=== PATIENT | female | born 1950 | race African-American/Black ===

== ENCOUNTER 2017-05-04 10:43 | Outpatient (CLI) | payer MEDICARE, MEDICAID ==
--- NOTE | 2017-05-04 11:22 | RAD ---
TWO VIEW CHEST: HISTORY: Cough. FINDINGS: Comparison is made to a portable film of 10/19/16. Lungs appear clear with no infiltrate identified. Heart and mediastinum unremarkable and stable. No evidence of vascular congestion or effusion. IMPRESSION: No acute process. POS: [facility]
== END 2017-05-04 10:44 | disposition home or self-care (01) ==
LOC: RAD-FRANK 10:43
PROVIDERS: ATTEND Nurse Practitioner Family
DX: J40 Bronchitis, not specified as acute or chronic (principal)
CPT/HCPCS: 71020

== ENCOUNTER 2017-10-11 12:30 | Inpatient (IN) | payer MEDICARE, MEDICAID ==
[2017-10-30] MEDS ORDERED: CEFAZOLIN 1 GM VIAL ONE (10:07)
[2017-10-30] MEDS ORDERED: CEFAZOLIN/Water 2 GM/20 ML SYRINGE ONE (10:08)
[2017-10-30] MEDS ORDERED: Fentanyl 100 MCG/2 ML VIAL ONE ×2 (11:05→12:22)
[2017-10-30] MEDS ORDERED: Bupivacaine 0.25% HCL 30 ML VIAL ONE (11:05)
[2017-10-30] MEDS ORDERED: Midazolam HCl 2 mg/2 ml Vial ONE ×2 (11:05→13:12)
[2017-10-30] MEDS ORDERED: Ropivacaine 0.5% HCl/PF (150 MG/30 ML VIAL) ONE (11:05)
[2017-10-30] MEDS ORDERED: Albuterol Sulfate 2.5 mg/3 ml Neb ONE (11:32)
[2017-10-30] MEDS ORDERED: traMADol HCl 50 MG TAB PO PRN ×2 (11:56→12:43)
[2017-10-30] MEDS ORDERED: Ondansetron HCl/PF 4 MG/2 ML Vial IVP PRN ×2 (11:56→14:23)
[2017-10-30] MEDS ORDERED: Promethazine HCl 25 MG/ML VIAL IM PRN (11:56)
[2017-10-30] MEDS ORDERED: Zolpidem Tartrate 5 MG TAB PO PRN (11:56)
[2017-10-30] MEDS ORDERED: Fentanyl 100 MCG/2 ML VIAL IV PRN (11:57)
[2017-10-30] MEDS ORDERED: Neomycin-Polymyxin 1 ML AMP ONE (12:23)
[2017-10-30] MEDS ORDERED: EPINEPHrine 1 MG/ML AMP ONE (12:36)
[2017-10-30] MEDS ORDERED: Bupivacaine 0.75% W/DEXTROSE 8.25% 2 ML AMP ONE (12:36)
[2017-10-30] MEDS ORDERED: Acetaminophen/Codeine 30-300mg Tablet PO PRN (12:43)
[2017-10-30] MEDS ORDERED: Fentanyl 100 MCG/2 ML VIAL SLOW IVP PRN (12:43)
[2017-10-30] MEDS ORDERED: Morphine Sulfate 2 MG/ML SYRINGE SLOW IVP PRN (14:23)
--- NOTE | 2017-10-30 15:25 | RAD ---
TWO VIEWS RIGHT KNEE: Comparison: None. History: Status post right knee replacement. FINDINGS: Two views of the right knee shows the patient to be status post right knee arthroplasty without perih ardware lucency or fracture. Air in the soft tissues and overlying skin dallas are from recent surge ry. IMPRESSION: Status post right knee arthroplasty without evidence of complication. POS: [facility]
[2017-10-30] MEDS ORDERED: Dextrose 5% in Water 1,000 ML IV PRN (16:07)
[2017-10-30] MEDS ORDERED: Dextrose 50% Abboject 50 ML SYRINGE SLOW IVP PRN (16:07)
[2017-10-30] MEDS ORDERED: HumaLOG 300 UNITS/3 ML VIAL SC PRN (16:07)
[2017-10-30] MEDS: Gabapentin 100 MG CAP PO SCH ×2 (16:19→21:03)
[2017-10-30] MEDS: Dextrose 5 % And 0.9 % NaCl 1,000 ML IV SCH ×2 (16:20→22:45)
[2017-10-30] MEDS: HYDROcodone/Acetaminophen 10/325 mg Tablet PO PRN ×2 (16:35→21:11)
[2017-10-30 16:50] VITALS: BMI 43.2
--- NOTE | 2017-10-30 17:30 | OP ---
DATE OF PROCEDURE: 10/30/2017 PREOPERATIVE DIAGNOSIS: Severe arthritis of right knee. POSTOPERATIVE DIAGNOSIS: Severe arthritis of right knee. PROCEDURE PERFORMED: Right total knee replacement. SURGEON: Kris Jasso M.D. ANESTHESIA: Spinal and IV sedation. TECHNIQUE: The patient had a spinal prior to surgery. She was given preoperative IV antibiotics, ta elaine to the operating room, placed in supine position. Satisfactory IV sedation was performed. The r ight lower extremity was sterilely prepped and draped in usual fashion. After exsanguination, the to urniquet was raised to 300 mmHg. Anterior incision was made over the knee and a medial parapatellar arthrotomy was performed. The patient was noted to have severe arthritis in all 3 compartments, but worse in the medial compartment where she was completely devoid of articular cartilage. It was bone on bone, but she also had significant arthritis in the patellofemoral joint and lateral compartment. The anterior cruciate ligament was excised. The medial and lateral menisci were excised using the [employer] instrumentation, intramedullary guide was used on the distal femur and a 9 mm were removed from the distal femur, 5 degree valgus angle. The proximal tibia was brought forward and using an e xtramedullary guide, 2 mm were removed from the most affected medial tibial plateau. The spurs were removed from around the tibia and tibia was measured as a size 3. The distal femur was also measured as a size 3 and the cutting jig was placed in the distal femur and the cuts were made on the anterio r, posterior, and chamfer cuts of the distal femur. The spurs were removed from around the distal fe mur as well. Trial was inserted and the 8 mm tibial trial allowed for full extension of the knee and had good stability in flexion and extension. The holes were drilled for the femoral pegs and the ho le was also drilled for the tibial stem. The undersurface of the patella was cut and then measured f or a 32 mm oval dome 3-peg patella. The 3 holes were made for the three pegs. The knee joint was th en copiously irrigated with antibiotic solution using high speed pressure tank operator while the antibiotic impre gnated methyl methacrylate was mixed. The proximal tibia was thoroughly dried and the size 3 fixed b earing tibial tray was cemented into place. The 8 mm tibial insert was locked into the tibial tray a nd the porous cruciate retaining size 3 femoral component was impacted over the distal femur. The kn ee was placed into full extension and the 32 mm 3 PEG oval dome patella was cemented into place. The knee joint again was copiously irrigated with antibiotic solution with the high-speed pressure tank operator. Th e cement was allowed to harden. The knee joint was then closed using #2 Vicryl for the retinacular t issue, 0 Vicryl for the fat and subcutaneous tissue, and the skin was closed with skin dallas. Ster ile dressing was applied. The tourniquet was then released. The patient was awakened, extubated, an d transferred to the recovery room in stable condition. ESTIMATED BLOOD LOSS: 50 mL COMPLICATIONS: None. TOURNIQUET TIME: 65 minutes.
[2017-10-30] MEDS: Insulin Regular 300 UNITS/3 ML VIAL SC SCH (17:43)
[2017-10-30] MEDS: Insulin NPH/Reg Insulin Hm 300 UNITS/3 ML VIAL SC SCH (17:44)
[2017-10-30] MEDS: CEFAZOLIN/Water 2 GM/20 ML SYRINGE SLOW IVP SCH (17:45)
[2017-10-30] MEDS ORDERED: Mometasone/Formoterol 120 PUFF INHALER INH PRN (18:30)
[2017-10-30] MEDS: Simvastatin 5 MG TAB PO SCH (21:03)
[2017-10-30] MEDS: hydrALAZINE 25 MG TAB PO SCH (21:04)
[2017-10-30] MEDS: Potassium Chloride 20 MEQ TAB PO SCH (21:04)
[2017-10-31] MEDS: CEFAZOLIN/Water 2 GM/20 ML SYRINGE SLOW IVP SCH (02:08)
[2017-10-31] MEDS: Bupivacaine 0.5% 50 ML in Sodium Chloride 0.9% 50 ML NERVE BLCK SCH ×2 (03:45→13:06)
[2017-10-31 04:49] LABS: Hemoglobin 9.3 g/dL (12.0-16.0); Mean Corpuscular HGB CONC 34.3 g/dL (32.0-36.0); Mean Corpuscular Hemoglobin 29.5 pg (27.0-31.0); Mean Corpuscular Volume 86.1 fl (81.0-99.0); Mean Platelet Volume 8.2 fL (7.4-10.4); Platelet Count 220 thou/uL (130-400); RBC Distribution Width 14.8 % (11.5-14.5); Red Blood Cell (RBC) Count 3.13 mill/uL (4.20-5.40); White Blood Cell (WBC) Count 12.6 thou/uL (4.8-10.8)
[2017-10-31] MEDS: HYDROcodone/Acetaminophen 10/325 mg Tablet PO PRN ×3 (05:51→19:36)
[2017-10-31] MEDS: HumaLOG 300 UNITS/3 ML VIAL SC PRN (05:58)
[2017-10-31 08:48] LABS: Anion Gap 15 mmol/L (10-20); BUN (Urea Nitrogen) 35 mg/dL (9.8-20.1); Calc. Creatinine Clearance 36 mL/min (70-130); Calcium 8.5 mg/dL (7.8-10.44); Carbon Dioxide 29 mmol/L (23-31); Chloride 98 mmol/L (98-107); Estimated GFR-MDRD 23; Glucose 180 mg/dL (80-115); Potassium 3.9 mmol/L (3.5-5.1); Sodium 138 mmol/L (136-145)
[2017-10-31] MEDS: Insulin NPH/Reg Insulin Hm 300 UNITS/3 ML VIAL SC SCH ×2 (08:53→17:41)
[2017-10-31] MEDS: Insulin Regular 300 UNITS/3 ML VIAL SC SCH ×3 (08:54→17:41)
[2017-10-31] MEDS: Dextrose 5 % And 0.9 % NaCl 1,000 ML IV SCH (08:55)
[2017-10-31] MEDS: Allopurinol 100 MG TAB PO SCH (08:55)
[2017-10-31] MEDS: Gabapentin 100 MG CAP PO SCH ×3 (08:56→22:21)
[2017-10-31] MEDS: Potassium Chloride 20 MEQ TAB PO SCH ×2 (08:56→22:22)
[2017-10-31] MEDS: Cyanocobalamin (Vitamin B-12) 1,000 MCG TAB PO SCH (08:56)
[2017-10-31] MEDS: Ferrous Sulfate 325 MG TAB PO SCH (08:56)
[2017-10-31] MEDS: Multivit, Therapeutic 1 TAB PO SCH (08:56)
[2017-10-31] MEDS: Aspirin 81 mg Enteric Coated Tablet PO SCH (08:56)
[2017-10-31] MEDS: hydrALAZINE 25 MG TAB PO SCH ×2 (08:57→22:20)
[2017-10-31] MEDS: Torsemide 100 MG TAB PO SCH (08:58)
[2017-10-31] MEDS ORDERED: Furosemide 40 MG TAB PO SCH (09:00)
--- NOTE | 2017-10-31 09:36 | CON ---
DATE OF CONSULTATION: 10/31/2017 REASON FOR CONSULTATION: Medical management. HISTORY OF PRESENT ILLNESS: Ms. Yulissa Vidal is a 67-year-old female with past medical history of chronic respiratory failure, diabetes mellitus, hypertension, COPD/asthma, gout and possible valvular heart disease who was admitted for a right knee replacement. She had a right total knee replacement on 10/30/2017 and is stapled. Her only complaint today is pain in her right knee. She otherwise feels well. She denies chest pain, palpitations, shortness of breath, wheezing, PND, orthopnea, or lower extremity edema. She says she has been doing well and has been compliant with her medications. PAST MEDICAL HISTORY: As stated in the HPI. PAST SURGICAL HISTORY: BTL, right knee replacement. ALLERGIES: No known drug allergies. FAMILY HISTORY: Significant for CAD and diabetes. SOCIAL HISTORY: She does not drink alcohol, smoke cigarettes or use illicit drugs. REVIEW OF SYSTEMS: All systems reviewed and negative except as stated in HPI. PHYSICAL EXAMINATION: VITAL SIGNS: Temperature 99.8 degree Fahrenheit, pulse rate 87, respiratory 18 , oxygen saturation 96% on 2 liters of nasal cannula, blood pressure 102/64. GENERAL: Not in acute distress, lying comfortably in bed. HEENT: Normocephalic, atraumatic. Not pale anicteric. Moist mucous membrane. NECK: Supple, full range of movement. No JVD. RESPIRATORY: Vesicular breath sounds bilaterally. No wheezes, rales or rhonchi. CARDIOVASCULAR: S1 and S2 only. Regular rate and rhythm. No murmurs, rubs or gallop. ABDOMEN: Soft, nondistended. Bowel sounds normoactive. MUSCULOSKELETAL: Right knee covered in brace. No erythema, warmth around it. SKIN: No rashes or lesions. PSYCHIATRIC: Normal mood and affect. NEUROLOGIC: Alert and well oriented to time, place and person. No focal deficits. LABORATORY DATA: CMP significant for BUN of 35 and creatinine of 2.51, glucose 180. CBC with hemoglobin of 9.3. WBC of 12.6 and platelet count of 220. IMAGING: Knee x-ray postop shows status post right knee arthroplasty without evidence of complication. ASSESSMENT AND PLAN: 1. Chronic respiratory failure. 2. Chronic obstructive pulmonary disease/hypertension. 3. Diabetes mellitus on insulin. 4. Gout. 5. Elevated creatinine, chronic kidney disease. PLAN: Blood pressures have been otherwise low, so we will hold on antihypertensives for now due to elevated creatinine. We will start her on some parenteral hydration and monitor her serum creatinine. For her diabetes she will be placed on sliding scale insulin, her home insulin 70/30 regimen, diabetic diet. Fingerstick glucose will be checked before meals and at bedtime. Hypoglycemia protocol also in place. For her chronic obstructive pulmonary disease, oxygen supplementation will be continued and she will be placed on scheduled and p.r.n. bronchodilator therapy. We will continue to follow with you. Please do not hesitate to call if you have any questions or concerns. PRASHANTH
[2017-10-31] MEDS: Sodium Chloride 0.9% 1,000 ML IV SCH ×3 (11:05→19:38)
--- NOTE | 2017-10-31 14:08 | PRG ---
DATE OF SERVICE: 10/31/2017 SUBJECTIVE: Ms. Vidal underwent right total knee replacement yesterday. She has been fairly stable. The patient required admission after a total knee replacement for mobilization to be instructed by physical and occupational therapy and also for pain control. PHYSICAL EXAMINATION: VITAL SIGNS: Patient's temperature maximum was 100. Other vital signs are normal. MUSCULOSKELETAL: Right lower extremity is neurovascularly intact. LABORATORY DATA: Today, her hemoglobin 9.3, hematocrit 27, creatinine is 2.51, and BUN 35. PLAN: The hospitalist is taking care of the patient's diabetes management and other medical concerns . We will recheck her hemoglobin and hematocrit tomorrow. We will have physical and occupational th maya worked with patient to help mobilize her and get her more independent with a walker.
[2017-10-31] MEDS: Albuterol Sulfate 2.5 mg/3 ml Neb NEB PRN (15:59)
[2017-10-31] MEDS: Verapamil 120 MG TAB PO SCH (22:22)
[2017-10-31] MEDS: Simvastatin 5 MG TAB PO SCH (22:22)
[2017-11-01] MEDS: HYDROcodone/Acetaminophen 10/325 mg Tablet PO PRN (01:07)
[2017-11-01] MEDS: Bupivacaine 0.5% 50 ML in Sodium Chloride 0.9% 50 ML NERVE BLCK SCH ×2 (01:55→15:07)
[2017-11-01 04:21] LABS: Mean Corpuscular HGB CONC 33.4 g/dL (32.0-36.0); Mean Corpuscular Hemoglobin 29.2 pg (27.0-31.0); Mean Corpuscular Volume 87.4 fl (81.0-99.0); Mean Platelet Volume 8.5 fL (7.4-10.4); Platelet Count 177 thou/uL (130-400); RBC Distribution Width 14.6 % (11.5-14.5); Red Blood Cell (RBC) Count 3.08 mill/uL (4.20-5.40); White Blood Cell (WBC) Count 16.4 thou/uL (4.8-10.8)
[2017-11-01] MEDS: HumaLOG 300 UNITS/3 ML VIAL SC PRN (06:43)
[2017-11-01] MEDS: Furosemide 40 MG TAB PO SCH (06:44)
[2017-11-01 07:34] LABS: Anion Gap 14 mmol/L (10-20); BUN (Urea Nitrogen) 39 mg/dL (9.8-20.1); Calc. Creatinine Clearance 36 mL/min (70-130); Calcium 8.7 mg/dL (7.8-10.44); Carbon Dioxide 27 mmol/L (23-31); Chloride 100 mmol/L (98-107); Estimated GFR-MDRD 23; Glucose 180 mg/dL (80-115); Potassium 4.4 mmol/L (3.5-5.1); Sodium 137 mmol/L (136-145)
[2017-11-01] MEDS: Allopurinol 100 MG TAB PO SCH (08:56)
[2017-11-01] MEDS: Cyanocobalamin (Vitamin B-12) 1,000 MCG TAB PO SCH (08:56)
[2017-11-01] MEDS: Ferrous Sulfate 325 MG TAB PO SCH (08:56)
[2017-11-01] MEDS: Gabapentin 100 MG CAP PO SCH ×3 (08:56→20:57)
[2017-11-01] MEDS: Potassium Chloride 20 MEQ TAB PO SCH ×2 (08:57→20:58)
[2017-11-01] MEDS: Insulin NPH/Reg Insulin Hm 300 UNITS/3 ML VIAL SC SCH ×2 (08:57→16:39)
[2017-11-01] MEDS: Insulin Regular 300 UNITS/3 ML VIAL SC SCH ×3 (08:58→16:39)
[2017-11-01] MEDS: Aspirin 81 mg Enteric Coated Tablet PO SCH (09:00)
[2017-11-01] MEDS: Torsemide 10 MG TAB PO SCH (09:04)
[2017-11-01] MEDS: Verapamil 120 MG TAB PO SCH ×2 (09:04→20:56)
[2017-11-01] MEDS: hydrALAZINE 25 MG TAB PO SCH ×2 (09:05→20:58)
[2017-11-01] MEDS: Multivit, Therapeutic 1 TAB PO SCH (10:10)
--- NOTE | 2017-11-01 10:10 | PDOC.PN ---
- Subjective Encounter Start Date: 11/01/17 Encounter Start Time: 10:14 Patient seen and examined. Admitted for R knee arthroplasty and on POD 2. Doing well. Consulted for medical management of her chronic illnesses. - Objective Vital Signs & Weight: Vital Signs (12 hours) Temp Pulse Pulse Resp BP BP BP 11/01/17 09:05 82 115/79 11/01/17 08:35 80 115/79 11/01/17 07:42 98.2 F 82 18 113/75 11/01/17 04:50 98.9 F 86 12 120/89 11/01/17 00:50 100.1 F H 94 17 142/76 H 10/31/17 22:20 90 132/81 Pulse Ox Pulse Ox 11/01/17 09:05 11/01/17 08:35 95 11/01/17 07:42 94 L 11/01/17 04:50 93 L 11/01/17 00:50 90 L 10/31/17 22:20 Weight Weight 234 lb 12.677 oz I&O: 10/31/17 11/01/17 11/02/17 06:59 06:59 06:59 Intake Total 2276 3250 Output Total 400 1500 Balance 1876 1750 Result Diagrams: 11/01/17 03:35 11/01/17 03:35 Additional Labs: Accuchecks 11/01/17 10/31/17 10/31/17 05:35 21:12 16:08 POC Glucose 212 H 140 H 110 10/31/17 11:29 POC Glucose 196 H Phys Exam - Physical Examination Constitutional: NAD HEENT: moist MMs, sclera anicteric, oral pharynx no lesions Neck: supple, full ROM Respiratory: no wheezing, no rales, no rhonchi, clear to auscultation bilateral Cardiovascular: RRR, no significant murmur, no rub Gastrointestinal: soft, non-tender, no distention, positive bowel sounds Musculoskeletal: no edema, pulses present Neurological: non-focal R knee brace in place. Psychiatric: normal affect, A&O x 3 Skin: no rash, normal turgor Dx/Plan (1) Diabetes mellitus type 2 in obese Code(s): E11.9 - TYPE 2 DIABETES MELLITUS WITHOUT COMPLICATIONS; E66.9 - OBESITY , UNSPECIFIED Status: Chronic Comment: Achieving better glycemic control. Hypoglycemia protocol in place. (2) CKD (chronic kidney disease) stage 3, GFR 30-59 ml/min Code(s): N18.3 - CHRONIC KIDNEY DISEASE, STAGE 3 (MODERATE) Status: Chronic Comment: Creatinine stable. Will monitor. (3) Chronic respiratory failure with hypoxia Code(s): J96.11 - CHRONIC RESPIRATORY FAILURE WITH HYPOXIA Status: Chronic (4) Diabetic peripheral neuropathy Code(s): E11.42 - TYPE 2 DIABETES MELLITUS WITH DIABETIC POLYNEUROPATHY Status : Chronic (5) Hypertension Code(s): I10 - ESSENTIAL (PRIMARY) HYPERTENSION Status: Chronic Qualifiers: Hypertension type: essential hypertension Qualified Code(s): I10 - Essential (primary) hypertension Comment: At goal. (6) Status post total right knee replacement Code(s): Z96.651 - PRESENCE OF RIGHT ARTIFICIAL KNEE JOINT Status: Acute - Plan cont current plan of care, PT/OT, respiratory therapy, DVT proph w/lovenox * . Review of Systems - Medications/Allergies Allergies/Adverse Reactions: Allergies Allergy/AdvReac Type Severity Reaction Status Date / Time ipratropium [From Atrovent] Allergy DIZZY, Verified 10/11/17 13:50 TROUBLE BREATHING Sulfa (Sulfonamide Allergy DYSPNEA Verified 10/11/17 13:50 Antibiotics) Medications: Current Medications Hydrocodone Bitart/Acetaminophen (Canjilon 10/325) 1 tab PO Q4H PRN PRN Reason: Pain (1-3) Last Admin: 10/30/17 16:35 Dose: 1 tab Hydrocodone Bitart/Acetaminophen (Canjilon 10/325) 2 tab PO Q4H PRN PRN Reason: PAIN (4-6) Last Admin: 11/01/17 01:07 Dose: 2 tab Albuterol Sulfate (Ventolin) 2.5 mg NEB Q4H PRN PRN Reason: Dyspnea/Wheezing/SOB Last Admin: 10/31/17 15:59 Dose: 2.5 mg Allopurinol (Zyloprim) 100 mg PO DAILY [facility] Last Admin: 11/01/17 08:56 Dose: 100 mg Aspirin (Ecotrin) 81 mg PO DAILY [facility] Last Admin: 10/31/17 08:56 Dose: 81 mg Cholecalciferol (Vitamin D3) 1,000 units PO DAILY [facility] Last Admin: 11/01/17 08:56 Dose: 1,000 units Cyanocobalamin (Vitamin B-12) 1,000 mcg PO DAILY [facility] Last Admin: 11/01/17 08:56 Dose: 1,000 mcg Dextrose/Water (Dextrose 50%) 25 gm SLOW IVP PRN PRN PRN Reason: Hypoglycemia Fentanyl (Sublimaze) 50 mcg IV Q1H PRN PRN Reason: .BREAKTHROUGH PAIN Fentanyl (Sublimaze) 50 mcg SLOW IVP Q30MIN PRN PRN Reason: Severe Pain (7-10) Ferrous Sulfate (Feosol) 325 mg PO DAILY [facility] Last Admin: 11/01/17 08:56 Dose: 325 mg Furosemide (Lasix) 40 mg PO DAILY-AC [facility] Last Admin: 11/01/17 06:44 Dose: 40 mg Gabapentin (Neurontin) 200 mg PO TID [facility] Last Admin: 11/01/17 08:56 Dose: 200 mg Glucagon (Glucagon) 1 mg IM PRN PRN PRN Reason: Hypoglycemia Hydralazine HCl (Apresoline) 50 mg PO BID [facility] Last Admin: 11/01/17 09:05 Dose: Not Given Bupivacaine HCl 50 ml/ Sodium (Chloride) 100 mls @ 8 mls/hr NERVE BLCK INF [facility] Last Admin: 11/01/17 01:55 Dose: 100 mls Dextrose/Water (D5w) 1,000 mls @ 0 mls/hr IV .Q0M PRN; As Directed PRN Reason: Hypoglycemia Sodium Chloride (Normal Saline 0.9%) 1,000 mls @ 100 mls/hr IV .Q10H [facility] Last Admin: 10/31/17 19:38 Dose: 1,000 mls Insulin Human Isoph/Insulin Regular (Humulin 70/30) 25 units SC BID-[facility] Last Admin: 11/01/17 08:57 Dose: 25 unit Insulin Human Lispro (Humalog) 0 units SC .MILD SLIDING SCALE PRN PRN Reason: Mild Correctional Scale Last Admin: 11/01/17 06:43 Dose: 3 unit Insulin Human Lispro (Humalog) 0 units SC .BEDTIME SLIDING SC PRN PRN Reason: Bedtime Correctional Scale Last Admin: 10/30/17 21:15 Dose: 2 unit Insulin Human Regular (Humulin R) 10 units SC TID-[facility] Last Admin: 11/01/17 08:58 Dose: 10 unit Mometasone Furoate/Formoterol Fumar (Dulera 200 Mcg/5 Mcg Inhaler) 2 puff INH BID-RT PRN PRN Reason: ASTHMA, COPD Multivitamins (Theragran) 1 tab PO DAILY [facility] Last Admin: 10/31/17 08:56 Dose: 1 tab Ondansetron HCl (Zofran) 4 mg IVP Q6H PRN PRN Reason: Nausea/Vomiting Potassium Chloride (K-Dur) 20 meq PO BID [facility] Last Admin: 11/01/17 08:57 Dose: 20 meq Promethazine HCl (Phenergan) 12.5 mg IM Q4H PRN PRN Reason: Nausea Simvastatin (Zocor) 10 mg PO HS [facility] Last Admin: 10/31/17 22:22 Dose: 10 mg Sodium Chloride (Flush - Normal Saline) 10 ml IVF PRN PRN PRN Reason: Saline Flush Torsemide (Demadex) 100 mg PO QAM [facility] Last Admin: 10/31/17 08:58 Dose: Not Given Torsemide (Demadex) 10 mg PO DAILY [facility] Last Admin: 11/01/17 09:04 Dose: Not Given Tramadol HCl (Ultram) 50 mg PO Q6H PRN PRN Reason: Mild Pain (1-3) Tramadol HCl (Ultram) 100 mg PO Q6H PRN PRN Reason: Moderate Pain 4-6 Verapamil HCl (Calan) 360 mg PO BID [facility] Last Admin: 11/01/17 09:04 Dose: Not Given Zolpidem Tartrate (Ambien) 5 mg PO HSPRN PRN PRN Reason: Insomnia
[2017-11-01] MEDS: Torsemide 100 MG TAB PO SCH (10:12)
[2017-11-01] MEDS: Albuterol Sulfate 2.5 mg/3 ml Neb NEB PRN (12:24)
[2017-11-01] MEDS: Sodium Chloride 0.9% 1,000 ML IV SCH (19:47)
[2017-11-01] MEDS: Simvastatin 5 MG TAB PO SCH (20:57)
[2017-11-02] MEDS: HYDROcodone/Acetaminophen 10/325 mg Tablet PO PRN ×2 (00:53→09:50)
--- NOTE | 2017-11-02 01:06 | PRG ---
DATE OF SERVICE: 11/01/2017 Ms. Vidal is 2 days status post right total knee replacement. Medically, she has been fairly stable. She has not made very much progress with physical or occupational therapy. She has done very littl e walking. She is sitting up on the side of the bed. The patient has been afebrile. Her vital sign s have been stable. LABORATORY DATA: Hemoglobin this morning was 9.0 and hematocrit 26.9. Chemistries show a creatinine of 2.5 and a BUN of 39. The right knee incision is healing well. The right lower extremity is neurovascularly intact. She h as usual amount of swelling and bruising. The patient is not progressing well. She was very deconditioned and did most of her transport in a w heelchair. She was minimally ambulatory prior to the surgery. So, she will require much more physic al and occupational therapy before she could safely go home. Case management is working on getting h [facility] into the [facility] that her [facility] already [facility] for continued therapy, so that she co brandon eventually safely go home.
[2017-11-02] MEDS: Sodium Chloride 0.9% 1,000 ML IV SCH ×3 (02:23→21:51)
[2017-11-02] MEDS: Bupivacaine 0.5% 50 ML in Sodium Chloride 0.9% 50 ML NERVE BLCK SCH (03:29)
[2017-11-02 04:17] LABS: Hemoglobin 8.1 g/dL (12.0-16.0); Mean Corpuscular Hemoglobin 29.3 pg (27.0-31.0); Mean Corpuscular Volume 86.3 fl (81.0-99.0); Mean Platelet Volume 8.6 fL (7.4-10.4); Platelet Count 161 thou/uL (130-400); RBC Distribution Width 14.5 % (11.5-14.5); Red Blood Cell (RBC) Count 2.77 mill/uL (4.20-5.40); White Blood Cell (WBC) Count 17.6 thou/uL (4.8-10.8)
[2017-11-02 04:24] LABS: Anion Gap 11 mmol/L (10-20); BUN (Urea Nitrogen) 43 mg/dL (9.8-20.1); Calc. Creatinine Clearance 37 mL/min (70-130); Calcium 8.9 mg/dL (7.8-10.44); Carbon Dioxide 29 mmol/L (23-31); Chloride 101 mmol/L (98-107); Estimated GFR-MDRD 24; Glucose 177 mg/dL (80-115); Potassium 4.7 mmol/L (3.5-5.1); Sodium 136 mmol/L (136-145)
[2017-11-02] MEDS: Furosemide 40 MG TAB PO SCH (07:56)
[2017-11-02] MEDS: Insulin NPH/Reg Insulin Hm 300 UNITS/3 ML VIAL SC SCH ×2 (08:52→17:41)
[2017-11-02] MEDS: Insulin Regular 300 UNITS/3 ML VIAL SC SCH ×3 (08:52→17:40)
[2017-11-02] MEDS: Multivit, Therapeutic 1 TAB PO SCH (08:54)
[2017-11-02] MEDS: hydrALAZINE 25 MG TAB PO SCH ×2 (08:54→21:58)
[2017-11-02] MEDS: Potassium Chloride 20 MEQ TAB PO SCH ×2 (08:54→21:58)
[2017-11-02] MEDS: Gabapentin 100 MG CAP PO SCH ×4 (08:54→22:03)
[2017-11-02] MEDS: Aspirin 81 mg Enteric Coated Tablet PO SCH (08:55)
[2017-11-02] MEDS: Ferrous Sulfate 325 MG TAB PO SCH (08:56)
[2017-11-02] MEDS: Torsemide 10 MG TAB PO SCH (08:56)
[2017-11-02] MEDS: Cyanocobalamin (Vitamin B-12) 1,000 MCG TAB PO SCH (08:56)
[2017-11-02] MEDS: Allopurinol 100 MG TAB PO SCH (08:56)
[2017-11-02] MEDS: Torsemide 100 MG TAB PO SCH (08:57)
[2017-11-02] MEDS: Verapamil 120 MG TAB PO SCH ×2 (09:04→21:56)
[2017-11-02 09:08] LABS: Iron 13 ug/dL (50-170); Iron Binding Capacity, Total 173 mcg/dL (265-497)
--- NOTE | 2017-11-02 09:35 | RAD ---
PORTABLE CHEST 1 VIEW: DATE: 11/02/17. TIME: 8:55 a.m. HISTORY: Wheezing and hypoxia. FINDINGS: Comparison is made with the exam of 05/04/17. The heart size is enlarged. No lobar consolidation, pneumothoraces, or pleural effusions are seen. There is no evidence of nafisa pulmonary edema. Right infrahilar prominence is again seen, likely vas cular. IMPRESSION: No acute process. POS: [facility]
[2017-11-02 09:42] LABS: Folate (Folic Acid) 8.6 ng/mL (7.0-31.4)
[2017-11-02] MEDS: Azithromycin 500 MG in Sodium Chloride 0.9% 250 ML 250 ML IVPB SCH (09:45)
[2017-11-02] MEDS: cefTRIAXone\\ROCEPHIN 1 GM in Sodium Chloride 0.9% 100 ML IVPB SCH (09:46)
[2017-11-02 09:52] LABS: #Eosinphils 0.9 thou/uL (0.0-0.7); #Lymphocytes 1.6 thou/uL (1.20-3.40); #Monocytes 1.6 thou/uL (0.11-0.59); #Neutrophils 13.5 thou/uL (1.40-6.50); %Basophils 0.2 % (0.0-1.0); %Monocytes 9.1 % (0.0-10.0); %Neutrophils 76.7 % (42.0-75.0); Hemoglobin 8.1 g/dL (12.0-16.0); Mean Corpuscular HGB CONC 33.5 g/dL (32.0-36.0); Mean Corpuscular Hemoglobin 29.3 pg (27.0-31.0); Mean Corpuscular Volume 87.4 fl (81.0-99.0); Mean Platelet Volume 8.7 fL (7.4-10.4); Platelet Count 169 thou/uL (130-400); RBC Distribution Width 14.7 % (11.5-14.5); Red Blood Cell (RBC) Count 2.76 mill/uL (4.20-5.40); White Blood Cell (WBC) Count 17.6 thou/uL (4.8-10.8)
[2017-11-02] MEDS: HumaLOG 300 UNITS/3 ML VIAL SC PRN (11:22)
[2017-11-02] MEDS: Albuterol Sulfate 2.5 mg/3 ml Neb NEB PRN ×2 (11:30→14:42)
--- NOTE | 2017-11-02 11:33 | PDOC.PN ---
- Subjective Encounter Start Date: 11/02/17 Encounter Start Time: 11:36 Patient admitted for Total Right Knee Arthroplasty. Has had fevers, leucocytosis and wheezing. This morning she complains of cough productive of yellowish green sputum. - Objective MAR Reviewed: Yes Vital Signs & Weight: Vital Signs (12 hours) Temp Pulse Resp BP BP Pulse Ox 11/02/17 11:30 95 11/02/17 11:00 98.3 F 87 16 108/65 94 L 11/02/17 08:54 91 104/69 11/02/17 08:00 99.1 F 91 20 104/69 95 11/02/17 03:52 99.6 F 91 20 123/78 90 L 11/02/17 00:00 100 F H 94 16 121/70 90 L Weight Weight 234 lb 12.677 oz I&O: 11/01/17 11/02/17 11/03/17 06:59 06:59 06:59 Intake Total 3250 200 480 Output Total 8873 162 6839 Balance 1750 -150 -720 Result Diagrams: 11/02/17 09:38 11/02/17 03:54 Additional Labs: Accuchecks 11/02/17 11/02/17 11/01/17 10:34 05:48 21:02 POC Glucose 232 H 157 H 100 11/01/17 11/01/17 15:59 12:03 POC Glucose 171 H 181 H Phys Exam - Physical Examination Constitutional: NAD HEENT: moist MMs, sclera anicteric, oral pharynx no lesions Neck: supple, full ROM Respiratory: wheezing present Cardiovascular: RRR, no significant murmur, no rub Gastrointestinal: soft, non-tender, no distention, positive bowel sounds Musculoskeletal: no edema, pulses present Neurological: non-focal Psychiatric: normal affect, A&O x 3 Skin: no rash, normal turgor Dx/Plan (1) COPD with exacerbation Code(s): J44.1 - CHRONIC OBSTRUCTIVE PULMONARY DISEASE W (ACUTE) EXACERBATION Status: Acute Comment: Likely w acute bronchitis vs PNA. Started on empiric antibiotics. Blood cultures and CXR ordered. (2) Diabetes mellitus type 2 in obese Code(s): E11.9 - TYPE 2 DIABETES MELLITUS WITHOUT COMPLICATIONS; E66.9 - OBESITY , UNSPECIFIED Status: Chronic Comment: Achieving better glycemic control. Hypoglycemia protocol in place. (3) CKD (chronic kidney disease) stage 3, GFR 30-59 ml/min Code(s): N18.3 - CHRONIC KIDNEY DISEASE, STAGE 3 (MODERATE) Status: Chronic Comment: Creatinine improving. Will monitor. (4) Chronic respiratory failure with hypoxia Code(s): J96.11 - CHRONIC RESPIRATORY FAILURE WITH HYPOXIA Status: Chronic (5) Diabetic peripheral neuropathy Code(s): E11.42 - TYPE 2 DIABETES MELLITUS WITH DIABETIC POLYNEUROPATHY Status : Chronic (6) Hypertension Code(s): I10 - ESSENTIAL (PRIMARY) HYPERTENSION Status: Chronic Qualifiers: Hypertension type: essential hypertension Qualified Code(s): I10 - Essential (primary) hypertension Comment: At goal. 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 Parenteral iron for iron deficiency. Monitor Hb. Hb was 12.2 earlier this month. Iron studies show a mixed picture. f/u stool occult blood. Review of Systems - Medications/Allergies Allergies/Adverse Reactions: Allergies Allergy/AdvReac Type Severity Reaction Status Date / Time ipratropium [From Atrovent] Allergy DIZZY, Verified 10/11/17 13:50 TROUBLE BREATHING Sulfa (Sulfonamide Allergy DYSPNEA Verified 10/11/17 13:50 Antibiotics) Medications: Current Medications Hydrocodone Bitart/Acetaminophen ([place] 10/325) 1 tab PO Q4H PRN PRN Reason: Pain (1-3) Last Admin: 10/30/17 16:35 Dose: 1 tab Hydrocodone Bitart/Acetaminophen ([place] 10/325) 2 tab PO Q4H PRN PRN Reason: PAIN (4-6) Last Admin: 11/02/17 09:50 Dose: 2 tab Albuterol Sulfate (Ventolin) 2.5 mg NEB Q4H PRN PRN Reason: Dyspnea/Wheezing/SOB Last Admin: 11/01/17 12:24 Dose: 2.5 mg Allopurinol (Zyloprim) 100 mg PO DAILY [facility] Last Admin: 11/02/17 08:56 Dose: 100 mg Aspirin (Ecotrin) 81 mg PO DAILY [facility] Last Admin: 11/02/17 08:55 Dose: 81 mg Cholecalciferol (Vitamin D3) 1,000 units PO DAILY [facility] Last Admin: 11/02/17 08:56 Dose: 1,000 units Cyanocobalamin (Vitamin B-12) 1,000 mcg PO DAILY [facility] Last Admin: 11/02/17 08:56 Dose: 1,000 mcg Dextrose/Water (Dextrose 50%) 25 gm SLOW IVP PRN PRN PRN Reason: Hypoglycemia Fentanyl (Sublimaze) 50 mcg IV Q1H PRN PRN Reason: .BREAKTHROUGH PAIN Fentanyl (Sublimaze) 50 mcg SLOW IVP Q30MIN PRN PRN Reason: Severe Pain (7-10) Ferrous Sulfate (Feosol) 325 mg PO DAILY [facility] Last Admin: 11/02/17 08:56 Dose: 325 mg Furosemide (Lasix) 40 mg PO DAILY-AC [facility] Last Admin: 11/02/17 07:56 Dose: 40 mg Gabapentin (Neurontin) 200 mg PO TID [facility] Last Admin: 11/02/17 08:54 Dose: 200 mg Glucagon (Glucagon) 1 mg IM PRN PRN PRN Reason: Hypoglycemia Hydralazine HCl (Apresoline) 50 mg PO BID [facility] Last Admin: 11/02/17 08:54 Dose: Not Given Bupivacaine HCl 50 ml/ Sodium (Chloride) 100 mls @ 8 mls/hr NERVE BLCK INF [facility] Last Admin: 11/02/17 03:29 Dose: 100 mls Dextrose/Water (D5w) 1,000 mls @ 0 mls/hr IV .Q0M PRN; As Directed PRN Reason: Hypoglycemia Sodium Chloride (Normal Saline 0.9%) 1,000 mls @ 100 mls/hr IV .Q10H [facility] Last Admin: 11/02/17 10:17 Dose: Not Given Azithromycin 500 mg/ Sodium (Chloride) 250 mls @ 250 mls/hr IVPB Q24HR [facility] Stop: 11/04/17 09:59 Last Admin: 11/02/17 09:45 Dose: 250 mls Ceftriaxone Sodium 1 gm/ (Sodium Chloride) 100 mls @ 200 mls/hr IVPB Q24HR [facility] Last Admin: 11/02/17 09:46 Dose: 100 mls Insulin Human Isoph/Insulin Regular (Humulin 70/30) 25 units SC BID-WM [facility] Last Admin: 11/02/17 08:52 Dose: 25 unit Insulin Human Lispro (Humalog) 0 units SC .MILD SLIDING SCALE PRN PRN Reason: Mild Correctional Scale Last Admin: 11/02/17 11:22 Dose: 3 unit Insulin Human Lispro (Humalog) 0 units SC .BEDTIME SLIDING SC PRN PRN Reason: Bedtime Correctional Scale Last Admin: 10/30/17 21:15 Dose: 2 unit Insulin Human Regular (Humulin R) 10 units SC TID-[facility] Last Admin: 11/02/17 08:52 Dose: 10 unit Mometasone Furoate/Formoterol Fumar (Dulera 200 Mcg/5 Mcg Inhaler) 2 puff INH BID-RT PRN PRN Reason: ASTHMA, COPD Multivitamins (Theragran) 1 tab PO DAILY [facility] Last Admin: 11/02/17 08:54 Dose: 1 tab Ondansetron HCl (Zofran) 4 mg IVP Q6H PRN PRN Reason: Nausea/Vomiting Last Admin: 11/01/17 10:11 Dose: 4 mg Potassium Chloride (K-Dur) 20 meq PO BID [facility] Last Admin: 11/02/17 08:54 Dose: 20 meq Promethazine HCl (Phenergan) 12.5 mg IM Q4H PRN PRN Reason: Nausea Simvastatin (Zocor) 10 mg PO HS [facility] Last Admin: 11/01/17 20:57 Dose: 10 mg Sodium Chloride (Flush - Normal Saline) 10 ml IVF PRN PRN PRN Reason: Saline Flush Last Admin: 11/02/17 09:46 Dose: 10 ml Torsemide (Demadex) 100 mg PO QAM [facility] Last Admin: 11/02/17 08:57 Dose: Not Given Torsemide (Demadex) 10 mg PO DAILY [facility] Last Admin: 11/02/17 08:56 Dose: Not Given Tramadol HCl (Ultram) 50 mg PO Q6H PRN PRN Reason: Mild Pain (1-3) Tramadol HCl (Ultram) 100 mg PO Q6H PRN PRN Reason: Moderate Pain 4-6 Verapamil HCl (Calan) 360 mg PO BID [facility] Last Admin: 11/02/17 09:04 Dose: Not Given Zolpidem Tartrate (Ambien) 5 mg PO HSPRN PRN PRN Reason: Insomnia
[2017-11-02] MEDS: Simvastatin 5 MG TAB PO SCH (21:57)
[2017-11-03] MEDS: HYDROcodone/Acetaminophen 10/325 mg Tablet PO PRN ×2 (02:23→13:01)
[2017-11-03 05:43] LABS: Anion Gap 15 mmol/L (10-20); BUN (Urea Nitrogen) 49 mg/dL (9.8-20.1); Calc. Creatinine Clearance 39 mL/min (70-130); Calcium 9.1 mg/dL (7.8-10.44); Carbon Dioxide 27 mmol/L (23-31); Chloride 103 mmol/L (98-107); Estimated GFR-MDRD 25; Glucose 139 mg/dL (80-115); Potassium 5.3 mmol/L (3.5-5.1); Sodium 140 mmol/L (136-145)
[2017-11-03] MEDS: Sodium Chloride 0.9% 1,000 ML IV SCH ×2 (06:34→17:47)
[2017-11-03] MEDS: Furosemide 40 MG TAB PO SCH (06:34)
[2017-11-03] MEDS: Azithromycin 500 MG in Sodium Chloride 0.9% 250 ML 250 ML IVPB SCH (08:52)
[2017-11-03] MEDS: Torsemide 10 MG TAB PO SCH (08:55)
[2017-11-03] MEDS: Torsemide 100 MG TAB PO SCH (08:59)
[2017-11-03] MEDS: Verapamil 120 MG TAB PO SCH ×2 (08:59→21:23)
[2017-11-03] MEDS: Cyanocobalamin (Vitamin B-12) 1,000 MCG TAB PO SCH (09:00)
[2017-11-03] MEDS: Aspirin 81 mg Enteric Coated Tablet PO SCH (09:00)
[2017-11-03] MEDS: traMADol HCl 50 MG TAB PO PRN ×2 (09:02→21:40)
[2017-11-03] MEDS: hydrALAZINE 25 MG TAB PO SCH ×2 (09:05→21:23)
[2017-11-03] MEDS: Allopurinol 100 MG TAB PO SCH (09:05)
[2017-11-03] MEDS: Potassium Chloride 20 MEQ TAB PO SCH ×2 (09:06→21:24)
[2017-11-03] MEDS: Gabapentin 100 MG CAP PO SCH ×3 (09:06→21:23)
[2017-11-03] MEDS: Multivit, Therapeutic 1 TAB PO SCH (09:07)
[2017-11-03] MEDS: Ferrous Sulfate 325 MG TAB PO SCH (09:07)
[2017-11-03] MEDS: Insulin Regular 300 UNITS/3 ML VIAL SC SCH ×3 (09:17→17:35)
[2017-11-03] MEDS: Insulin NPH/Reg Insulin Hm 300 UNITS/3 ML VIAL SC SCH ×2 (09:17→17:35)
--- NOTE | 2017-11-03 10:20 | PDOC.PN ---
- Subjective Encounter Start Date: 11/03/17 Encounter Start Time: 07:20 Pt seen for followup re: COPD exacerbation. Reports cough, clear sputum. No fevers or chills. - Objective MAR Reviewed: Yes Vital Signs & Weight: Vital Signs (12 hours) Temp Pulse Resp BP Pulse Ox 11/03/17 09:05 84 11/03/17 08:17 98.9 F 84 16 126/71 93 L 11/03/17 04:23 99.6 F 92 20 133/75 92 L 11/03/17 02:01 96 11/03/17 00:40 100 F H 95 20 101/64 97 Weight Weight 234 lb 12.677 oz I&O: 11/02/17 11/03/17 11/04/17 06:59 06:59 06:59 Intake Total 200 2860 Output Total 350 1200 Balance -150 1660 Result Diagrams: 11/04/17 04:30 11/04/17 04:30 Additional Labs: Accuchecks 11/02/17 11/02/17 11/02/17 20:55 15:32 10:34 POC Glucose 171 H 134 H 232 H Labs reviewed by me Phys Exam - Physical Examination Morbid obesity HEENT: moist MMs Neck: supple Respiratory: clear to auscultation bilateral Cardiovascular: RRR Gastrointestinal: soft, non-tender s/p R knee surgery Neurological: moves all 4 limbs Psychiatric: normal affect Dx/Plan (1) COPD with exacerbation Code(s): J44.1 - CHRONIC OBSTRUCTIVE PULMONARY DISEASE W (ACUTE) EXACERBATION Status: Acute Comment: Improving. Switch antibiotics to oral. Continue bronchodilators and PRN oxygen (2) Hyperkalemia Code(s): E87.5 - HYPERKALEMIA Status: Resolved Comment: resolved after kayexalate administration (3) Status post total right knee replacement Code(s): Z96.651 - PRESENCE OF RIGHT ARTIFICIAL KNEE JOINT Status: Acute (4) CKD (chronic kidney disease) stage 3, GFR 30-59 ml/min Code(s): N18.3 - CHRONIC KIDNEY DISEASE, STAGE 3 (MODERATE) Status: Chronic Comment: creatinine improved to 1.89 (5) Diabetes mellitus type 2 in obese Code(s): E11.9 - TYPE 2 DIABETES MELLITUS WITHOUT COMPLICATIONS; E66.9 - OBESITY , UNSPECIFIED Status: Chronic Comment: on accuchecks, insulin sliding scale (6) Hypertension Code(s): I10 - ESSENTIAL (PRIMARY) HYPERTENSION Status: Chronic Qualifiers: Hypertension type: essential hypertension Qualified Code(s): I10 - Essential (primary) hypertension Comment: At goal. - Plan * . Review of Systems - Review of Systems Respiratory: Cough, Sputum. negative: Dry, Shortness of Breath, Hemoptysis, SOB with Excertion, Pleuritic Pain, Wheezing Cardiovascular: negative: chest pain, palpitations, orthopnea, paroxysmal nocturnal dyspnea, edema, light headedness - Medications/Allergies Allergies/Adverse Reactions: Allergies Allergy/AdvReac Type Severity Reaction Status Date / Time ipratropium [From Atrovent] Allergy DIZZY, Verified 10/11/17 13:50 TROUBLE BREATHING Sulfa (Sulfonamide Allergy DYSPNEA Verified 10/11/17 13:50 Antibiotics) Medications: Current Medications Hydrocodone Bitart/Acetaminophen ([place] 10/325) 1 tab PO Q4H PRN PRN Reason: Pain (1-3) Last Admin: 11/03/17 02:23 Dose: 1 tab Hydrocodone Bitart/Acetaminophen ([place] 10/325) 2 tab PO Q4H PRN PRN Reason: PAIN (4-6) Last Admin: 11/02/17 09:50 Dose: 2 tab Albuterol Sulfate (Ventolin) 2.5 mg NEB Q4H PRN PRN Reason: Dyspnea/Wheezing/SOB Last Admin: 11/02/17 14:42 Dose: 2.5 mg Allopurinol (Zyloprim) 100 mg PO DAILY [facility] Last Admin: 11/03/17 09:05 Dose: 100 mg Aspirin (Ecotrin) 81 mg PO DAILY [facility] Last Admin: 11/03/17 09:00 Dose: 81 mg Cholecalciferol (Vitamin D3) 1,000 units PO DAILY [facility] Last Admin: 11/03/17 09:03 Dose: 1,000 units Cyanocobalamin (Vitamin B-12) 1,000 mcg PO DAILY [facility] Last Admin: 11/03/17 09:00 Dose: 1,000 mcg Dextrose/Water (Dextrose 50%) 25 gm SLOW IVP PRN PRN PRN Reason: Hypoglycemia Fentanyl (Sublimaze) 50 mcg IV Q1H PRN PRN Reason: .BREAKTHROUGH PAIN Fentanyl (Sublimaze) 50 mcg SLOW IVP Q30MIN PRN PRN Reason: Severe Pain (7-10) Ferrous Sulfate (Feosol) 325 mg PO DAILY [facility] Last Admin: 11/03/17 09:07 Dose: 325 mg Furosemide (Lasix) 40 mg PO DAILY[facility] Last Admin: 11/03/17 06:34 Dose: 40 mg Gabapentin (Neurontin) 200 mg PO TID [facility] Last Admin: 11/03/17 09:06 Dose: 200 mg Glucagon (Glucagon) 1 mg IM PRN PRN PRN Reason: Hypoglycemia Hydralazine HCl (Apresoline) 50 mg PO BID [facility] Last Admin: 11/03/17 09:05 Dose: 50 mg Bupivacaine HCl 50 ml/ Sodium (Chloride) 100 mls @ 8 mls/hr NERVE BLCK INF [facility] Last Admin: 11/02/17 03:29 Dose: 100 mls Dextrose/Water (D5w) 1,000 mls @ 0 mls/hr IV .Q0M PRN; As Directed PRN Reason: Hypoglycemia Sodium Chloride (Normal Saline 0.9%) 1,000 mls @ 100 mls/hr IV .Q10H [facility] Last Admin: 11/03/17 06:34 Dose: Not Given Azithromycin 500 mg/ Sodium (Chloride) 250 mls @ 250 mls/hr IVPB Q24HR [facility] Stop: 11/04/17 09:59 Last Admin: 11/03/17 08:52 Dose: 250 mls Ceftriaxone Sodium 1 gm/ (Sodium Chloride) 100 mls @ 200 mls/hr IVPB Q24HR [facility] Last Admin: 11/02/17 09:46 Dose: 100 mls Insulin Human Isoph/Insulin Regular (Humulin 70/30) 25 units SC BID-[facility] Last Admin: 11/03/17 09:17 Dose: 25 unit Insulin Human Lispro (Humalog) 0 units SC .MILD SLIDING SCALE PRN PRN Reason: Mild Correctional Scale Last Admin: 11/02/17 11:22 Dose: 3 unit Insulin Human Lispro (Humalog) 0 units SC .BEDTIME SLIDING SC PRN PRN Reason: Bedtime Correctional Scale Last Admin: 10/30/17 21:15 Dose: 2 unit Insulin Human Regular (Humulin R) 10 units SC TID-[facility] Last Admin: 11/03/17 09:17 Dose: 10 unit Mometasone Furoate/Formoterol Fumar (Dulera 200 Mcg/5 Mcg Inhaler) 2 puff INH BID-RT PRN PRN Reason: ASTHMA, COPD Multivitamins (Theragran) 1 tab PO DAILY [facility] Last Admin: 11/03/17 09:07 Dose: 1 tab Ondansetron HCl (Zofran) 4 mg IVP Q6H PRN PRN Reason: Nausea/Vomiting Last Admin: 11/01/17 10:11 Dose: 4 mg Potassium Chloride (K-Dur) 20 meq PO BID [facility] Last Admin: 11/03/17 09:06 Dose: 20 meq Promethazine HCl (Phenergan) 12.5 mg IM Q4H PRN PRN Reason: Nausea Simvastatin (Zocor) 10 mg PO HS [facility] Last Admin: 11/02/17 21:57 Dose: 10 mg Sodium Chloride (Flush - Normal Saline) 10 ml IVF PRN PRN PRN Reason: Saline Flush Last Admin: 11/02/17 09:46 Dose: 10 ml Torsemide (Demadex) 100 mg PO QAM [facility] Last Admin: 11/03/17 08:59 Dose: 100 mg Torsemide (Demadex) 10 mg PO DAILY [facility] Last Admin: 11/03/17 08:55 Dose: 10 mg Tramadol HCl (Ultram) 50 mg PO Q6H PRN PRN Reason: Mild Pain (1-3) Tramadol HCl (Ultram) 100 mg PO Q6H PRN PRN Reason: Moderate Pain 4-6 Last Admin: 11/03/17 09:02 Dose: 100 mg Verapamil HCl (Calan) 360 mg PO BID [facility] Last Admin: 11/03/17 08:59 Dose: 360 mg Zolpidem Tartrate (Ambien) 5 mg PO HSPRN PRN PRN Reason: Insomnia
[2017-11-03] MEDS: cefTRIAXone\\ROCEPHIN 1 GM in Sodium Chloride 0.9% 100 ML IVPB SCH (11:10)
[2017-11-03] MEDS: Albuterol Sulfate 2.5 mg/3 ml Neb NEB PRN ×2 (15:12→23:15)
[2017-11-03] MEDS: Simvastatin 5 MG TAB PO SCH (21:23)
[2017-11-03] MEDS: HumaLOG 300 UNITS/3 ML VIAL SC PRN (21:28)
[2017-11-04] MEDS: HYDROcodone/Acetaminophen 10/325 mg Tablet PO PRN ×2 (01:24→14:21)
[2017-11-04] MEDS: Sodium Chloride 0.9% 1,000 ML IV SCH ×3 (03:12→22:26)
[2017-11-04 05:47] LABS: Anion Gap 14 mmol/L (10-20); BUN (Urea Nitrogen) 48 mg/dL (9.8-20.1); Calc. Creatinine Clearance 48 mL/min (70-130); Calcium 9.1 mg/dL (7.8-10.44); Carbon Dioxide 30 mmol/L (23-31); Chloride 103 mmol/L (98-107); Estimated GFR-MDRD 32; Glucose 93 mg/dL (80-115); Potassium 3.9 mmol/L (3.5-5.1); Sodium 143 mmol/L (136-145)
[2017-11-04] MEDS: Furosemide 40 MG TAB PO SCH (06:42)
[2017-11-04 08:18] LABS: #Basophils 0.1 thou/uL (0.0-0.2); #Eosinphils 1.3 thou/uL (0.0-0.7); #Lymphocytes 1.9 thou/uL (1.20-3.40); #Monocytes 1.3 thou/uL (0.11-0.59); #Neutrophils 9.2 thou/uL (1.40-6.50); %Basophils 0.9 % (0.0-1.0); %Eosinophils 9.1 % (0.0-10.0); %Lymphocytes 13.5 % (21.0-51.0); %Monocytes 9.3 % (0.0-10.0); %Neutrophils 67.2 % (42.0-75.0); Hemoglobin 7.5 g/dL (12.0-16.0); Mean Corpuscular Hemoglobin 28.7 pg (27.0-31.0); Mean Platelet Volume 7.8 fL (7.4-10.4); Platelet Count 224 thou/uL (130-400); RBC Distribution Width 14.8 % (11.5-14.5); Red Blood Cell (RBC) Count 2.62 mill/uL (4.20-5.40); White Blood Cell (WBC) Count 13.7 thou/uL (4.8-10.8)
[2017-11-04] MEDS: Gabapentin 100 MG CAP PO SCH ×3 (09:14→20:24)
[2017-11-04] MEDS: Aspirin 81 mg Enteric Coated Tablet PO SCH (09:14)
[2017-11-04] MEDS: Ferrous Sulfate 325 MG TAB PO SCH (09:14)
[2017-11-04] MEDS: Allopurinol 100 MG TAB PO SCH (09:15)
[2017-11-04] MEDS: Torsemide 10 MG TAB PO SCH (09:15)
[2017-11-04] MEDS: Cyanocobalamin (Vitamin B-12) 1,000 MCG TAB PO SCH (09:15)
[2017-11-04] MEDS: hydrALAZINE 25 MG TAB PO SCH ×2 (09:15→20:24)
[2017-11-04] MEDS: Azithromycin 500 MG in Sodium Chloride 0.9% 250 ML 250 ML IVPB SCH ×2 (09:16→10:16)
[2017-11-04] MEDS: Potassium Chloride 20 MEQ TAB PO SCH ×2 (09:17→20:25)
[2017-11-04] MEDS: Multivit, Therapeutic 1 TAB PO SCH (09:17)
[2017-11-04] MEDS: Torsemide 100 MG TAB PO SCH (09:18)
[2017-11-04] MEDS: Verapamil 120 MG TAB PO SCH ×2 (09:19→20:25)
[2017-11-04] MEDS: cefTRIAXone\\ROCEPHIN 1 GM in Sodium Chloride 0.9% 100 ML IVPB SCH (09:19)
[2017-11-04] MEDS: Insulin Regular 300 UNITS/3 ML VIAL SC SCH ×3 (09:21→17:03)
[2017-11-04] MEDS: Insulin NPH/Reg Insulin Hm 300 UNITS/3 ML VIAL SC SCH ×2 (09:22→17:02)
[2017-11-04] MEDS ORDERED: Cefdinir 300 MG CAP PO SCH (10:00)
--- NOTE | 2017-11-04 10:00 | PDOC.PN ---
- Subjective Encounter Start Date: 11/04/17 Encounter Start Time: 08:00 Pt seen for followup re: COPD exacerbation. Says she feels better. Cough better. Less sputum. No fevers or chills. - Objective Vital Signs & Weight: Vital Signs (12 hours) Temp Pulse Resp BP BP Pulse Ox 11/04/17 09:15 85 141/84 H 11/04/17 07:22 99.1 F 85 16 141/84 H 93 L 11/04/17 04:00 99.3 F 88 18 133/75 90 L 11/04/17 01:40 96 11/03/17 23:59 99.1 F 92 18 118/73 96 11/03/17 23:15 95 Weight Weight 234 lb 12.677 oz I&O: 11/03/17 11/04/17 11/05/17 06:59 06:59 06:59 Intake Total 2860 2260 Output Total 1200 Balance 1660 2260 Result Diagrams: 11/04/17 04:30 11/04/17 04:30 Additional Labs: Accuchecks 11/04/17 11/03/17 11/03/17 05:47 19:42 16:40 POC Glucose 100 345 H 123 H 11/03/17 11/03/17 12:18 05:33 POC Glucose 156 H 141 H Labs reviewed by me Phys Exam - Physical Examination Constitutional: NAD HEENT: moist MMs Neck: supple Respiratory: clear to auscultation bilateral Cardiovascular: RRR Gastrointestinal: soft s/p R knee surgery Neurological: moves all 4 limbs Psychiatric: normal affect Dx/Plan (1) COPD with exacerbation Code(s): J44.1 - CHRONIC OBSTRUCTIVE PULMONARY DISEASE W (ACUTE) EXACERBATION Status: Acute Comment: Improving. Switch antibiotics to oral. Continue bronchodilators and PRN oxygen (2) Status post total right knee replacement Code(s): Z96.651 - PRESENCE OF RIGHT ARTIFICIAL KNEE JOINT Status: Acute (3) CKD (chronic kidney disease) stage 3, GFR 30-59 ml/min Code(s): N18.3 - CHRONIC KIDNEY DISEASE, STAGE 3 (MODERATE) Status: Chronic Comment: creatinine improved to 1.89 (4) Diabetes mellitus type 2 in obese Code(s): E11.9 - TYPE 2 DIABETES MELLITUS WITHOUT COMPLICATIONS; E66.9 - OBESITY , UNSPECIFIED Status: Chronic Comment: on accuchecks, insulin sliding scale (5) Hypertension Code(s): I10 - ESSENTIAL (PRIMARY) HYPERTENSION Status: Chronic Qualifiers: Hypertension type: essential hypertension Qualified Code(s): I10 - Essential (primary) hypertension Comment: At goal. (6) Hyperkalemia Code(s): E87.5 - HYPERKALEMIA Status: Resolved Comment: resolved after kayexalate administration - Plan * . Review of Systems - Review of Systems Respiratory: Cough, Sputum. negative: Dry, Shortness of Breath, Hemoptysis, SOB with Excertion, Pleuritic Pain, Wheezing Cardiovascular: negative: chest pain, palpitations, orthopnea, paroxysmal nocturnal dyspnea, edema, light headedness - Medications/Allergies Allergies/Adverse Reactions: Allergies Allergy/AdvReac Type Severity Reaction Status Date / Time ipratropium [From Atrovent] Allergy DIZZY, Verified 10/11/17 13:50 TROUBLE BREATHING Sulfa (Sulfonamide Allergy DYSPNEA Verified 10/11/17 13:50 Antibiotics) Medications: Current Medications Hydrocodone Bitart/Acetaminophen ([place] 10/325) 1 tab PO Q4H PRN PRN Reason: Pain (1-3) Last Admin: 11/04/17 01:24 Dose: 1 tab Hydrocodone Bitart/Acetaminophen ([place] 10/325) 2 tab PO Q4H PRN PRN Reason: PAIN (4-6) Last Admin: 11/02/17 09:50 Dose: 2 tab Albuterol Sulfate (Ventolin) 2.5 mg NEB Q4H PRN PRN Reason: Dyspnea/Wheezing/SOB Last Admin: 11/03/17 23:15 Dose: 2.5 mg Allopurinol (Zyloprim) 100 mg PO DAILY [facility] Last Admin: 11/04/17 09:15 Dose: 100 mg Aspirin (Ecotrin) 81 mg PO DAILY [facility] Last Admin: 11/04/17 09:14 Dose: 81 mg Cefdinir (Omnicef) 300 mg PO BID [facility] Cefdinir (Omnicef) 300 mg PO ONE [facility] Cholecalciferol (Vitamin D3) 1,000 units PO DAILY [facility] Last Admin: 11/04/17 09:14 Dose: 1,000 units Cyanocobalamin (Vitamin B-12) 1,000 mcg PO DAILY [facility] Last Admin: 06/17/18 09:15 Dose: 1,000 mcg Dextrose/Water (Dextrose 50%) 25 gm SLOW IVP PRN PRN PRN Reason: Hypoglycemia Fentanyl (Sublimaze) 50 mcg IV Q1H PRN PRN Reason: .BREAKTHROUGH PAIN Fentanyl (Sublimaze) 50 mcg SLOW IVP Q30MIN PRN PRN Reason: Severe Pain (7-10) Ferrous Sulfate (Feosol) 325 mg PO DAILY [facility] Last Admin: 11/04/17 09:14 Dose: 325 mg Furosemide (Lasix) 40 mg PO DAILY[facility] Last Admin: 11/04/17 06:42 Dose: 40 mg Gabapentin (Neurontin) 200 mg PO TID [facility] Last Admin: 11/04/17 09:14 Dose: 200 mg Glucagon (Glucagon) 1 mg IM PRN PRN PRN Reason: Hypoglycemia Hydralazine HCl (Apresoline) 50 mg PO BID [facility] Last Admin: 11/04/17 09:15 Dose: 50 mg Bupivacaine HCl 50 ml/ Sodium (Chloride) 100 mls @ 8 mls/hr NERVE BLCK INF [facility] Last Admin: 11/02/17 03:29 Dose: 100 mls Dextrose/Water (D5w) 1,000 mls @ 0 mls/hr IV .Q0M PRN; As Directed PRN Reason: Hypoglycemia Sodium Chloride (Normal Saline 0.9%) 1,000 mls @ 100 mls/hr IV .Q10H [facility] Last Admin: 11/04/17 03:12 Dose: Not Given Insulin Human Isoph/Insulin Regular (Humulin 70/30) 25 units SC BID-[facility] Last Admin: 11/04/17 09:22 Dose: 25 unit Insulin Human Lispro (Humalog) 0 units SC .MILD SLIDING SCALE PRN PRN Reason: Mild Correctional Scale Last Admin: 11/03/17 21:28 Dose: 5 unit Insulin Human Lispro (Humalog) 0 units SC .BEDTIME SLIDING SC PRN PRN Reason: Bedtime Correctional Scale Last Admin: 10/30/17 21:15 Dose: 2 unit Insulin Human Regular (Humulin R) 10 units SC TID-[facility] Last Admin: 11/04/17 09:21 Dose: 10 unit Mometasone Furoate/Formoterol Fumar (Dulera 200 Mcg/5 Mcg Inhaler) 2 puff INH BID-RT PRN PRN Reason: ASTHMA, COPD Multivitamins (Theragran) 1 tab PO DAILY [facility] Last Admin: 11/04/17 09:17 Dose: 1 tab Ondansetron HCl (Zofran) 4 mg IVP Q6H PRN PRN Reason: Nausea/Vomiting Last Admin: 11/01/17 10:11 Dose: 4 mg Potassium Chloride (K-Dur) 20 meq PO BID [facility] Last Admin: 11/04/17 09:17 Dose: 20 meq Promethazine HCl (Phenergan) 12.5 mg IM Q4H PRN PRN Reason: Nausea Simvastatin (Zocor) 10 mg PO HS [facility] Last Admin: 11/03/17 21:23 Dose: 10 mg Sodium Chloride (Flush - Normal Saline) 10 ml IVF PRN PRN PRN Reason: Saline Flush Last Admin: 11/02/17 09:46 Dose: 10 ml Torsemide (Demadex) 100 mg PO QAM [facility] Last Admin: 11/04/17 09:18 Dose: 100 mg Torsemide (Demadex) 10 mg PO DAILY [facility] Last Admin: 11/04/17 09:15 Dose: 10 mg Tramadol HCl (Ultram) 50 mg PO Q6H PRN PRN Reason: Mild Pain (1-3) Tramadol HCl (Ultram) 100 mg PO Q6H PRN PRN Reason: Moderate Pain 4-6 Last Admin: 11/03/17 21:40 Dose: 100 mg Verapamil HCl (Calan) 360 mg PO BID [facility] Last Admin: 11/04/17 09:19 Dose: 360 mg Zolpidem Tartrate (Ambien) 5 mg PO HSPRN PRN PRN Reason: Insomnia
[2017-11-04] MEDS ORDERED: SYMBICORT 160/4.5 INH SCH ×2 (15:00→18:30)
[2017-11-04] MEDS: Albuterol Sulfate 2.5 mg/3 ml Neb NEB PRN (15:11)
[2017-11-04] MEDS: Cefdinir 300 MG CAP PO SCH (20:24)
[2017-11-04] MEDS: Simvastatin 5 MG TAB PO SCH (20:25)
[2017-11-05] MEDS: HYDROcodone/Acetaminophen 10/325 mg Tablet PO PRN ×3 (01:28→11:35)
[2017-11-05 06:10] LABS: Anion Gap 16 mmol/L (10-20); BUN (Urea Nitrogen) 45 mg/dL (9.8-20.1); Calc. Creatinine Clearance 47 mL/min (70-130); Calcium 9.4 mg/dL (7.8-10.44); Carbon Dioxide 33 mmol/L (23-31); Chloride 97 mmol/L (98-107); Estimated GFR-MDRD 31; Glucose 130 mg/dL (80-115); Potassium 3.4 mmol/L (3.5-5.1); Sodium 143 mmol/L (136-145)
[2017-11-05] MEDS ORDERED: Mometasone/Formoterol 120 PUFF INHALER INH SCH (06:30)
[2017-11-05] MEDS: Furosemide 40 MG TAB PO SCH (06:34)
[2017-11-05 08:19] VITALS: BP 131/84; TEMP 98.7
[2017-11-05] MEDS: hydrALAZINE 25 MG TAB PO SCH (09:35)
[2017-11-05] MEDS: Ferrous Sulfate 325 MG TAB PO SCH (09:35)
[2017-11-05] MEDS: Gabapentin 100 MG CAP PO SCH (09:35)
[2017-11-05] MEDS: Verapamil 120 MG TAB PO SCH (09:35)
[2017-11-05] MEDS: Torsemide 10 MG TAB PO SCH (09:35)
[2017-11-05] MEDS: Aspirin 81 mg Enteric Coated Tablet PO SCH (09:35)
[2017-11-05] MEDS: Cyanocobalamin (Vitamin B-12) 1,000 MCG TAB PO SCH (09:36)
[2017-11-05] MEDS: Potassium Chloride 20 MEQ TAB PO SCH (09:36)
[2017-11-05] MEDS: Multivit, Therapeutic 1 TAB PO SCH (09:36)
[2017-11-05] MEDS: Insulin NPH/Reg Insulin Hm 300 UNITS/3 ML VIAL SC SCH (09:42)
[2017-11-05] MEDS: Cefdinir 300 MG CAP PO SCH (09:42)
[2017-11-05] MEDS: Allopurinol 100 MG TAB PO SCH (09:42)
[2017-11-05] MEDS: Insulin Regular 300 UNITS/3 ML VIAL SC SCH (09:48)
[2017-11-05] MEDS: Torsemide 100 MG TAB PO SCH (09:53)
--- NOTE | 2017-11-05 11:34 | PDOC.PN ---
- Subjective Encounter Start Date: 11/05/17 Encounter Start Time: 10:00 Pt seen for followup re: COPD exacerbation. feels better, c/o on and off pain R knee but otherwise feeling better. - Objective MAR Reviewed: Yes Vital Signs & Weight: Vital Signs (12 hours) Temp Pulse Resp BP Pulse Ox 11/05/17 08:18 98.7 F 103 H 15 131/84 91 L 11/05/17 08:00 98.7 F 103 H 15 91 L 11/05/17 07:56 98 11/05/17 06:47 85 16 98 11/05/17 04:48 96 11/05/17 04:21 98.6 F 80 16 125/68 96 11/04/17 23:50 99.3 F 85 20 127/73 93 L Weight Weight 234 lb 12.677 oz I&O: 11/04/17 11/05/17 11/06/17 06:59 06:59 06:59 Intake Total 2260 1220 Balance 2260 1220 Result Diagrams: 11/04/17 04:30 11/05/17 04:38 Additional Labs: Accuchecks 11/05/17 11/05/17 11/04/17 10:52 05:26 20:12 POC Glucose 228 H 153 H 187 H 11/04/17 11/04/17 17:38 11:06 POC Glucose 75 150 H Labs reviewed by me Phys Exam - Physical Examination Morbid obesity HEENT: moist MMs Neck: supple Respiratory: clear to auscultation bilateral Cardiovascular: RRR Gastrointestinal: soft Neurological: moves all 4 limbs Psychiatric: normal affect Dx/Plan (1) COPD with exacerbation Code(s): J44.1 - CHRONIC OBSTRUCTIVE PULMONARY DISEASE W (ACUTE) EXACERBATION Status: Acute Comment: Continue cefdinir for four more days (2) Status post total right knee replacement Code(s): Z96.651 - PRESENCE OF RIGHT ARTIFICIAL KNEE JOINT Status: Acute Comment: pauin management and DVT prophylaxis per orthopedic surgery (3) CKD (chronic kidney disease) stage 3, GFR 30-59 ml/min Code(s): N18.3 - CHRONIC KIDNEY DISEASE, STAGE 3 (MODERATE) Status: Chronic Comment: Stable (4) Diabetes mellitus type 2 in obese Code(s): E11.9 - TYPE 2 DIABETES MELLITUS WITHOUT COMPLICATIONS; E66.9 - OBESITY , UNSPECIFIED Status: Chronic Comment: continue accuchecks, insulin sliding scale (5) Hypertension Code(s): I10 - ESSENTIAL (PRIMARY) HYPERTENSION Status: Chronic Qualifiers: Hypertension type: essential hypertension Qualified Code(s): I10 - Essential (primary) hypertension Comment: At goal. (6) Hyperkalemia Code(s): E87.5 - HYPERKALEMIA Status: Resolved Comment: resolved after kayexalate administration - Plan * . Plan to discharge patient noted, will sign off Review of Systems - Review of Systems Constitutional: negative: fever, chills, sweats, weakness, malaise Respiratory: Cough, Sputum. negative: Dry, Shortness of Breath, Hemoptysis, SOB with Excertion, Pleuritic Pain, Wheezing Musculoskeletal: Other (R knee pain) - Medications/Allergies Allergies/Adverse Reactions: Allergies Allergy/AdvReac Type Severity Reaction Status Date / Time ipratropium [From Atrovent] Allergy DIZZY, Verified 10/11/17 13:50 TROUBLE BREATHING Sulfa (Sulfonamide Allergy DYSPNEA Verified 10/11/17 13:50 Antibiotics) Medications: Current Medications Hydrocodone Bitart/Acetaminophen ([place] 10/325) 1 tab PO Q4H PRN PRN Reason: Pain (1-3) Last Admin: 11/05/17 06:37 Dose: 1 tab Hydrocodone Bitart/Acetaminophen ([place]cent 10/325) 2 tab PO Q4H PRN PRN Reason: PAIN (4-6) Last Admin: 11/02/17 09:50 Dose: 2 tab Albuterol Sulfate (Ventolin) 2.5 mg NEB Q4H PRN PRN Reason: Dyspnea/Wheezing/SOB Last Admin: 11/04/17 15:11 Dose: 2.5 mg Allopurinol (Zyloprim) 100 mg PO DAILY [facility] [place] Last Admin: 11/05/17 09:42 Dose: 100 mg Aspirin (Ecotrin) 81 mg PO DAILY [facility] Last Admin: 11/05/17 09:35 Dose: 81 mg Cefdinir (Omnicef) 300 mg PO BID [facility] [place] Last Admin: 11/05/17 09:42 Dose: 300 mg Cholecalciferol (Vitamin D3) 1,000 units PO DAILY [facility] [place] Last Admin: 11/05/17 09:36 Dose: 1,000 units Cyanocobalamin (Vitamin B-12) 1,000 mcg PO DAILY [facility] [place] Last Admin: 11/05/17 09:36 Dose: 1,000 mcg Dextrose/Water (Dextrose 50%) 25 gm SLOW IVP PRN PRN PRN Reason: Hypoglycemia Fentanyl (Sublimaze) 50 mcg IV Q1H PRN PRN Reason: .BREAKTHROUGH PAIN Fentanyl (Sublimaze) 50 mcg SLOW IVP Q30MIN PRN PRN Reason: Severe Pain (7-10) Ferrous Sulfate (Feosol) 325 mg PO DAILY [facility] [place] Last Admin: 11/05/17 09:35 Dose: 325 mg Furosemide (Lasix) 40 mg PO DAILY[facility] Last Admin: 11/05/17 06:34 Dose: 40 mg Gabapentin (Neurontin) 200 mg PO TID [facility] [place] Last Admin: 11/05/17 09:35 Dose: 200 mg Glucagon (Glucagon) 1 mg IM PRN PRN PRN Reason: Hypoglycemia Hydralazine HCl (Apresoline) 50 mg PO BID [facility] [place] Last Admin: 11/05/17 09:35 Dose: 50 mg Bupivacaine HCl 50 ml/ Sodium (Chloride) 100 mls @ 8 mls/hr NERVE BLCK INF [facility] [place] Last Admin: 11/02/17 03:29 Dose: 100 mls Dextrose/Water (D5w) 1,000 mls @ 0 mls/hr IV .Q0M PRN; As Directed PRN Reason: Hypoglycemia Sodium Chloride (Normal Saline 0.9%) 1,000 mls @ 100 mls/hr IV .Q10H [facility] [place] Last Admin: 11/04/17 22:26 Dose: Not Given Insulin Human Isoph/Insulin Regular (Humulin 70/30) 25 units SC BID-[facility] Last Admin: 11/05/17 09:42 Dose: 25 unit Insulin Human Lispro (Humalog) 0 units SC .MILD SLIDING SCALE PRN PRN Reason: Mild Correctional Scale Last Admin: 11/03/17 21:28 Dose: 5 unit Insulin Human Lispro (Humalog) 0 units SC .BEDTIME SLIDING SC PRN PRN Reason: Bedtime Correctional Scale Last Admin: 10/30/17 21:15 Dose: 2 unit Insulin Human Regular (Humulin R) 10 units SC TID-[facility] Last Admin: 11/05/17 09:48 Dose: Not Given Mometasone Furoate/Formoterol Fumar (Dulera 200 Mcg/5 Mcg Inhaler) 2 puff INH BID-RT [facility] Last Admin: 11/05/17 06:47 Dose: 2 puff Multivitamins (Theragran) 1 tab PO DAILY [facility] Last Admin: 11/05/17 09:36 Dose: 1 tab Ondansetron HCl (Zofran) 4 mg IVP Q6H PRN PRN Reason: Nausea/Vomiting Last Admin: 11/01/17 10:11 Dose: 4 mg Potassium Chloride (K-Dur) 20 meq PO BID [facility] Last Admin: 11/05/17 09:36 Dose: 20 meq Promethazine HCl (Phenergan) 12.5 mg IM Q4H PRN PRN Reason: Nausea Simvastatin (Zocor) 10 mg PO HS [facility] Last Admin: 11/04/17 20:25 Dose: 10 mg Sodium Chloride (Flush - Normal Saline) 10 ml IVF PRN PRN PRN Reason: Saline Flush Last Admin: 11/02/17 09:46 Dose: 10 ml Torsemide (Demadex) 100 mg PO QAM [facility] [place] Last Admin: 11/05/17 09:53 Dose: 100 mg Torsemide (Demadex) 10 mg PO DAILY [facility] Last Admin: 11/05/17 09:35 Dose: 10 mg Tramadol HCl (Ultram) 50 mg PO Q6H PRN PRN Reason: Mild Pain (1-3) Tramadol HCl (Ultram) 100 mg PO Q6H PRN PRN Reason: Moderate Pain 4-6 Last Admin: 11/03/17 21:40 Dose: 100 mg Verapamil HCl (Calan) 360 mg PO BID [facility] [place] [place] Last Admin: 11/05/17 09:35 Dose: 360 mg Zolpidem Tartrate (Ambien) 5 mg PO HSPRN PRN PRN Reason: Insomnia
[2017-11-05] MEDS: HumaLOG 300 UNITS/3 ML VIAL SC PRN (11:36)
== END 2017-11-05 12:00 | DRG 470 ==
LOC: EDSTATUS 12:30 → SURG A 10-30 09:53 → SURG B 10-30 15:20
PROVIDERS: ADMIT Orthopaedic Surgery; ATTEND Orthopaedic Surgery
PROC: 0SRC0J9 Replacement of Right Knee Joint with Synthetic Substitute, Cemented, Open Approach (ICD-10-PCS; principal; 2017-10-30)
DX: M17.11 Unilateral primary osteoarthritis, right knee (principal); J96.11 Chronic respiratory failure with hypoxia; Z68.41 Body mass index [BMI] 40.0-44.9, adult; J44.1 Chronic obstructive pulmonary disease with (acute) exacerbation; I12.9 Hypertensive chronic kidney disease with stage 1 through stage 4 chronic kidney disease, or unspecified chronic kidney disease; E11.22 Type 2 diabetes mellitus with diabetic chronic kidney disease; E11.42 Type 2 diabetes mellitus with diabetic polyneuropathy; N18.3 Chronic kidney disease, stage 3 (moderate); M10.9 Gout, unspecified; E66.9 Obesity, unspecified; E87.5 Hyperkalemia; D50.9 Iron deficiency anemia, unspecified; Z88.2 Allergy status to sulfonamides; Z88.8 Allergy status to other drugs, medicaments and biological substances; Z79.82 Long term (current) use of aspirin; Z79.4 Long term (current) use of insulin; Z79.899 Other long term (current) drug therapy
CPT/HCPCS: 36415; 36416; 71045; 80048; 82274; 82607; 82728; 82746; 83540; 83550; 83880; 85025; 85027; 87040; 94640; 94664; C1713; C1776; G8978-GP-CM; G8979-GP-CK; G8987-GO-CM; G8988-GO-CJ; J0171; J0456; J0690; J0696; J1815; J2250; J2405; J2795; J3010; J3490; J7050; J7611; S0020

== ENCOUNTER 2017-10-11 12:39 | Outpatient (CLI) | payer MEDICARE ==
--- NOTE | 2017-10-11 16:19 | ULT ---
LOWER EXTREMITY DOPPER ULTRASOUND WITH VENOUS DUPLEX DOPPLER: CPT: 94054 ICD-10-PCS: B54D HISTORY: Edema of the lower extremities. TECHNIQUE: Color-flow Doppler, spectral wave-form analysis of pulsed Doppler, and funes-scale imaging with compre ssion and augmentation were used to evaluate the bilateral common femoral, femoral, popliteal, hat liner ior tibial, and superficial femoral veins, and the proximal portions of the profunda femoral and grea ter saphenous veins. FINDINGS: There is appropriate compressibility and flow within the imaged deep venous system of each lower extr emity without evidence of DVT. There is soft tissue edema. Incidental note of heterogeneous foci with increased echogenicity. Thes e likely relate to partially calcified Adame's cysts. IMPRESSION: No evidence of deep venous thrombosis of the bilateral lower extremities. Additional details as described above. POS: [facility]
== END 2017-10-11 12:40 | disposition home or self-care (01) ==
LOC: ULT 12:39
PROVIDERS: ATTEND Nurse Practitioner Family
DX: R60.0 Localized edema (principal)
CPT/HCPCS: 87081; 93005; 93010; 93970

== ENCOUNTER 2017-10-11 12:55 | Outpatient (CLI) | payer MEDICARE ==
--- NOTE | 2017-10-11 20:32 | EKG ---
Test Reason : Blood Pressure : / mmHG Vent. Rate : 070 BPM Atrial Rate : 070 BPM P-R Int : 206 ms QRS Dur : 096 ms QT Int : 436 ms P-R-T Axes : 030 -09 033 degrees QTc Int : 470 ms Normal sinus rhythm Normal ECG When compared with ECG of 06-OCT-2015 09:54, (Unconfirmed) No significant change was found Confirmed by CALIXTO SULLIVAN, SBrianna ([id number]) on 10/11/2017 8:31:59 PM Referred By: ADOLFO Confirmed By:DR. Nahid DE LUNA MD
== END 2017-10-11 12:56 | disposition home or self-care (01) ==
LOC: LABBT 12:55
PROVIDERS: ATTEND Orthopaedic Surgery
DX: Z01.818 Encounter for other preprocedural examination (principal); M17.11 Unilateral primary osteoarthritis, right knee
CPT/HCPCS: 87081; 93005; 93010

== ENCOUNTER 2017-10-24 09:51 | Outpatient (CLI) | payer MEDICARE, MEDICAID ==
[2017-10-24 10:38] LABS: #Eosinphils 0.6 thou/uL (0.0-0.7); #Lymphocytes 2.1 thou/uL (1.20-3.40); #Monocytes 0.7 thou/uL (0.11-0.59); #Neutrophils 3.9 thou/uL (1.40-6.50); %Basophils 0.1 % (0.0-1.0); %Eosinophils 8.8 % (0.0-10.0); %Monocytes 9.9 % (0.0-10.0); %Neutrophils 53.1 % (42.0-75.0); Hemoglobin 12.2 g/dL (12.0-16.0); Mean Corpuscular HGB CONC 33.2 g/dL (32.0-36.0); Mean Corpuscular Hemoglobin 28.3 pg (27.0-31.0); Mean Corpuscular Volume 85.4 fl (81.0-99.0); Mean Platelet Volume 7.9 fL (7.4-10.4); Platelet Count 257 thou/uL (130-400); RBC Distribution Width 14.5 % (11.5-14.5); Red Blood Cell (RBC) Count 4.29 mill/uL (4.20-5.40); White Blood Cell (WBC) Count 7.3 thou/uL (4.8-10.8)
[2017-10-24 10:59] LABS: Anion Gap 14 mmol/L (10-20); BUN (Urea Nitrogen) 35 mg/dL (9.8-20.1); Calc. Creatinine Clearance 0 mL/min (70-130); Calcium 9.6 mg/dL (7.8-10.44); Carbon Dioxide 31 mmol/L (23-31); Chloride 100 mmol/L (98-107); Estimated GFR-MDRD 25; Glucose 297 mg/dL (80-115); Potassium 3.8 mmol/L (3.5-5.1); Sodium 141 mmol/L (136-145)
== END 2017-10-24 09:52 | disposition home or self-care (01) ==
LOC: EDBD → LABBT 09:51
PROVIDERS: ATTEND Orthopaedic Surgery
DX: Z01.818 Encounter for other preprocedural examination (principal); M17.11 Unilateral primary osteoarthritis, right knee
CPT/HCPCS: 80048; 85025; 85610; 86850; 86900; 86901

== ENCOUNTER 2018-02-26 08:45 | Inpatient (IN) | payer MEDICARE ==
[2018-02-25 08:40] VITALS: BMI 40.2
[2018-02-26] MEDS ORDERED: CEFAZOLIN/Water 2 GM/20 ML SYRINGE ONE (09:07)
[2018-02-26 09:16] LABS: Mean Corpuscular HGB CONC 33.1 g/dL (32.0-36.0); Mean Corpuscular Hemoglobin 27.2 pg (27.0-31.0); Mean Corpuscular Volume 82.4 fL (78.0-98.0); Platelet Count 296 thou/uL (130-400); RBC Distribution Width 15.6 % (11.5-14.5); Red Blood Cell (RBC) Count 4.79 mill/uL (4.20-5.40); White Blood Cell (WBC) Count 8.4 thou/uL (4.8-10.8)
[2018-02-26] MEDS ORDERED: Fentanyl 100 MCG/2 ML VIAL ONE ×5 (09:25→13:47)
[2018-02-26] MEDS ORDERED: Midazolam HCl 2 mg/2 ml Vial ONE (09:25)
[2018-02-26 09:33] LABS: Anion Gap 13 mmol/L (10-20); BUN (Urea Nitrogen) 43 mg/dL (9.8-20.1); Calc. Creatinine Clearance 45 mL/min (70-130); Calcium 9.8 mg/dL (7.8-10.44); Carbon Dioxide 32 mmol/L (23-31); Chloride 103 mmol/L (98-107); Estimated GFR-MDRD 32; Glucose 111 mg/dL (80-115); Potassium 3.5 mmol/L (3.5-5.1); Sodium 144 mmol/L (136-145)
[2018-02-26] MEDS ORDERED: Neomycin-Polymyxin 1 ML AMP ONE ×2 (09:34→09:45)
[2018-02-26] MEDS ORDERED: Promethazine HCl 25 MG/ML VIAL IM PRN ×3 (10:18→12:32)
[2018-02-26] MEDS ORDERED: Ondansetron HCl/PF 4 MG/2 ML Vial IVP PRN ×3 (10:18→12:32)
[2018-02-26] MEDS ORDERED: Zolpidem Tartrate 5 MG TAB PO PRN ×2 (10:18→12:32)
[2018-02-26] MEDS ORDERED: traMADol HCl 50 MG TAB PO PRN ×2 (10:18→12:32)
[2018-02-26] MEDS ORDERED: Ropivacaine 0.2% 550 ML 550 ML NERVE BLCK SCH (10:18)
[2018-02-26] MEDS ORDERED: Fentanyl 100 MCG/2 ML VIAL SLOW IVP PRN (10:20)
[2018-02-26] MEDS ORDERED: Ropivacaine 0.2% HCl/PF (40 MG/20 ML VIAL) ONE (11:24)
[2018-02-26] MEDS ORDERED: Bupivacaine 0.25% HCL 30 ML VIAL ONE (11:24)
[2018-02-26] MEDS ORDERED: Ropivacaine 0.5% HCl/PF (150 MG/30 ML VIAL) ONE (11:24)
[2018-02-26] MEDS ORDERED: Promethazine HCl 25 MG/ML VIAL SLOW IVP PRN (12:12)
[2018-02-26] MEDS ORDERED: Acetaminophen/Codeine 30-300mg Tablet PO PRN (12:30)
[2018-02-26] MEDS ORDERED: HYDROcodone/Acetaminophen 10/325 mg Tablet PO PRN ×2 (12:32)
[2018-02-26] MEDS ORDERED: diphenhydrAMINE 25 MG CAP PO PRN (12:32)
[2018-02-26] MEDS ORDERED: Acetaminophen 325 MG TAB PO PRN (12:32)
[2018-02-26] MEDS ORDERED: Mometasone/Formoterol 120 PUFF INHALER INH PRN (12:52)
[2018-02-26] MEDS ORDERED: Ondansetron HCl/PF 4 MG/2 ML Vial ONE (13:20)
[2018-02-26] MEDS ORDERED: PROPOFOL 200 MG/20 ML VIAL ONE (13:20)
--- NOTE | 2018-02-26 13:58 | RAD ---
LEFT KNEE TWO VIEWS: History: Post op evaluation. Post op knee replacement. FINDINGS/IMPRESSION: Knee prosthesis has been placed. The components appear in adequate position and alignment. Post-opera tive changes are noted. POS: [facility]
--- NOTE | 2018-02-26 14:03 | OP ---
DATE OF OPERATION: 02/26/2018. PREOPERATIVE DIAGNOSIS: Severe arthritis, left knee. POSTOPERATIVE DIAGNOSIS: Severe arthritis, left knee. PROCEDURE: Left total knee replacement. SURGEON: Kris Jasso M.D. ANESTHESIA: General. TECHNIQUE: The patient was given preoperative IV antibiotics. She had a femoral nerve block perform ed prior to surgery. She was taken to the operating room and placed in supine position. Satisfactor y general anesthesia was performed. The left lower extremity was sterilely prepped and draped in usu al fashion. After exsanguination, the tourniquet at proximal left thigh was raised to 300 mmHg. A l ongitudinal incision was made over the anterior aspect of the knee and medial parapatellar arthrotomy was performed. The patient was noted to have severe arthritis in all 3 compartments. There was bon e on bone in the medial compartment and patellofemoral joint. All the spurs were removed from around the distal femur and proximal tibia. Medial and lateral meniscus and anterior cruciate ligament wer e excised using the [employer] instrumentation. Intramedullary guide was placed into the distal fem ur at 5 mm of valgus and cut was made on the distal femur. The proximal tibia was brought forward. Using extramedullary guide, 2 mm were removed from the most affected medial side. The remaining spur s removed from the proximal tibia and the tibia was measured as a size 3. A hole was made in the tib ia for the tibial stem. Attention was then turned to the distal femur, which was measured as a porou s size 3. The #3 cutting block was placed over the distal femur and the cuts were made on the anteri or, posterior, and chamfer cuts. The spurs were removed from the distal femur. Soft tissue was dandre nced and trials were inserted. The 8 mm tibial insert allowed for full extension of the knee and exc ellent stability in both flexion and extension. The holes were made for the distal femoral pegs. Th e undersurface of the patella was cut using the patellar guide and 32 mm 3-pegged oval patella was no milly to have the best fit. Three holes were made for the patellar peg and the trials were removed. T he knee joint was copiously irrigated with antibiotic solution using the high-speed story teller. The a ntibiotic impregnated methyl methacrylate was mixed and the knee was thoroughly dried and the tibial component was cemented into place. It was a fixed bearing PFC Sigma size 3 tibial tray. Excess meth yl methacrylate was removed. The 8 mm tibial insert was locked into the tibial tray and the porous c ruciate retaining size 3 femoral component was impacted in place. The knee was placed into full exte nsion and a 32 mm 3 PEG oval dome patella was also cemented into place. The knee joint again was copying machine mechanic iously irrigated with the high-speed story teller while the methylmethacrylate hardened, the knee again was tested, had excellent range of motion and stability. The knee was then closed using #2 Vicryl fo r the retinacular tissue, 0 Vicryl for the fat and subcutaneous tissue, and skin was closed with skin d[place]. Sterile dressing was applied. The tourniquet was released. The patient was awakened, ext ubated, and transferred to recovery room in stable condition. ESTIMATED BLOOD LOSS: 50 mL COMPLICATIONS: None. TOURNIQUET TIME: 65 minutes.
[2018-02-26] MEDS ORDERED: hydrALAZINE 20 MG/ML VIAL SLOW IVP PRN (15:45)
[2018-02-26] MEDS ORDERED: Mag-Al 1200 mg/1200 mg/30 ML UDCUP PO PRN (15:45)
[2018-02-26] MEDS ORDERED: Artificial Tears 18 DROP/0.9 ML EA EYE PRN (15:45)
[2018-02-26] MEDS ORDERED: Milk Of Magnesia 30 ML UDCUP PO PRN (15:45)
[2018-02-26] MEDS ORDERED: Chloraseptic Spray 180 ml Bottle PO PRN (15:45)
[2018-02-26] MEDS ORDERED: Eucerin (Mineral Oil/Petrolatum,White) 30 gm Jar TOP PRN (15:45)
[2018-02-26] MEDS ORDERED: Dextrose 50% Abboject 50 ML SYRINGE SLOW IVP PRN (15:45)
[2018-02-26] MEDS ORDERED: Loperamide HCl 2 MG CAP PO PRN (15:45)
[2018-02-26] MEDS ORDERED: Diabetic Tussin 200 MG/10 ML UDCUP PO PRN (15:45)
[2018-02-26] MEDS ORDERED: Senokot 8.6 MG TAB PO PRN (15:45)
[2018-02-26] MEDS ORDERED: Sodium Chloride 0.65% Nasal 44 ML BOT EA NARE PRN (15:45)
[2018-02-26] MEDS ORDERED: Dextrose 5% in Water 1,000 ML IV PRN (15:45)
[2018-02-26] MEDS: Potassium Chloride 20 MEQ TAB PO SCH ×2 (15:46→19:54)
[2018-02-26] MEDS: Gabapentin 100 MG CAP PO SCH ×2 (15:46→19:53)
--- NOTE | 2018-02-26 15:50 | PDOC.PN ---
- Subjective Encounter Start Date: 02/26/18 Encounter Start Time: 15:49 -: old records requested/rev pt is admitted for left total knee replacement we are consulted for medical management pt is pain free for now Patient seen and examined. No new complaints. - Objective Resuscitation Status: Resuscitation Status FULL:Full Resuscitation MAR Reviewed: Yes Vital Signs & Weight: Weight Weight 220 lb Result Diagrams: 02/26/18 09:08 02/26/18 09:08 Additional Labs: Accuchecks 02/26/18 14:07 POC Glucose 175 H old labs and old medical record reviewed Radiology Reviewed by me: Yes (knee xray reviwed) Phys Exam - Physical Examination Constitutional: NAD HEENT: PERRLA, moist MMs, sclera anicteric Neck: no JVD, supple Respiratory: no wheezing, no rales, no rhonchi Cardiovascular: RRR, no significant murmur, no rub Gastrointestinal: soft, non-tender, no distention, positive bowel sounds Musculoskeletal: no edema, pulses present left knee with dressing, nerve block in place Neurological: non-focal, normal sensation Lymphatic: no nodes Psychiatric: normal affect, A&O x 3 Skin: no rash, normal turgor Dx/Plan (1) Status post total left knee replacement Code(s): Z96.652 - PRESENCE OF LEFT ARTIFICIAL KNEE JOINT Status: Acute (2) CKD (chronic kidney disease) stage 3, GFR 30-59 ml/min Code(s): N18.3 - CHRONIC KIDNEY DISEASE, STAGE 3 (MODERATE) Status: Chronic Comment: Stable (3) COPD (chronic obstructive pulmonary disease) Status: Chronic (4) Chronic respiratory failure with hypoxia Code(s): J96.11 - CHRONIC RESPIRATORY FAILURE WITH HYPOXIA Status: Chronic (5) DJD (degenerative joint disease), thoracic Code(s): M51.34 - OTHER INTERVERTEBRAL DISC DEGENERATION, THORACIC REGION Status: Chronic (6) Degenerative joint disease (DJD) of lumbar spine Code(s): M47.816 - SPONDYLOSIS W/O MYELOPATHY OR RADICULOPATHY, LUMBAR REGION Status: Chronic (7) Diabetes type 2, controlled Code(s): E11.9 - TYPE 2 DIABETES MELLITUS WITHOUT COMPLICATIONS Status: Chronic (8) Diabetic peripheral neuropathy Code(s): E11.42 - TYPE 2 DIABETES MELLITUS WITH DIABETIC POLYNEUROPATHY Status : Chronic (9) Hypertension Code(s): I10 - ESSENTIAL (PRIMARY) HYPERTENSION Status: Chronic Qualifiers: Hypertension type: essential hypertension Qualified Code(s): I10 - Essential (primary) hypertension Comment: At goal. (10) Morbid obesity with BMI of 40.0-44.9, adult Code(s): E66.01 - MORBID (SEVERE) OBESITY DUE TO EXCESS CALORIES; Z68.41 - BODY MASS INDEX (BMI) 40.0-44.9, ADULT Status: Chronic - Plan cont current plan of care, PT/OT * continue aspirin for DVT prophylaxis as per protocol * add pepcid for GI prophylaxis * code status- full code * nerve block as per anesthesia * PT/OT as per [facility] protocol * pain control with pain meds as below * medication reviewed as below * symptomatic treatment * home medication reconciled. * hyperglycemia protocol treatment Review of Systems - Review of Systems Eyes: negative: Pain, Vision Change, Conjunctivae Inflammation, Eyelid Inflammation, Redness, Other ENT: negative: Ear Pain, Ear Discharge, Nose Pain, Nose Discharge, Nose Congestion, Mouth Pain, Mouth Swelling, Throat Pain, Throat Swelling, Other Respiratory: negative: Cough, Dry, Shortness of Breath, Hemoptysis, SOB with Excertion, Pleuritic Pain, Sputum, Wheezing Cardiovascular: negative: chest pain, palpitations, orthopnea, paroxysmal nocturnal dyspnea, edema, light headedness, other Gastrointestinal: negative: Nausea, Vomiting, Abdominal Pain, Diarrhea, Constipation, Melena, Hematochezia, Other Genitourinary: negative: Dysuria, Frequency, Incontinence, Hematuria, Retention , Other Musculoskeletal: negative: Neck Pain, Shoulder Pain, Arm Pain, Back Pain, Hand Pain, Leg Pain, Foot Pain, Other Skin: negative: Rash, Lesions, Edwin, Bruising, Other - Medications/Allergies Allergies/Adverse Reactions: Allergies Allergy/AdvReac Type Severity Reaction Status Date / Time ipratropium [From Atrovent] Allergy DIZZY, Verified 10/11/17 13:50 TROUBLE BREATHING Sulfa (Sulfonamide Allergy DYSPNEA Verified 10/11/17 13:50 Antibiotics) Medications: Current Medications Acetaminophen (Tylenol) 650 mg PO Q4H PRN PRN Reason: GOL[place]ITH/ T > 101F; Mild Pain (1-3) Acetaminophen/Codeine Phosphate (Tylenol #3) 1 tab PO TID PRN PRN Reason: Mild Pain (1-3) 2ND LINE Last Admin: 02/26/18 15:46 Dose: 1 tab Hydrocodone Bitart/Acetaminophen ([place] 7.5/325) 1 tab PO Q4H PRN PRN Reason: Mild Pain (1-3) Hydrocodone Bitart/Acetaminophen ([place] 7.5/325) 2 tab PO Q4H PRN PRN Reason: Moderate Pain (4-6) Hydrocodone Bitart/Acetaminophen ([place] 10/325) 1 tab PO Q4H PRN PRN Reason: Moderate Pain (4-6) Hydrocodone Bitart/Acetaminophen ([place] 10/325) 2 tab PO Q4H PRN PRN Reason: Severe Pain (7-10) Al Hydroxide/Mg Hydroxide (Maalox) 15 ml PO Q4H PRN PRN Reason: Heartburn or Indigestion Albuterol Sulfate (Ventolin) 2.5 mg NEB Q4H PRN PRN Reason: Dyspnea/Wheezing/SOB Allopurinol (Zyloprim) 100 mg PO DAILY [facility] Artificial Tears (Tears Naturale) 0 drop EA EYE PRN PRN PRN Reason: Dry Eyes Aspirin (Ecotrin) 81 mg PO BID [facility] Dextrose/Water (Dextrose 50%) 25 gm SLOW IVP PRN PRN PRN Reason: Hypoglycemia Diphenhydramine HCl (Benadryl) 25 mg PO Q6H PRN PRN Reason: Itching Famotidine (Pepcid) 20 mg PO BID [facility] Fentanyl (Sublimaze) 50 mcg SLOW IVP Q1H PRN PRN Reason: breakthrough pain Ferrous Gluconate (Fergon) 324 mg PO BID [facility] Ferrous Sulfate (Feosol) 325 mg PO DAILY [facility] Gabapentin (Neurontin) 300 mg PO TID [facility] Last Admin: 02/26/18 15:46 Dose: 300 mg Glucagon (Glucagon) 1 mg IM PRN PRN PRN Reason: Hypoglycemia Guaifenesin (Robitussin Sf) 200 mg PO Q4H PRN PRN Reason: Cough Hydralazine HCl (Apresoline) 50 mg PO BID [facility] Hydralazine HCl (Apresoline) 10 mg SLOW IVP Q4H PRN PRN Reason: Systolic BP > 180 Ropivacaine (Ropivacaine 0.2% 550 Ml) 550 mls @ 10 mls/hr NERVE BLCK INF [facility] Dextrose/Water (D5w) 1,000 mls @ 0 mls/hr IV .Q0M PRN PRN Reason: Hypoglycemia Insulin Human NPH (Humulin N) 25 unit SC BID-[facility] Insulin Human Regular (Humulin R) 10 units SC TID-[facility] Insulin Human Regular (Humulin R) 0 units SC .MODERATE SLIDING SC PRN PRN Reason: Moderate Correctional Scale Insulin Human Regular (Humulin R) 0 units SC .BEDTIME SLIDING SC PRN PRN Reason: Bedtime Correctional Scale Iron/Minerals/Multivitamins (Theragran M) 1 tab PO DAILY [facility] Ketorolac Tromethamine (Toradol) 15 mg IVP Q6H PRN PRN Reason: Moderate Pain (4-6) Stop: 03/01/18 10:19 Loperamide HCl (Imodium) 2 mg PO PRN PRN PRN Reason: Diarrhea/Loose Stools Magnesium Hydroxide (Milk Of Magnesium) 30 ml PO DAILYPRN PRN PRN Reason: Constipation Mineral Oil/White Petrolatum (Eucerin Cream) 0 gm TOP BIDPRN PRN PRN Reason: Dry Skin Mometasone Furoate/Formoterol Fumar (Dulera 200 Mcg/5 Mcg Inhaler) 2 puff INH BID-RT PRN PRN Reason: START SCHEDULED IF ASMTHA Ondansetron HCl (Zofran) 4 mg IVP Q6H PRN PRN Reason: Nausea/Vomiting Ondansetron HCl (Zofran) 4 mg IVP Q6H PRN PRN Reason: Nausea/Vomiting Phenol (Chloraseptic [place] 180 Ml Bot) 0 ml PO PRN PRN PRN Reason: Sore Throat Potassium Chloride (K-Dur) 40 meq PO TID [facility] Last Admin: 02/26/18 15:46 Dose: 40 meq Promethazine HCl (Phenergan) 12.5 mg IM Q4H PRN PRN Reason: Nausea Promethazine HCl (Phenergan) 12.5 mg IM Q4H PRN PRN Reason: Nausea/Vomiting Senna (Senokot) 2 tab PO HSPRN PRN PRN Reason: Constipation Senna/Docusate Sodium (Senokot S) 2 tab PO BID [facility] Simvastatin (Zocor) 10 mg PO HS [facility] Sodium Chloride (Flush - Normal Saline) 10 ml IVF PRN PRN PRN Reason: Saline Flush Sodium Chloride ([place] Nasal [place] 0.65%) 0 ml EA NARE QIDPRN PRN PRN Reason: Nasal Congestion Torsemide (Demadex) 100 mg PO QAM [facility] Tramadol HCl (Ultram) 50 mg PO Q6H PRN PRN Reason: Mild Pain (1-3) Tramadol HCl (Ultram) 100 mg PO Q6H PRN PRN Reason: Moderate Pain 4-6 Tramadol HCl (Ultram) 100 mg PO Q6H PRN PRN Reason: Mild Pain (1-3) Verapamil HCl (Calan Sr) 360 mg PO BID [facility] Zolpidem Tartrate (Ambien) 5 mg PO HSPRN PRN PRN Reason: Insomnia Zolpidem Tartrate (Ambien) 5 mg PO HSPRN PRN PRN Reason: Insomnia
[2018-02-26] MEDS: Insulin Regular 300 UNITS/3 ML VIAL SC SCH (17:32)
[2018-02-26] MEDS: NPH, Human Insulin Isophane 300 UNIT/3 ML VIAL SC SCH (17:32)
[2018-02-26] MEDS: HYDROcodone/Acetaminophen 7.5/325 mg Tablet PO PRN (17:33)
[2018-02-26] MEDS ORDERED: Mometasone/Formoterol 120 PUFF INHALER INH SCH (18:30)
[2018-02-26] MEDS: Ketorolac Tromethamine 30 MG/ML VIAL IVP PRN (18:52)
[2018-02-26] MEDS: Simvastatin 5 MG TAB PO SCH (19:56)
[2018-02-26] MEDS: Famotidine 20 MG TAB PO SCH (19:56)
[2018-02-26] MEDS: Aspirin 81 mg Enteric Coated Tablet PO SCH (19:56)
[2018-02-26] MEDS: hydrALAZINE 25 MG TAB PO SCH (19:57)
[2018-02-26] MEDS: Senokot S 8.6-50 MG TAB PO SCH (19:57)
[2018-02-26] MEDS: Insulin Regular 300 UNITS/3 ML VIAL SC PRN (20:57)
[2018-02-27] MEDS ORDERED: Sodium Chloride 0.9% 1,000 ML IV SCH (05:15)
[2018-02-27 06:06] LABS: Mean Corpuscular HGB CONC 32.2 g/dL (32.0-36.0); Mean Corpuscular Hemoglobin 27.3 pg (27.0-31.0); Mean Corpuscular Volume 84.6 fL (78.0-98.0); Mean Platelet Volume 8.6 fL (7.4-10.4); Platelet Count 208 thou/uL (130-400); RBC Distribution Width 15.6 % (11.5-14.5); Red Blood Cell (RBC) Count 3.67 mill/uL (4.20-5.40); White Blood Cell (WBC) Count 12.5 thou/uL (4.8-10.8)
[2018-02-27] MEDS: Senokot S 8.6-50 MG TAB PO SCH ×2 (08:20→21:31)
[2018-02-27] MEDS: Allopurinol 100 MG TAB PO SCH (08:20)
[2018-02-27] MEDS: Potassium Chloride 20 MEQ TAB PO SCH (08:21)
[2018-02-27] MEDS: Gabapentin 100 MG CAP PO SCH ×3 (08:21→21:32)
[2018-02-27] MEDS: Ferrous Gluconate 324 MG TAB PO SCH ×2 (08:22→16:21)
[2018-02-27] MEDS: Multivitamin W/ Minerals 1 TAB PO SCH (08:23)
[2018-02-27] MEDS: hydrALAZINE 25 MG TAB PO SCH (08:24)
[2018-02-27] MEDS: NPH, Human Insulin Isophane 300 UNIT/3 ML VIAL SC SCH ×2 (08:24→16:21)
[2018-02-27] MEDS: Aspirin 81 mg Enteric Coated Tablet PO SCH ×2 (08:24→21:31)
[2018-02-27] MEDS: Insulin Regular 300 UNITS/3 ML VIAL SC SCH ×3 (08:25→16:20)
[2018-02-27] MEDS: Ketorolac Tromethamine 30 MG/ML VIAL IVP PRN (08:26)
[2018-02-27] MEDS ORDERED: Aspirin 81 mg Enteric Coated Tablet PO SCH (09:00)
[2018-02-27] MEDS ORDERED: Ferrous Sulfate 325 MG TAB PO SCH (09:00)
[2018-02-27] MEDS ORDERED: Torsemide 100 MG TAB PO SCH (09:00)
[2018-02-27] MEDS ORDERED: Non-Formulary Item 1 EACH (Multivitamin [Multivitamins] 1 CAP) PO SCH (09:00)
--- NOTE | 2018-02-27 10:33 | PDOC.PN ---
- Subjective Encounter Start Date: 02/27/18 Encounter Start Time: 09:45 Patient seen and examined. last night her BP was low, so bolus was given, now BP improved but on lower side her pain is overall ok with current pain meds - Objective Resuscitation Status: Resuscitation Status FULL:Full Resuscitation MAR Reviewed: Yes Vital Signs & Weight: Vital Signs (12 hours) Temp Pulse Resp BP BP Pulse Ox 02/27/18 08:24 101/69 02/27/18 07:11 98.6 F 83 18 101/69 95 02/27/18 04:00 98.4 F 80 16 96/62 92 L 02/26/18 23:14 98.2 F 82 16 102/71 94 L Weight Weight 220 lb I&O: 02/26/18 02/27/18 02/28/18 06:59 06:59 06:59 Intake Total 240 Output Total 300 Balance -60 Result Diagrams: 02/27/18 05:30 02/26/18 09:08 Additional Labs: Accuchecks 02/27/18 02/26/18 02/26/18 06:05 20:50 17:29 POC Glucose 126 H 242 H 246 H 02/26/18 02/26/18 14:07 09:40 POC Glucose 175 H 119 H Phys Exam - Physical Examination Constitutional: NAD HEENT: PERRLA, moist MMs, sclera anicteric Neck: no JVD, supple Respiratory: no wheezing, no rales, no rhonchi Cardiovascular: RRR, no significant murmur, no rub Gastrointestinal: soft, non-tender, no distention, positive bowel sounds Musculoskeletal: no edema, pulses present left knee with dressing, nerve block in place Neurological: non-focal, normal sensation Lymphatic: no nodes Psychiatric: normal affect, A&O x 3 Skin: no rash, normal turgor Dx/Plan (1) Hypotension Status: Acute (2) Status post total left knee replacement Code(s): Z96.652 - PRESENCE OF LEFT ARTIFICIAL KNEE JOINT Status: Acute (3) CKD (chronic kidney disease) stage 3, GFR 30-59 ml/min Code(s): N18.3 - CHRONIC KIDNEY DISEASE, STAGE 3 (MODERATE) Status: Chronic Comment: Stable (4) COPD (chronic obstructive pulmonary disease) Status: Chronic (5) Chronic respiratory failure with hypoxia Code(s): J96.11 - CHRONIC RESPIRATORY FAILURE WITH HYPOXIA Status: Chronic (6) DJD (degenerative joint disease), thoracic Code(s): M51.34 - OTHER INTERVERTEBRAL DISC DEGENERATION, THORACIC REGION Status: Chronic (7) Degenerative joint disease (DJD) of lumbar spine Code(s): M47.816 - SPONDYLOSIS W/O MYELOPATHY OR RADICULOPATHY, LUMBAR REGION Status: Chronic (8) Diabetes type 2, controlled Code(s): E11.9 - TYPE 2 DIABETES MELLITUS WITHOUT COMPLICATIONS Status: Chronic (9) Diabetic peripheral neuropathy Code(s): E11.42 - TYPE 2 DIABETES MELLITUS WITH DIABETIC POLYNEUROPATHY Status : Chronic (10) Hypertension Code(s): I10 - ESSENTIAL (PRIMARY) HYPERTENSION Status: Chronic Qualifiers: Hypertension type: essential hypertension Qualified Code(s): I10 - Essential (primary) hypertension Comment: (11) Morbid obesity with BMI of 40.0-44.9, adult Code(s): E66.01 - MORBID (SEVERE) OBESITY DUE TO EXCESS CALORIES; Z68.41 - BODY MASS INDEX (BMI) 40.0-44.9, ADULT Status: Chronic - Plan cont current plan of care, PT/OT * continue aspirin for DVT prophylaxis as per protocol * continue pepcid for GI prophylaxis * will dc hydralazine and demadex for now * will monitor vitals today * nerve block as per anesthesia * PT/OT as per [facility] protocol * pain control with pain meds as below * medication reviewed as below * symptomatic treatment Review of Systems - Review of Systems ENT: negative: Ear Pain, Ear Discharge, Nose Pain, Nose Discharge, Nose Congestion, Mouth Pain, Mouth Swelling, Throat Pain, Throat Swelling, Other Respiratory: negative: Cough, Dry, Shortness of Breath, Hemoptysis, SOB with Excertion, Pleuritic Pain, Sputum, Wheezing Cardiovascular: negative: chest pain, palpitations, orthopnea, paroxysmal nocturnal dyspnea, edema, light headedness, other Gastrointestinal: negative: Nausea, Vomiting, Abdominal Pain, Diarrhea, Constipation, Melena, Hematochezia, Other Genitourinary: negative: Dysuria, Frequency, Incontinence, Hematuria, Retention , Other Musculoskeletal: negative: Neck Pain, Shoulder Pain, Arm Pain, Back Pain, Hand Pain, Leg Pain, Foot Pain, Other - Medications/Allergies Allergies/Adverse Reactions: Allergies Allergy/AdvReac Type Severity Reaction Status Date / Time ipratropium [From Atrovent] Allergy DIZZY, Verified 10/11/17 13:50 TROUBLE BREATHING Sulfa (Sulfonamide Allergy DYSPNEA Verified 10/11/17 13:50 Antibiotics) Medications: Current Medications Acetaminophen (Tylenol) 650 mg PO Q4H PRN PRN Reason: GOLDSMITH/ T > 101F; Mild Pain (1-3) Hydrocodone Bitart/Acetaminophen ([place] 7.5/325) 1 tab PO Q4H PRN PRN Reason: Mild Pain (1-3) Hydrocodone Bitart/Acetaminophen ([place] 7.5/325) 2 tab PO Q4H PRN PRN Reason: Moderate Pain (4-6) Last Admin: 02/26/18 17:33 Dose: 2 tab Al Hydroxide/Mg Hydroxide (Maalox) 15 ml PO Q4H PRN PRN Reason: Heartburn or Indigestion Albuterol Sulfate (Ventolin) 2.5 mg NEB Q4H PRN PRN Reason: Dyspnea/Wheezing/SOB Allopurinol (Zyloprim) 100 mg PO DAILY [facility] Last Admin: 02/27/18 08:20 Dose: 100 mg Artificial Tears (Tears Naturale) 0 drop EA EYE PRN PRN PRN Reason: Dry Eyes Aspirin (Ecotrin) 81 mg PO BID [facility] Last Admin: 02/27/18 08:24 Dose: 81 mg Dextrose/Water (Dextrose 50%) 25 gm SLOW IVP PRN PRN PRN Reason: Hypoglycemia Diphenhydramine HCl (Benadryl) 25 mg PO Q6H PRN PRN Reason: Itching Famotidine (Pepcid) 20 mg PO Q24HR [facility] Last Admin: 02/26/18 19:56 Dose: 20 mg Fentanyl (Sublimaze) 50 mcg SLOW IVP Q1H PRN PRN Reason: breakthrough pain Ferrous Gluconate (Fergon) 324 mg PO BID-[facility] Last Admin: 02/27/18 08:22 Dose: 324 mg Gabapentin (Neurontin) 300 mg PO TID [facility] Last Admin: 02/27/18 08:21 Dose: 300 mg Glucagon (Glucagon) 1 mg IM PRN PRN PRN Reason: Hypoglycemia Guaifenesin (Robitussin Sf) 200 mg PO Q4H PRN PRN Reason: Cough Hydralazine HCl (Apresoline) 50 mg PO BID [facility] Last Admin: 02/27/18 08:24 Dose: Not Given Hydralazine HCl (Apresoline) 10 mg SLOW IVP Q4H PRN PRN Reason: Systolic BP > 180 Ropivacaine (Ropivacaine 0.2% 550 Ml) 550 mls @ 10 mls/hr NERVE BLCK INF [facility] Dextrose/Water (D5w) 1,000 mls @ 0 mls/hr IV .Q0M PRN PRN Reason: Hypoglycemia Insulin Human NPH (Humulin N) 25 unit SC BID-[facility] Last Admin: 02/27/18 08:24 Dose: 25 unit Insulin Human Regular (Humulin R) 10 units SC TID-[facility] Last Admin: 02/27/18 08:25 Dose: 10 unit Insulin Human Regular (Humulin R) 0 units SC .MODERATE SLIDING SC PRN PRN Reason: Moderate Correctional Scale Insulin Human Regular (Humulin R) 0 units SC .BEDTIME SLIDING SC PRN PRN Reason: Bedtime Correctional Scale Last Admin: 02/26/18 20:57 Dose: 2 unit Iron/Minerals/Multivitamins (Theragran M) 1 tab PO DAILY [facility] Last Admin: 02/27/18 08:23 Dose: 1 tab Ketorolac Tromethamine (Toradol) 15 mg IVP Q6H PRN PRN Reason: Moderate Pain (4-6) Stop: 03/01/18 10:19 Last Admin: 02/27/18 08:26 Dose: 15 mg Loperamide HCl (Imodium) 2 mg PO PRN PRN PRN Reason: Diarrhea/Loose Stools Magnesium Hydroxide (Milk Of Magnesium) 30 ml PO DAILYPRN PRN PRN Reason: Constipation Mineral Oil/White Petrolatum (Eucerin Cream) 0 gm TOP BIDPRN PRN PRN Reason: Dry Skin Mometasone Furoate/Formoterol Fumar (Dulera 200 Mcg/5 Mcg Inhaler) 2 puff INH BID-RT PRN PRN Reason: START SCHEDULED IF ASMTHA Ondansetron HCl (Zofran) 4 mg IVP Q6H PRN PRN Reason: Nausea/Vomiting Phenol (Chloraseptic [place] 180 Ml Bot) 0 ml PO PRN PRN PRN Reason: Sore Throat Potassium Chloride (K-Dur) 40 meq PO TID [facility] Last Admin: 02/27/18 08:21 Dose: 40 meq Promethazine HCl (Phenergan) 12.5 mg IM Q4H PRN PRN Reason: Nausea/Vomiting Senna (Senokot) 2 tab PO HSPRN PRN PRN Reason: Constipation Senna/Docusate Sodium (Senokot S) 2 tab PO BID [facility] Last Admin: 02/27/18 08:20 Dose: 2 tab Simvastatin (Zocor) 10 mg PO HS [facility] Last Admin: 02/26/18 19:56 Dose: 10 mg Sodium Chloride (Flush - Normal Saline) 10 ml IVF PRN PRN PRN Reason: Saline Flush Sodium Chloride ([place] Nasal [place] 0.65%) 0 ml EA NARE QIDPRN PRN PRN Reason: Nasal Congestion Torsemide (Demadex) 100 mg PO QAM [facility] Last Admin: 02/27/18 09:50 Dose: 100 mg Tramadol HCl (Ultram) 50 mg PO Q6H PRN PRN Reason: Mild Pain (1-3) Tramadol HCl (Ultram) 100 mg PO Q6H PRN PRN Reason: Moderate Pain 4-6 Verapamil HCl (Calan Sr) 360 mg PO BID [facility] Last Admin: 02/27/18 09:49 Dose: 360 mg Zolpidem Tartrate (Ambien) 5 mg PO HSPRN PRN PRN Reason: Insomnia
[2018-02-27] MEDS: HYDROcodone/Acetaminophen 7.5/325 mg Tablet PO PRN ×3 (12:04→21:51)
--- NOTE | 2018-02-27 13:36 | PRG ---
DATE OF SERVICE: 02/27/2018 Ms. Vidal is status post left total knee replacement yesterday. She complains of pain in the left kn ee, but she is able to control it with p.o. medication. She has some numbness on the anterior latera l aspect of the proximal left thigh which is probably from the nerve block performed by Anesthesia. PHYSICAL EXAMINATION: VITAL SIGNS: The patient is afebrile, blood pressure has been a little low. She was given a bolus o f fluid which brought it up. She has good O2 saturation 95% on room air. Vital signs otherwise are stable. Hemoglobin is 10, hematocrit 31.0. The incision over the left knee is showing good signs of healing, has the usual amount of swelling. Left lower extremity is neurovascularly intact. The patient will continue with therapy, increasing her activity as tolerated. The patient after she had a right total knee replacement a few months ago, went to a intermediate for about a week and she will need to do that again with her left total knee replacement because she has no one at home to hel p her, so we will plan on discharging her on Sunday to a intermediate and rn case manager hospice has been [employer] and is working on it to make sure that she has placement once Sunday is here.
[2018-02-27] MEDS: traMADol HCl 50 MG TAB PO PRN (18:26)
[2018-02-27] MEDS: Simvastatin 5 MG TAB PO SCH (21:31)
[2018-02-27] MEDS: Famotidine 20 MG TAB PO SCH (21:51)
[2018-02-28] MEDS: HYDROcodone/Acetaminophen 7.5/325 mg Tablet PO PRN (05:05)
[2018-02-28] MEDS: traMADol HCl 50 MG TAB PO PRN ×2 (05:45→15:41)
[2018-02-28] MEDS: Ketorolac Tromethamine 30 MG/ML VIAL IVP PRN (05:47)
[2018-02-28] MEDS: Albuterol Sulfate 2.5 mg/3 ml Neb NEB PRN ×2 (06:05→11:44)
[2018-02-28] MEDS: Insulin Regular 300 UNITS/3 ML VIAL SC PRN (06:06)
[2018-02-28 07:21] LABS: Hemoglobin 8.9 g/dL (12.0-16.0); Mean Corpuscular HGB CONC 32.3 g/dL (32.0-36.0); Mean Corpuscular Hemoglobin 27.1 pg (27.0-31.0); Mean Corpuscular Volume 83.9 fL (78.0-98.0); Mean Platelet Volume 8.7 fL (7.4-10.4); Platelet Count 180 thou/uL (130-400); RBC Distribution Width 15.5 % (11.5-14.5); Red Blood Cell (RBC) Count 3.28 mill/uL (4.20-5.40)
[2018-02-28] MEDS: Aspirin 81 mg Enteric Coated Tablet PO SCH ×2 (09:35→21:07)
[2018-02-28] MEDS: Gabapentin 100 MG CAP PO SCH ×3 (09:35→21:07)
[2018-02-28] MEDS: Senokot S 8.6-50 MG TAB PO SCH ×2 (09:36→21:07)
[2018-02-28] MEDS: Ferrous Gluconate 324 MG TAB PO SCH ×2 (09:36→16:09)
[2018-02-28] MEDS: Multivitamin W/ Minerals 1 TAB PO SCH (09:36)
[2018-02-28] MEDS: NPH, Human Insulin Isophane 300 UNIT/3 ML VIAL SC SCH ×2 (09:37→16:09)
[2018-02-28] MEDS: Allopurinol 100 MG TAB PO SCH (09:37)
[2018-02-28] MEDS: Insulin Regular 300 UNITS/3 ML VIAL SC SCH ×3 (09:38→16:09)
--- NOTE | 2018-02-28 09:45 | PDOC.PN ---
- Subjective Encounter Start Date: 02/28/18 Encounter Start Time: 08:20 pt is overall weak, her pain is controlled, last night she was not able to sleep - Objective Resuscitation Status: Resuscitation Status FULL:Full Resuscitation MAR Reviewed: Yes Vital Signs & Weight: Vital Signs (12 hours) Temp Pulse Resp BP Pulse Ox 02/28/18 08:01 98.4 F 94 18 105/62 91 L 02/28/18 06:05 103 H 18 97 02/28/18 04:55 94 L 02/28/18 04:00 98.7 F 51 L 12 144/76 H 02/27/18 23:33 97.4 F L 87 12 107/56 L 98 Weight Admit Weight 220 lb Weight 220 lb I&O: 02/27/18 02/28/18 03/01/18 06:59 06:59 06:59 Intake Total 240 2450 Output Total 300 950 Balance -60 1500 Result Diagrams: 02/28/18 07:03 02/26/18 09:08 Additional Labs: Accuchecks 02/28/18 02/27/18 02/27/18 05:30 21:29 15:20 POC Glucose 172 H 137 H 172 H 02/27/18 11:15 POC Glucose 171 H Phys Exam - Physical Examination Constitutional: NAD HEENT: PERRLA, moist MMs, sclera anicteric Neck: no JVD, supple Respiratory: no wheezing, no rales, no rhonchi Cardiovascular: RRR, no significant murmur, no rub Gastrointestinal: soft, non-tender, no distention, positive bowel sounds obesity+ Musculoskeletal: edema present left knee with dressing, nerve block in place Neurological: non-focal, normal sensation, moves all 4 limbs Psychiatric: normal affect, A&O x 3 Skin: no rash, normal turgor Dx/Plan (1) Status post total left knee replacement Code(s): Z96.652 - PRESENCE OF LEFT ARTIFICIAL KNEE JOINT Status: Acute (2) CKD (chronic kidney disease) stage 3, GFR 30-59 ml/min Code(s): N18.3 - CHRONIC KIDNEY DISEASE, STAGE 3 (MODERATE) Status: Chronic Comment: Stable (3) COPD (chronic obstructive pulmonary disease) Status: Chronic (4) Chronic respiratory failure with hypoxia Code(s): J96.11 - CHRONIC RESPIRATORY FAILURE WITH HYPOXIA Status: Chronic (5) DJD (degenerative joint disease), thoracic Code(s): M51.34 - OTHER INTERVERTEBRAL DISC DEGENERATION, THORACIC REGION Status: Chronic (6) Degenerative joint disease (DJD) of lumbar spine Code(s): M47.816 - SPONDYLOSIS W/O MYELOPATHY OR RADICULOPATHY, LUMBAR REGION Status: Chronic (7) Diabetes type 2, controlled Code(s): E11.9 - TYPE 2 DIABETES MELLITUS WITHOUT COMPLICATIONS Status: Chronic (8) Diabetic peripheral neuropathy Code(s): E11.42 - TYPE 2 DIABETES MELLITUS WITH DIABETIC POLYNEUROPATHY Status : Chronic (9) Hypertension Code(s): I10 - ESSENTIAL (PRIMARY) HYPERTENSION Status: Chronic Qualifiers: Hypertension type: essential hypertension Qualified Code(s): I10 - Essential (primary) hypertension Comment: (10) Morbid obesity with BMI of 40.0-44.9, adult Code(s): E66.01 - MORBID (SEVERE) OBESITY DUE TO EXCESS CALORIES; Z68.41 - BODY MASS INDEX (BMI) 40.0-44.9, ADULT Status: Chronic - Plan cont current plan of care, PT/OT * she will need snu placement * continue PT/OT as per [facility] protocol * continue aspirin for dvt prophylaxis * medication reviewed as below * symptomatic treatment * pain controlled * symptomatic treatment * check UA * repeat cbc, bmp tomorrow. Review of Systems - Review of Systems Constitutional: weakness. negative: fever, chills, sweats, malaise, other ENT: negative: Ear Pain, Ear Discharge, Nose Pain, Nose Discharge, Nose Congestion, Mouth Pain, Mouth Swelling, Throat Pain, Throat Swelling, Other Respiratory: negative: Cough, Dry, Shortness of Breath, Hemoptysis, SOB with Excertion, Pleuritic Pain, Sputum, Wheezing Cardiovascular: negative: chest pain, palpitations, orthopnea, paroxysmal nocturnal dyspnea, edema, light headedness, other Gastrointestinal: negative: Nausea, Vomiting, Abdominal Pain, Diarrhea, Constipation, Melena, Hematochezia, Other Genitourinary: negative: Dysuria, Frequency, Incontinence, Hematuria, Retention , Other Musculoskeletal: negative: Neck Pain, Shoulder Pain, Arm Pain, Back Pain, Hand Pain, Leg Pain, Foot Pain, Other Skin: negative: Rash, Lesions, Edwin, Bruising, Other - Medications/Allergies Allergies/Adverse Reactions: Allergies Allergy/AdvReac Type Severity Reaction Status Date / Time ipratropium [From Atrovent] Allergy DIZZY, Verified 10/11/17 13:50 TROUBLE BREATHING Sulfa (Sulfonamide Allergy DYSPNEA Verified 10/11/17 13:50 Antibiotics) Medications: Current Medications Acetaminophen (Tylenol) 650 mg PO Q4H PRN PRN Reason: GOLDSMITH/ T > 101F; Mild Pain (1-3) Hydrocodone Bitart/Acetaminophen ([place] 7.5/325) 1 tab PO Q4H PRN PRN Reason: Mild Pain (1-3) Last Admin: 02/28/18 05:05 Dose: 1 tab Hydrocodone Bitart/Acetaminophen ([place] 7.5/325) 2 tab PO Q4H PRN PRN Reason: Moderate Pain (4-6) Last Admin: 02/26/18 17:33 Dose: 2 tab Al Hydroxide/Mg Hydroxide (Maalox) 15 ml PO Q4H PRN PRN Reason: Heartburn or Indigestion Albuterol Sulfate (Ventolin) 2.5 mg NEB Q4H PRN PRN Reason: Dyspnea/Wheezing/SOB Last Admin: 02/28/18 06:05 Dose: 2.5 mg Allopurinol (Zyloprim) 100 mg PO DAILY [facility] Last Admin: 02/27/18 08:20 Dose: 100 mg Artificial Tears (Tears Naturale) 0 drop EA EYE PRN PRN PRN Reason: Dry Eyes Aspirin (Ecotrin) 81 mg PO BID [facility] Last Admin: 02/27/18 21:31 Dose: 81 mg Dextrose/Water (Dextrose 50%) 25 gm SLOW IVP PRN PRN PRN Reason: Hypoglycemia Diphenhydramine HCl (Benadryl) 25 mg PO Q6H PRN PRN Reason: Itching Famotidine (Pepcid) 20 mg PO Q24HR [facility] Last Admin: 02/27/18 21:51 Dose: 20 mg Fentanyl (Sublimaze) 50 mcg SLOW IVP Q1H PRN PRN Reason: breakthrough pain Ferrous Gluconate (Fergon) 324 mg PO BID-[facility] Last Admin: 02/27/18 16:21 Dose: 324 mg Gabapentin (Neurontin) 300 mg PO TID [facility] Last Admin: 02/27/18 21:32 Dose: 300 mg Glucagon (Glucagon) 1 mg IM PRN PRN PRN Reason: Hypoglycemia Guaifenesin (Robitussin Sf) 200 mg PO Q4H PRN PRN Reason: Cough Hydralazine HCl (Apresoline) 10 mg SLOW IVP Q4H PRN PRN Reason: Systolic BP > 180 Ropivacaine (Ropivacaine 0.2% 550 Ml) 550 mls @ 10 mls/hr NERVE BLCK INF MIREYA Dextrose/Water (D5w) 1,000 mls @ 0 mls/hr IV .Q0M PRN PRN Reason: Hypoglycemia Insulin Human NPH (Humulin N) 25 unit SC BID-[facility] Last Admin: 02/27/18 16:21 Dose: 25 unit Insulin Human Regular (Humulin R) 10 units SC TID-[facility] Last Admin: 02/27/18 16:20 Dose: 10 unit Insulin Human Regular (Humulin R) 0 units SC .MODERATE SLIDING SC PRN PRN Reason: Moderate Correctional Scale Last Admin: 02/28/18 06:06 Dose: 2 unit Insulin Human Regular (Humulin R) 0 units SC .BEDTIME SLIDING SC PRN PRN Reason: Bedtime Correctional Scale Last Admin: 02/26/18 20:57 Dose: 2 unit Iron/Minerals/Multivitamins (Theragran M) 1 tab PO DAILY [facility] Last Admin: 02/27/18 08:23 Dose: 1 tab Ketorolac Tromethamine (Toradol) 15 mg IVP Q6H PRN PRN Reason: Moderate Pain (4-6) Stop: 03/01/18 10:19 Last Admin: 02/28/18 05:47 Dose: 15 mg Loperamide HCl (Imodium) 2 mg PO PRN PRN PRN Reason: Diarrhea/Loose Stools Magnesium Hydroxide (Milk Of Magnesium) 30 ml PO DAILYPRN PRN PRN Reason: Constipation Mineral Oil/White Petrolatum (Eucerin Cream) 0 gm TOP BIDPRN PRN PRN Reason: Dry Skin Mometasone Furoate/Formoterol Fumar (Dulera 200 Mcg/5 Mcg Inhaler) 2 puff INH BID-RT PRN PRN Reason: START SCHEDULED IF ASMTHA Last Admin: 02/28/18 06:10 Dose: 2 puff Ondansetron HCl (Zofran) 4 mg IVP Q6H PRN PRN Reason: Nausea/Vomiting Phenol (Chloraseptic [place] 180 Ml Bot) 0 ml PO PRN PRN PRN Reason: Sore Throat Promethazine HCl (Phenergan) 12.5 mg IM Q4H PRN PRN Reason: Nausea/Vomiting Senna (Senokot) 2 tab PO HSPRN PRN PRN Reason: Constipation Senna/Docusate Sodium (Senokot S) 2 tab PO BID [facility] Last Admin: 02/27/18 21:31 Dose: 2 tab Simvastatin (Zocor) 10 mg PO HS [facility] Last Admin: 02/27/18 21:31 Dose: 10 mg Sodium Chloride (Flush - Normal Saline) 10 ml IVF PRN PRN PRN Reason: Saline Flush Sodium Chloride ([place] Nasal [place] 0.65%) 0 ml EA NARE QIDPRN PRN PRN Reason: Nasal Congestion Tramadol HCl (Ultram) 50 mg PO Q6H PRN PRN Reason: Mild Pain (1-3) Tramadol HCl (Ultram) 100 mg PO Q6H PRN PRN Reason: Moderate Pain 4-6 Last Admin: 02/28/18 05:45 Dose: 100 mg Verapamil HCl (Calan Sr) 360 mg PO BID [facility] Last Admin: 02/27/18 21:32 Dose: 360 mg Zolpidem Tartrate (Ambien) 5 mg PO HSPRN PRN PRN Reason: Insomnia
[2018-02-28 17:58] LABS: Bilirubin Negative (Negative); Blood, Urine Negative (Negative); Clarity CLOUDY (Clear); Glucose, Urine (Dipstick) Negative (Negative); Leukocyte Small (Negative); Nitrite Negative (Negative); Protein, Urine (Dipstick) Trace mg/dL (Neg-Trace); Specific Gravity, Urine 1.013 (1.002-1.036); Urobilinogen 0.2 mg/dL (0.2-1.0)
[2018-02-28 18:01] LABS: Bacteria/HPF None Seen HPF (None Seen); Hyaline Casts/LPF 0-3 HYALINE CAST LPF (0-3 Hyaline); Pathc Cast-AUWi Flag 0.58 (0-2.49); RBC/HPF 0-3 HPF (0-3)
[2018-02-28] MEDS: Simvastatin 5 MG TAB PO SCH (21:06)
[2018-02-28] MEDS: Famotidine 20 MG TAB PO SCH (21:07)
[2018-03-01] MEDS: HYDROcodone/Acetaminophen 7.5/325 mg Tablet PO PRN ×2 (08:06→12:44)
[2018-03-01] MEDS: Albuterol Sulfate 2.5 mg/3 ml Neb NEB PRN (09:10)
[2018-03-01] MEDS: Aspirin 81 mg Enteric Coated Tablet PO SCH ×2 (10:01→20:44)
[2018-03-01] MEDS: NPH, Human Insulin Isophane 300 UNIT/3 ML VIAL SC SCH ×2 (10:01→18:10)
[2018-03-01] MEDS: Ferrous Gluconate 324 MG TAB PO SCH ×2 (10:01→18:04)
[2018-03-01] MEDS: Gabapentin 100 MG CAP PO SCH ×3 (10:01→20:44)
[2018-03-01] MEDS: Insulin Regular 300 UNITS/3 ML VIAL SC SCH ×3 (10:01→18:04)
[2018-03-01] MEDS: Senokot S 8.6-50 MG TAB PO SCH ×2 (10:01→20:44)
[2018-03-01] MEDS: Allopurinol 100 MG TAB PO SCH (10:01)
[2018-03-01] MEDS: Multivitamin W/ Minerals 1 TAB PO SCH (10:33)
[2018-03-01] MEDS: Insulin Regular 300 UNITS/3 ML VIAL SC PRN (12:05)
[2018-03-01 12:46] LABS: Anion Gap 13 mmol/L (10-20); BUN (Urea Nitrogen) 63 mg/dL (9.8-20.1); Calc. Creatinine Clearance 27 mL/min (70-130); Calcium 9.2 mg/dL (7.8-10.44); Carbon Dioxide 28 mmol/L (23-31); Chloride 101 mmol/L (98-107); Estimated GFR-MDRD 18; Glucose 100 mg/dL (80-115); Potassium 5.3 mmol/L (3.5-5.1); Sodium 137 mmol/L (136-145)
--- NOTE | 2018-03-01 12:59 | DIS ---
DATE OF ADMISSION: 02/26/2018 DATE OF DISCHARGE: 03/01/2018 PRIMARY CARE PHYSICIAN: NISREEN Williamson DISCHARGE DISPOSITION: retirement home. PRIMARY DISCHARGE DIAGNOSIS: Status post left total knee replacement. SECONDARY DISCHARGE DIAGNOSES: Chronic respiratory failure with hypoxia on home oxygen, chronic kidney disease stage 3, chronic obstructive pulmonary disease, degenerative joint disease, diabetes type 2, diabetic neuropathy, hypertension, morbid obesity with BMI 40. PRIMARY PROCEDURE AND OPERATION: Left total knee replacement. RADIOLOGICAL INVESTIGATION: Knee x-ray. SIGNIFICANT LABORATORY DATA: WBC 14.0, hemoglobin 8.9, platelet 180. Sodium 144, potassium 3.5, BUN 43, creatinine 1.87, calcium 9.8. Urinalysis unremarkable. DISCHARGE MEDICATIONS: Levaquin 250 mg p.o. daily for 7 days, Tylenol #3 one tablet q.8 hourly p.r.n., albuterol sulfate nebulization q.4 hours p.r.n., allopurinol 100 mg p.o. daily, ferrous sulfate 325 mg p.o. daily, gabapentin 300 mg p.o. t.i.d., Novolin 70/30 at 25 units subcu b.i.d., Novolin R 10 units subcu t.i.d., multivitamin 1 capsule p.o. daily, Zocor 10 mg p.o. at bedtime, verapamil ER 360 mg p.o. b.i.d., aspirin 81 mg p.o. b.i.d., Dulera two puff inhalation b.i.d., potassium chloride 20 mEq p.o. daily, Demadex 20 mg p.o. daily, prednisone 20 mg p.o. daily for 5 days. CONTRAINDICATIONS: None. CODE STATUS: FULL CODE. INPATIENT CONSULTANTS: Dr. Romero Ponce was primary while in hospital. [place] [facility] Team was consulted for medical comanagement. TEST RESULTS PENDING ON DISCHARGE: None. ALLERGIES: IPRATROPIUM, SULFA DRUGS. DISCHARGE PLAN: Post hospital, the patient will follow up with primary care physician and Dr. Romero Ponce as instructed. HOSPITAL COURSE: A 67-year-old -[place] female with above-mentioned medical problem who was electively admitted by Dr. Jasso for left total knee replacement, which was done on 02/26/2018 without any complication. Postoperatively, the patient was transferred to [facility]. Sound team was consulted for medical comanagement. Patient was given aspirin for DVT prophylaxis. She had no block while in hospital. Her pain was controlled with pain medication. While in hospital, we noted that her blood pressure was running on lower side and that is why we discontinued some of her blood pressure medication and appropriately adjusted while in hospital. Her urinalysis was suspicious for UTI and she also had mild leukocytosis and that is why we decided to give her empiric antibiotic therapy for 7 days. The patient was given prednisone for her COPD. Rest of medication was continued as per previous, medication adjustment was done. The patient is seen and examined at bedside today. Review of systems reviewed with her and negative. PHYSICAL EXAMINATION: VITAL SIGNS: Currently, temperature 98.7, pulse 91, respiratory rate 20, saturation 97% on room air, blood pressure 121/82, weight 220 pounds. GENERAL: The patient is currently alert, awake, no obvious acute distress. HEAD: Normocephalic, atraumatic. EYES: Pupils round, reactive to light. Extraocular muscle intact. ENT: Oropharynx within normal limits. Moist mucous membranes. No oral lesion , no pharyngeal erythema, no exudate. NECK: Supple, no JVD, no thyromegaly, no carotid bruit. LUNGS: Few end expiratory wheezing heard, no rales, no rhonchi. CARDIAC: S1, S2 regular. No murmur, no gallop, no rub. ABDOMEN: Obesity present. Bowel sounds present. EXTREMITIES: No edema, no calf tenderness. NEUROLOGIC: Nonfocal examination. Discharge medication reconciliation done. Primary team is planning for discharge today. PRASHANTH
--- NOTE | 2018-03-01 14:41 | PDOC.PN ---
- Subjective Encounter Start Date: 03/01/18 Encounter Start Time: 10:30 Patient seen and examined. No overnight events today she is wheezing, her creatinine is elevated she is very weak - Objective Resuscitation Status: Resuscitation Status FULL:Full Resuscitation MAR Reviewed: Yes Vital Signs & Weight: Vital Signs (12 hours) Temp Pulse Resp BP Pulse Ox Pulse Ox Pulse Ox 03/01/18 13:43 98.1 F 84 16 123/74 96 03/01/18 10:55 98.4 F 84 16 104/62 95 03/01/18 10:02 94 L 92 L 03/01/18 09:10 87 20 92 L 03/01/18 07:45 98.4 F 90 14 108/58 L 92 L Weight Admit Weight 220 lb Weight 220 lb I&O: 02/28/18 03/01/18 03/02/18 06:59 06:59 06:59 Intake Total 2450 980 1210 Output Total 950 300 Balance 6253 082 8677 Result Diagrams: 02/28/18 07:03 03/01/18 03:30 Additional Labs: Accuchecks 02/28/18 02/28/18 20:53 15:35 POC Glucose 150 H 217 H Phys Exam - Physical Examination Constitutional: NAD HEENT: PERRLA, moist MMs, sclera anicteric Neck: no JVD, supple Respiratory: no rales, wheezing present Cardiovascular: RRR, no significant murmur, no rub Gastrointestinal: soft, non-tender, no distention, positive bowel sounds Musculoskeletal: no edema, pulses present Neurological: non-focal, normal sensation Lymphatic: no nodes Psychiatric: normal affect, A&O x 3 Skin: no rash, normal turgor Dx/Plan (1) Status post total left knee replacement Code(s): Z96.652 - PRESENCE OF LEFT ARTIFICIAL KNEE JOINT Status: Acute (2) CKD (chronic kidney disease) stage 3, GFR 30-59 ml/min Code(s): N18.3 - CHRONIC KIDNEY DISEASE, STAGE 3 (MODERATE) Status: Chronic Comment: Stable (3) COPD (chronic obstructive pulmonary disease) Status: Chronic Qualifiers: COPD type: COPD with acute exacerbation Qualified Code(s): J44.1 - Chronic obstructive pulmonary disease with (acute) exacerbation (4) Chronic respiratory failure with hypoxia Code(s): J96.11 - CHRONIC RESPIRATORY FAILURE WITH HYPOXIA Status: Chronic (5) DJD (degenerative joint disease), thoracic Code(s): M51.34 - OTHER INTERVERTEBRAL DISC DEGENERATION, THORACIC REGION Status: Chronic (6) Degenerative joint disease (DJD) of lumbar spine Code(s): M47.816 - SPONDYLOSIS W/O MYELOPATHY OR RADICULOPATHY, LUMBAR REGION Status: Chronic (7) Diabetes type 2, controlled Code(s): E11.9 - TYPE 2 DIABETES MELLITUS WITHOUT COMPLICATIONS Status: Chronic (8) Diabetic peripheral neuropathy Code(s): E11.42 - TYPE 2 DIABETES MELLITUS WITH DIABETIC POLYNEUROPATHY Status : Chronic (9) Hypertension Code(s): I10 - ESSENTIAL (PRIMARY) HYPERTENSION Status: Chronic Qualifiers: Hypertension type: essential hypertension Qualified Code(s): I10 - Essential (primary) hypertension Comment: (10) Morbid obesity with BMI of 40.0-44.9, adult Code(s): E66.01 - MORBID (SEVERE) OBESITY DUE TO EXCESS CALORIES; Z68.41 - BODY MASS INDEX (BMI) 40.0-44.9, ADULT Status: Chronic - Plan cont current plan of care, continue antibiotics, PT/OT, respiratory therapy * add dulera 2 puff inhalation bid * add solumderol 20 mg IV q 6 hourly * get chest xray * start levaquin per renal dose * start gentle IVF * repeat labs tomorrow * will consider holding discharge * medication reviewed as below * symptomatic treatment. Review of Systems - Review of Systems Constitutional: weakness. negative: fever, chills, sweats, malaise, other ENT: negative: Ear Pain, Ear Discharge, Nose Pain, Nose Discharge, Nose Congestion, Mouth Pain, Mouth Swelling, Throat Pain, Throat Swelling, Other Respiratory: Wheezing. negative: Cough, Dry, Shortness of Breath, Hemoptysis, SOB with Excertion, Pleuritic Pain, Sputum Cardiovascular: negative: chest pain, palpitations, orthopnea, paroxysmal nocturnal dyspnea, edema, light headedness, other Gastrointestinal: negative: Nausea, Vomiting, Abdominal Pain, Diarrhea, Constipation, Melena, Hematochezia, Other Genitourinary: negative: Dysuria, Frequency, Incontinence, Hematuria, Retention , Other Musculoskeletal: negative: Neck Pain, Shoulder Pain, Arm Pain, Back Pain, Hand Pain, Leg Pain, Foot Pain, Other - Medications/Allergies Allergies/Adverse Reactions: Allergies Allergy/AdvReac Type Severity Reaction Status Date / Time ipratropium [From Atrovent] Allergy DIZZY, Verified 10/11/17 13:50 TROUBLE BREATHING Sulfa (Sulfonamide Allergy DYSPNEA Verified 10/11/17 13:50 Antibiotics) Medications: Current Medications Acetaminophen (Tylenol) 650 mg PO Q4H PRN PRN Reason: GOL[place]ITH/ T > 101F; Mild Pain (1-3) Hydrocodone Bitart/Acetaminophen ([place] 7.5/325) 1 tab PO Q4H PRN PRN Reason: Mild Pain (1-3) Last Admin: 02/28/18 05:05 Dose: 1 tab Hydrocodone Bitart/Acetaminophen ([place] 7.5/325) 2 tab PO Q4H PRN PRN Reason: Moderate Pain (4-6) Last Admin: 03/01/18 12:44 Dose: 2 tab Al Hydroxide/Mg Hydroxide (Maalox) 15 ml PO Q4H PRN PRN Reason: Heartburn or Indigestion Albuterol Sulfate (Ventolin) 2.5 mg NEB Q4H PRN PRN Reason: Dyspnea/Wheezing/SOB Last Admin: 03/01/18 09:10 Dose: 2.5 mg Allopurinol (Zyloprim) 100 mg PO DAILY [facility] Last Admin: 03/01/18 10:01 Dose: 100 mg Artificial Tears (Tears Naturale) 0 drop EA EYE PRN PRN PRN Reason: Dry Eyes Aspirin (Ecotrin) 81 mg PO BID [facility] Last Admin: 03/01/18 10:01 Dose: 81 mg Dextrose/Water (Dextrose 50%) 25 gm SLOW IVP PRN PRN PRN Reason: Hypoglycemia Diphenhydramine HCl (Benadryl) 25 mg PO Q6H PRN PRN Reason: Itching Famotidine (Pepcid) 20 mg PO Q24HR [facility] Last Admin: 02/28/18 21:07 Dose: 20 mg Fentanyl (Sublimaze) 50 mcg SLOW IVP Q1H PRN PRN Reason: breakthrough pain Ferrous Gluconate (Fergon) 324 mg PO BID-[facility] Last Admin: 03/01/18 10:01 Dose: 324 mg Gabapentin (Neurontin) 300 mg PO TID [facility] Last Admin: 03/01/18 10:01 Dose: 300 mg Glucagon (Glucagon) 1 mg IM PRN PRN PRN Reason: Hypoglycemia Guaifenesin (Robitussin Sf) 200 mg PO Q4H PRN PRN Reason: Cough Hydralazine HCl (Apresoline) 10 mg SLOW IVP Q4H PRN PRN Reason: Systolic BP > 180 Ropivacaine (Ropivacaine 0.2% 550 Ml) 550 mls @ 10 mls/hr NERVE BLCK INF MIREYA Dextrose/Water (D5w) 1,000 mls @ 0 mls/hr IV .Q0M PRN PRN Reason: Hypoglycemia Insulin Human NPH (Humulin N) 25 unit SC BID-[facility] Last Admin: 03/01/18 10:01 Dose: 25 unit Insulin Human Regular (Humulin R) 10 units SC TID-[facility] Last Admin: 03/01/18 12:05 Dose: 10 unit Insulin Human Regular (Humulin R) 0 units SC .MODERATE SLIDING SC PRN PRN Reason: Moderate Correctional Scale Last Admin: 03/01/18 12:05 Dose: 2 unit Insulin Human Regular (Humulin R) 0 units SC .BEDTIME SLIDING SC PRN PRN Reason: Bedtime Correctional Scale Last Admin: 02/26/18 20:57 Dose: 2 unit Iron/Minerals/Multivitamins (Theragran M) 1 tab PO DAILY [facility] Last Admin: 03/01/18 10:33 Dose: 1 tab Loperamide HCl (Imodium) 2 mg PO PRN PRN PRN Reason: Diarrhea/Loose Stools Magnesium Hydroxide (Milk Of Magnesium) 30 ml PO DAILYPRN PRN PRN Reason: Constipation Mineral Oil/White Petrolatum (Eucerin Cream) 0 gm TOP BIDPRN PRN PRN Reason: Dry Skin Mometasone Furoate/Formoterol Fumar (Dulera 200 Mcg/5 Mcg Inhaler) 2 puff INH BID-RT PRN PRN Reason: START SCHEDULED IF ASMTHA Last Admin: 02/28/18 06:10 Dose: 2 puff Ondansetron HCl (Zofran) 4 mg IVP Q6H PRN PRN Reason: Nausea/Vomiting Phenol (Chloraseptic [place] 180 Ml Bot) 0 ml PO PRN PRN PRN Reason: Sore Throat Promethazine HCl (Phenergan) 12.5 mg IM Q4H PRN PRN Reason: Nausea/Vomiting Senna (Senokot) 2 tab PO HSPRN PRN PRN Reason: Constipation Senna/Docusate Sodium (Senokot S) 2 tab PO BID [facility] Last Admin: 03/01/18 10:01 Dose: 2 tab Simvastatin (Zocor) 10 mg PO HS [facility] Last Admin: 02/28/18 21:06 Dose: 10 mg Sodium Chloride (Flush - Normal Saline) 10 ml IVF PRN PRN PRN Reason: Saline Flush Sodium Chloride ([place] Nasal [place] 0.65%) 0 ml EA NARE QIDPRN PRN PRN Reason: Nasal Congestion Tramadol HCl (Ultram) 50 mg PO Q6H PRN PRN Reason: Mild Pain (1-3) Tramadol HCl (Ultram) 100 mg PO Q6H PRN PRN Reason: Moderate Pain 4-6 Last Admin: 02/28/18 15:41 Dose: 100 mg Verapamil HCl (Calan Sr) 360 mg PO BID [facility] Last Admin: 03/01/18 10:33 Dose: 360 mg Zolpidem Tartrate (Ambien) 5 mg PO HSPRN PRN PRN Reason: Insomnia
[2018-03-01] MEDS: Sodium Chloride 0.9% 1,000 ML IV SCH (15:10)
[2018-03-01] MEDS ORDERED: Mometasone/Formoterol 120 PUFF INHALER INH SCH (15:45)
[2018-03-01 17:35] LABS: Hemoglobin 8.7 g/dL (12.0-16.0); Mean Corpuscular Hemoglobin 27.4 pg (27.0-31.0); Mean Corpuscular Volume 85.4 fL (78.0-98.0); Mean Platelet Volume 9.6 fL (7.4-10.4); Platelet Count 179 thou/uL (130-400); RBC Distribution Width 15.5 % (11.5-14.5); Red Blood Cell (RBC) Count 3.19 mill/uL (4.20-5.40); White Blood Cell (WBC) Count 14.1 thou/uL (4.8-10.8)
--- NOTE | 2018-03-01 17:35 | PDOC.EVN ---
Event Note - Event Note Event Note: code dick was called, CT brain reviewed negative for acute process, will get chest xray, cbc, bmp, bnp, lactic acid, cardiac enzyme. transferred to IM, will add pulmicort nebs 0.5 mg bid, change solumedrol 40 mg iv q 6hourly, pulmonary consulted, will get abg as well, will get echo
[2018-03-01 17:36] LABS: Base Excess (BEa) -0.3 mEq/L (-2.0 to +3.0); CO2 Tension 51.2 mmHg (35.0-45.0); Calcium, Ionized 1.14 mmol/L (1.12-1.30); Carboxyhemoglobin (COHb) 1.2 gm% (0.0-3.0); Hemoglobin (Hb) 8.6 g/dL (12.0-16.0); O2 Tension (PaO2) 137.6 mmHg (> 80.0); Potassium - ABG Lab 4.57 mmol/L (3.70-5.30); Puncture Site L.R.; pH, Arterial 7.32 (7.35-7.45)
[2018-03-01 17:38] LABS: #Eosinphils 1.1 thou/uL (0.0-0.7); #Lymphocytes 2.1 thou/uL (1.20-3.40); #Monocytes 1.3 thou/uL (0.11-0.59); #Neutrophils 7.6 thou/uL (1.40-6.50); %Basophils 0.3 % (0.0-1.0); %Eosinophils 9.2 % (0.0-10.0); %Monocytes 10.9 % (0.0-10.0); %Neutrophils 62.6 % (42.0-75.0); Hemoglobin 8.6 g/dL (12.0-16.0); Mean Corpuscular HGB CONC 32.2 g/dL (32.0-36.0); Mean Corpuscular Hemoglobin 27.2 pg (27.0-31.0); Mean Corpuscular Volume 84.5 fL (78.0-98.0); Mean Platelet Volume 9.4 fL (7.4-10.4); Platelet Count 210 thou/uL (130-400); RBC Distribution Width 15.6 % (11.5-14.5); Red Blood Cell (RBC) Count 3.17 mill/uL (4.20-5.40); White Blood Cell (WBC) Count 12.2 thou/uL (4.8-10.8)
--- NOTE | 2018-03-01 17:38 | CT ---
CT OF BRAIN PERFORMED WITHOUT CONTRAST ENHANCEMENT: 03/01/18 HISTORY: Altered mental status, slurred speech. There is mild ventricular and sulcal prominence. There is no signs of intracerebral hemorrhage or ext ra-axial fluid collections. Mastoid air cells and visualized sinuses are clear. IMPRESSION: No acute intracranial abnormalities. The findings telephoned to the ER at 1720 hours. POS: [facility]
[2018-03-01 17:45] LABS: Lactic Acid 0.8 mmol/L (0.5-2.2)
[2018-03-01 17:50] LABS: ALT (SGPT) 9 U/L (8-55); AST (SGOT) 23 U/L (5-34); Albumin 3.4 g/dL (3.4-4.8); Alkaline Phosphatase 82 U/L (40-150); Anion Gap 16 mmol/L (10-20); BUN (Urea Nitrogen) 69 mg/dL (9.8-20.1); Bilirubin, Total 0.4 mg/dL (0.2-1.2); Calc. Creatinine Clearance 28 mL/min (70-130); Calcium 8.8 mg/dL (7.8-10.44); Carbon Dioxide 25 mmol/L (23-31); Chloride 103 mmol/L (98-107); Estimated GFR-MDRD 18; Globulin 2.9 g/dL (2.4-3.5); Glucose 121 mg/dL (80-115); Magnesium 2.4 mg/dL (1.6-2.6); Phosphorus 4.8 mg/dL (2.3-4.7); Potassium 4.9 mmol/L (3.5-5.1); Protein, Total 6.3 g/dL (6.0-8.3); Sodium 139 mmol/L (136-145)
[2018-03-01 17:54] LABS: CKMB 2.7 ng/mL (0-6.6); Troponin I Less than 0.010 ng/mL (< 0.028)
--- NOTE | 2018-03-01 17:57 | RAD ---
PORTABLE CHEST: 03/01/18 HISTORY: Shortness of breath. COMPARISON: 11/02/17 study. Heart size is enlarged. There are atherosclerotic changes of the aorta. The lungs are clear of infilt rates. No signs of failure. IMPRESSION: Cardiomegaly. POS: [facility]
[2018-03-01 19:06] LABS: Actual Bicarbonate (HCO3a) 28.9 mEq/L (22-28); Base Excess (BEa) 2.2 mEq/L (-2.0 to +3.0); CO2 Tension 56.8 mmHg (35.0-45.0); Calcium, Ionized 1.15 mmol/L (1.12-1.30); Carboxyhemoglobin (COHb) 1.2 gm% (0.0-3.0); Hemoglobin (Hb) 9.3 g/dL (12.0-16.0); O2 Tension (PaO2) 71.6 mmHg (> 80.0); Potassium - ABG Lab 4.76 mmol/L (3.70-5.30); pH, Arterial 7.33 (7.35-7.45)
[2018-03-01 19:07] LABS: Puncture Site L RADIAL
[2018-03-01] MEDS: Budesonide 0.5 MG/2 ML NEB INH SCH (19:40)
[2018-03-01] MEDS: Simvastatin 5 MG TAB PO SCH (20:45)
[2018-03-02] MEDS: Albuterol Sulfate 2.5 mg/3 ml Neb NEB PRN ×2 (03:07→23:55)
[2018-03-02 04:17] LABS: #Eosinphils 0.1 thou/uL (0.0-0.7); #Monocytes 0.2 thou/uL (0.11-0.59); #Neutrophils 9.7 thou/uL (1.40-6.50); %Eosinophils 0.7 % (0.0-10.0); %Lymphocytes 8.8 % (21.0-51.0); %Monocytes 2.2 % (0.0-10.0); %Neutrophils 88.4 % (42.0-75.0); Hemoglobin 8.7 g/dL (12.0-16.0); Mean Corpuscular HGB CONC 32.3 g/dL (32.0-36.0); Mean Corpuscular Hemoglobin 27.4 pg (27.0-31.0); Mean Corpuscular Volume 84.7 fL (78.0-98.0); Mean Platelet Volume 9.1 fL (7.4-10.4); Platelet Count 205 thou/uL (130-400); RBC Distribution Width 15.5 % (11.5-14.5); Red Blood Cell (RBC) Count 3.18 mill/uL (4.20-5.40)
[2018-03-02 04:37] LABS: ALT (SGPT) 12 U/L (8-55); AST (SGOT) 22 U/L (5-34); Albumin 3.5 g/dL (3.4-4.8); Alkaline Phosphatase 88 U/L (40-150); Anion Gap 16 mmol/L (10-20); BUN (Urea Nitrogen) 70 mg/dL (9.8-20.1); Bilirubin, Total 0.4 mg/dL (0.2-1.2); Calc. Creatinine Clearance 29 mL/min (70-130); Calcium 9.3 mg/dL (7.8-10.44); Carbon Dioxide 26 mmol/L (23-31); Cardiac Risk 3.6 (Less than 4.5); Chloride 100 mmol/L (98-107); Cholesterol 119 mg/dl (< 200 Desired); Estimated GFR-MDRD 19; Globulin 3.7 g/dL (2.4-3.5); Glucose 271 mg/dL (80-115); HDL Cholesterol 33 mg/dL (>60 Neg Risk); LDL Cholesterol, Calculated 69 mg/dL; Potassium 5.4 mmol/L (3.5-5.1); Protein, Total 7.2 g/dL (6.0-8.3); Sodium 137 mmol/L (136-145); Triglycerides 83 mg/dL (Less than 150)
[2018-03-02] MEDS: Sodium Chloride 0.9% 1,000 ML IV SCH (05:40)
[2018-03-02] MEDS: Budesonide 0.5 MG/2 ML NEB INH SCH (06:53)
[2018-03-02] MEDS: Mometasone/Formoterol 120 PUFF INHALER INH SCH ×2 (06:53→18:37)
[2018-03-02] MEDS: Insulin Regular 300 UNITS/3 ML VIAL SC SCH ×3 (10:09→17:50)
[2018-03-02] MEDS: NPH, Human Insulin Isophane 300 UNIT/3 ML VIAL SC SCH ×2 (10:10→17:48)
[2018-03-02] MEDS: Allopurinol 100 MG TAB PO SCH (10:10)
[2018-03-02] MEDS: Multivitamin W/ Minerals 1 TAB PO SCH (10:11)
[2018-03-02] MEDS: Ferrous Gluconate 324 MG TAB PO SCH ×2 (10:11→17:48)
[2018-03-02] MEDS: Aspirin 81 mg Enteric Coated Tablet PO SCH ×2 (10:11→20:56)
[2018-03-02] MEDS: Gabapentin 100 MG CAP PO SCH ×3 (10:11→20:56)
[2018-03-02] MEDS: Senokot S 8.6-50 MG TAB PO SCH ×2 (10:12→20:57)
--- NOTE | 2018-03-02 13:33 | CON ---
DATE OF CONSULTATION: 03/02/2018 SERVICE: Pulmonary Medicine. REASON FOR CONSULTATION: COPD exacerbation. HISTORY OF PRESENT ILLNESS: The patient is a 67-year-old female with past medical history significant for COPD. She uses Symbicort twice daily at home. She came into the hospital for an elective left knee replacement. On the day she is going to be discharged from the hospital, she had altered mentation. Stroke alert was performed. She was ultimately brought down to the [facility] because we discover that she had hypercapnic respiratory failure. Overnight, we withheld pain medication and anxiolytics. We put her on BiPAP. This morning, she has been off of BiPAP for over 6 hours. She denies any current shortness of breath, fevers, chills, nausea or vomiting. She is talking in full sentences and not using any accessory muscles. She denies having a cough or sputum production. Otherwise, she has returned to her usual state of health. She continues to have discomfort of the left knee. She is a little bit resistant to moving. That being said, we can motivate to get her out of bed. Ultimately, I do believe she has returned to her usual state of health. PAST MEDICAL HISTORY: 1. COPD/asthma. 2. Type 2 diabetes mellitus. 3. Hypertension. 4. Chronic hypoxic respiratory failure on 2 liters home oxygen while sleeping. 5. Gout. PAST SURGICAL HISTORY: 1. Right total knee replacement. 2. Left total knee replacement. 3. Bilateral tubal ligation. ALLERGIES: No known drug allergies. MEDICATIONS: List of her inpatient medications were reviewed and modified. FAMILY HISTORY: Noncontributory. SOCIAL HISTORY: Negative for tobacco, alcohol or illicit drug use. She denies any exposure to chemicals, dust, asbestos or tuberculosis. REVIEW OF SYSTEMS: General, head, ears, eyes, nose, throat, cardiovascular, respiratory, GI, , musculoskeletal, neurologic and skin is negative except as mentioned in the HPI. PHYSICAL EXAMINATION: VITAL SIGNS: Afebrile, pulse of 92, blood pressure 133/57, respirations 16, saturation 94% on room air. GENERAL: The patient is awake, alert, no apparent distress. LUNGS: Reduced air entry. There is a prolonged expiratory phase. Rhonchi and crackles are both present. That being said, I do not appreciate any wheezing today. HEART: Normal rate, regular. ABDOMEN: Soft, nontender, nondistended. Bowel sounds are positive. MUSCULOSKELETAL: No cyanosis or clubbing. There is no pitting in the bilateral lower extremities. NEUROLOGIC: Grossly nonfocal. LABORATORY DATA: WBC 11.0, hemoglobin 8.7, platelets 205,000. A pH 7.33, pCO2 56, pO2 71. Basic metabolic profile includes a creatinine of 2.95, above her baseline of 1.8. Potassium 5.4. Liver function studies are essentially unremarkable. Cardiac enzymes are negative x1 as is the lactate. Urinalysis is unremarkable. ASSESSMENT: 1. Acute hypoxic and hypercapnic respiratory failure. 2. Chronic obstructive pulmonary disease with acute exacerbation, returned near to baseline. 3. Total knee replacement, recent. DISCUSSION AND PLAN: We will switch her over to p.o. prednisone. This will be limited to a 5-day course. Levofloxacin will be converted over to p.o. medication and again limited to a 5-day course. IV fluids will be interrupted as the patient is tolerating p.o. From my perspective, she is stable for transition back to the surgical unit. She may benefit from an outpatient evaluation for sleep apnea. 70 minutes have been devoted to this patient in various activities. I personally reviewed all imaging studies and laboratory data noted within this document. For fifty percent of this time, I was interacting with the patient at the bedside or coordinating care with the care team. For the remainder of the time I was immediately available to the patient in the hospital unit. PRASHANTH
--- NOTE | 2018-03-02 13:54 | PDOC.PN ---
- Subjective Encounter Start Date: 03/02/18 Encounter Start Time: 11:00 Subjective: pt up in bed upset since her gown is wet - Objective Resuscitation Status: Resuscitation Status FULL:Full Resuscitation Vital Signs & Weight: Vital Signs (12 hours) Temp Pulse Resp BP Pulse Ox 03/02/18 11:52 98.6 F 92 16 133/57 L 94 L 03/02/18 08:00 100 03/02/18 07:38 97.8 F 79 20 150/77 H 96 03/02/18 07:03 96 03/02/18 06:53 85 16 96 03/02/18 04:46 97.4 F L 77 20 142/87 H 100 03/02/18 03:08 70 12 10 L 03/02/18 03:07 70 12 100 Weight Admit Weight 220 lb Weight 236 lb 14.4 oz I&O: 03/01/18 03/02/18 03/03/18 06:59 06:59 06:59 Intake Total 980 2490 Output Total 300 Balance 680 2490 Result Diagrams: 03/02/18 04:03 03/02/18 04:02 Additional Labs: Accuchecks 03/02/18 03/02/18 03/01/18 10:24 06:12 20:35 POC Glucose 333 H 287 H 128 H 03/01/18 03/01/18 03/01/18 16:57 15:59 10:29 POC Glucose 126 H 126 H 193 H 03/01/18 05:51 POC Glucose 111 H Phys Exam - Physical Examination HEENT: PERRLA, moist MMs, sclera anicteric, TM's clear, oral pharynx no lesions , 2+ tonsils Neck: no nodes, no JVD, supple, full ROM Respiratory: no wheezing, no rales, no rhonchi, wheezing present, clear to auscultation bilateral Cardiovascular: RRR, no significant murmur, no rub, gallop, irregular Dx/Plan (1) Mental status alteration Code(s): R41.82 - ALTERED MENTAL STATUS, UNSPECIFIED Status: Acute (2) Status post total left knee replacement Code(s): Z96.652 - PRESENCE OF LEFT ARTIFICIAL KNEE JOINT Status: Acute (3) COPD (chronic obstructive pulmonary disease) Status: Chronic Qualifiers: COPD type: COPD with acute exacerbation Qualified Code(s): J44.1 - Chronic obstructive pulmonary disease with (acute) exacerbation - Plan pt had code green, ct brain is negative -: echo indicates 50-55% -: pt on steroids and abx -: she is back at baseline. AMS most likely due to hypercapnia * . Review of Systems - Review of Systems Respiratory: negative: Cough, Dry, Shortness of Breath, Hemoptysis, SOB with Excertion, Pleuritic Pain, Sputum, Wheezing Cardiovascular: negative: chest pain, palpitations, orthopnea, paroxysmal nocturnal dyspnea, edema, light headedness, other Gastrointestinal: negative: Nausea, Vomiting, Abdominal Pain, Diarrhea, Constipation, Melena, Hematochezia, Other Genitourinary: negative: Dysuria, Frequency, Incontinence, Hematuria, Retention , Other - Medications/Allergies Allergies/Adverse Reactions: Allergies Allergy/AdvReac Type Severity Reaction Status Date / Time ipratropium [From Atrovent] Allergy DIZZY, Verified 10/11/17 13:50 TROUBLE BREATHING Sulfa (Sulfonamide Allergy DYSPNEA Verified 10/11/17 13:50 Antibiotics) Medications: Current Medications Acetaminophen (Tylenol) 650 mg PO Q4H PRN PRN Reason: GOLDSMITH/ T > 101F; Mild Pain (1-3) Hydrocodone Bitart/Acetaminophen ([place] 7.5/325) 1 tab PO Q4H PRN PRN Reason: Mild Pain (1-3) Last Admin: 02/28/18 05:05 Dose: 1 tab Hydrocodone Bitart/Acetaminophen ([place] 7.5/325) 2 tab PO Q4H PRN PRN Reason: Moderate Pain (4-6) Last Admin: 03/01/18 12:44 Dose: 2 tab Al Hydroxide/Mg Hydroxide (Maalox) 15 ml PO Q4H PRN PRN Reason: Heartburn or Indigestion Albuterol Sulfate (Ventolin) 2.5 mg NEB Q4H PRN PRN Reason: Dyspnea/Wheezing/SOB Last Admin: 03/02/18 03:07 Dose: 2.5 mg Allopurinol (Zyloprim) 100 mg PO DAILY [facility] Last Admin: 03/02/18 10:10 Dose: 100 mg Artificial Tears (Tears Naturale) 0 drop EA EYE PRN PRN PRN Reason: Dry Eyes Aspirin (Ecotrin) 81 mg PO BID [facility] Last Admin: 03/02/18 10:11 Dose: 81 mg Budesonide (Pulmicort Neb Solution) 0.5 mg INH BID-RT [facility] Last Admin: 03/02/18 06:53 Dose: 0.5 mg Dextrose/Water (Dextrose 50%) 25 gm SLOW IVP PRN PRN PRN Reason: Hypoglycemia Ferrous Gluconate (Fergon) 324 mg PO BID-WM [facility] Last Admin: 03/02/18 10:11 Dose: 324 mg Gabapentin (Neurontin) 100 mg PO TID [facility] Last Admin: 03/02/18 10:11 Dose: 100 mg Glucagon (Glucagon) 1 mg IM PRN PRN PRN Reason: Hypoglycemia Guaifenesin (Robitussin Sf) 200 mg PO Q4H PRN PRN Reason: Cough Hydralazine HCl (Apresoline) 10 mg SLOW IVP Q4H PRN PRN Reason: Systolic BP > 180 Ropivacaine (Ropivacaine 0.2% 550 Ml) 550 mls @ 10 mls/hr NERVE BLCK INF MIREYA Dextrose/Water (D5w) 1,000 mls @ 0 mls/hr IV .Q0M PRN PRN Reason: Hypoglycemia Insulin Human NPH (Humulin N) 25 unit SC BID-[facility] Last Admin: 03/02/18 10:10 Dose: 25 unit Insulin Human Regular (Humulin R) 10 units SC TID-[facility] Last Admin: 03/02/18 13:09 Dose: 10 unit Insulin Human Regular (Humulin R) 0 units SC .MODERATE SLIDING SC PRN PRN Reason: Moderate Correctional Scale Last Admin: 03/01/18 12:05 Dose: 2 unit Insulin Human Regular (Humulin R) 0 units SC .BEDTIME SLIDING SC PRN PRN Reason: Bedtime Correctional Scale Last Admin: 02/26/18 20:57 Dose: 2 unit Iron/Minerals/Multivitamins (Theragran M) 1 tab PO DAILY [facility] Last Admin: 03/02/18 10:11 Dose: 1 tab Levofloxacin (Levaquin) 500 mg PO Q48H [facility] Loperamide HCl (Imodium) 2 mg PO PRN PRN PRN Reason: Diarrhea/Loose Stools Magnesium Hydroxide (Milk Of Magnesium) 30 ml PO DAILYPRN PRN PRN Reason: Constipation Mineral Oil/White Petrolatum (Eucerin Cream) 0 gm TOP BIDPRN PRN PRN Reason: Dry Skin Mometasone Furoate/Formoterol Fumar (Dulera 200 Mcg/5 Mcg Inhaler) 2 puff INH BID-RT [facility] Last Admin: 03/02/18 06:53 Dose: 2 puff Ondansetron HCl (Zofran) 4 mg IVP Q6H PRN PRN Reason: Nausea/Vomiting Pantoprazole Sodium (Protonix) 40 mg PO DAILY [facility] Last Admin: 03/02/18 10:11 Dose: 40 mg Phenol (Chloraseptic [place] 180 Ml Bot) 0 ml PO PRN PRN PRN Reason: Sore Throat Prednisone (Prednisone) 40 mg PO QAM-WM [facility] Stop: 03/05/18 08:01 Senna (Senokot) 2 tab PO HSPRN PRN PRN Reason: Constipation Senna/Docusate Sodium (Senokot S) 2 tab PO BID [facility] Last Admin: 03/02/18 10:12 Dose: Not Given Simvastatin (Zocor) 10 mg PO HS [facility] Last Admin: 03/01/18 20:45 Dose: 10 mg Sodium Chloride (Flush - Normal Saline) 10 ml IVF PRN PRN PRN Reason: Saline Flush Sodium Chloride ([place] Nasal [place] 0.65%) 0 ml EA NARE QIDPRN PRN PRN Reason: Nasal Congestion Tramadol HCl (Ultram) 50 mg PO Q6H PRN PRN Reason: Mild Pain (1-3) Last Admin: 03/01/18 23:22 Dose: 50 mg
[2018-03-02 15:02] LABS: Anion Gap 17 mmol/L (10-20); BUN (Urea Nitrogen) 67 mg/dL (9.8-20.1); Calc. Creatinine Clearance 36 mL/min (70-130); Calcium 9.6 mg/dL (7.8-10.44); Carbon Dioxide 26 mmol/L (23-31); Chloride 103 mmol/L (98-107); Estimated GFR-MDRD 22; Glucose 263 mg/dL (80-115); Potassium 4.6 mmol/L (3.5-5.1); Sodium 141 mmol/L (136-145)
[2018-03-02] MEDS: HYDROcodone/Acetaminophen 7.5/325 mg Tablet PO PRN (16:17)
[2018-03-02] MEDS: Insulin Regular 300 UNITS/3 ML VIAL SC PRN ×2 (17:50→21:08)
[2018-03-02] MEDS: Simvastatin 5 MG TAB PO SCH (20:56)
[2018-03-03] MEDS: Albuterol Sulfate 2.5 mg/3 ml Neb NEB PRN (06:17)
[2018-03-03] MEDS: Mometasone/Formoterol 120 PUFF INHALER INH SCH ×2 (06:42→18:56)
[2018-03-03] MEDS ORDERED: predniSONE 20 MG TAB PO SCH (08:00)
[2018-03-03] MEDS: Gabapentin 100 MG CAP PO SCH ×3 (08:27→20:43)
[2018-03-03] MEDS: Allopurinol 100 MG TAB PO SCH (08:27)
[2018-03-03] MEDS: Ferrous Gluconate 324 MG TAB PO SCH ×2 (08:27→16:46)
[2018-03-03] MEDS: Multivitamin W/ Minerals 1 TAB PO SCH (08:27)
[2018-03-03] MEDS: Aspirin 81 mg Enteric Coated Tablet PO SCH ×2 (08:27→20:43)
[2018-03-03] MEDS: NPH, Human Insulin Isophane 300 UNIT/3 ML VIAL SC SCH ×2 (08:27→16:45)
[2018-03-03] MEDS: Insulin Regular 300 UNITS/3 ML VIAL SC SCH ×3 (08:28→16:44)
[2018-03-03] MEDS: Senokot S 8.6-50 MG TAB PO SCH ×2 (08:30→20:45)
[2018-03-03 09:14] LABS: Anion Gap 15 mmol/L (10-20); BUN (Urea Nitrogen) 62 mg/dL (9.8-20.1); Calc. Creatinine Clearance 44 mL/min (70-130); Calcium 9.6 mg/dL (7.8-10.44); Carbon Dioxide 26 mmol/L (23-31); Chloride 105 mmol/L (98-107); Estimated GFR-MDRD 28; Glucose 94 mg/dL (80-115); Potassium 4.1 mmol/L (3.5-5.1); Sodium 142 mmol/L (136-145)
--- NOTE | 2018-03-03 15:06 | PDOC.PN ---
- Subjective Encounter Start Date: 03/03/18 Encounter Start Time: 15:00 Subjective: pt up in bed complains of sob - Objective Resuscitation Status: Resuscitation Status FULL:Full Resuscitation Vital Signs & Weight: Vital Signs (12 hours) Temp Pulse Resp BP BP Pulse Ox 03/03/18 10:18 98.0 F 67 20 169/80 H 91 L 03/03/18 07:23 98.0 F 75 22 H 137/63 92 L 03/03/18 06:42 62 20 96 03/03/18 06:22 96 03/03/18 06:17 62 20 96 03/03/18 05:11 97.7 F 79 24 H 126/70 96 Weight Admit Weight 220 lb Weight 236 lb 14.4 oz I&O: 03/02/18 03/03/18 03/04/18 06:59 06:59 06:59 Intake Total 2490 1170 Balance 2490 1170 Result Diagrams: 03/02/18 04:03 03/03/18 08:30 Additional Labs: Accuchecks 03/03/18 03/03/18 03/02/18 10:18 06:11 21:03 POC Glucose 107 108 205 H 03/02/18 16:50 POC Glucose 233 H Phys Exam - Physical Examination Neck: no nodes, no JVD, supple, full ROM Respiratory: no rhonchi, wheezing present Cardiovascular: RRR, no significant murmur, no rub, gallop, irregular Gastrointestinal: soft, non-tender, no distention, positive bowel sounds Musculoskeletal: no edema, pulses present, edema present Dx/Plan (1) Mental status alteration Code(s): R41.82 - ALTERED MENTAL STATUS, UNSPECIFIED Status: Acute (2) Status post total left knee replacement Code(s): Z96.652 - PRESENCE OF LEFT ARTIFICIAL KNEE JOINT Status: Acute (3) COPD (chronic obstructive pulmonary disease) Status: Chronic Qualifiers: COPD type: COPD with acute exacerbation Qualified Code(s): J44.1 - Chronic obstructive pulmonary disease with (acute) exacerbation - Plan pt has significant wheezing, will give her duoneb x1 since it says she is -: allergic to it however spoke with RT who states she was allergic to dulera -: but tolerated it well. will change po to iv steroid. will also get cxr -: and abx. she appear a bit anxious will also give her some xanax -: pt uses oxgyen at night and prn when she is working at home. * . Review of Systems - Review of Systems Respiratory: Shortness of Breath Cardiovascular: negative: chest pain, palpitations, orthopnea, paroxysmal nocturnal dyspnea, edema, light headedness, other Gastrointestinal: negative: Nausea, Vomiting, Abdominal Pain, Diarrhea, Constipation, Melena, Hematochezia, Other Genitourinary: negative: Dysuria, Frequency, Incontinence, Hematuria, Retention , Other - Medications/Allergies Allergies/Adverse Reactions: Allergies Allergy/AdvReac Type Severity Reaction Status Date / Time ipratropium [From Atrovent] Allergy DIZZY, Verified 10/11/17 13:50 TROUBLE BREATHING Sulfa (Sulfonamide Allergy DYSPNEA Verified 10/11/17 13:50 Antibiotics) Medications: Current Medications Acetaminophen (Tylenol) 650 mg PO Q4H PRN PRN Reason: GOL[place]ITH/ T > 101F; Mild Pain (1-3) Hydrocodone Bitart/Acetaminophen ([place] 7.5/325) 1 tab PO Q4H PRN PRN Reason: Mild Pain (1-3) Last Admin: 02/28/18 05:05 Dose: 1 tab Hydrocodone Bitart/Acetaminophen ([place] 7.5/325) 2 tab PO Q4H PRN PRN Reason: Moderate Pain (4-6) Last Admin: 03/02/18 16:17 Dose: 2 tab Al Hydroxide/Mg Hydroxide (Maalox) 15 ml PO Q4H PRN PRN Reason: Heartburn or Indigestion Albuterol Sulfate (Ventolin) 2.5 mg NEB Q4H PRN PRN Reason: Dyspnea/Wheezing/SOB Last Admin: 03/03/18 06:17 Dose: 2.5 mg Albuterol/Ipratropium (Duoneb) 3 ml NEB [id number] Allopurinol (Zyloprim) 100 mg PO DAILY [facility] Last Admin: 03/03/18 08:27 Dose: 100 mg Artificial Tears (Tears Naturale) 0 drop EA EYE PRN PRN PRN Reason: Dry Eyes Aspirin (Ecotrin) 81 mg PO BID [facility] Last Admin: 03/03/18 08:27 Dose: 81 mg Dextrose/Water (Dextrose 50%) 25 gm SLOW IVP PRN PRN PRN Reason: Hypoglycemia Ferrous Gluconate (Fergon) 324 mg PO BID-[facility] Last Admin: 03/03/18 08:27 Dose: 324 mg Gabapentin (Neurontin) 100 mg PO TID [facility] Last Admin: 03/03/18 14:23 Dose: 100 mg Glucagon (Glucagon) 1 mg IM PRN PRN PRN Reason: Hypoglycemia Guaifenesin (Robitussin Sf) 200 mg PO Q4H PRN PRN Reason: Cough Hydralazine HCl (Apresoline) 10 mg SLOW IVP Q4H PRN PRN Reason: Systolic BP > 180 Dextrose/Water (D5w) 1,000 mls @ 0 mls/hr IV .Q0M PRN PRN Reason: Hypoglycemia Insulin Human NPH (Humulin N) 25 unit SC BID-[facility] Last Admin: 03/03/18 08:27 Dose: 25 unit Insulin Human Regular (Humulin R) 10 units SC TID-[facility] Last Admin: 03/03/18 12:19 Dose: Not Given Insulin Human Regular (Humulin R) 0 units SC .MODERATE SLIDING SC PRN PRN Reason: Moderate Correctional Scale Last Admin: 03/02/18 17:50 Dose: 4 unit Insulin Human Regular (Humulin R) 0 units SC .BEDTIME SLIDING SC PRN PRN Reason: Bedtime Correctional Scale Last Admin: 03/02/18 21:08 Dose: 2 unit Iron/Minerals/Multivitamins (Theragran M) 1 tab PO DAILY [facility] Last Admin: 03/03/18 08:27 Dose: 1 tab Levofloxacin (Levaquin) 500 mg PO Q48H [facility] Last Admin: 03/03/18 08:27 Dose: 500 mg Loperamide HCl (Imodium) 2 mg PO PRN PRN PRN Reason: Diarrhea/Loose Stools Magnesium Hydroxide (Milk Of Magnesium) 30 ml PO DAILYPRN PRN PRN Reason: Constipation Methylprednisolone Sodium Succinate (Solu-Medrol) 40 mg IVP DAILY [facility] Mineral Oil/White Petrolatum (Eucerin Cream) 0 gm TOP BIDPRN PRN PRN Reason: Dry Skin Mometasone Furoate/Formoterol Fumar (Dulera 200 Mcg/5 Mcg Inhaler) 2 puff INH BID-RT [facility] Last Admin: 03/03/18 06:42 Dose: 2 puff Ondansetron HCl (Zofran) 4 mg IVP Q6H PRN PRN Reason: Nausea/Vomiting Pantoprazole Sodium (Protonix) 40 mg PO DAILY [facility] Last Admin: 03/03/18 08:27 Dose: 40 mg Phenol (Chloraseptic [place] 180 Ml Bot) 0 ml PO PRN PRN PRN Reason: Sore Throat Senna (Senokot) 2 tab PO HSPRN PRN PRN Reason: Constipation Senna/Docusate Sodium (Senokot S) 2 tab PO BID [facility] Last Admin: 03/03/18 08:30 Dose: Not Given Simvastatin (Zocor) 10 mg PO HS [facility] Last Admin: 03/02/18 20:56 Dose: 10 mg Sodium Chloride (Flush - Normal Saline) 10 ml IVF PRN PRN PRN Reason: Saline Flush Sodium Chloride ([place] Nasal [place] 0.65%) 0 ml EA NARE QIDPRN PRN PRN Reason: Nasal Congestion Tramadol HCl (Ultram) 50 mg PO Q6H PRN PRN Reason: Mild Pain (1-3) Last Admin: 03/01/18 23:22 Dose: 50 mg
[2018-03-03] MEDS ORDERED: ALPRAZolam 0.25 MG TAB PO PRN (15:09)
[2018-03-03] MEDS ORDERED: Albuterol Sulfate 2.5 mg/3 ml Neb NEB PRN (15:25)
--- NOTE | 2018-03-03 15:55 | PRG ---
DATE OF SERVICE: 03/03/2018 SERVICE: Pulmonary Medicine. INTERVAL HISTORY: The patient is doing great from a respiratory standpoint. Yesterday, she started having increasing work of breathing. She got put back on her oxygen and got a nebulized treatment. She subsequently improved a little bit. She has a cough and not bringing up any sputum. Otherwise, she has no specific complaints today. There were no overnight events. PHYSICAL EXAMINATION: VITAL SIGNS: Afebrile, pulse 67, blood pressure 169/80, respirations 20, saturation 91% on room air. GENERAL: The patient is awake and alert, in no apparent distress. LUNGS: Decent air entry. There is a prolonged expiratory phase with a little bit of wheezing. Rhonchi are present as well. They clear with cough. That being said, there is also some dependent crackles. HEART: Normal rate and regular. ABDOMEN: Soft, nontender, nondistended. Bowel sounds are positive. MUSCULOSKELETAL: No cyanosis or clubbing. There is trace to 1+ pitting in the bilateral lower extremities. NEUROLOGIC: Grossly nonfocal. LABORATORY DATA: Creatinine has downtrended to 2.09, BUN 62. Basic metabolic profile is, otherwise, unremarkable. ASSESSMENT: 1. Acute hypoxic and hypercapnic respiratory failure. 2. Chronic obstructive pulmonary disease with acute exacerbation, close to baseline. 3. Total knee replacement, recent. DISCUSSION AND PLAN: We will continue her steroids, nebulized medications, and antibiotics. I will provide her with a dose of Lasix. This patient would benefit from an outpatient polysomnogram. Pulmonary Critical Care will continue to follow while she remains in-house. PRASHANTH
[2018-03-03] MEDS ORDERED: Furosemide 40 MG/4 ML VIAL SLOW IVP SCH (16:00)
--- NOTE | 2018-03-03 16:29 | RAD ---
PORTABLE CHEST: Comparison: 03-01-18 History: Shortness of breath. FINDINGS: Heart size is enlarged. No signs of overt failure or focal infiltrates. Right hilar region is slightl y prominent, probably related to pulmonary artery. IMPRESSION: Stable exam. Cardiomegaly. No signs of failure. POS: MICHELLE
[2018-03-03] MEDS ORDERED: Albuterol Sulfate 2.5 mg/3 ml Neb NEB SCH (18:30)
[2018-03-03] MEDS: Simvastatin 5 MG TAB PO SCH (20:43)
[2018-03-03] MEDS: HYDROcodone/Acetaminophen 7.5/325 mg Tablet PO PRN (20:44)
[2018-03-03] MEDS: Insulin Regular 300 UNITS/3 ML VIAL SC PRN (20:54)
[2018-03-04] MEDS: Mometasone/Formoterol 120 PUFF INHALER INH SCH (07:31)
[2018-03-04] MEDS: Aspirin 81 mg Enteric Coated Tablet PO SCH (08:50)
[2018-03-04] MEDS: Senokot S 8.6-50 MG TAB PO SCH (08:50)
[2018-03-04] MEDS: Allopurinol 100 MG TAB PO SCH (08:50)
[2018-03-04] MEDS: Ferrous Gluconate 324 MG TAB PO SCH (08:51)
[2018-03-04] MEDS: Insulin Regular 300 UNITS/3 ML VIAL SC SCH ×3 (08:51→16:26)
[2018-03-04] MEDS: Multivitamin W/ Minerals 1 TAB PO SCH (08:51)
[2018-03-04] MEDS: Gabapentin 100 MG CAP PO SCH ×2 (08:51→14:06)
[2018-03-04] MEDS: NPH, Human Insulin Isophane 300 UNIT/3 ML VIAL SC SCH ×2 (08:52→16:25)
[2018-03-04] MEDS ORDERED: Furosemide 40 MG/4 ML VIAL SLOW IVP SCH (09:00)
[2018-03-04 09:31] LABS: Anion Gap 13 mmol/L (10-20); BUN (Urea Nitrogen) 64 mg/dL (9.8-20.1); Calc. Creatinine Clearance 46 mL/min (70-130); Calcium 9.4 mg/dL (7.8-10.44); Carbon Dioxide 31 mmol/L (23-31); Chloride 104 mmol/L (98-107); Estimated GFR-MDRD 30; Glucose 116 mg/dL (80-115); Sodium 144 mmol/L (136-145)
[2018-03-04 12:01] VITALS: TEMP 98.3
--- NOTE | 2018-03-04 13:11 | PDOC.PN ---
- Subjective Encounter Start Date: 03/04/18 Encounter Start Time: 11:30 Subjective: pt up in bed no complains - Objective Resuscitation Status: Resuscitation Status FULL:Full Resuscitation Vital Signs & Weight: Vital Signs (12 hours) Temp Pulse Resp BP Pulse Ox 03/04/18 12:00 98.3 F 63 16 150/62 H 95 03/04/18 07:59 97.7 F 69 18 148/76 H 94 L 03/04/18 07:32 98 03/04/18 07:31 61 20 98 03/04/18 07:29 62 16 98 03/04/18 04:29 97.9 F 66 19 149/70 H 95 Weight Admit Weight 220 lb Weight 236 lb 14.4 oz I&O: 03/03/18 03/04/18 03/05/18 06:59 06:59 06:59 Intake Total 1170 1430 Balance 1170 1430 Result Diagrams: 03/02/18 04:03 03/04/18 09:04 Additional Labs: Accuchecks 03/04/18 03/04/18 03/03/18 11:10 05:44 20:51 POC Glucose 146 H 142 H 227 H 03/03/18 16:09 POC Glucose 152 H Phys Exam - Physical Examination Neck: no nodes, no JVD, supple, full ROM Respiratory: no wheezing, no rales, no rhonchi, wheezing present, clear to auscultation bilateral Cardiovascular: RRR, no significant murmur, no rub, gallop, irregular Gastrointestinal: soft, non-tender, no distention, positive bowel sounds Dx/Plan (1) Mental status alteration Code(s): R41.82 - ALTERED MENTAL STATUS, UNSPECIFIED Status: Acute (2) Status post total left knee replacement Code(s): Z96.652 - PRESENCE OF LEFT ARTIFICIAL KNEE JOINT Status: Acute (3) COPD (chronic obstructive pulmonary disease) Status: Chronic Qualifiers: COPD type: COPD with acute exacerbation Qualified Code(s): J44.1 - Chronic obstructive pulmonary disease with (acute) exacerbation - Plan pt feels a lot better ok to be discharged to snf -: pt will continue steroids/abx and duonebs. * . Review of Systems - Review of Systems Respiratory: negative: Cough, Dry, Shortness of Breath, Hemoptysis, SOB with Excertion, Pleuritic Pain, Sputum, Wheezing Cardiovascular: negative: chest pain, palpitations, orthopnea, paroxysmal nocturnal dyspnea, edema, light headedness, other Gastrointestinal: negative: Nausea, Vomiting, Abdominal Pain, Diarrhea, Constipation, Melena, Hematochezia, Other Genitourinary: negative: Dysuria, Frequency, Incontinence, Hematuria, Retention , Other - Medications/Allergies Allergies/Adverse Reactions: Allergies Allergy/AdvReac Type Severity Reaction Status Date / Time ipratropium [From Atrovent] Allergy DIZZY, Verified 10/11/17 13:50 TROUBLE BREATHING Sulfa (Sulfonamide Allergy DYSPNEA Verified 10/11/17 13:50 Antibiotics) Medications: Current Medications Acetaminophen (Tylenol) 650 mg PO Q4H PRN PRN Reason: GOLDSMITH/ T > 101F; Mild Pain (1-3) Hydrocodone Bitart/Acetaminophen ([place] 7.5/325) 1 tab PO Q4H PRN PRN Reason: Mild Pain (1-3) Last Admin: 02/28/18 05:05 Dose: 1 tab Hydrocodone Bitart/Acetaminophen ([place] 7.5/325) 2 tab PO Q4H PRN PRN Reason: Moderate Pain (4-6) Last Admin: 03/03/18 20:44 Dose: 2 tab Al Hydroxide/Mg Hydroxide (Maalox) 15 ml PO Q4H PRN PRN Reason: Heartburn or Indigestion Albuterol Sulfate (Ventolin) 2.5 mg NEB [id number] PRN PRN Reason: Wheezing Albuterol/Ipratropium (Duoneb) 3 ml NEB [id number] [facility] Last Admin: 03/04/18 07:29 Dose: 3 ml Allopurinol (Zyloprim) 100 mg PO DAILY [facility] Last Admin: 03/04/18 08:50 Dose: 100 mg Alprazolam (Xanax) 0.25 mg PO BIDPRN PRN PRN Reason: Anxiety Last Admin: 03/03/18 15:33 Dose: 0.25 mg Artificial Tears (Tears Naturale) 0 drop EA EYE PRN PRN PRN Reason: Dry Eyes Aspirin (Ecotrin) 81 mg PO BID [facility] Last Admin: 03/04/18 08:50 Dose: 81 mg Dextrose/Water (Dextrose 50%) 25 gm SLOW IVP PRN PRN PRN Reason: Hypoglycemia Ferrous Gluconate (Fergon) 324 mg PO BID-[facility] Last Admin: 03/04/18 08:51 Dose: 324 mg Gabapentin (Neurontin) 100 mg PO TID [facility] Last Admin: 03/04/18 08:51 Dose: 100 mg Glucagon (Glucagon) 1 mg IM PRN PRN PRN Reason: Hypoglycemia Guaifenesin (Robitussin Sf) 200 mg PO Q4H PRN PRN Reason: Cough Hydralazine HCl (Apresoline) 10 mg SLOW IVP Q4H PRN PRN Reason: Systolic BP > 180 Dextrose/Water (D5w) 1,000 mls @ 0 mls/hr IV .Q0M PRN PRN Reason: Hypoglycemia Insulin Human NPH (Humulin N) 25 unit SC BID-[facility] Last Admin: 03/04/18 08:52 Dose: 25 unit Insulin Human Regular (Humulin R) 10 units SC TID-[facility] Last Admin: 03/04/18 12:09 Dose: 10 unit Insulin Human Regular (Humulin R) 0 units SC .MODERATE SLIDING SC PRN PRN Reason: Moderate Correctional Scale Last Admin: 03/02/18 17:50 Dose: 4 unit Insulin Human Regular (Humulin R) 0 units SC .BEDTIME SLIDING SC PRN PRN Reason: Bedtime Correctional Scale Last Admin: 03/03/18 20:54 Dose: 2 unit Iron/Minerals/Multivitamins (Theragran M) 1 tab PO DAILY [facility] Last Admin: 03/04/18 08:51 Dose: 1 tab Levofloxacin (Levaquin) 500 mg PO Q48H [facility] Last Admin: 03/03/18 08:27 Dose: 500 mg Loperamide HCl (Imodium) 2 mg PO PRN PRN PRN Reason: Diarrhea/Loose Stools Magnesium Hydroxide (Milk Of Magnesium) 30 ml PO DAILYPRN PRN PRN Reason: Constipation Methylprednisolone Sodium Succinate (Solu-Medrol) 40 mg IVP DAILY [facility] Last Admin: 03/04/18 08:50 Dose: 40 mg Mineral Oil/White Petrolatum (Eucerin Cream) 0 gm TOP BIDPRN PRN PRN Reason: Dry Skin Mometasone Furoate/Formoterol Fumar (Dulera 200 Mcg/5 Mcg Inhaler) 2 puff INH BID-RT [facility] Last Admin: 03/04/18 07:31 Dose: 2 puff Ondansetron HCl (Zofran) 4 mg IVP Q6H PRN PRN Reason: Nausea/Vomiting Pantoprazole Sodium (Protonix) 40 mg PO DAILY [facility] Last Admin: 03/04/18 08:51 Dose: 40 mg Phenol (Chloraseptic [place] 180 Ml Bot) 0 ml PO PRN PRN PRN Reason: Sore Throat Senna (Senokot) 2 tab PO HSPRN PRN PRN Reason: Constipation Senna/Docusate Sodium (Senokot S) 2 tab PO BID [facility] Last Admin: 03/04/18 08:50 Dose: 2 tab Simvastatin (Zocor) 10 mg PO HS [facility] Last Admin: 03/03/18 20:43 Dose: 10 mg Sodium Chloride (Flush - Normal Saline) 10 ml IVF PRN PRN PRN Reason: Saline Flush Sodium Chloride ([place] Nasal [place] 0.65%) 0 ml EA NARE QIDPRN PRN PRN Reason: Nasal Congestion Tramadol HCl (Ultram) 50 mg PO Q6H PRN PRN Reason: Mild Pain (1-3) Last Admin: 03/01/18 23:22 Dose: 50 mg
[2018-03-04] MEDS: HYDROcodone/Acetaminophen 7.5/325 mg Tablet PO PRN (14:06)
[2018-03-04 16:05] VITALS: BP 151/79
--- NOTE | 2018-03-04 20:31 | PRG ---
DATE OF SERVICE: 03/04/2018 SERVICE: Pulmonary Medicine. INTERVAL HISTORY: The patient's breathing is actually much improved today. She denies any chest murray n, shortness of breath, fevers or chills. She has multiple somatic complaints. She also indicates t hat she is a little bit tired and weak. When she gets around, she has a little bit of shortness of b reath. That being said, she is essentially back to baseline where this is concerned. She is not cou ghing up any sputum today. PHYSICAL EXAMINATION: VITAL SIGNS: Afebrile, pulse 67, blood pressure 151/79, respirations 18, saturation 93% on room air. GENERAL: The patient is awake, alert, no apparent distress. LUNGS: Decent air entry. There is a slightly prolonged expiratory phase, but today I do not hear an y wheezing. Dependent crackles are noted. HEART: Normal rate, regular. ABDOMEN: Soft, nontender, nondistended. Bowel sounds are positive. MUSCULOSKELETAL: No cyanosis or clubbing. There is trace pitting in the bilateral lower extremities . NEUROLOGIC: Grossly nonfocal. LABORATORY DATA: WBC is 11.0, hemoglobin 8.7, platelets 205,000. Creatinine 2.0 and gently down al nding. Basic metabolic profile is otherwise unremarkable. ASSESSMENT: 1. Acute hypoxic and hypercapnic respiratory failure, resolved. 2. Chronic obstructive pulmonary disease with acute exacerbation, at baseline. 3. Total knee replacement, recent. DISCUSSION AND PLAN: Steroids, antibiotics can be discontinued after a total duration of 5 days, p.r .n. nebulized medications will be continued. On discharge from the hospital, she will resume her omar e inhalers. The patient would benefit from an outpatient polysomnogram. I have asked for her to fol low up with me in clinic if she is so inclined to pursue a diagnosis of sleep study, which I suspicio us off. She does understand the increased risks that go along with severe sleep apnea including sudd en cardiac , brain disease, and progressive kidney disease.
== END 2018-03-04 17:11 | DRG 469 ==
LOC: SDC 08:45 → SURG A 15:32 → IMCU/EMU 03-01 17:25 → SURG A 03-02 15:33
PROVIDERS: ADMIT Orthopaedic Surgery; ATTEND Orthopaedic Surgery
PROC: 0SRD0J9 Replacement of Left Knee Joint with Synthetic Substitute, Cemented, Open Approach (ICD-10-PCS; principal; 2018-02-26)
PROC: 5A09357 Assistance with Respiratory Ventilation, Less than 24 Consecutive Hours, Continuous Positive Airway Pressure (ICD-10-PCS; 2018-02-26)
DX: M17.12 Unilateral primary osteoarthritis, left knee (principal); J96.21 Acute and chronic respiratory failure with hypoxia; J96.02 Acute respiratory failure with hypercapnia; Z68.41 Body mass index [BMI] 40.0-44.9, adult; J44.1 Chronic obstructive pulmonary disease with (acute) exacerbation; E66.01 Morbid (severe) obesity due to excess calories; N18.3 Chronic kidney disease, stage 3 (moderate); E11.22 Type 2 diabetes mellitus with diabetic chronic kidney disease; I12.9 Hypertensive chronic kidney disease with stage 1 through stage 4 chronic kidney disease, or unspecified chronic kidney disease; J45.909 Unspecified asthma, uncomplicated; Z79.899 Other long term (current) drug therapy; Z99.81 Dependence on supplemental oxygen; E11.40 Type 2 diabetes mellitus with diabetic neuropathy, unspecified; Z96.651 Presence of right artificial knee joint; R41.82 Altered mental status, unspecified
CPT/HCPCS: 36415; 36416; 70450; 71045; 80048; 80053; 80061; 81001; 82553; 82805; 83605; 83735; 83880; 84100; 84484; 85025; 85027; 90471; 90662; 93306; 94640; 94660; 96374; A4306; C1713; C1776; G0008; G8978-GP-CL; G8978-GP-CN; G8979-GP-CJ; G8979-GP-CK; G8987-GO-CM; G8988-GO-CJ; J1815; J1885; J1940; J1956; J2250; J2405; J2704; J2795; J2920; J3010; J7506; J7611; J7620; J7626; S0020

== ENCOUNTER 2018-07-02 14:30 | Outpatient (CLI) | payer MEDICARE ==
--- NOTE | 2018-07-02 15:32 | RAD ---
CHEST 1 VIEW: Date: 07/02/18 HISTORY: Shortness of breath. COMPARISON: Radiograph dated 03/03/18. FINDINGS: Heart size mildly enlarged. There is ectasia of the aorta, which is likely accentuated due to patient rotation. Pulmonary arteries are dilated. IMPRESSION: 1. Cardiomegaly with mild pulmonary arterial hypertension. 2. Ectasia of the aorta, appears mildly increased from comparison examinations. POS: TPC
== END 2018-07-02 14:31 | disposition home or self-care (01) ==
LOC: RAD-FRANK 14:30
PROVIDERS: ATTEND Nurse Practitioner Family
DX: R06.02 Shortness of breath (principal); I51.7 Cardiomegaly; I27.21 Secondary pulmonary arterial hypertension; I77.819 Aortic ectasia, unspecified site
CPT/HCPCS: 71045; 71046

== ENCOUNTER 2019-01-22 10:48 | Outpatient (CLI) | payer MEDICARE ==
--- NOTE | 2019-01-22 11:04 | RAD ---
EXAM: Chest 2 views: HISTORY: COPD, edema COMPARISON: 07/02/2018 FINDINGS: Stable nodularity over the right infrahilar region. Stable biapical pleural thickening. Heart size:Within normal limits. Lungs:Clear of acute process. Atherosclerotic changes of the aorta. No confluent pneumonia, overt edema, pleural effusion, pneumothorax, or other significant acute proce ss. IMPRESSION: Atherosclerosis of the aorta. No acute intrathoracic disease.
== END 2019-01-22 10:49 | disposition home or self-care (01) ==
LOC: RAD-FRANK 10:48
PROVIDERS: ATTEND Nurse Practitioner Family
DX: J44.9 Chronic obstructive pulmonary disease, unspecified (principal); I70.0 Atherosclerosis of aorta; R60.9 Edema, unspecified
CPT/HCPCS: 71046

== ENCOUNTER 2019-04-01 18:31 | Observation (INO) | payer MEDICARE ==
[~2019-04-01 18:31] MED LIST: Iopamidol-370 76% 500 ML 1 ML ONE
[2019-04-01 18:46] LABS: #Basophils 0.1 thou/uL (0.0-0.2); #Eosinphils 0.4 thou/uL (0.0-0.7); #Lymphocytes 2.4 thou/uL (1.20-3.40); #Monocytes 0.9 thou/uL (0.11-0.59); #Neutrophils 6.1 thou/uL (1.40-6.50); %Basophils 0.6 % (0.0-1.0); %Eosinophils 3.7 % (0.0-10.0); %Lymphocytes 24.2 % (21.0-51.0); %Monocytes 9.4 % (0.0-10.0); Hemoglobin 13.5 g/dL (12.0-16.0); Mean Corpuscular HGB CONC 33.4 g/dL (32.0-36.0); Mean Corpuscular Hemoglobin 29.2 pg (27.0-31.0); Mean Corpuscular Volume 87.3 fL (78.0-98.0); Mean Platelet Volume 8.1 fL (7.4-10.4); Platelet Count 242 thou/uL (130-400); RBC Distribution Width 14.3 % (11.5-14.5); Red Blood Cell (RBC) Count 4.64 mill/uL (4.20-5.40); White Blood Cell (WBC) Count 9.9 thou/uL (4.8-10.8)
--- NOTE | 2019-04-01 18:50 | CT ---
HEAD CT WITHOUT CONTRAST: 04/01/19 COMPARISON: 03/01/18. HISTORY: Difficulty speaking. TECHNIQUE: Axial CT imaging at 5 mm intervals from vertex through skull base without contrast. FINDINGS: There is no intracranial hemorrhage midline shift, mass effect or ventricular enlargement. No acute o sseous abnormality. Imaged paranasal sinuses/mastoid air cells are well aerated. IMPRESSION: No acute findings. Results called to Dr. Jackson, 6:43 p.m., 04/01/19. Code HODAN POS: ELISA
[2019-04-01 18:54] LABS: INR-International Normal Ratio 0.9; PTT 27.3 SEC (22.9-36.1); Prothrombin Time 12.6 SEC (12.0-14.7)
[2019-04-01 19:02] LABS: Acetaminophen Less than 6.0 mcg/mL (10.0-30.0); Alcohol Less than 10 mg/dL (Less than 10); CK (CPK) 57 U/L (29-168); Lipase 35 U/L (8-78); Salicylate Less than 8.0 mg/dL (15.0-30.0)
[2019-04-01 19:05] LABS: ALT (SGPT) 16 U/L (8-55); AST (SGOT) 15 U/L (5-34); Albumin 3.8 g/dL (3.4-4.8); Alkaline Phosphatase 84 U/L (40-110); Anion Gap 16 mmol/L (10-20); BUN (Urea Nitrogen) 41 mg/dL (9.8-20.1); Bilirubin, Total 0.3 mg/dL (0.2-1.2); Calc. Creatinine Clearance 0 mL/min (70-130); Calcium 9.5 mg/dL (7.8-10.44); Carbon Dioxide 30 mmol/L (23-31); Chloride 100 mmol/L (98-107); Estimated GFR-MDRD 26; Globulin 3.1 g/dL (2.4-3.5); Glucose 137 mg/dL (80-115); Potassium 3.9 mmol/L (3.5-5.1); Protein, Total 6.9 g/dL (6.0-8.3); Sodium 142 mmol/L (136-145)
--- NOTE | 2019-04-01 19:22 | CT ---
CT ANGIOGRAM HEAD CT ANGIOGRAM NECK 04/01/19 COMPARISON: None. HISTORY: Difficulty speaking, stroke protocol. TECHNIQUE: Serial axial CT imaging at 1.25 mm intervals from lung apices through vertex with IV contrast using a CT angiogram protocol. Coronal and sagittal 3D reformatted imaging obtained. FINDINGS: The visualized lung apices appear unremarkable. The retroantral fat and parapharyngeal fat appears clear bilaterally. The parotid glands and submandibular glands appear within normal limits. The thyroid gland, thyroid cartilage, cricoid cartilage, hyoid bone, epiglottis, pre-epiglottic fat a nd region of the tonsillar pillars appears unremarkable. No lymphadenopathy is seen within the neck. There is mild atherosclerotic calcification of the aortic arch. The origin of the innominate artery, right common carotid artery, right subclavian artery, left commo n carotid artery and left subclavian artery are unremarkable. Bilateral common carotid arteries are tortuous. On the basis of NASCET criteria, there is no hemodyna mically significant stenosis seen involving the internal or common carotid artery on either side. The re is small volume calcified plaque at the distal CCA and proximal ICA bilaterally. The common carotid artery and the internal carotid artery is medialized and demonstrates a midline re tropharyngeal course. Bilateral vertebral arteries appear grossly unremarkable. The distal ICA appears markedly tortuous bilaterally. The basilar artery is patent. Branches of the basilar artery appear patent as well. No saccular aneur ysm, high grade stenosis or vascular occlusion is seen involving the posterior circulation. The ICA bifurcation appears within normal limits. The A1 segment is patent bilaterally and bilateral anterior cerebral arteries appear intact. The M1 segment and the MCA bifurcation appears within normal limits. Distal MCA branches appear gross ly unremarkable with no saccular aneurysm, high grade stenosis, or vascular occlusion seen involving the anterior circulation. Review of the osseous structures demonstrates multilevel cervical spine degenerative change with bila teral facet and uncovertebral osteophyte formation at multiple levels as well as multilevel disc spac e narrowing and degenerative end plate change. No discrete lytic or blastic bone lesion. No acute oss eous abnormality. IMPRESSION: No acute arterial abnormality. Results called to Dr. Jackson at 7:05 p.m., 04/01/19. Code CR POS: ELISA
[2019-04-01] MEDS ORDERED: Aspirin 325 MG TAB ONE (19:30)
--- NOTE | 2019-04-01 19:31 | RAD ---
FRONTAL RADIOGRAPH CHEST: 04/01/19 COMPARISON: 01/22/19 HISTORY: Altered mental status. FINDINGS: Heart and mediastinal contours are stable. There is stable prominence of the right hilar shadow. No pneumothorax or pleural fluid is noted. No lobar consolidation or alveolar edema. IMPRESSION: No acute findings. POS: ELISA
[2019-04-01] MEDS ORDERED: Ondansetron ODT 4 MG TAB SL PRN (22:17)
[2019-04-01] MEDS ORDERED: Ondansetron PF 4 MG/2 ML Vial IVP PRN (22:17)
[2019-04-01 22:20] LABS: Troponin I 0.028 ng/mL (< 0.028)
[2019-04-01] MEDS ORDERED: Sodium Chloride 0.9% 1,000 ML IV SCH (22:30)
[2019-04-01 23:03] VITALS: BMI 44.3
[2019-04-01] MEDS ORDERED: hydrALAZINE 20 MG/ML VIAL SLOW IVP PRN (23:57)
[2019-04-02] MEDS ORDERED: Acetaminophen 500 MG TAB PO PRN (00:44)
[2019-04-02] MEDS ORDERED: Dextrose 5% in Water 1,000 ML IV PRN (01:45)
[2019-04-02] MEDS ORDERED: Dextrose 50% Abboject 50 ML SYRINGE SLOW IVP PRN (01:45)
[2019-04-02] MEDS ORDERED: HumaLOG 300 UNITS/3 ML VIAL SC PRN ×2 (01:45)
[2019-04-02] MEDS ORDERED: Ondansetron ODT 4 MG TAB PO PRN (01:45)
[2019-04-02] MEDS ORDERED: Ondansetron PF 4 MG/2 ML Vial IVP PRN (01:45)
[2019-04-02 02:14] LABS: Troponin I 0.018 ng/mL (< 0.028)
--- NOTE | 2019-04-02 02:26 | HP ---
PRIMARY CARE PROVIDER: NISREEN Noland CHIEF COMPLAINT: Slurred speech. HISTORY OF PRESENT ILLNESS: This is a 68-year-old female, who presents to [facility] Emergency Department after complaining of slurred speech and uncoordinated movement of the right upper extremity. The patient states the symptoms began while at home without specific inciting event. The patient noted difficulty with speech for approximately 10 minutes prior to arrival by EMS personnel. The patient denied any change to her chronic medication regimen, recent fall, injury, dental procedures, visual disturbance, or chest pain. The patient states she does receive home health services through [facility] 5 to 6 times per week. The patient normally ambulates with the use of a rolling walker or scooter. The patient denied any recent fall or trauma and has been compliant with her chronic medication regimen. EMS personnel did evaluate the patient with initial stroke scale of zero. Apparently en route, the patient had increased slurred speech. In the emergency room, the patient underwent general evaluation including CT of the brain showing no acute process. CT angiogram of the head and neck also was negative. The patient received intravenous normal saline x500 mL and aspirin 324 mg. PAST MEDICAL HISTORY: 1. Diabetes mellitus type 2, insulin requiring. 2. Hypertension. 3. Chronic obstructive pulmonary disease. 4. Chronic hypoxic respiratory failure with chronic oxygen supplementation at 2 L/minute by nasal cannula. 5. Valvular heart disease. 6. History of gout. 7. Hearing loss in the left ear. 8. Diabetic peripheral neuropathy. 9. Morbid obesity. PAST SURGICAL HISTORY: 1. Status post tubal ligation. 2. Status post left total knee arthroplasty. CURRENT MEDICATIONS: Based on previous admission in 2016; 1. Albuterol sulfate 2.5 mg nebulized q.4 hours p.r.n. 2. Allopurinol 100 mg p.o. daily. 3. Ferrous sulfate 325 mg p.o. daily. 4. Gabapentin 300 mg p.o. t.i.d. 5. NPH insulin 25 units subcutaneously b.i.d. 6. Multivitamin 1 tablet p.o. daily. 7. Zocor 10 mg p.o. at bedtime. 8. Verapamil 360 mg p.o. b.i.d. 9. Enteric-coated aspirin 81 mg p.o. b.i.d. 10. Pepcid 20 mg p.o. b.i.d. 11. DuoNeb 3 mL nebulized q.6 hours p.r.n. 12. Demadex 20 mg p.o. daily. List may not be comprehensive or accurate. ALLERGIES: TO SULFA. FAMILY HISTORY: Positive for coronary artery disease and diabetes mellitus. SOCIAL HISTORY: The patient resides in [place], [place]. . Has six children. No alcohol, tobacco, or illicit drug use. Ambulates with a rolling walker or scooter. REVIEW OF SYSTEMS: CONSTITUTIONAL: Negative for weight loss or gain, ability to conduct usual activities. SKIN: Negative for rash, itching. EYES: Negative for double vision, pain. ENT/MOUTH: Negative for nose bleeding, neck stiffness, pain, tenderness. CARDIOVASCULAR: Negative for palpitations, dyspnea on exertion, orthopnea. RESPIRATORY: Negative for shortness of breath, wheezing, cough, hemoptysis, fever or night sweats. GASTROINTESTINAL: Negative for poor appetite, abdominal pain, heartburn, nausea, vomiting, constipation, or diarrhea. GENITOURINARY: Negative for urgency, frequency, dysuria, nocturia. MUSCULOSKELETAL: Negative for pain, swelling. NEUROLOGIC/PSYCHIATRIC: Negative for anxiety, depression. ALLERGY/IMMUNOLOGIC: Negative for skin rash, bleeding tendency. Otherwise negative except as stated per HPI. PHYSICAL EXAMINATION: VITAL SIGNS: On admission, blood pressure 182/146, pulse 69, respiratory rate 17, temperature 98.6 degrees Fahrenheit, O2 saturation 93% on room air. GENERAL APPEARANCE: This is a 68-year-old female, alert and oriented x3, pleasant, responsive, in no acute distress. HEENT: Pupils are equal, round, reactive to light and accommodation. Extraocular muscles are intact. No scleral icterus. No conjunctival injection. Nares patent. OP is clear. Teeth in fair repair. NECK: Supple. No cervical adenopathy. No thyromegaly. No carotid bruits. No JVD appreciated. Cervical spine with full active and passive range of motion. No meningeal signs noted. CHEST: Diminished breath sounds in the bases bilaterally. CARDIOVASCULAR EXAM: S1, S2 with distant heart sounds. ABDOMEN: Obese, soft, nontender, and nondistended. Bowel sounds are positive in all 4 quadrants. There is no hepatosplenomegaly. No abdominal bruits. No rebound or guarding appreciated. Landmarks difficult to palpate due to patient's body habitus. EXTREMITIES: Warm and dry with fair turgor. Chronic venous stasis and chronic edema bilaterally. Pulses palpable distally at the dorsalis pedis, posterior tibial, and popliteal arteries bilaterally. Capillary refill less than 2 seconds. NEUROLOGIC: Cranial nerves 2 through 12 are grossly intact. No focal or lateralizing signs appreciated. PERTINENT LABORATORY AND X-RAY FINDINGS: Sodium 142, potassium 3.9, chloride 100, CO2 of 30, BUN 41, creatinine 2.25. Estimated GFR 26, glucose 137, calcium 9.5. LFTs within normal limits. Total CK of 57. Troponin I negative x2. BNP 72. Lipase 35. CBC showed a white blood cell count of 9.9, hemoglobin 13.5, hematocrit 41, platelet count 242 with normal differential. PT 12.6, INR 0.9. Salicylate, acetaminophen, and plasma alcohol level negative, 04/01/2019. Portable chest x-ray dated 04/01/2019, showed no acute cardiopulmonary process. CT of the brain without contrast dated 04/01/2019, showed no acute intracranial process. CT angiogram of the [place] showed no arterial malformation or stenosis. EKG dated 04/01/2019, by my interpretation shows sinus arrhythmia with heart rates in the 70s. Baseline artifact noted. Attenuated R-waves in the precordial leads. Left axis deviation. ASSESSMENT AND PLAN: 1. Transient ischemic attack. The patient will be observed on the Stroke Unit. The patient's presentation concerning for potential transient ischemic attack. We will continue general stroke protocol. Check 2D transthoracic echocardiogram in the a.m. Continue aspirin 81 mg p.o. b.i.d. Check fasting lipid profile in the a.m. Continue Lipitor 40 mg daily. MRI of the brain without contrast in the a.m. 2. Hypertensive urgency, improved. We will confirm home blood pressure regimen and provide hydralazine p.r.n. systolic over 170. Continue serial blood pressure monitoring. 3. Chronic kidney disease stage 4. Avoid nephrotoxic agents and limit contrast exposure. Serial creatinine monitoring. 4. Diabetes mellitus type 2, insulin requiring. Insulin sliding scale for reflexive coverage. Confirm home insulin regimen. Accu-Cheks before meals and at bedtime. ADA diet. 5. Prophylaxis. SCDs while in bed. Pepcid 20 mg p.o. b.i.d. CODE STATUS: Full. Surrogate medical decision maker is patient's daughter. Job ID: [id number]
[2019-04-02] MEDS: Sodium Chloride 0.9% 1,000 ML IV SCH ×2 (04:01→22:02)
[2019-04-02 06:36] LABS: Mean Corpuscular HGB CONC 33.2 g/dL (32.0-36.0); Mean Corpuscular Hemoglobin 29.1 pg (27.0-31.0); Mean Corpuscular Volume 87.7 fL (78.0-98.0); Mean Platelet Volume 8.5 fL (7.4-10.4); Platelet Count 229 thou/uL (130-400); RBC Distribution Width 14.5 % (11.5-14.5); Red Blood Cell (RBC) Count 4.11 mill/uL (4.20-5.40); White Blood Cell (WBC) Count 7.9 thou/uL (4.8-10.8)
[2019-04-02 06:47] LABS: Anion Gap 12 mmol/L (10-20); BUN (Urea Nitrogen) 43 mg/dL (9.8-20.1); Calc. Creatinine Clearance 41 mL/min (70-130); Calcium 9.1 mg/dL (7.8-10.44); Carbon Dioxide 33 mmol/L (23-31); Cardiac Risk 2.6 (Less than 4.5); Chloride 103 mmol/L (98-107); Cholesterol 125 mg/dl (< 200 Desired); Estimated GFR-MDRD 26; Glucose 160 mg/dL (80-115); HDL Cholesterol 48 mg/dL (>60 Neg Risk); LDL Cholesterol, Calculated 63 mg/dL; Sodium 144 mmol/L (136-145); Triglycerides 71 mg/dL (Less than 150)
[2019-04-02] MEDS: Mometasone/Formoterol 120 PUFF INHALER INH SCH ×2 (07:26→22:13)
[2019-04-02 08:33] LABS: Eosinophils 3 % (0-10); Lymphocytes 27 % (21-51); MDiff Complete? YES; Monocytes 4 % (0-10); Neutrophil 59 % (42-75); RBC Morphology Normal; Reactive Lymphocytes 6 % (0-10)
[2019-04-02] MEDS ORDERED: Aspirin 81 mg Enteric Coated Tablet PO SCH ×2 (09:00)
[2019-04-02] MEDS ORDERED: Famotidine 20 MG TAB PO SCH (09:00)
[2019-04-02] MEDS ORDERED: Enoxaparin Sodium 40 MG/0.4 ML SYRINGE SC SCH (09:00)
[2019-04-02] MEDS ORDERED: Lorazepam 0.5 MG TAB PO PRN (09:37)
[2019-04-02] MEDS: HumuLIN 70/30 (300 UNITS/3 ML VIAL) SC SCH ×2 (10:06→18:25)
[2019-04-02] MEDS: Allopurinol 100 MG TAB PO SCH (10:07)
[2019-04-02] MEDS: Gabapentin 100 MG CAP PO SCH ×3 (10:08→20:34)
[2019-04-02] MEDS: Ferrous Sulfate 325 MG TAB PO SCH (10:08)
[2019-04-02] MEDS: Torsemide 20 MG TAB PO SCH (10:09)
[2019-04-02] MEDS ORDERED: Atorvastatin Calcium 40 MG TAB PO SCH (21:00)
[2019-04-03] MEDS: Mometasone/Formoterol 120 PUFF INHALER INH SCH (07:59)
[2019-04-03] MEDS ORDERED: Aspirin 81 mg Enteric Coated Tablet PO SCH (09:00)
[2019-04-03] MEDS ORDERED: Famotidine 20 MG TAB PO SCH (09:00)
[2019-04-03] MEDS ORDERED: Enoxaparin Sodium 30 MG/0.3 ML SYRINGE SC SCH (09:00)
[2019-04-03] MEDS: Allopurinol 100 MG TAB PO SCH (09:05)
[2019-04-03] MEDS: Ferrous Sulfate 325 MG TAB PO SCH (09:05)
[2019-04-03] MEDS: Torsemide 20 MG TAB PO SCH (09:05)
[2019-04-03] MEDS: Gabapentin 100 MG CAP PO SCH ×2 (09:05→16:39)
[2019-04-03] MEDS: HumuLIN 70/30 (300 UNITS/3 ML VIAL) SC SCH ×2 (09:07→16:40)
[2019-04-03 11:57] VITALS: TEMP 98.8
[2019-04-03 17:21] VITALS: BP 156/77
--- NOTE | 2019-04-04 09:08 | DIS ---
DATE OF ADMISSION: 04/01/2019 DATE OF DISCHARGE: 04/03/2019 PRIMARY CARE PROVIDER: Velia Bautista. DISCHARGE DIAGNOSES: 1. Transient ischemic attack. 2. Hypertensive urgency. CONDITION OF PATIENT ON THE DAY OF DISCHARGE: Stable. I assessed Ms. Vidal on the day of discharge. She denies any chest pain or shortness of breath. Vital signs are stable. S1 and S2 are heard, regular. Lungs are clear to auscultation bilaterally. DISCHARGE MEDICATIONS: Aspirin dose has been decreased to 81 mg 2 times a day. Otherwise, no change was made to her pre-admission home medications as dictated by Dr. Dumont in his history and physical note dated April 02, 2019. HOSPITAL COURSE: Ms. Vidal is a pleasant 68-year-old lady, who was admitted to [facility] on April 01, 2019, for transient ischemic attack and hypertensive urgency. MRI could not be done. A 2D echocardiogram showed left ventricular ejection fraction of 50% to 55%, E/A flow reversal suggestive of diastolic dysfunction, mild mitral regurgitation, sclerotic aortic valve with normal excursion, moderate aortic regurgitation, mild mitral regurgitation, and normal pulmonary artery pressure. She was seen by Neurology, Dr. Vidales. The patient was reportedly noncompliant with her aspirin in the past. The patient has been advised to take aspirin 81 mg daily. She was also evaluated by Physical Therapy. She has been recommended home health for physical therapy. Case Management has been consulted to arrange for the same prior to discharge. During this hospitalization, fasting lipid profile showed triglycerides 71, cholesterol 125, LDL cholesterol 63, and HDL cholesterol 48. On April 02, she had sodium 144, potassium 4.0, blood urea nitrogen 43, and creatinine 2.23. POST-DISCHARGE FOLLOWUP: The patient is advised to follow up with her primary care provider in 3 to 5 days' time. DISCHARGE DESTINATION: Home. Many thanks for allowing me to participate in your patient's care. Please feel free to contact me with any questions or concerns. Job ID: [id number]
== END 2019-04-03 18:00 | disposition home health service (06) ==
LOC: ERS 18:31 → 2SE 19:37
PROVIDERS: ADMIT Internal Medicine; ATTEND Internal Medicine
DX: G45.9 Transient cerebral ischemic attack, unspecified (principal); I16.0 Hypertensive urgency; I12.9 Hypertensive chronic kidney disease with stage 1 through stage 4 chronic kidney disease, or unspecified chronic kidney disease; E11.22 Type 2 diabetes mellitus with diabetic chronic kidney disease; N18.4 Chronic kidney disease, stage 4 (severe); J44.9 Chronic obstructive pulmonary disease, unspecified; J96.11 Chronic respiratory failure with hypoxia; E11.42 Type 2 diabetes mellitus with diabetic polyneuropathy; H91.92 Unspecified hearing loss, left ear; I70.0 Atherosclerosis of aorta; F41.9 Anxiety disorder, unspecified; I08.0 Rheumatic disorders of both mitral and aortic valves; E66.01 Morbid (severe) obesity due to excess calories; Z68.41 Body mass index [BMI] 40.0-44.9, adult; Z79.4 Long term (current) use of insulin; Z79.899 Other long term (current) drug therapy; Z88.2 Allergy status to sulfonamides; Z88.8 Allergy status to other drugs, medicaments and biological substances; Z99.81 Dependence on supplemental oxygen
CPT/HCPCS: 70450; 70496; 70498; 71045; 80048; 80053; 80061; 80307; 82550; 82962 ×3; 83690; 83880; 84484 ×3; 85007; 85025; 85027; 85610; 85730; 93005; 93306; 94640 ×4; 96360; 96361 ×3; 96372; 96374; 97139; 99285; G0378 ×4; 36415; 36416; J0360; J1650; J1815; J2997; J7620; Q9967

== ENCOUNTER 2019-12-17 12:04 | Emergency (ER) | payer MEDICARE ==
--- NOTE | 2019-12-17 12:46 | RAD ---
XR Chest 1 View Portable History: Dyspnea Comparison: Radiograph March 2019 Findings: Heart size continues to be enlarged. Pulmonary arteries are dilated. Mild pulmonary venous congestion. No pneumothorax. No acute osseous abnormality. Impression: 1. Cardiomegaly and mild pulmonary venous congestion. 2. Pulmonary hypertension.
[2019-12-17 13:03] LABS: #Basophils 0.1 thou/uL (0.0-0.2); #Eosinphils 0.3 thou/uL (0.0-0.7); #Lymphocytes 2.1 thou/uL (1.20-3.40); #Monocytes 0.9 thou/uL (0.11-0.59); %Basophils 0.5 % (0.0-1.0); %Eosinophils 3.6 % (0.0-10.0); %Lymphocytes 21.9 % (21.0-51.0); %Monocytes 9.8 % (0.0-10.0); %Neutrophils 64.1 % (42.0-75.0); Hemoglobin 11.4 g/dL (12.0-16.0); Mean Corpuscular HGB CONC 32.1 g/dL (32.0-36.0); Mean Corpuscular Hemoglobin 28.9 pg (27.0-31.0); Mean Corpuscular Volume 90.1 fL (78.0-98.0); Mean Platelet Volume 8.4 fL (7.4-10.4); Platelet Count 231 thou/uL (130-400); RBC Distribution Width 14.2 % (11.5-14.5); Red Blood Cell (RBC) Count 3.95 mill/uL (4.20-5.40); White Blood Cell (WBC) Count 9.4 thou/uL (4.8-10.8)
[2019-12-17 13:26] LABS: ALT (SGPT) 23 U/L (8-55); AST (SGOT) 16 U/L (5-34); Albumin 3.5 g/dL (3.4-4.8); Alkaline Phosphatase 72 U/L (40-110); Anion Gap 13 mmol/L (10-20); BUN (Urea Nitrogen) 36 mg/dL (9.8-20.1); Bilirubin, Total 0.3 mg/dL (0.2-1.2); Calc. Creatinine Clearance 0 mL/min (70-130); Calcium 8.8 mg/dL (7.8-10.44); Carbon Dioxide 31 mmol/L (23-31); Chloride 102 mmol/L (98-107); Estimated GFR-MDRD 27; Globulin 2.5 g/dL (2.4-3.5); Glucose 106 mg/dL (80-115); Potassium 3.9 mmol/L (3.5-5.1); Sodium 142 mmol/L (136-145)
[2019-12-17 13:45] LABS: CKMB 1.5 ng/mL (0-6.6)
== END 2019-12-17 16:59 | disposition home or self-care (01) ==
LOC: ERS 12:04
DX: E11.22 Type 2 diabetes mellitus with diabetic chronic kidney disease (principal); N18.9 Chronic kidney disease, unspecified; I50.9 Heart failure, unspecified; J44.9 Chronic obstructive pulmonary disease, unspecified; F41.9 Anxiety disorder, unspecified
CPT/HCPCS: 36415; 71045; 80053; 82553; 83880; 84484; 85025; 93005

== ENCOUNTER 2020-04-05 14:47 | Inpatient (IN) | payer MEDICARE ==
[2020-04-05 15:37] LABS: Actual Bicarbonate (HCO3a) 23.9 mEq/L (22-28); Analyzer IN Cardio ER; Base Excess (BEa) -1.6 mEq/L (-2.0 to +3.0); Calcium, Ionized (arterial) 1.22 mmol/L (1.12-1.30); Carboxyhemoglobin (COHb) 0.3 gm% (0.0-3.0); Hemoglobin (Hb) 12.7 g/dL (12.0-16.0); O2 Tension (PaO2), arterial 109.4 mmHg (> 70.0); Potassium - ABG Lab 4.32 mmol/L (3.70-5.30); pH, Arterial 7.36 (7.35-7.45)
[2020-04-05 15:39] LABS: Puncture Site LRA
--- NOTE | 2020-04-05 15:55 | RAD ---
Chest one view HISTORY: Dyspnea. Asthma. COMPARISON: 12/17/2019. FINDINGS: Cardiac silhouette is magnified and enlarged. Pulmonary vasculature upper limits of normal. Mediastinum is midline with aortic calcification. No lobar consolidation or evidence of pneumothorax. IMPRESSION : Cardiomegaly and pulmonary vascular congestion are unchanged. Atherosclerosis.
[2020-04-05 15:56] LABS: #Lymphocytes 0.7 thou/uL (1.20-3.40); #Monocytes 0.4 thou/uL (0.11-0.59); #Neutrophils 11.1 thou/uL (1.40-6.50); %Basophils 0.1 % (0.0-1.0); %Eosinophils 0.4 % (0.0-10.0); %Lymphocytes 5.3 % (21.0-51.0); %Monocytes 3.5 % (0.0-10.0); %Neutrophils 90.7 % (42.0-75.0); Hemoglobin 12.4 g/dL (12.0-16.0); Mean Corpuscular HGB CONC 32.6 g/dL (32.0-36.0); Mean Corpuscular Hemoglobin 28.7 pg (27.0-31.0); Mean Corpuscular Volume 88.1 fL (78.0-98.0); Mean Platelet Volume 8.6 fL (7.4-10.4); Platelet Count 246 thou/uL (130-400); RBC Distribution Width 15.4 % (11.5-14.5); Red Blood Cell (RBC) Count 4.33 mill/uL (4.20-5.40); White Blood Cell (WBC) Count 12.3 thou/uL (4.8-10.8)
[2020-04-05 16:02] LABS: INR-International Normal Ratio 0.9; PTT 29.9 sec (22.9-36.1); Prothrombin Time 12.5 sec (12.0-14.7)
[2020-04-05 16:09] LABS: ALT (SGPT) 24 U/L (8-55); AST (SGOT) 20 U/L (5-34); Albumin 3.4 g/dL (3.4-4.8); Alkaline Phosphatase 69 U/L (40-110); Anion Gap 16 mmol/L (10-20); BUN (Urea Nitrogen) 19 mg/dL (9.8-20.1); Bilirubin, Total 0.6 mg/dL (0.2-1.2); CK (CPK) 47 U/L (29-168); Calc. Creatinine Clearance 0 mL/min (70-130); Calcium 9.3 mg/dL (7.8-10.44); Carbon Dioxide 24 mmol/L (23-31); Chloride 108 mmol/L (98-107); Estimated GFR-MDRD 28; Globulin 3.2 g/dL (2.4-3.5); Glucose 92 mg/dL (80-115); Potassium 4.5 mmol/L (3.5-5.1); Protein, Total 6.6 g/dL (6.0-8.3); Sodium 143 mmol/L (136-145)
[2020-04-05 16:31] LABS: CKMB 1.9 ng/mL (0-6.6)
[2020-04-05] MEDS ORDERED: Aspirin Chewable 81 MG TAB ONE (17:08)
[2020-04-05] MEDS ORDERED: Nitroglycerin 50 MG/250 ML BOT 250 ML ONE (17:08)
[2020-04-05] MEDS ORDERED: Enoxaparin Sodium 100 MG/ML SYRINGE ONE (18:07)
[2020-04-05] MEDS ORDERED: Dextrose 5% in Water 1,000 ML IV PRN (18:13)
[2020-04-05] MEDS ORDERED: Furosemide 40 MG/4 ML VIAL SLOW IVP SCH (18:15)
--- NOTE | 2020-04-05 18:28 | PDOC.HHP ---
Hospitalist HPI - History of Present Illness SOB History of Present Illness: 69 female with a history of asthma and COPD presented to the ED with 3 days of worsening SOB. She has been trying her nebulizer at home and it has not helped. She also used her oxygen which she uses at home as needed. It did not help. Has some cough that is intermittently productive. Alternating clear to yellow sputum. No subjective fever, but thinks she had a high reading en route. She denies CP, but has some heaviness with deep breaths. No ill contacts. She also reports that she has had LE edema for the past seven months. SHe has seen her doctors but was told she did not need to come to the hospital. She has had some weeping on the left left. ED Course: Noted to be severely hypertensive. Started on nitro gtt. Hospitalist ROS - Review of Systems Constitutional: reports: malaise. denies: fever, chills Respiratory: reports: cough, shortness of breath, sputum Cardiovascular: denies: chest pain, palpitations Gastrointestinal: denies: nausea, vomiting, abdominal pain Genitourinary: denies: dysuria All other systems reviewed; all pertinent +/- noted in HPI/Subj - Medication Medications: HumuLIN 70/30 CARTRIDGE (ML) : Strength - 100 unit/mL (70-30) : SUBCUTANEOUS Patient Dose: 50 units Subcutaneous once a day (in the morning).as directed,. allopurinol TABLET : Strength - 300 mg : ORAL Patient Dose: 1 tab(s) Oral once a day. albuterol sulfate inhalation VIAL, NEBULIZER (ML) : Strength - 2.5 mg/3 mL (0.083 %) : INHALATION Patient Dose: 1-2 puff(s) Inhaler every 4 hours prn. aspirin oral TABLET : Strength - 325 mg : ORAL Patient Dose: 1 tab(s) Oral once a day (in the morning). lisinopril TABLET : Strength - 40 mg : ORAL Patient Dose: 1 tab(s) Oral once a day (in the morning). verapamil oral TABLET, EXTENDED RELEASE : Strength - 240 mg : ORAL Patient Dose: 1 tab(s) Oral 2 times a day. Symbicort HFA AEROSOL WITH ADAPTER (GRAM) : Strength - 160 mcg-4.5 mcg/actuation : INHALATION Patient Dose: 1 tab(s) Oral 2 times a day. metFORMIN TABLET : Strength - 1,000 mg : ORAL Patient Dose: 1 tab(s) Oral 2 times a day. gabapentin TABLET : Strength - 600 mg : ORAL Patient Dose: 1 tab(s) Oral 3 times a day. K-Dur TABLET, EXT RELEASE, PARTICLES/CRYSTALS : Strength - 20 mEq : ORAL Patient Dose: 1 tab(s) Oral once a day. Aleve TABLET : Strength - 220 mg : ORAL Patient Dose: 1-2 tab(s) Oral once a day. Lasix oral TABLET : Strength - 40 mg : ORAL Patient Dose: 1 tab(s) Oral once a day. Hospitalist History - Past Medical History Source: patient, old records Pulmonary: reports: asthma, COPD Musculoskeletal: reports: Other (gout) Endocrine: reports: Diabetes - Past Surgical History Past Surgical History: reports: Total Knee Replacement (bilateral), Tubal Ligati on - Family History Family History: reports: no pertinent history Hospitalist Results - Labs Result Diagrams: 04/05/20 15:41 04/05/20 15:41 Lab results: WBC 12.3 thou/uL (4.8-10.8) H 04/05/20 15:41 Hgb 12.4 g/dL (12.0-16.0) 04/05/20 15:41 Hct 38.1 % (36.0-47.0) 04/05/20 15:41 MCV 88.1 fL (78.0-98.0) 04/05/20 15:41 Plt Count 246 thou/uL (130-400) 04/05/20 15:41 Neutrophils % 90.7 % (42.0-75.0) H 04/05/20 15:41 ESR Westergren 45 mm/hr (Less than 30) H 04/05/20 15:41 ABG pH 7.36 (7.35-7.45) 04/05/20 15:35 ABG pCO2 43.0 mmHg (35.0-45.0) 04/05/20 15:35 ABG pO2 109.4 mmHg (> 70.0) H 04/05/20 15:35 Sodium 143 mmol/L (136-145) 04/05/20 15:41 Potassium 4.5 mmol/L (3.5-5.1) 04/05/20 15:41 Chloride 108 mmol/L (98-107) H 04/05/20 15:41 Carbon Dioxide 24 mmol/L (23-31) 04/05/20 15:41 BUN 19 mg/dL (9.8-20.1) 04/05/20 15:41 Creatinine 2.14 mg/dL (0.6-1.1) H 04/05/20 15:41 Glucose 92 mg/dL (80-115) 04/05/20 15:41 Lactic Acid 1.6 mmol/L (0.5-2.2) 04/05/20 15:42 Calcium 9.3 mg/dL (7.8-10.44) 04/05/20 15:41 Total Bilirubin 0.6 mg/dL (0.2-1.2) 04/05/20 15:41 AST 20 U/L (5-34) 04/05/20 15:41 ALT 24 U/L (8-55) 04/05/20 15:41 Alkaline Phosphatase 69 U/L (40-110) 04/05/20 15:41 Creatine Kinase 47 U/L (29-168) 04/05/20 15:41 CK-MB (CK-2) 1.9 ng/mL (0-6.6) 04/05/20 15:41 Troponin I 0.053 ng/mL (< 0.028) H 04/05/20 15:41 C-Reactive Protein 3.84 mg/dL (= or < 0.5) H 04/05/20 15:41 B-Natriuretic Peptide 187.7 pg/mL (0-100) H 04/05/20 15:42 Serum Total Protein 6.6 g/dL (6.0-8.3) 04/05/20 15:41 Albumin 3.4 g/dL (3.4-4.8) 04/05/20 15:41 - Radiology Interpretation Chest x-ray Status: image reviewed by me, report reviewed by me (Cardiomegaly, vascular congestion)
[2020-04-05 18:30] LABS: SARS-CoV-2 NAA Rapid Test Not Detected (NotDetected)
[2020-04-05] MEDS ORDERED: niCARdipine 25 MG in Sodium Chloride 0.9% 250 ML 240 ML IVPB SCH (18:30)
[2020-04-05 19:20] LABS: Troponin I 0.043 ng/mL (< 0.028)
[2020-04-05 22:15] LABS: Troponin I 0.036 ng/mL (< 0.028)
[2020-04-06] MEDS ORDERED: Furosemide 40 MG/4 ML VIAL ONE ×2 (00:17→06:00)
[2020-04-06] MEDS ORDERED: Famotidine/PF 20 mg/2ml Vial ONE (00:17)
[2020-04-06] MEDS: Famotidine/PF 20 mg/2ml Vial SLOW IVP SCH ×2 (00:31→22:20)
[2020-04-06] MEDS: Enoxaparin Sodium 100 MG/ML SYRINGE SC SCH ×3 (00:42→22:27)
[2020-04-06] MEDS ORDERED: methylPREDNISolone Sod Succ 40 MG VIAL ONE ×4 (00:45→18:55)
[2020-04-06] MEDS: methylPREDNISolone Sod Succ 40 MG VIAL IVP SCH ×4 (00:58→19:11)
[2020-04-06] MEDS: Gabapentin 300 MG CAP PO SCH ×4 (01:00→22:14)
[2020-04-06] MEDS: Verapamil 120 MG TAB PO SCH ×5 (01:01→22:14)
[2020-04-06] MEDS ORDERED: Nitroglycerin 50 MG/250 ML BOT 250 ML IVPB PRN (02:30)
[2020-04-06 02:48] LABS: #Lymphocytes 0.6 thou/uL (1.20-3.40); #Monocytes 0.2 thou/uL (0.11-0.59); #Neutrophils 9.4 thou/uL (1.40-6.50); %Basophils 0.3 % (0.0-1.0); %Eosinophils 0.2 % (0.0-10.0); %Lymphocytes 6.1 % (21.0-51.0); %Monocytes 1.7 % (0.0-10.0); %Neutrophils 91.7 % (42.0-75.0); Hemoglobin 12.3 g/dL (12.0-16.0); Mean Corpuscular HGB CONC 32.1 g/dL (32.0-36.0); Mean Corpuscular Hemoglobin 28.8 pg (27.0-31.0); Mean Corpuscular Volume 89.7 fL (78.0-98.0); Mean Platelet Volume 9.1 fL (7.4-10.4); Platelet Count 192 thou/uL (130-400); RBC Distribution Width 15.5 % (11.5-14.5); Red Blood Cell (RBC) Count 4.27 mill/uL (4.20-5.40); White Blood Cell (WBC) Count 10.2 thou/uL (4.8-10.8)
[2020-04-06 03:15] LABS: Anion Gap 19 mmol/L (10-20); BUN (Urea Nitrogen) 23 mg/dL (9.8-20.1); Calc. Creatinine Clearance 0 mL/min (70-130); Calcium 9.1 mg/dL (7.8-10.44); Carbon Dioxide 16 mmol/L (23-31); Chloride 109 mmol/L (98-107); Estimated GFR-MDRD 25; Glucose 195 mg/dL (80-115); Potassium 5.6 mmol/L (3.5-5.1); Sodium 138 mmol/L (136-145)
[2020-04-06] MEDS ORDERED: Furosemide 40 MG/4 ML VIAL SLOW IVP SCH ×2 (06:00→19:45)
[2020-04-06] MEDS ORDERED: niCARdipine 20MG In NaCl 20 MG/200 ML BAG ONE ×3 (07:41→13:07)
[2020-04-06] MEDS ORDERED: metFORMIN 500 MG TAB PO SCH (08:00)
[2020-04-06] MEDS ORDERED: Lisinopril 20 MG TAB PO SCH (09:00)
[2020-04-06] MEDS ORDERED: Enoxaparin Sodium 40 MG/0.4 ML SYRINGE SC SCH (09:00)
[2020-04-06] MEDS ORDERED: Sodium Bicarbonate Tab 325 MG TAB PO SCH ×2 (09:30→21:00)
[2020-04-06] MEDS ORDERED: Amlodipine 10 MG TAB PO SCH (11:00)
[2020-04-06] MEDS ORDERED: Enoxaparin Sodium 100 MG/ML SYRINGE ONE (11:10)
--- NOTE | 2020-04-06 11:27 | RAD ---
CHEST 1 VIEW: Date: 04/06/2020 HISTORY: Central line placement. COMPARISON: 07/02/2018, 04/05/2020. FINDINGS: Stable cardiomegaly and atherosclerosis. Stable fullness of the right hilum. Interval placement of a right-sided internal jugular catheter. Distal tip appears to be in the region of the cavoatrial junction. Limited evaluation for pneumothorax due to overlying soft tissue structu res. IMPRESSION: Vascular catheter via the right internal jugular approach is suspected. Exact confirmation of the tip of the catheter and the presence or absence of pneumothorax are difficult to assess due to portable technique and patient position. Repeat imaging is recommended. POS: AH
[2020-04-06] MEDS ORDERED: Amlodipine 5 MG TAB ONE (12:29)
[2020-04-06 12:38] LABS: Bacteria/HPF 2+ HPF (None Seen); Bilirubin Negative (Negative); Blood, Urine Trace (Negative); Clarity Clear (Clear); Glucose, Urine (Dipstick) 70 mg/dL (Negative); Ketone, Urine Negative (Negative); Leukocyte Negative Leu/uL (Negative); Nitrite Negative (Negative); Protein, Urine (Dipstick) 300 mg/dL (Neg-Trace); RBC/HPF 0-3 HPF (0-3); Specific Gravity, Urine 1.015 (1.002-1.036); Squamous Epithelial 0-3 HPF (0-3); Urobilinogen Normal mg/dL (Less than 2); WBC/HPF None Seen HPF (0-3); pH, Urine 6.5 (5.0-9.0)
[2020-04-06 12:43] LABS: Urine Culture Reflex Yes Yes
[2020-04-06 13:03] LABS: Sodium, Urine 48 mmol/L (Not Available); Urea Nitrogen, Random Urine 338 mg/dl
[2020-04-06 13:32] LABS: Protein, Urine Random Quant 625 mg/dL (1-14)
[2020-04-06] MEDS ORDERED: HumaLOG 300 UNITS/3 ML VIAL ONE (15:00)
[2020-04-06] MEDS: HumaLOG 300 UNITS/3 ML VIAL SC PRN ×2 (15:04→16:55)
[2020-04-06] MEDS: hydrALAZINE 25 MG TAB PO SCH ×2 (15:12→22:16)
--- NOTE | 2020-04-06 16:04 | PDOC.HOSPP ---
- Subjective Encounter Date: 04/06/20 Subjective: The patient has been on BiPAP since yesterday. - Objective Vital Signs & Weight: Vital Signs (12 hours) Pulse Resp Pulse Ox 04/06/20 10:06 96 12 94 L Result Diagrams: 04/06/20 02:39 04/06/20 02:39 Additional Labs: Accuchecks 04/06/20 04/06/20 14:55 00:07 POC Glucose 377 H 157 H Hospitalist ROS - Medication Medications: Active Medications Generic Name Dose Route Start Last Admin Trade Name Freq PRN Reason Stop Dose Admin Famotidine 20 mg 04/05/20 21:00 04/06/20 00:31 Famotidine/Pf 20 Mg/2ml Vial SLOW IVP 20 mg QPM MIREYA Administration Gabapentin 600 mg 04/05/20 21:00 04/06/20 15:11 Gabapentin 300 Mg Cap PO 600 mg TID MIREYA Administration Hydralazine HCl 75 mg 04/06/20 15:00 04/06/20 15:12 Hydralazine 25 Mg Tab PO 75 mg TID MIREYA Administration Nicardipine HCl 25 mg/ Sodium 250 mls @ 0 mls/hr 04/05/20 18:30 04/06/20 07:49 Chloride IVPB 250 mls INF MIREYA Administration Protocol Titrate Insulin Human Lispro 0 units 04/05/20 18:13 04/06/20 15:04 Humalog 300 Units/3 Ml Vial SC 6 units .MILD SLIDING SCALE PRN Administration Mild Correctional Scale Lisinopril 20 mg 04/06/20 09:00 04/06/20 11:48 Lisinopril 20 Mg Tab PO Not Given DAILY MIREYA Metformin HCl 1,000 mg 04/06/20 08:00 04/06/20 11:04 Metformin 500 Mg Tab PO Not Given BID-WM MIREYA Methylprednisolone Sodium Succinate 40 mg 04/05/20 23:59 04/06/20 12:41 Methylprednisolone Sod Succ 40 Mg Vial IVP 40 mg Q6HR MIREYA Administration Sodium Chloride 10 ml 04/05/20 21:00 04/06/20 08:24 Flush - Normal Saline 10 Ml Syringe IVF 10 ml Q12HR MIREYA Administration Sodium Chloride 10 ml 04/06/20 09:00 04/06/20 08:24 Flush - Normal Saline 10 Ml Syringe IVF 10 ml Q12HR MIREYA Administration Verapamil HCl 120 mg 04/05/20 21:00 04/06/20 14:00 Verapamil 120 Mg Tab PO 120 mg QID MIREYA Administration - Exam General Appearance: awake alert ENT: normocephalic atraumatic Neck: supple, no JVD Heart: RRR Respiratory: normal chest expansion, no tachypnea, rhonchi Gastrointestinal: soft Neurological: cranial nerve grossly intact, no focal deficits Hosp A/P (1) COPD exacerbation Code(s): J44.1 - CHRONIC OBSTRUCTIVE PULMONARY DISEASE W (ACUTE) EXACERBATION Status: Acute (2) Hypertensive urgency Code(s): I16.0 - HYPERTENSIVE URGENCY Status: Acute (3) Acute respiratory failure with hypoxia Code(s): J96.01 - ACUTE RESPIRATORY FAILURE WITH HYPOXIA Status: Acute - Plan COVID-19 PCR is negative. Continue nebulizer treatments, antibiotics, and corticosteroids. Wean off BiPAP as tolerated. Start hydralazine, isosorbide mononitrate, and amlodipine and try to wean off nicardipine drip. Creatinine level and potassium level elevated since yesterday. There is an evidence of metabolic acidosis. Nephrology consulted.
[2020-04-06 20:10] LABS: Anion Gap 18 mmol/L (10-20); BUN (Urea Nitrogen) 35 mg/dL (9.8-20.1); Calc. Creatinine Clearance 0 mL/min (70-130); Calcium 8.8 mg/dL (7.8-10.44); Carbon Dioxide 24 mmol/L (23-31); Chloride 100 mmol/L (98-107); Estimated GFR-MDRD 18; Glucose 440 mg/dL (80-115); Sodium 137 mmol/L (136-145)
--- NOTE | 2020-04-07 00:46 | CON ---
DATE OF CONSULTATION: 04/06/2020 REASON FOR CONSULTATION: Acute kidney injury and hyperkalemia. HISTORY OF PRESENT ILLNESS: This is a 69-year-old female, who presented to the hospital with increasing hypoxia and shortness of breath. The patient has a history of COPD and asthma. The patient's creatinine has peaked to 2.3 from a baseline of 1.6 to 2. She has had multiple episodes of acute kidney injury. The patient cannot give no further history. PAST MEDICAL HISTORY: Significant for congestive heart failure, asthma, COPD, hypertensive urgency, diabetes mellitus, total knee replacement bilaterally. SOCIAL HISTORY: No alcohol or drug use. FAMILY HISTORY: Negative for ESRD. ALLERGIES: REVIEWED. HOME MEDICATIONS: List reviewed. REVIEW OF SYSTEMS: Unobtainable. PHYSICAL EXAMINATION: GENERAL: The patient is resting. VITAL SIGNS: Afebrile, pulse 75, breathing 16, blood pressure 170/100. HEENT: Head normocephalic and atraumatic. Eyes intact, no ulcers. Nose intact, no ulcers. Ears intact, no ulcers. NECK: Supple. No JVD. CHEST: Symmetrical and clear. CARDIOVASCULAR: Shows S1 and S2, no rub, no murmur. GASTROINTESTINAL: Abdomen is soft, bowel sounds positive. EXTREMITIES: Show no edema or ulcers. SKIN: Shows no rash or petechiae. MUSCULOSKELETAL: Shows no joint swelling or stiffness. GENITOURINARY: Shows no Mg or CVA tenderness. NEUROLOGIC: Motor intact. Cranial nerves intact. LABORATORY DATA: Reviewed. ASSESSMENT AND PLAN: 1. Acute kidney injury on chronic kidney disease, multifactorial. We would recommend stopping lisinopril and stopping metformin. 2. Metabolic acidosis. I would recommend on getting a blood gas and checking a lactic acid level which was done. Agree with bicarbonate therapy. 3. Anemia, stable. 4. Hyperkalemia, recheck potassium. 5. Medication based on GFR appropriate. 6. No urgent indication for dialysis. Job ID: [id number]
[2020-04-07] MEDS: methylPREDNISolone Sod Succ 40 MG VIAL IVP SCH ×3 (02:38→11:05)
[2020-04-07] MEDS: HumaLOG 300 UNITS/3 ML VIAL SC PRN ×4 (02:44→21:23)
[2020-04-07 05:37] LABS: ALT (SGPT) 35 U/L (8-55); AST (SGOT) 48 U/L (5-34); Albumin 3.1 g/dL (3.4-4.8); Alkaline Phosphatase 66 U/L (40-110); Anion Gap 24 mmol/L (10-20); BUN (Urea Nitrogen) 42 mg/dL (9.8-20.1); Bilirubin, Total 0.3 mg/dL (0.2-1.2); Calc. Creatinine Clearance 32 mL/min (70-130); Calcium 8.6 mg/dL (7.8-10.44); Chloride 101 mmol/L (98-107); Estimated GFR-MDRD 18; Globulin 3.5 g/dL (2.4-3.5); Glucose 466 mg/dL (80-115); Potassium 5.6 mmol/L (3.5-5.1); Protein, Total 6.6 g/dL (6.0-8.3); Sodium 135 mmol/L (136-145)
[2020-04-07 05:45] LABS: Carbon Dioxide 13 mmol/L (23-31)
[2020-04-07] MEDS: Acetaminophen 325 MG TAB PO PRN ×2 (06:48→15:45)
[2020-04-07] MEDS ORDERED: Bumetanide 1 MG/4 ML VIAL IVP SCH (09:00)
--- NOTE | 2020-04-07 09:48 | PRG ---
DATE OF SERVICE: 04/07/2020 SUBJECTIVE: A 69-year-old female, being seen for end-stage renal disease. The patient denies any nausea, vomiting, or chest pain. PHYSICAL EXAMINATION: General: The patient is awake and alert. Vital Signs: Afebrile, pulse 75, breathing 16, and blood pressure 135/74. HEENT: Head normocephalic and atraumatic. Eyes intact, no ulcers. Nose intact, no ulcers. Ears intact, no ulcers. Neck: Supple. No JVD. Chest: Symmetrical and clear. Cardiovascular: Shows S1 and S2, no rub, no murmur. Gastrointestinal: Abdomen is soft, bowel sounds positive. Extremities: Show no edema or ulcers. Skin: Shows no rash or petechiae. Musculoskeletal: Shows no joint swelling or stiffness. Genitourinary: Shows no Mg or CVA tenderness. Neurologic: Motor intact. Cranial nerves intact. LABORATORY DATA: Reviewed. ASSESSMENT: 1. Chronic kidney disease stage 4 with acute kidney injury. Continue Lasix. 2. Hyperkalemia. We would recommend fixing acidosis, so that this would help her hyperkalemia. No urgent indication for dialysis. The patient has refused dialysis. 3. Anemia, stable. 4. Congestive heart failure. Continue Lasix. No urgent indication for dialysis. As noted above, the patient has refused renal replacement therapy. Job ID: [id number]
[2020-04-07] MEDS: Lidocaine 5% Patch TD SCH (11:03)
[2020-04-07] MEDS: hydrALAZINE 25 MG TAB PO SCH ×3 (11:03→20:04)
[2020-04-07] MEDS: Sodium Bicarbonate Tab 325 MG TAB PO SCH ×3 (11:04→20:06)
[2020-04-07] MEDS: Amlodipine 10 MG TAB PO SCH (11:04)
[2020-04-07] MEDS: Verapamil 120 MG TAB PO SCH ×4 (11:05→20:06)
[2020-04-07] MEDS: Insulin Glargine 20 UNITS in Pre-Filled Syringe 1 EACH SC SCH (11:05)
--- NOTE | 2020-04-07 12:08 | RAD ---
Exam: Chest one view HISTORY:Dyspnea. Asthma. Shortness of breath. Comparison: 04/05/2020, 04/06/2020 FINDINGS: Lines and tubes: Stable right-sided internal jugular vascular catheter terminating in the region supe rior vena cava. Cardiac silhouette:Stable cardiomegaly Aorta: Stable atherosclerosis Pulmonary vessels: Persistent fullness of the right hilum. Right hilar mass cannot be excluded. Consi denise chest CT. Costophrenic angles: Clear LUNGS: Right hilar mass. Chronic changes. Pneumothorax: None Osseous abnormalities: None IMPRESSION: 1. Persistent right hilar mass. Consider chest CT. 2. Chronic lung parenchymal changes. Findings conveyed to Dr. Beltran via [facility] 04/07/2020 at 12:05 PM
[2020-04-07 12:32] LABS: Anion Gap 19 mmol/L (10-20); BUN (Urea Nitrogen) 46 mg/dL (9.8-20.1); Calc. Creatinine Clearance 31 mL/min (70-130); Calcium 8.9 mg/dL (7.8-10.44); Carbon Dioxide 23 mmol/L (23-31); Chloride 100 mmol/L (98-107); Estimated GFR-MDRD 18; Glucose 386 mg/dL (80-115); Potassium 4.8 mmol/L (3.5-5.1); Sodium 137 mmol/L (136-145)
--- NOTE | 2020-04-07 13:53 | CT ---
CT CHEST WITHOUT CONTRAST: 04/07/20 INDICATIONS: Shortness of breath. Hilar fullness given the reason for exam. Review of the lung lo reveals an irregularly shaped nodular mass in the right upper lobe which me asures up to 1.5 cm in the coronal plane. There is mild stranding peripherally in the right mid lung along the fissure. Parenchymal stranding in the posterior right lower lobe. No evidence of effusion or inflammatory infiltrate. Review of the mediastinum is limited due to the lack of IV contrast. There are nonspecific mediastina l and hilar lymph nodes without evidence of significant adenopathy. Nonspecific axillary lymph nodes. Images through the upper abdomen show a low density focus in the mi d liver which is incompletely evaluated and only imaged on the very last image. This measures approxi mately 1.0 cm. Review of the osseous structures show prominent degenerative changes in the thoracic spine with degen erative disc changes and prominent osteophytes. All visualized vertebrae show an abnormal mottled den sity. This is nonspecific and may represent osteoporosis/osteopenia; however, other etiologies such a s multiple myeloma or metastatic disease cannot be excluded. IMPRESSION: Irregularly shaped nodular mass in the right upper lobe measuring up to 1.5 cm in the coronal plane. Recommend further evaluation with PET scan to assess activity within this nodule. This lesion is not amenable to CT directed biopsy given the patient's body habitus. POS: MARIA
[2020-04-07] MEDS: Albuterol Sulfate 2.5 mg/3 ml Neb NEB PRN ×2 (16:30)
[2020-04-07] MEDS ORDERED: HumaLOG 300 UNITS/3 ML VIAL SC PRN (17:30)
[2020-04-07] MEDS: Acetaminophen/Codeine 30-300mg Tablet PO PRN ×2 (17:37→23:58)
[2020-04-07] MEDS: Enoxaparin Sodium 100 MG/ML SYRINGE SC SCH (20:04)
[2020-04-07] MEDS: Famotidine/PF 20 mg/2ml Vial SLOW IVP SCH (20:04)
[2020-04-07] MEDS: Lidocaine Patch Removal 1 EACH TOP SCH (20:06)
--- NOTE | 2020-04-07 20:18 | PDOC.HOSPP ---
- Subjective Encounter Date: 04/07/20 - Objective Vital Signs & Weight: Vital Signs (12 hours) Temp Pulse Resp BP BP Pulse Ox 04/07/20 20:04 107 H 04/07/20 19:18 98.8 F 107 H 20 141/65 H 94 L 04/07/20 18:22 98.4 F 04/07/20 17:45 141/77 H 04/07/20 16:30 106 H 20 97 04/07/20 15:20 100.1 F H 102 H 22 H 174/86 H 174/86 H 94 L 04/07/20 13:30 96 04/07/20 11:20 98.1 F 95 20 142/76 H 96 Weight Weight 264 lb 11.2 oz I&O: 04/06/20 04/07/20 04/08/20 06:59 06:59 06:59 Intake Total 360 Balance 360 Result Diagrams: 04/08/20 03:58 04/08/20 03:58 Additional Labs: Accuchecks 04/07/20 04/07/20 04/07/20 16:44 10:51 05:57 POC Glucose 429 H 349 H 361 H 04/07/20 04/06/20 02:43 20:16 POC Glucose 412 H 409 H Hospitalist ROS - Medication Medications: Active Medications Generic Name Dose Route Start Last Admin Trade Name Freq PRN Reason Stop Dose Admin Acetaminophen 650 mg 04/05/20 18:06 04/07/20 15:45 Acetaminophen 325 Mg Tab PO 650 mg Q4H PRN Administration Headache/Fever/Mild Pain (1-3) Acetaminophen/Codeine Phosphate 1 tab 04/07/20 17:08 04/07/20 17:37 Acetaminophen/Codeine 30-300mg Tablet PO 1 tab Q6H PRN Administration Pain 4-6 Albuterol Sulfate 2.5 mg 04/05/20 18:11 04/07/20 16:30 Albuterol Sulfate 2.5 Mg/3 Ml Neb NEB 2.5 mg [id number] PRN Administration Wheezing Amlodipine Besylate 10 mg 04/07/20 09:00 04/07/20 11:04 Amlodipine 10 Mg Tab PO 10 mg DAILY MIREYA Administration Enoxaparin Sodium 100 mg 04/06/20 21:00 04/07/20 20:04 Enoxaparin Sodium 100 Mg/Ml Syringe SC 100 mg 2100 MIREYA Administration Famotidine 20 mg 04/05/20 21:00 04/07/20 20:04 Famotidine/Pf 20 Mg/2ml Vial SLOW IVP 20 mg QPM MIREYA Administration Hydralazine HCl 75 mg 04/06/20 15:00 04/07/20 20:04 Hydralazine 25 Mg Tab PO 75 mg TID MIREYA Administration Insulin Glargine 20 units/ 0.2 mls @ 0 mls/hr 04/07/20 09:00 04/07/20 11:05 Miscellaneous Medication SC 0.2 mls QAM MIREYA Administration Insulin Human Lispro 0 units 04/07/20 01:00 04/07/20 02:44 Humalog 300 Units/3 Ml Vial SC 5 unit .BEDTIME SLIDING SC PRN Administration Bedtime Correctional Scale Insulin Human Lispro 0 units 04/07/20 17:30 04/07/20 18:20 Humalog 300 Units/3 Ml Vial SC 13 unit .AGGRESSIVE SLIDING PRN Administration AGGRESSIVE SLIDING SCALE Protocol Isosorbide Mononitrate 60 mg 04/07/20 09:00 04/07/20 11:04 Isosorbide Mononitrate Er 60 Mg Tab PO 60 mg DAILY MIREYA Administration Lidocaine 1 patch 04/07/20 09:00 04/07/20 11:03 Lidocaine 5% Patch TD 1 patch DAILY MIREYA Administration Methylprednisolone Sodium Succinate 40 mg 04/07/20 09:00 04/07/20 11:05 Methylprednisolone Sod Succ 40 Mg Vial IVP 40 mg DAILY MIREYA Administration Miscellaneous Medication 1 each 04/07/20 21:00 04/07/20 20:06 Lidocaine Patch Removal 1 Each TOP 1 each 2100 MIREYA Administration Sodium Bicarbonate 975 mg 04/07/20 09:00 04/07/20 20:06 Sodium Bicarbonate Tab 325 Mg Tab PO 975 mg TID MIREYA Administration Sodium Chloride 10 ml 04/06/20 09:00 04/07/20 20:06 Flush - Normal Saline 10 Ml Syringe IVF 10 ml Q12HR MIREYA Administration Verapamil HCl 120 mg 04/05/20 21:00 04/07/20 20:06 Verapamil 120 Mg Tab PO 120 mg QID MIREYA Administration - Exam General Appearance: awake alert ENT: normocephalic atraumatic Neck: supple, no JVD Heart: RRR Respiratory: no tachypnea, rhonchi Gastrointestinal: soft Neurological: cranial nerve grossly intact, no focal deficits Hosp A/P (1) Acute respiratory failure with hypoxia Code(s): J96.01 - ACUTE RESPIRATORY FAILURE WITH HYPOXIA Status: Acute (2) COPD exacerbation Code(s): J44.1 - CHRONIC OBSTRUCTIVE PULMONARY DISEASE W (ACUTE) EXACERBATION Status: Acute (3) Hypertensive urgency Code(s): I16.0 - HYPERTENSIVE URGENCY Status: Acute (4) Morbid obesity with BMI of 40.0-44.9, adult Code(s): E66.01 - MORBID (SEVERE) OBESITY DUE TO EXCESS CALORIES; Z68.41 - BODY MASS INDEX [BMI]40.0-44.9, ADULT Status: Chronic (5) Acute kidney injury superimposed on CKD Code(s): N17.9 - ACUTE KIDNEY FAILURE, UNSPECIFIED; N18.9 - CHRONIC KIDNEY DISEASE, UNSPECIFIED Status: Acute (6) Lung nodule Code(s): R91.1 - SOLITARY PULMONARY NODULE Status: Acute - Plan COVID-19 PCR is negative. Continue nebulizer treatments, antibiotics, and corticosteroids. Weaned off bipap. Continue hydralazine, isosorbide mononitrate, and amlodipine. Echo pending. One dose on Bumex was given today. Suspecious lung nodule. Consult pulm for COPD and lung nodule.
[2020-04-08 04:28] LABS: #Lymphocytes 0.6 thou/uL (1.20-3.40); #Monocytes 1.2 thou/uL (0.11-0.59); #Neutrophils 11.3 thou/uL (1.40-6.50); %Eosinophils 0.2 % (0.0-10.0); %Lymphocytes 4.3 % (21.0-51.0); %Neutrophils 86.5 % (42.0-75.0); Hemoglobin 10.8 g/dL (12.0-16.0); Mean Corpuscular HGB CONC 33.2 g/dL (32.0-36.0); Mean Corpuscular Hemoglobin 28.9 pg (27.0-31.0); Mean Corpuscular Volume 87.1 fL (78.0-98.0); Mean Platelet Volume 8.7 fL (7.4-10.4); Platelet Count 226 thou/uL (130-400); Red Blood Cell (RBC) Count 3.74 mill/uL (4.20-5.40); White Blood Cell (WBC) Count 13.1 thou/uL (4.8-10.8)
[2020-04-08 04:31] LABS: Hemoglobin A1c 7.5 % (4.0-6.0)
[2020-04-08 04:43] LABS: Anion Gap 18 mmol/L (10-20); BUN (Urea Nitrogen) 55 mg/dL (9.8-20.1); Calc. Creatinine Clearance 29 mL/min (70-130); Calcium 8.9 mg/dL (7.8-10.44); Carbon Dioxide 24 mmol/L (23-31); Chloride 100 mmol/L (98-107); Estimated GFR-MDRD 16; Glucose 345 mg/dL (80-115); Potassium 4.3 mmol/L (3.5-5.1); Sodium 138 mmol/L (136-145)
[2020-04-08] MEDS: HumaLOG 300 UNITS/3 ML VIAL SC PRN ×5 (06:00→20:48)
[2020-04-08] MEDS: Acetaminophen/Codeine 30-300mg Tablet PO PRN ×2 (06:01→20:52)
[2020-04-08] MEDS: hydrALAZINE 25 MG TAB PO SCH ×3 (09:17→20:37)
[2020-04-08] MEDS: Amlodipine 10 MG TAB PO SCH (09:19)
[2020-04-08] MEDS: Verapamil 120 MG TAB PO SCH ×4 (09:19→20:43)
[2020-04-08] MEDS: Sodium Bicarbonate Tab 325 MG TAB PO SCH ×3 (09:19→20:36)
[2020-04-08] MEDS: methylPREDNISolone Sod Succ 40 MG VIAL IVP SCH ×3 (09:20→20:44)
[2020-04-08] MEDS: Lidocaine 5% Patch TD SCH ×2 (09:20→09:52)
[2020-04-08] MEDS: cefTRIAXone\\ROCEPHIN 1 GM in Sodium Chloride 0.9% 100 ML IVPB SCH (09:38)
[2020-04-08] MEDS: Azithromycin 500 MG in Sodium Chloride 0.9% 250 ML 250 ML IVPB SCH (10:22)
[2020-04-08] MEDS: Albuterol Sulfate 2.5 mg/3 ml Neb NEB PRN (10:30)
--- NOTE | 2020-04-08 10:51 | PRG ---
DATE OF SERVICE: 04/08/2020 SUBJECTIVE: This is a 69-year-old female, being seen for acute kidney injury. The patient denies any nausea, vomiting, or chest pain. OBJECTIVE: General: The patient is awake and alert. Vital Signs: Afebrile, pulse 98, breathing at 16, blood pressure 133/86. HEENT: Head normocephalic and atraumatic. Eyes intact, no ulcers. Nose intact, no ulcers. Ears intact, no ulcers. Neck: Supple. No JVD. Chest: Symmetrical and clear. Cardiovascular: Shows S1 and S2, no rub, no murmur. Gastrointestinal: Abdomen is soft, bowel sounds positive. Extremities: Show no edema or ulcers. Skin: Shows no rash or petechiae. Musculoskeletal: Shows no joint swelling or stiffness. Genitourinary: Shows no Mg or CVA tenderness. Neurologic: Motor intact. Cranial nerves intact. LABORATORY DATA: Hemoglobin 10.8. Creatinine 3.4. ASSESSMENT: Acute kidney injury with chronic kidney disease stage 4 due to cardiorenal syndrome and progressive diabetic disease. No indication for dialysis. Hyperkalemia, improved. Anemia, stable. Medication based on GFR appropriate. Continue diuresis and we will follow renal function closely. Job ID: [id number]
[2020-04-08] MEDS: Insulin Glargine 20 UNITS in Pre-Filled Syringe 1 EACH SC SCH (11:15)
--- NOTE | 2020-04-08 11:46 | CON ---
DATE OF CONSULTATION: 04/08/2020 TIME SPENT: This is 75 minutes of time, of that time, greater than 50% of the time spent with the patient and/or the patient's unit in the hospital. REASON FOR CONSULTATION: A lung nodule and a COPD exacerbation. HISTORY OF PRESENT ILLNESS: The patient is a pleasant 69-year-old female who presents to the hospital from home with a 4- to 5-day history of increasing shortness of breath and wheezing. As part of the workup, she had a CT of the chest performed, which showed a 1.5 cm right upper lobe density. She tells me that she has never been a smoker in her life, but has had uncontrolled asthma for most of her life. The asthma has now developed from the COPD and she is chronically on 3 L oxygen nasal cannula. PAST MEDICAL HISTORY: 1. COPD. 2. Asthma. 3. Diabetes mellitus. 4. Hypertension. 5. Gout. PAST SURGICAL HISTORY: 1. Right total knee replacement. 2. Left total knee replacement. 3. Bilateral tubal ligation. ALLERGIES: IPRATROPIUM AND SULFA. FAMILY MEDICAL HISTORY: Unremarkable. SOCIAL HISTORY: Smoking history as outlined above. The patient does not drink alcohol. She lives at home by herself. Her about a month ago in a residential. She sees a doctor in [place]. REVIEW OF SYSTEMS: She is hard of hearing. She has had no fever or chills. She has had cough, which is nonproductive. No nausea, vomiting, hematemesis, melena, hematochezia, hematuria, or dysuria. PHYSICAL EXAMINATION: VITAL SIGNS: Temperature 96.7, pulse 103, respirations 20, and O2 saturation 97% on 4 L. GENERAL: She is awake, alert, appears to be in some respiratory distress. HEENT: Pupils are reactive. Sclerae anicteric. Oropharynx class IV Mallampati airway. NECK: No adenopathy or JVD. LUNGS: She has bilateral expiratory wheezing, more concentrated towards her neck region anteriorly, but she has definite lung field wheezes posteriorly. CARDIOVASCULAR: S1 and S2. Regular. ABDOMEN: Morbidly obese, soft, nontender. EXTREMITIES: No clubbing or cyanosis. She has 2+ edema from her thighs downward. LABORATORY DATA: White blood cell count 13.1, hematocrit 32.6, and platelet count 226. Sedimentation rate 45. INR 0.9. A pH of 7.36, pCO2 of 43, PO2 of 109, that was on BiPAP several days ago. BNP level was 187. Sodium 138, potassium 4.3, chloride 100, CO2 of 24, BUN 55, creatinine 3.4, and glucose 345. Hemoglobin A1c is 7.5. I reviewed her CT, she has a very ill-defined density in the right upper lobe, 1.5 cm. No associated lymphadenopathy. ASSESSMENT: 1. Right upper lobe density in a nonsmoker with a history of chronic obstructive pulmonary disease. To me, this is probably inflammatory in nature. What I would do with this is repeat a CT scan in about 3 months to assess for resolution. I do not think she needs any type of invasive workup at this time. 2. For her chronic obstructive pulmonary disease exacerbation and possible pneumonia, I would continue treatment with her IV antibiotics. I would probably increase her steroid dose above what it is right now, even though that will aggravate her blood sugar. I would make her breathing treatments scheduled rather than p.r.n. started on inhaled steroids and a long-acting beta agonist. She wanted to take Symbicort at home, but I will give the medications via nebulizer here. 3. She seems to be fluid overloaded. You might consider giving her more diuretics, even though that will probably affect her kidney function. Job ID: [id number]
--- NOTE | 2020-04-08 13:54 | PDOC.HOSPP ---
- Subjective Encounter Date: 04/08/20 Subjective: The patient is complaining of cough or shortness of breath. - Objective Vital Signs & Weight: Vital Signs (12 hours) Temp Pulse Resp BP BP Pulse Ox 04/08/20 12:00 96.8 F L 95 20 137/79 95 04/08/20 10:30 98 20 97 04/08/20 09:19 103 H 133/86 04/08/20 09:17 103 H 133/86 04/08/20 08:39 95 04/08/20 08:00 96.7 F L 103 H 22 H 133/86 95 04/08/20 03:25 98.5 F 104 H 20 139/80 92 L Weight Weight 264 lb 11.2 oz I&O: 04/07/20 04/08/20 04/09/20 06:59 06:59 06:59 Intake Total 360 360 Output Total 300 Balance 60 360 Result Diagrams: 04/08/20 03:58 04/08/20 03:58 Additional Labs: Accuchecks 04/08/20 04/08/20 04/07/20 11:00 05:32 23:59 POC Glucose 265 H 270 H 437 H 04/07/20 04/07/20 04/07/20 20:41 20:24 16:44 POC Glucose 475 H Greater than 500 H 429 H Hospitalist ROS - Medication Medications: Active Medications Generic Name Dose Route Start Last Admin Trade Name Freq PRN Reason Stop Dose Admin Acetaminophen 650 mg 04/05/20 18:06 04/07/20 15:45 Acetaminophen 325 Mg Tab PO 650 mg Q4H PRN Administration Headache/Fever/Mild Pain (1-3) Acetaminophen/Codeine Phosphate 1 tab 04/07/20 17:08 04/08/20 06:01 Acetaminophen/Codeine 30-300mg Tablet PO 1 tab Q6H PRN Administration Pain 4-6 Amlodipine Besylate 10 mg 04/07/20 09:00 04/08/20 09:19 Amlodipine 10 Mg Tab PO 10 mg DAILY MIREYA Administration Enoxaparin Sodium 100 mg 04/06/20 21:00 04/07/20 20:04 Enoxaparin Sodium 100 Mg/Ml Syringe SC 100 mg 2100 MIREYA Administration Famotidine 20 mg 04/05/20 21:00 04/07/20 20:04 Famotidine/Pf 20 Mg/2ml Vial SLOW IVP 20 mg QPM MIREYA Administration Hydralazine HCl 75 mg 04/06/20 15:00 04/08/20 09:17 Hydralazine 25 Mg Tab PO 75 mg TID MIREYA Administration Insulin Glargine 20 units/ 0.2 mls @ 0 mls/hr 04/07/20 09:00 04/08/20 11:15 Miscellaneous Medication SC 0.2 mls QAM MIREYA Administration Azithromycin 500 mg/ Sodium 250 mls @ 250 mls/hr 04/08/20 10:00 04/08/20 10:22 Chloride IVPB 250 mls Q24HR MIREYA Administration Ceftriaxone Sodium 1 gm/ 100 mls @ 200 mls/hr 04/08/20 09:00 04/08/20 09:38 Sodium Chloride IVPB 100 mls Q24HR MIREYA Administration Insulin Human Lispro 0 units 04/07/20 01:00 04/07/20 02:44 Humalog 300 Units/3 Ml Vial SC 5 unit .BEDTIME SLIDING SC PRN Administration Bedtime Correctional Scale Insulin Human Lispro 0 units 04/07/20 21:00 04/08/20 11:16 Humalog 300 Units/3 Ml Vial SC 9 unit .AGGRESSIVE SLIDING PRN Administration AGGRESSIVE SLIDING SCALE Protocol Isosorbide Mononitrate 60 mg 04/07/20 09:00 04/08/20 09:19 Isosorbide Mononitrate Er 60 Mg Tab PO 60 mg DAILY MIREYA Administration Lidocaine 1 patch 04/07/20 09:00 04/08/20 09:52 Lidocaine 5% Patch TD Not Given DAILY MIREYA Miscellaneous Medication 1 each 04/07/20 21:00 04/07/20 20:06 Lidocaine Patch Removal 1 Each TOP 1 each 2100 MIREYA Administration Sodium Bicarbonate 975 mg 04/07/20 09:00 04/08/20 09:19 Sodium Bicarbonate Tab 325 Mg Tab PO 975 mg TID MIREYA Administration Sodium Chloride 10 ml 04/06/20 09:00 04/08/20 09:19 Flush - Normal Saline 10 Ml Syringe IVF 10 ml Q12HR MIREYA Administration Verapamil HCl 120 mg 04/05/20 21:00 04/08/20 09:19 Verapamil 120 Mg Tab PO 120 mg QID MIREYA Administration - Exam General Appearance: awake alert ENT: normocephalic atraumatic Neck: supple, no JVD Heart: RRR Respiratory: tachypneic, wheezes Gastrointestinal: soft Extremities: no cyanosis, no clubbing Neurological: cranial nerve grossly intact, no weakness Hosp A/P (1) Acute respiratory failure with hypoxia Code(s): J96.01 - ACUTE RESPIRATORY FAILURE WITH HYPOXIA Status: Acute (2) COPD exacerbation Code(s): J44.1 - CHRONIC OBSTRUCTIVE PULMONARY DISEASE W (ACUTE) EXACERBATION Status: Acute (3) Hypertensive urgency Code(s): I16.0 - HYPERTENSIVE URGENCY Status: Acute (4) Morbid obesity with BMI of 40.0-44.9, adult Code(s): E66.01 - MORBID (SEVERE) OBESITY DUE TO EXCESS CALORIES; Z68.41 - BODY MASS INDEX [BMI]40.0-44.9, ADULT Status: Chronic (5) Acute kidney injury superimposed on CKD Code(s): N17.9 - ACUTE KIDNEY FAILURE, UNSPECIFIED; N18.9 - CHRONIC KIDNEY DISEASE, UNSPECIFIED Status: Acute (6) Lung nodule Code(s): R91.1 - SOLITARY PULMONARY NODULE Status: Acute - Plan COVID-19 PCR is negative. Continue scheduled nebulizer treatments, antibiotics, and corticosteroids(the dose has been increased per pulmonology) Weaned off bipap. Continue hydralazine, isosorbide mononitrate, and amlodipine. Echo pending. Start Bumex 1 mg IV twice daily for volume overload. Suspecious lung nodule. We will schedule repeat CT scan in 1 to 2 months. Appreciate pulmonology.
[2020-04-08] MEDS: Albuterol Sulfate 2.5 mg/3 ml Neb NEB SCH ×2 (14:17→18:40)
[2020-04-08] MEDS: Arformoterol 15 MCG/2 ML NEB NEB SCH (18:37)
[2020-04-08] MEDS: Budesonide 0.5 MG/2 ML NEB NEB SCH (18:41)
[2020-04-08] MEDS: Bumetanide 1 MG/4 ML VIAL IVP SCH (20:43)
[2020-04-08] MEDS: Famotidine/PF 20 mg/2ml Vial SLOW IVP SCH (20:43)
[2020-04-08] MEDS: Enoxaparin Sodium 100 MG/ML SYRINGE SC SCH (20:44)
[2020-04-08] MEDS: Lidocaine Patch Removal 1 EACH TOP SCH (20:47)
[2020-04-08] MEDS ORDERED: Insulin Glargine 10 UNITS in Pre-Filled Syringe SC SCH (21:00)
[2020-04-09 04:39] LABS: #Lymphocytes 0.6 thou/uL (1.20-3.40); #Monocytes 0.5 thou/uL (0.11-0.59); #Neutrophils 10.3 thou/uL (1.40-6.50); %Basophils 0.1 % (0.0-1.0); %Eosinophils 0.2 % (0.0-10.0); %Lymphocytes 4.9 % (21.0-51.0); %Monocytes 4.6 % (0.0-10.0); %Neutrophils 90.2 % (42.0-75.0); Hemoglobin 10.4 g/dL (12.0-16.0); Mean Corpuscular HGB CONC 32.4 g/dL (32.0-36.0); Mean Corpuscular Hemoglobin 28.2 pg (27.0-31.0); Mean Platelet Volume 9.1 fL (7.4-10.4); Platelet Count 203 thou/uL (130-400); Red Blood Cell (RBC) Count 3.69 mill/uL (4.20-5.40); White Blood Cell (WBC) Count 11.5 thou/uL (4.8-10.8)
[2020-04-09 05:01] LABS: Anion Gap 19 mmol/L (10-20); BUN (Urea Nitrogen) 63 mg/dL (9.8-20.1); Calc. Creatinine Clearance 30 mL/min (70-130); Calcium 8.9 mg/dL (7.8-10.44); Carbon Dioxide 24 mmol/L (23-31); Chloride 100 mmol/L (98-107); Estimated GFR-MDRD 17; Glucose 338 mg/dL (80-115); Potassium 4.5 mmol/L (3.5-5.1); Sodium 138 mmol/L (136-145)
[2020-04-09] MEDS: HumaLOG 300 UNITS/3 ML VIAL SC PRN ×4 (06:21→21:26)
[2020-04-09] MEDS: Budesonide 0.5 MG/2 ML NEB NEB SCH ×2 (07:36→19:14)
[2020-04-09] MEDS: Albuterol Sulfate 2.5 mg/3 ml Neb NEB SCH ×4 (07:36→19:13)
[2020-04-09] MEDS: Arformoterol 15 MCG/2 ML NEB NEB SCH ×2 (08:00→19:15)
--- NOTE | 2020-04-09 08:21 | PRG ---
DATE OF SERVICE: 04/09/2020 SUBJECTIVE: A 69-year-old female being seen for acute kidney injury. The patient denies nausea, vomiting, or chest pain. OBJECTIVE: General: The patient is awake and alert. Vital Signs: Afebrile, pulse 74, breathing at 16, blood pressure 142/73. HEENT: Head normocephalic and atraumatic. Eyes intact, no ulcers. Nose intact, no ulcers. Ears intact, no ulcers. Neck: Supple. No JVD. Chest: Symmetrical and clear. Cardiovascular: Shows S1 and S2, no rub, no murmur. Gastrointestinal: Abdomen is soft, bowel sounds positive. Extremities: Show no edema or ulcers. Skin: Shows no rash or petechiae. Musculoskeletal: Shows no joint swelling or stiffness. Genitourinary: Shows no Mg or CVA tenderness. Neurologic: Motor intact. Cranial nerves intact. LABORATORY DATA: Labs show hemoglobin 10.4. Creatinine 3.2. ASSESSMENT AND PLAN: 1. Chronic kidney disease stage 4, improved. Acute kidney injury, improved. 2. Hypertension, stable. 3. Anemia, stable. 4. Medication based on GFR appropriate. No indication for dialysis, but would recommend preemptive fistula placement. Job ID: [id number]
[2020-04-09] MEDS: Bumetanide 1 MG/4 ML VIAL IVP SCH ×2 (09:15→20:34)
[2020-04-09] MEDS: methylPREDNISolone Sod Succ 40 MG VIAL IVP SCH ×3 (09:15→20:40)
[2020-04-09] MEDS: Sodium Bicarbonate Tab 325 MG TAB PO SCH ×3 (09:15→20:38)
[2020-04-09] MEDS: cefTRIAXone\\ROCEPHIN 1 GM in Sodium Chloride 0.9% 100 ML IVPB SCH (09:15)
[2020-04-09] MEDS: hydrALAZINE 25 MG TAB PO SCH ×3 (09:16→20:36)
[2020-04-09] MEDS: Amlodipine 10 MG TAB PO SCH (09:17)
[2020-04-09] MEDS: Verapamil 120 MG TAB PO SCH ×4 (09:17→20:37)
[2020-04-09] MEDS: Lidocaine 5% Patch TD SCH (09:20)
[2020-04-09] MEDS: Insulin Glargine 20 UNITS in Pre-Filled Syringe 1 EACH SC SCH ×2 (09:21→21:26)
--- NOTE | 2020-04-09 09:53 | PRG ---
DATE OF SERVICE: 04/09/2020 SUBJECTIVE: The patient feels much better today. Has no complaints. She says she wants to go home soon. OBJECTIVE: VITAL SIGNS: Temperature 98.4, pulse 104, blood pressure 164/85, O2 saturation 97% on 3 L. HEENT: Unremarkable. NECK: No JVD. LUNGS: Very faint end-expiratory wheeze. CARDIAC: S1, S2. Regular. ABDOMEN: Soft. EXTREMITIES: No edema. LABORATORY DATA: Sodium 138, potassium 4.5, BUN 63, creatinine 3.2, glucose 338. White blood cell count 11.5, hematocrit 32.2, and platelet count 203. ASSESSMENT: 1. Chronic obstructive pulmonary disease/asthma with exacerbation. 2. Right upper lobe density which probably is indicative of inflammatory response for mucus plugging. PLAN: 1. She will need a repeat CT scan in about 3 months. She can follow up in my office for that. 2. Continue steroids, nebulization treatments. 3. Likely ready for discharge soon. Job ID: [id number]
[2020-04-09] MEDS: Azithromycin 500 MG in Sodium Chloride 0.9% 250 ML 250 ML IVPB SCH (10:20)
--- NOTE | 2020-04-09 17:42 | PDOC.HOSPP ---
- Subjective Encounter Date: 04/09/20 Subjective: The patient is feeling better than yesterday. - Objective Vital Signs & Weight: Vital Signs (12 hours) Temp Pulse Resp BP BP Pulse Ox 04/09/20 16:00 98.3 F 98 16 143/61 H 94 L 04/09/20 14:33 101 H 16 04/09/20 14:18 101 H 134/68 04/09/20 12:00 96.6 F L 100 20 144/70 H 95 04/09/20 11:31 110 H 19 04/09/20 09:17 104 H 164/85 H 04/09/20 09:16 104 H 164/85 H 04/09/20 08:00 97 04/09/20 07:36 104 H 14 04/09/20 07:25 98.4 F 104 H 20 164/85 H 97 Weight Weight 285 lb I&O: 04/08/20 04/09/20 04/10/20 06:59 06:59 06:59 Intake Total 360 1710 Output Total 300 1150 Balance 60 560 Result Diagrams: 04/09/20 04:13 04/09/20 04:13 Additional Labs: Accuchecks 04/09/20 04/09/20 04/09/20 16:46 10:41 05:48 POC Glucose 351 H 264 H 309 H 04/08/20 04/08/20 20:43 18:34 POC Glucose 356 H 282 H Hospitalist ROS - Medication Medications: Active Medications Generic Name Dose Route Start Last Admin Trade Name Freq PRN Reason Stop Dose Admin Acetaminophen 650 mg 04/05/20 18:06 04/07/20 15:45 Acetaminophen 325 Mg Tab PO 650 mg Q4H PRN Administration Headache/Fever/Mild Pain (1-3) Acetaminophen/Codeine Phosphate 1 tab 04/07/20 17:08 04/08/20 20:52 Acetaminophen/Codeine 30-300mg Tablet PO 1 tab Q6H PRN Administration Pain 4-6 Albuterol Sulfate 2.5 mg 04/08/20 15:00 04/09/20 14:33 Albuterol Sulfate 2.5 Mg/3 Ml Neb NEB 2.5 mg [id number] MIREYA Administration Amlodipine Besylate 10 mg 04/07/20 09:00 04/09/20 09:17 Amlodipine 10 Mg Tab PO 10 mg DAILY MIREYA Administration Arformoterol Tartrate 15 mcg 04/08/20 18:30 04/09/20 08:00 Arformoterol 15 Mcg/2 Ml Neb NEB 15 mcg BID-RT MIREYA Administration Budesonide 0.5 mg 04/08/20 18:30 04/09/20 07:36 Budesonide 0.5 Mg/2 Ml Neb NEB 0.5 mg BID-RT MIREYA Administration Bumetanide 1 mg 04/08/20 21:00 04/09/20 09:15 Bumetanide 1 Mg/4 Ml Vial IVP 1 mg BID MIREYA Administration Enoxaparin Sodium 100 mg 04/06/20 21:00 04/08/20 20:44 Enoxaparin Sodium 100 Mg/Ml Syringe SC 100 mg 2100 MIREYA Administration Famotidine 20 mg 04/05/20 21:00 04/08/20 20:43 Famotidine/Pf 20 Mg/2ml Vial SLOW IVP 20 mg QPM MIREYA Administration Hydralazine HCl 75 mg 04/06/20 15:00 04/09/20 14:18 Hydralazine 25 Mg Tab PO 75 mg TID MIREYA Administration Insulin Glargine 20 units/ 0.2 mls @ 0 mls/hr 04/07/20 09:00 04/09/20 09:21 Miscellaneous Medication SC 0.2 mls QAM MIREYA Administration Azithromycin 500 mg/ Sodium 250 mls @ 250 mls/hr 04/08/20 10:00 04/09/20 10:20 Chloride IVPB 250 mls Q24HR MIREYA Administration Ceftriaxone Sodium 1 gm/ 100 mls @ 200 mls/hr 04/08/20 09:00 04/09/20 09:15 Sodium Chloride IVPB 100 mls Q24HR MIREYA Administration Insulin Human Lispro 0 units 04/07/20 01:00 04/08/20 20:48 Humalog 300 Units/3 Ml Vial SC 5 unit .BEDTIME SLIDING SC PRN Administration Bedtime Correctional Scale Insulin Human Lispro 0 units 04/07/20 21:00 04/09/20 13:50 Humalog 300 Units/3 Ml Vial SC 9 unit .AGGRESSIVE SLIDING PRN Administration AGGRESSIVE SLIDING SCALE Protocol Isosorbide Mononitrate 60 mg 04/07/20 09:00 04/09/20 09:20 Isosorbide Mononitrate Er 60 Mg Tab PO 60 mg DAILY MIREYA Administration Lidocaine 1 patch 04/07/20 09:00 04/09/20 09:20 Lidocaine 5% Patch TD Not Given DAILY MIREYA Methylprednisolone Sodium Succinate 40 mg 04/08/20 15:00 04/09/20 14:19 Methylprednisolone Sod Succ 40 Mg Vial IVP 40 mg TID MIREYA Administration Miscellaneous Medication 1 each 04/07/20 21:00 04/08/20 20:47 Lidocaine Patch Removal 1 Each TOP Not Given 2100 MIREYA Sodium Bicarbonate 975 mg 04/07/20 09:00 04/09/20 14:18 Sodium Bicarbonate Tab 325 Mg Tab PO 975 mg TID MIREYA Administration Sodium Chloride 10 ml 04/06/20 09:00 04/09/20 09:17 Flush - Normal Saline 10 Ml Syringe IVF 10 ml Q12HR MIREYA Administration Sodium Chloride 10 ml 04/06/20 02:45 04/08/20 14:31 Flush - Normal Saline 10 Ml Syringe IVF 10 ml PRN PRN Administration Saline Flush Verapamil HCl 120 mg 04/05/20 21:00 04/09/20 13:51 Verapamil 120 Mg Tab PO 120 mg QID MIREYA Administration - Exam General Appearance: awake alert ENT: normocephalic atraumatic Neck: supple, no JVD Heart: RRR Respiratory: normal chest expansion, no tachypnea, rhonchi, wheezes Gastrointestinal: soft Extremities: no cyanosis, no clubbing Neurological: cranial nerve grossly intact, no focal deficits Hosp A/P (1) Acute respiratory failure with hypoxia Code(s): J96.01 - ACUTE RESPIRATORY FAILURE WITH HYPOXIA Status: Acute (2) COPD exacerbation Code(s): J44.1 - CHRONIC OBSTRUCTIVE PULMONARY DISEASE W (ACUTE) EXACERBATION Status: Acute (3) Hypertensive urgency Code(s): I16.0 - HYPERTENSIVE URGENCY Status: Acute (4) Morbid obesity with BMI of 40.0-44.9, adult Code(s): E66.01 - MORBID (SEVERE) OBESITY DUE TO EXCESS CALORIES; Z68.41 - BODY MASS INDEX [BMI]40.0-44.9, ADULT Status: Chronic (5) Acute kidney injury superimposed on CKD Code(s): N17.9 - ACUTE KIDNEY FAILURE, UNSPECIFIED; N18.9 - CHRONIC KIDNEY DISEASE, UNSPECIFIED Status: Acute (6) Lung nodule Code(s): R91.1 - SOLITARY PULMONARY NODULE Status: Acute - Plan COVID-19 PCR is negative. Continue scheduled nebulizer treatments, antibiotics, and corticosteroids(the dose has been increased per pulmonology) Weaned off bipap. Continue hydralazine, isosorbide mononitrate, and amlodipine. Echo with preserved EF. HFPEF is likely present given the elevated H2FPEF score. Shortness of breath improved with diuresis since yesterday. Creatinine level is close to baseline now. Appreciate nephrology. Suspecious lung nodule. We will schedule repeat CT scan in 3 months with OP follow up with Pulmonology.
[2020-04-09] MEDS: Famotidine/PF 20 mg/2ml Vial SLOW IVP SCH (20:36)
[2020-04-09] MEDS: Enoxaparin Sodium 100 MG/ML SYRINGE SC SCH (20:39)
[2020-04-09] MEDS: Lidocaine Patch Removal 1 EACH TOP SCH (20:40)
[2020-04-10] MEDS: HumaLOG 300 UNITS/3 ML VIAL SC PRN ×4 (01:19→21:05)
[2020-04-10 05:23] LABS: Anion Gap 19 mmol/L (10-20); BUN (Urea Nitrogen) 68 mg/dL (9.8-20.1); Calc. Creatinine Clearance 35 mL/min (70-130); Calcium 9.1 mg/dL (7.8-10.44); Carbon Dioxide 26 mmol/L (23-31); Chloride 99 mmol/L (98-107); Estimated GFR-MDRD 19; Glucose 333 mg/dL (80-115); Potassium 3.9 mmol/L (3.5-5.1); Sodium 140 mmol/L (136-145)
[2020-04-10 05:28] LABS: #Lymphocytes 0.4 thou/uL (1.20-3.40); #Monocytes 0.9 thou/uL (0.11-0.59); #Neutrophils 10.6 thou/uL (1.40-6.50); %Eosinophils 0.2 % (0.0-10.0); %Lymphocytes 3.5 % (21.0-51.0); %Monocytes 7.6 % (0.0-10.0); %Neutrophils 88.8 % (42.0-75.0); Hemoglobin 11.6 g/dL (12.0-16.0); Mean Corpuscular HGB CONC 33.5 g/dL (32.0-36.0); Mean Corpuscular Hemoglobin 29.6 pg (27.0-31.0); Mean Corpuscular Volume 88.4 fL (78.0-98.0); Mean Platelet Volume 8.8 fL (7.4-10.4); Platelet Count 199 thou/uL (130-400); Red Blood Cell (RBC) Count 3.91 mill/uL (4.20-5.40); White Blood Cell (WBC) Count 11.9 thou/uL (4.8-10.8)
[2020-04-10] MEDS: Budesonide 0.5 MG/2 ML NEB NEB SCH ×2 (07:17→18:52)
[2020-04-10] MEDS: Albuterol Sulfate 2.5 mg/3 ml Neb NEB SCH ×4 (07:17→18:52)
[2020-04-10] MEDS: Arformoterol 15 MCG/2 ML NEB NEB SCH ×2 (07:23→18:52)
--- NOTE | 2020-04-10 09:05 | PDOC.DS.DS ---
Provider - Provider Date of Admission: 04/05/20 16:43 Admitting Provider: Tung Yeh MD Primary Care Physician: NISREEN Dunlap Course - Hospital Course Hospital Course: Reap CT in 3 months for lung nodule Resuscitation Status: 04/05/20 18:06 Resuscitation Status Routine Resuscitation Status: FULL: Full Resuscitation - Labs Lab Results: 04/10/20 04:52 04/10/20 04:52 Abnormal Lab Results - Last 48 hrs 04/09/20 04:13: BUN 63 H, Creatinine 3.28 H 04/09/20 04:13: WBC 11.5 H, RBC 3.69 L, Hgb 10.4 L, Hct 32.2 L, RDW 15.0 H, Neutrophils % 90.2 H, Lymphocytes % 4.9 L, Neutrophils # 10.3 H, Lymphocytes # 0.6 L 04/10/20 04:52: BUN 68 H, Creatinine 3.02 H 04/10/20 04:52: WBC 11.9 H, RBC 3.91 L, Hgb 11.6 L, Hct 34.6 L, RDW 15.0 H, Neutrophils % 88.8 H, Lymphocytes % 3.5 L, Neutrophils # 10.6 H, Lymphocytes # 0.4 L, Monocytes # 0.9 H Microbiology - Entire Visit 04/06/20 12:42 Urine voided Urine Culture - Final 04/05/20 15:41 Venous blood - Right Hand Blood Culture - Preliminary NO GROWTH AT 48 HOURS 04/05/20 15:41 Venous blood - Left Hand Blood Culture - Preliminary NO GROWTH AT 48 HOURS - Physical Exam Vitals: Vital Signs (12 hours) Temp Pulse Resp BP Pulse Ox 04/10/20 07:30 97.3 F L 76 18 134/77 98 04/10/20 07:17 106 H 18 04/10/20 04:00 97.9 F 102 H 20 130/73 98 Weight Weight 277 lb 12.8 oz Physical Exam: The patient was seen and examined on the day of discharge. Plan - Discharge Medications Home Medications: Medication Instructions Recorded Confirmed Type Albuterol Sulfate [Albuterol 2.5 mg NEB Q4H PRN 10/06/15 04/07/20 History Sulfate Neb] Insulin NPH Hum/Reg Insulin HM 25 unit SC BID-WM 10/06/15 04/07/20 History [Novolin 70/30] Multivitamin [Multivitamins] 1 cap PO DAILY 10/06/15 04/07/20 History Verapamil HCl [Verapamil HCl ER] 360 mg PO BID 10/06/15 04/07/20 History Acetaminophen With Codeine 1 tablet PO Q6HR PRN 10/08/15 04/07/20 History [Tylenol with Codeine #3] Furosemide [Lasix] 40 mg PO DAILY 04/03/19 04/07/20 History Isosorbide Mononitrate [Imdur ER] 60 mg PO DAILY 04/03/19 04/07/20 History Potassium Chloride [K-Dur] 20 meq PO BID 04/03/19 04/07/20 History hydrALAZINE [Apresoline] 50 mg PO BID 04/03/19 04/07/20 History Gabapentin [Neurontin] 500 mg PO TID 04/07/20 04/07/20 History Allergies: ipratropium [From Atrovent] Allergy (Verified 04/01/19 22:55) DIZZY, TROUBLE BREATHING Sulfa (Sulfonamide Antibiotics) Allergy (Verified 04/01/19 22:55) DYSPNEA - Follow up Plan Referrals: Velia Bautista FNP [Primary Care Provider] - Disposition: HOME
--- NOTE | 2020-04-10 09:15 | PRG ---
DATE OF SERVICE: 04/10/2020 SUBJECTIVE: This is a well-built female, in no apparent distress. OBJECTIVE: VITAL SIGNS: Temperature 97.3, pulse 76, respiratory rate 18, blood pressure 134/77. MUSCULOSKELETAL: 2 to 3+ edema. HEENT: Atraumatic normocephalic Neck: Supple Cardiovascular: S1S2 heard, Rate and rhythm regular Respiratory: Clear to auscultation Gastrointestinal: Abdomen is soft Dermatologic : No skin rash Neurologic: Alert and awake and oriented X3 No focal neurologic deficits. Moving all the extremities. Psychiatric: Mood and affect normal LABORATORY DATA: Potassium 3.9, BUN is 68, creatinine is 3.08. ASSESSMENT: 1. Chronic kidney disease stage 4 with stable labs, but the patient remains fluid overloaded. Agree with fluid pills now. Agree with diuretics. 2. Edema. 3. Cardiorenal syndrome. 4. Anemia of chronic disease. 5. Morbid obesity. 6. Fluid overload. PLAN: Dialysis could be considered if no significant urine output is maintained. Limit fluid intake and salt intake. Continue on diuretics. We will follow. Job ID: [id number] [facility]
[2020-04-10] MEDS: Verapamil 120 MG TAB PO SCH ×4 (09:51→21:07)
[2020-04-10] MEDS: Sodium Bicarbonate Tab 325 MG TAB PO SCH ×3 (09:52→21:07)
[2020-04-10] MEDS: Amlodipine 10 MG TAB PO SCH (09:52)
[2020-04-10] MEDS: methylPREDNISolone Sod Succ 40 MG VIAL IVP SCH ×3 (09:53→21:07)
[2020-04-10] MEDS: Lidocaine 5% Patch TD SCH ×2 (09:53→10:13)
[2020-04-10] MEDS: Insulin Glargine 20 UNITS in Pre-Filled Syringe 1 EACH SC SCH ×2 (09:54→21:06)
[2020-04-10] MEDS: cefTRIAXone\\ROCEPHIN 1 GM in Sodium Chloride 0.9% 100 ML IVPB SCH (09:54)
[2020-04-10] MEDS: Bumetanide 1 MG/4 ML VIAL IVP SCH ×2 (09:55→21:07)
[2020-04-10] MEDS: hydrALAZINE 25 MG TAB PO SCH ×3 (09:57→21:07)
[2020-04-10] MEDS: Azithromycin 500 MG in Sodium Chloride 0.9% 250 ML 250 ML IVPB SCH (11:14)
--- NOTE | 2020-04-10 13:15 | PRG ---
DATE OF SERVICE: 04/10/2020 SUBJECTIVE: This morning, she says she is short of breath. She has severe deconditioning. OBJECTIVE: VITAL SIGNS: Temperature saturations 96 on 3 L, and blood pressure 140/67. CHEST: No wheezing. No crackles. CARDIAC: Normal S1 and S2. No gallops. ABDOMEN: No masses. LABORATORY DATA: Creatinine 3 and BUN 68. IMPRESSION AND PLAN: Chronic obstructive pulmonary disease exacerbation and severe deconditioning. PT has been ordered. She follow up with Dr. Holland when she gets discharged. Job ID: [id number]
--- NOTE | 2020-04-10 15:29 | EKG ---
Test Reason : Blood Pressure : / mmHG Vent. Rate : 090 BPM Atrial Rate : 090 BPM P-R Int : 234 ms QRS Dur : 092 ms QT Int : 394 ms P-R-T Axes : 018 -10 022 degrees QTc Int : 481 ms Poor data quality, interpretation may be adversely affected Sinus rhythm with 1st degree A-V block Otherwise normal ECG Confirmed by ZEYAD SULLIVAN, ULYSSES Moran ([id number]), features editor SARAN CANALES ([id number]) on 04/10/2020 3:29:17 PM Referred By: Confirmed By:ULYSSES JEFFERS MD
--- NOTE | 2020-04-10 18:29 | PDOC.HOSPP ---
- Subjective Encounter Date: 04/10/20 Encounter Time: 11:00 Subjective: She was seen and examined in bed. She had intermittent cough no respiratory distress. She denied any chest pain. Nurse notes occasional confusion however the time of my assessment she was oriented x3. Otherwise no significant events overnight. - Objective Vital Signs & Weight: Vital Signs (12 hours) Temp Pulse Resp BP Pulse Ox 04/10/20 15:45 85 04/10/20 15:18 85 16 04/10/20 11:15 98.8 F 85 18 146/67 H 96 04/10/20 10:48 101 H 18 04/10/20 07:30 97.3 F L 76 18 134/77 98 04/10/20 07:17 106 H 18 Weight Weight 277 lb 12.8 oz I&O: 04/09/20 04/10/20 04/11/20 06:59 06:59 06:59 Intake Total 1710 1840 Output Total 1150 2200 Balance 560 -360 Result Diagrams: 04/10/20 04:52 04/10/20 04:52 Additional Labs: Accuchecks 04/10/20 04/10/20 04/10/20 10:46 05:40 01:11 POC Glucose 226 H 302 H 350 H 04/09/20 20:59 POC Glucose 362 H Hospitalist ROS - Medication Medications: Active Medications Generic Name Dose Route Start Last Admin Trade Name Freq PRN Reason Stop Dose Admin Acetaminophen 650 mg 04/05/20 18:06 04/07/20 15:45 Acetaminophen 325 Mg Tab PO 650 mg Q4H PRN Administration Headache/Fever/Mild Pain (1-3) Acetaminophen/Codeine Phosphate 1 tab 04/07/20 17:08 04/08/20 20:52 Acetaminophen/Codeine 30-300mg Tablet PO 1 tab Q6H PRN Administration Pain 4-6 Albuterol Sulfate 2.5 mg 04/08/20 15:00 04/10/20 15:18 Albuterol Sulfate 2.5 Mg/3 Ml Neb NEB 2.5 mg [id number] MIREYA Administration Amlodipine Besylate 10 mg 04/07/20 09:00 04/10/20 09:52 Amlodipine 10 Mg Tab PO 10 mg DAILY MIREYA Administration Arformoterol Tartrate 15 mcg 04/08/20 18:30 11/21/20 07:23 Arformoterol 15 Mcg/2 Ml Neb NEB 15 mcg BID-RT MIREYA Administration Budesonide 0.5 mg 04/08/20 18:30 04/10/20 07:17 Budesonide 0.5 Mg/2 Ml Neb NEB 0.5 mg BID-RT MIREYA Administration Bumetanide 1 mg 04/08/20 21:00 04/10/20 09:55 Bumetanide 1 Mg/4 Ml Vial IVP 1 mg BID MIREYA Administration Enoxaparin Sodium 100 mg 04/06/20 21:00 04/09/20 20:39 Enoxaparin Sodium 100 Mg/Ml Syringe SC 100 mg 2100 MIREYA Administration Famotidine 20 mg 04/05/20 21:00 04/09/20 20:36 Famotidine/Pf 20 Mg/2ml Vial SLOW IVP 20 mg QPM MIREYA Administration Hydralazine HCl 75 mg 04/06/20 15:00 04/10/20 15:45 Hydralazine 25 Mg Tab PO 75 mg TID MIREYA Administration Insulin Glargine 20 units/ 0.2 mls @ 0 mls/hr 04/07/20 09:00 04/10/20 09:54 Miscellaneous Medication SC 0.2 mls QAM MIREYA Administration Azithromycin 500 mg/ Sodium 250 mls @ 250 mls/hr 04/08/20 10:00 04/10/20 11:14 Chloride IVPB 250 mls Q24HR MIREYA Administration Ceftriaxone Sodium 1 gm/ 100 mls @ 200 mls/hr 04/08/20 09:00 04/10/20 09:54 Sodium Chloride IVPB 100 mls Q24HR MIREYA Administration Insulin Glargine 20 units/ 0.2 mls @ 0 mls/hr 04/09/20 21:00 04/09/20 21:26 Miscellaneous Medication SC 0.2 mls HS MIREYA Administration Insulin Human Lispro 0 units 04/07/20 01:00 04/10/20 01:19 Humalog 300 Units/3 Ml Vial SC 5 unit .BEDTIME SLIDING SC PRN Administration Bedtime Correctional Scale Insulin Human Lispro 0 units 04/07/20 21:00 04/10/20 11:16 Humalog 300 Units/3 Ml Vial SC 6 unit .AGGRESSIVE SLIDING PRN Administration AGGRESSIVE SLIDING SCALE Protocol Isosorbide Mononitrate 60 mg 04/07/20 09:00 04/10/20 09:51 Isosorbide Mononitrate Er 60 Mg Tab PO 60 mg DAILY MIREYA Administration Lidocaine 1 patch 04/07/20 09:00 04/10/20 10:13 Lidocaine 5% Patch TD Not Given DAILY MIREYA Methylprednisolone Sodium Succinate 40 mg 04/08/20 15:00 04/10/20 15:45 Methylprednisolone Sod Succ 40 Mg Vial IVP 40 mg TID MIREYA Administration Miscellaneous Medication 1 each 04/07/20 21:00 04/09/20 20:40 Lidocaine Patch Removal 1 Each TOP Not Given 2100 MIREYA Sodium Bicarbonate 975 mg 04/07/20 09:00 04/10/20 15:44 Sodium Bicarbonate Tab 325 Mg Tab PO 975 mg TID MIREYA Administration Sodium Chloride 10 ml 04/06/20 09:00 04/10/20 09:53 Flush - Normal Saline 10 Ml Syringe IVF 10 ml Q12HR MIREYA Administration Sodium Chloride 10 ml 04/06/20 02:45 04/08/20 14:31 Flush - Normal Saline 10 Ml Syringe IVF 10 ml PRN PRN Administration Saline Flush Verapamil HCl 120 mg 04/05/20 21:00 04/10/20 17:58 Verapamil 120 Mg Tab PO Not Given QID MIREYA - Exam General Appearance: awake alert General - other findings: Obese Heart: RRR, no murmur, no gallops, normal peripheral pulses Respiratory - other findings: Bilateral coarse breath sounds. Gastrointestinal: soft, non-tender, non-distended, normal bowel sounds Extremities: no cyanosis, no clubbing, 1+ LE edema Hosp A/P - Plan This is a 69-year-old female patient admitted on account of acute hypoxic respiratory failure secondary to CHF exacerbation. She is currently requiring 3 L of oxygen and has some respiratory distress. Acute hypoxic respiratory failure Initially on BiPAPweaned off We will continue on nebulization and diuresis Reassess in the morning Pulmonology following. CKD stage IV Nephrology followingno plan for dialysis the moment Continue renal function monitoring. Anemia of chronic disease Hemoglobin has been stable Continue monitoring. Heart failure with preserved EF. Still currently congested Continue diuresis Monitor BMP Diabetes mellitus Started glargine today Continue monitor glucose Right upper lung nodule Assessed by CT and PET scan recommended We will follow up with pulmonology on note. General deconditioning PT evaluation in a.m. CODE STATUSfull code DVT prophylaxisLovenox
[2020-04-10] MEDS: Enoxaparin Sodium 100 MG/ML SYRINGE SC SCH (21:07)
[2020-04-10] MEDS: Lidocaine Patch Removal 1 EACH TOP SCH (21:07)
[2020-04-10] MEDS: Famotidine/PF 20 mg/2ml Vial SLOW IVP SCH (21:07)
[2020-04-11 04:26] LABS: #Lymphocytes 0.4 thou/uL (1.20-3.40); #Monocytes 0.6 thou/uL (0.11-0.59); #Neutrophils 8.7 thou/uL (1.40-6.50); %Basophils 0.4 % (0.0-1.0); %Eosinophils 0.1 % (0.0-10.0); %Monocytes 6.4 % (0.0-10.0); %Neutrophils 89.1 % (42.0-75.0); Hemoglobin 10.7 g/dL (12.0-16.0); Mean Corpuscular HGB CONC 31.9 g/dL (32.0-36.0); Mean Corpuscular Hemoglobin 27.8 pg (27.0-31.0); Mean Corpuscular Volume 87.3 fL (78.0-98.0); Mean Platelet Volume 9.1 fL (7.4-10.4); Platelet Count 207 thou/uL (130-400); RBC Distribution Width 15.1 % (11.5-14.5); Red Blood Cell (RBC) Count 3.85 mill/uL (4.20-5.40); White Blood Cell (WBC) Count 9.8 thou/uL (4.8-10.8)
[2020-04-11 04:41] LABS: Anion Gap 20 mmol/L (10-20); BUN (Urea Nitrogen) 72 mg/dL (9.8-20.1); Calc. Creatinine Clearance 38 mL/min (70-130); Calcium 9.2 mg/dL (7.8-10.44); Carbon Dioxide 29 mmol/L (23-31); Chloride 98 mmol/L (98-107); Estimated GFR-MDRD 21; Glucose 289 mg/dL (80-115); Potassium 3.5 mmol/L (3.5-5.1); Sodium 143 mmol/L (136-145)
[2020-04-11] MEDS: HumaLOG 300 UNITS/3 ML VIAL SC PRN ×2 (05:55→11:50)
[2020-04-11] MEDS: Albuterol Sulfate 2.5 mg/3 ml Neb NEB SCH ×4 (07:10→18:45)
[2020-04-11] MEDS: Budesonide 0.5 MG/2 ML NEB NEB SCH ×2 (07:10→18:45)
[2020-04-11] MEDS: Arformoterol 15 MCG/2 ML NEB NEB SCH ×2 (07:14→18:47)
[2020-04-11] MEDS: Verapamil 120 MG TAB PO SCH ×4 (08:48→21:18)
[2020-04-11] MEDS: hydrALAZINE 25 MG TAB PO SCH ×3 (08:48→21:16)
[2020-04-11] MEDS: Amlodipine 10 MG TAB PO SCH (08:48)
[2020-04-11] MEDS: Sodium Bicarbonate Tab 325 MG TAB PO SCH ×3 (08:48→21:17)
[2020-04-11] MEDS: methylPREDNISolone Sod Succ 40 MG VIAL IVP SCH ×3 (08:49→21:17)
[2020-04-11] MEDS: Bumetanide 1 MG/4 ML VIAL IVP SCH ×2 (08:49→21:16)
[2020-04-11] MEDS: cefTRIAXone\\ROCEPHIN 1 GM in Sodium Chloride 0.9% 100 ML IVPB SCH (08:50)
[2020-04-11] MEDS: Insulin Glargine 20 UNITS in Pre-Filled Syringe 1 EACH SC SCH ×2 (08:50→21:17)
[2020-04-11] MEDS: Lidocaine 5% Patch TD SCH (08:51)
[2020-04-11] MEDS: Azithromycin 500 MG in Sodium Chloride 0.9% 250 ML 250 ML IVPB SCH (10:22)
--- NOTE | 2020-04-11 12:06 | PRG ---
DATE OF SERVICE: 04/11/2020 SUBJECTIVE: Patient was seen and examined at bedside and overnight events noted. Patient denies any shortness of breath or chest pain or palpitation. No history of nausea or vomiting or diarrhea or fever or chills or cramps. OBJECTIVE: GENERAL: This is an obese female in no apparent distress. VITAL SIGNS: Temperature 97.9. Heart Rate 118. Respiratory rate 20. Blood pressure 190/92. HEENT: Atraumatic, normocephalic. Oral mucosa is moist. NECK: Supple. CARDIOVASCULAR: S1, S2 heard. Rate and rhythm regular. RESPIRATORY: Clear to auscultation. GASTROINTESTINAL: Abdomen is soft. MUSCULOSKELETAL: 3+ edema. DERMATOLOGIC: No skin rash. NEUROLOGIC: Alert and awake and oriented x3. No focal neurologic deficits. Moving all the extremities. PSYCHIATRIC: Mood and affect normal. LABORATORY DATA: Potassium 3.5, BUN is 72, creatinine is 2.7. ASSESSMENT AND PLAN: 1. Acute kidney injury on chronic kidney disease, stage 4. Renal function is stable. The patient remains fluid overloaded. Advised to limit salt and fluid intake. 2. Edema. 3. Cardiorenal syndrome. 4. Anemia of chronic disease. 5. Morbid obesity. 6. Fluid overload. Continue on diuretics. Limit salt intake and monitor. Job ID: [id number]
--- NOTE | 2020-04-11 13:31 | PRG ---
DATE OF SERVICE: 04/11/2020 SUBJECTIVE: This morning, she says she wants to go home. Denies any shortness of breath or chest pain. OBJECTIVE: VITAL SIGNS: Temperature 97, pulse 110, respiratory rate 20, sats 96 on 3 L, blood pressure . CHEST: No wheezing. No crackles. CARDIAC: Normal S1 and S2. No gallops. ABDOMEN: Soft. ASSESSMENT: Morbid obesity, sleep apnea, severe deconditioning. Renal failure. PLAN: Disposition as per primary care physician. Pulmonary henderson, she needs to have an outpatient sleep study. She desires to have one. Job ID: [id number]
--- NOTE | 2020-04-11 16:02 | PDOC.HOSPP ---
- Subjective Encounter Date: 04/11/20 Encounter Time: 10:00 Subjective: Patient was seen and examined in bed. She denies any chest pain or shortness of breath. Her nurse however notes that she has been generally weak Otherwise she was generally stable overnight. No significant events overnight only had sinus tachycardia. Later in the afternoon however she developed a short run of V. tach with no symptoms. - Objective Vital Signs & Weight: Vital Signs (12 hours) Temp Pulse Pulse Resp BP BP BP 04/11/20 15:04 97.7 F 85 20 180/74 H 04/11/20 14:31 110 H 18 04/11/20 11:43 97.9 F 110 H 20 173/77 H 04/11/20 09:58 114 H 16 04/11/20 09:29 113 H 174/87 H 131/85 04/11/20 08:43 118 H 20 190/92 H 04/11/20 07:10 116 H 15 Pulse Ox 04/11/20 15:04 95 04/11/20 14:31 04/11/20 11:43 96 04/11/20 09:58 04/11/20 09:29 04/11/20 08:43 95 04/11/20 07:10 Weight Weight 277 lb 12.8 oz I&O: 04/10/20 04/11/20 04/12/20 06:59 06:59 06:59 Intake Total 1840 Output Total 2200 Balance -360 Result Diagrams: 04/11/20 03:53 04/11/20 03:53 Additional Labs: Accuchecks 04/11/20 04/11/20 04/10/20 11:43 05:42 20:55 POC Glucose 163 H 250 H 351 H Hospitalist ROS - Medication Medications: Active Medications Generic Name Dose Route Start Last Admin Trade Name Freq PRN Reason Stop Dose Admin Acetaminophen 650 mg 04/05/20 18:06 04/07/20 15:45 Acetaminophen 325 Mg Tab PO 650 mg Q4H PRN Administration Headache/Fever/Mild Pain (1-3) Acetaminophen/Codeine Phosphate 1 tab 04/07/20 17:08 04/08/20 20:52 Acetaminophen/Codeine 30-300mg Tablet PO 1 tab Q6H PRN Administration Pain 4-6 Albuterol Sulfate 2.5 mg 04/08/20 15:00 04/11/20 14:31 Albuterol Sulfate 2.5 Mg/3 Ml Neb NEB 2.5 mg [id number] MIREYA Administration Amlodipine Besylate 10 mg 04/07/20 09:00 04/11/20 08:48 Amlodipine 10 Mg Tab PO 10 mg DAILY MIREYA Administration Arformoterol Tartrate 15 mcg 04/08/20 18:30 04/11/20 07:14 Arformoterol 15 Mcg/2 Ml Neb NEB 15 mcg BID-RT MIREYA Administration Budesonide 0.5 mg 04/08/20 18:30 04/11/20 07:10 Budesonide 0.5 Mg/2 Ml Neb NEB 0.5 mg BID-RT MIREYA Administration Bumetanide 1 mg 04/08/20 21:00 04/11/20 08:49 Bumetanide 1 Mg/4 Ml Vial IVP 1 mg BID MIREYA Administration Enoxaparin Sodium 100 mg 04/06/20 21:00 04/10/20 21:07 Enoxaparin Sodium 100 Mg/Ml Syringe SC 100 mg 2100 MIREYA Administration Famotidine 20 mg 04/05/20 21:00 04/10/20 21:07 Famotidine/Pf 20 Mg/2ml Vial SLOW IVP 20 mg QPM MIREYA Administration Hydralazine HCl 75 mg 04/06/20 15:00 04/11/20 15:08 Hydralazine 25 Mg Tab PO 75 mg TID MIREYA Administration Insulin Glargine 20 units/ 0.2 mls @ 0 mls/hr 04/07/20 09:00 04/11/20 08:50 Miscellaneous Medication SC 0.2 mls QAM MIREYA Administration Azithromycin 500 mg/ Sodium 250 mls @ 250 mls/hr 04/08/20 10:00 04/11/20 10:22 Chloride IVPB 250 mls Q24HR MIREYA Administration Ceftriaxone Sodium 1 gm/ 100 mls @ 200 mls/hr 04/08/20 09:00 04/11/20 08:50 Sodium Chloride IVPB 100 mls Q24HR MIREYA Administration Insulin Glargine 20 units/ 0.2 mls @ 0 mls/hr 04/09/20 21:00 04/10/20 21:06 Miscellaneous Medication SC 0.2 mls HS MIREYA Administration Insulin Human Lispro 0 units 04/07/20 01:00 04/10/20 21:05 Humalog 300 Units/3 Ml Vial SC 5 unit .BEDTIME SLIDING SC PRN Administration Bedtime Correctional Scale Insulin Human Lispro 0 units 04/07/20 21:00 04/11/20 11:50 Humalog 300 Units/3 Ml Vial SC 2 unit .AGGRESSIVE SLIDING PRN Administration AGGRESSIVE SLIDING SCALE Protocol Isosorbide Mononitrate 60 mg 04/07/20 09:00 04/11/20 08:48 Isosorbide Mononitrate Er 60 Mg Tab PO 60 mg DAILY MIREYA Administration Lidocaine 1 patch 04/07/20 09:00 04/11/20 08:51 Lidocaine 5% Patch TD Not Given DAILY MIREYA Methylprednisolone Sodium Succinate 40 mg 04/08/20 15:00 04/11/20 15:08 Methylprednisolone Sod Succ 40 Mg Vial IVP 40 mg TID MIREYA Administration Miscellaneous Medication 1 each 04/07/20 21:00 04/10/20 21:07 Lidocaine Patch Removal 1 Each TOP 1 each 2100 MIREYA Administration Sodium Bicarbonate 975 mg 04/07/20 09:00 04/11/20 15:07 Sodium Bicarbonate Tab 325 Mg Tab PO 975 mg TID MIREYA Administration Sodium Chloride 10 ml 04/06/20 09:00 04/11/20 08:49 Flush - Normal Saline 10 Ml Syringe IVF 10 ml Q12HR MIREYA Administration Sodium Chloride 10 ml 04/06/20 02:45 04/08/20 14:31 Flush - Normal Saline 10 Ml Syringe IVF 10 ml PRN PRN Administration Saline Flush Verapamil HCl 120 mg 04/05/20 21:00 04/11/20 12:43 Verapamil 120 Mg Tab PO 120 mg QID MIREYA Administration - Exam General Appearance: awake alert General - other findings: Morbidly obese Heart: RRR, no murmur, no gallops, no rubs Respiratory: tachypneic Respiratory - other findings: Reduced air entry bilaterally. Gastrointestinal: soft, non-tender, non-distended, normal bowel sounds Extremities: no cyanosis, no clubbing, 1+ LE edema Hosp A/P - Plan This is a 69-year-old female patient admitted on account of acute hypoxic respiratory failure secondary to CHF exacerbation and COPD exacerbation. She is currently requiring 3 L of oxygen and has some respiratory distress. Acute hypoxic respiratory failure Initially on BiPAPweaned off We will continue on nebulization and diuresis Reassess in the morning Pulmonology following. Heart failure with preserved EF. Improving Continue diuresis on Bumex This may be complicated by CKD Continue electrolyte monitoring. COPD exacerbation Continue albuterol inhalation. She is allergic to ipratropium Continue arformoterol, budesonide, azithromycin and ceftriaxone. CKD stage IV Nephrology followingno plan for dialysis the moment Continue renal function monitoring. Anemia of chronic disease Hemoglobin has been stable Continue monitoring. Diabetes mellitus On glargine Continue monitor glucose Right upper lung nodule Assessed by CT and PET scan recommended We will follow up with pulmonology on note. General deconditioning PT evaluation in a.m. Will require placement prior to discharge Nonsustained V. tach Recheck in troponin, BMP and mag EKG We will follow. CODE STATUSfull code DVT prophylaxisLovenox
[2020-04-11 17:56] LABS: Anion Gap 16 mmol/L (10-20); BUN (Urea Nitrogen) 66 mg/dL (9.8-20.1); Calc. Creatinine Clearance 41 mL/min (70-130); Calcium 9.1 mg/dL (7.8-10.44); Carbon Dioxide 34 mmol/L (23-31); Chloride 96 mmol/L (98-107); Estimated GFR-MDRD 23; Glucose 175 mg/dL (80-115); Magnesium 2.4 mg/dL (1.6-2.6); Potassium 3.7 mmol/L (3.5-5.1); Sodium 142 mmol/L (136-145)
[2020-04-11 18:00] LABS: Troponin I 0.114 ng/mL (< 0.028)
[2020-04-11] MEDS: Famotidine/PF 20 mg/2ml Vial SLOW IVP SCH (21:16)
[2020-04-11] MEDS: Enoxaparin Sodium 100 MG/ML SYRINGE SC SCH (21:16)
[2020-04-11] MEDS: Lidocaine Patch Removal 1 EACH TOP SCH (21:17)
[2020-04-12] MEDS: Albuterol Sulfate 2.5 mg/3 ml Neb NEB SCH ×5 (01:08→18:36)
[2020-04-12 04:44] LABS: #Lymphocytes 0.7 thou/uL (1.20-3.40); #Monocytes 0.6 thou/uL (0.11-0.59); #Neutrophils 8.6 thou/uL (1.40-6.50); %Basophils 0.1 % (0.0-1.0); %Eosinophils 0.4 % (0.0-10.0); %Lymphocytes 7.2 % (21.0-51.0); %Monocytes 6.1 % (0.0-10.0); %Neutrophils 86.3 % (42.0-75.0); Hemoglobin 11.9 g/dL (12.0-16.0); Mean Corpuscular Hemoglobin 28.5 pg (27.0-31.0); Mean Corpuscular Volume 86.5 fL (78.0-98.0); Mean Platelet Volume 9.2 fL (7.4-10.4); Platelet Count 192 thou/uL (130-400); RBC Distribution Width 15.2 % (11.5-14.5); Red Blood Cell (RBC) Count 4.16 mill/uL (4.20-5.40); White Blood Cell (WBC) Count 9.9 thou/uL (4.8-10.8)
[2020-04-12 05:04] LABS: Anion Gap 16 mmol/L (10-20); BUN (Urea Nitrogen) 63 mg/dL (9.8-20.1); Calc. Creatinine Clearance 43 mL/min (70-130); Calcium 9.4 mg/dL (7.8-10.44); Carbon Dioxide 36 mmol/L (23-31); Chloride 96 mmol/L (98-107); Estimated GFR-MDRD 24; Glucose 265 mg/dL (80-115); Potassium 3.4 mmol/L (3.5-5.1); Sodium 145 mmol/L (136-145)
[2020-04-12] MEDS: HumaLOG 300 UNITS/3 ML VIAL SC PRN (05:49)
[2020-04-12] MEDS: Arformoterol 15 MCG/2 ML NEB NEB SCH ×2 (06:58→18:36)
[2020-04-12] MEDS: Budesonide 0.5 MG/2 ML NEB NEB SCH ×2 (06:58→18:36)
[2020-04-12] MEDS ORDERED: Ondansetron HCl/PF 4 MG in Sodium Chloride 0.9% 50 ML IVPB PRN (08:12)
[2020-04-12] MEDS ORDERED: Ondansetron ODT 4 MG TAB PO PRN (08:12)
[2020-04-12] MEDS ORDERED: Electrolyte Replacement Protoc 1 EACH EACH FS SCH (08:15)
[2020-04-12] MEDS: hydrALAZINE 25 MG TAB PO SCH ×4 (08:40→20:31)
[2020-04-12] MEDS: Bumetanide 1 MG/4 ML VIAL IVP SCH ×2 (08:40→20:34)
[2020-04-12] MEDS: Verapamil 120 MG TAB PO SCH ×5 (08:40→20:32)
[2020-04-12] MEDS: Amlodipine 10 MG TAB PO SCH ×2 (08:40→11:38)
[2020-04-12] MEDS: methylPREDNISolone Sod Succ 40 MG VIAL IVP SCH (08:40)
[2020-04-12] MEDS: Aspirin 325 MG TAB PO SCH ×2 (08:40→11:38)
[2020-04-12] MEDS: Sodium Bicarbonate Tab 325 MG TAB PO SCH (08:40)
[2020-04-12] MEDS: Lidocaine 5% Patch TD SCH (08:41)
[2020-04-12] MEDS: cefTRIAXone\\ROCEPHIN 1 GM in Sodium Chloride 0.9% 100 ML IVPB SCH (08:41)
--- NOTE | 2020-04-12 08:59 | RAD ---
EXAM: Chest one view: HISTORY: Hypoxemia COMPARISON: 04/07/2020 FINDINGS: Fairly marked rotation to the left. Heart size: Minimally enlarged. Lungs: Evidence for bilateral vascular congestion. The previously noted right hilar fullness and right upper mid lung zone nodularity is not evident on today's study because of rotation. IMPRESSION: Considerable rotation. No significant new process. Continued short-term follow-up.
--- NOTE | 2020-04-12 09:15 | PRG ---
DATE OF SERVICE: 04/12/2020 SUBJECTIVE: Ms. Vidal is complaining of some abdominal pain. She says her breathing is doing okay. OBJECTIVE: VITAL SIGNS: Her temperature is 98.5, pulse 58, respirations 20, O2 saturation 93% on 3 L, blood pressure 176/81. HEENT: Unremarkable. NECK: No JVD. LUNGS: Clear anteriorly. CARDIAC: S1 and S2, regular. ABDOMEN: No palpated tenderness. EXTREMITIES: No edema. LABORATORY DATA: White blood cell count 9.9, hemoglobin 11.9, hematocrit 36, platelet count 192. Sodium 145, potassium 3.4, chloride 96, CO2 of 36, BUN 63, creatinine 2.4, glucose 265. ASSESSMENT: 1. Asthma/chronic obstructive pulmonary disease with exacerbation. 2. Right upper lobe density, which appears clear on today's x-ray. PLAN: 1. Follow up in [address] scan. 2. Doing well from a pulmonary standpoint and can probably be discharged to home if everything else is okay. I will put her on oral steroids. Job ID: [id number]
[2020-04-12] MEDS ORDERED: Potassium Chloride 20 MEQ TAB PO SCH (10:15)
[2020-04-12] MEDS: predniSONE 20 MG TAB PO SCH ×2 (10:46→20:32)
[2020-04-12] MEDS ORDERED: Pantoprazole 40 MG VIAL IVP SCH (11:15)
--- NOTE | 2020-04-12 11:18 | PRG ---
DATE OF SERVICE: 04/12/2020 SUBJECTIVE: Patient was seen and examined at bedside and overnight events noted. Patient denies any shortness of breath or chest pain or palpitation. No history of nausea or vomiting or diarrhea or fever or chills or cramps. OBJECTIVE: GENERAL: This is a well-built female, in no apparent distress. VITAL SIGNS: Temperature 98.5. Heart Rate 88. Respiratory rate 20. Blood Pressure 176/81. HEENT: Atraumatic, normocephalic. Oral mucosa is moist. NECK: Supple. CARDIOVASCULAR: S1, S2 heard. Rate and rhythm regular. RESPIRATORY: Clear to auscultation. GASTROINTESTINAL: Abdomen is soft. MUSCULOSKELETAL: 1 to 2+ edema. DERMATOLOGIC: No skin rash. NEUROLOGIC: Alert and awake and oriented x3. No focal neurologic deficits. Moving all the extremities. PSYCHIATRIC: Mood and affect normal. LABORATORY DATA: Potassium 3.4, BUN is 63, creatinine is 2.4. ASSESSMENT AND PLAN: 1. Acute kidney injury on chronic kidney disease, stage 4, stable. 2. Edema with fluid overload. 3. Cardiorenal syndrome. 4. Anemia of chronic disease. 5. Hypokalemia, replace. 6. Morbid obesity. Replace electrolytes closely and monitor. We will follow. Job ID: [id number]
[2020-04-12] MEDS: Insulin Glargine 20 UNITS in Pre-Filled Syringe 1 EACH SC SCH ×2 (11:38→20:32)
[2020-04-12] MEDS: Azithromycin 500 MG in Sodium Chloride 0.9% 250 ML 250 ML IVPB SCH (11:39)
[2020-04-12 12:11] LABS: Troponin I 0.138 ng/mL (< 0.028)
--- NOTE | 2020-04-12 15:03 | CON ---
DATE OF CONSULTATION: 04/12/2020 REASON FOR CONSULTATION: Nonsustained VT. HISTORY OF PRESENT ILLNESS: Ms. Vidal is a 69-year-old woman, who has not been seen and evaluated by Cardiology in the past. She recently presented with COPD exacerbation. She was seen and evaluated by Dr. Marco Holland. She was on telemetry monitoring, being monitored, where she developed 9 beats of nonsustained VT. She was asymptomatic. During my interview with the patient, she is nonverbal. She responds by nodding yes and no, but does not open her eyes. She is not cooperative. PAST MEDICAL HISTORY: End-stage renal disease due to renal insufficiency, COPD, asthma, diabetes mellitus, hypertension, gout, knee replacement, BTL. ALLERGIES: IPRATROPIUM AND SULFA. SOCIAL HISTORY: Positive tobacco use. No alcohol use. HOME MEDICATIONS: Include; 1. Potassium. 2. Insulin. 3. Gabapentin. 4. Acetaminophen. 5. Albuterol. 6. Isosorbide. 7. Lasix. 8. Multivitamin. 9. Verapamil. 10. Brovana. 11. Norvasc. PHYSICAL EXAMINATION: VITAL SIGNS: Blood pressure 130/73, pulse 88, respirations 20. General: Difficult to assess her orientation status. She is nonverbal. Head, Eyes, Ears, Nose and Throat: Sclerae without icterus. Mouth: Moist mucous membranes, normal palate. Neck: No jugular venous distention. Carotid upstroke is brisk. No bruits bilaterally. Lungs: Clear to auscultation. Heart: Regular rate and rhythm, normal S1 and S2. Abdomen: Soft, nontender, nondistended. Extremities: No edema. PERTINENT LABORATORY DATA: Include hemoglobin 11.9, hematocrit 36.0. Creatinine 2.43. Potassium of 3.4. IMPRESSION: 1. Nonsustained ventricular tachycardia. 2. Renal insufficiency. 3. Chronic obstructive pulmonary disease exacerbation. RECOMMENDATIONS: At this point, we will continue medical therapy. It is difficult to ascertain any further history from Ms. Vidal. Her nonsustained VT likely related to low potassium level. We will try and keep her potassium level closer to 4. Her elevated troponin likely secondary to demand ischemia from COPD exacerbation. We would recommend continue medical therapy. Otherwise, I have no further recommendations. Job ID: [id number]
--- NOTE | 2020-04-12 15:07 | PQF ---
CLINICAL DOCUMENTATION CLARIFICATION FORM: Dear Dr. Vazquez Date: 04/12/20 Please exercise your independent, professional judgment in responding to the clarification form. Clinical indicators are provided on the bottom of this form for your review. Please check appropriate box(es): HEART FAILURE: A. ACUITY [ ] Acute [ ] Acute on Chronic [ x] Chronic B. TYPE: [ ] Systolic / HFrEF [x ] Diastolic / HFpEF [ ] Combined Systolic / Diastolic [ ] Hypertensive Heart and Kidney disease [ ] Hypertensive Heart Disease [ ] Hypertensive Kidney Disease [ ] Other diagnosis [ ] Unable to determine In addition, please specify: Present on Admission (POA): [x ] Yes [ ] No [ ] Unable to determine For continuity of documentation, please document condition throughout progress notes and discharge summary. Thank You. To be completed by CDI/Coding staff for physician review: CLINICAL INDICATORS - SIGNS / SYMPTOMS / LABS / RESULTS AND LOCATION IN EMR TREATMENT: IV LASIX (04/06) BUMEX IVP (ORDERED 04/07-04/12) NORVASC (START 04/07) ECHOCARDIOGRAM 04/05 RISKS FACTORS / RESULTS AND LOCATION IN EMR RISKS: HISTORY OF DIASTOLIC DYSFUNCTION (H&P) HYPERTENSION (ER NOTE) H/O CHF (ER NOTE) TREATMENTS / RESULTS AND LOCATION IN EMR IV LASIX (04/06) BUMEX IVP (ORDERED 04/07-04/12) NORVASC (START 04/07) ECHOCARDIOGRAM 04/05 CDS Signature: Nicole Sterling RN Phone #: [phone] Date: 04/12/20 This is a permanent part of the Medical Record [facility]
[2020-04-12] MEDS ORDERED: Sucralfate 1 GM/10 ML UDCUP PO PRN (15:49)
[2020-04-12] MEDS: Morphine 2 MG/ML VIAL SLOW IVP PRN (16:26)
--- NOTE | 2020-04-12 18:10 | PDOC.HOSPP ---
- Subjective Encounter Date: 04/12/20 Subjective: Seen and examined in bed. She does complain of epigastric abdominal pain. No significant worsening shortness of breath however patient says she wants to go home. No significant events overnight. - Objective Vital Signs & Weight: Vital Signs (12 hours) Temp Pulse Resp BP Pulse Ox 04/12/20 15:20 98.4 F 81 20 140/89 96 04/12/20 11:38 80 04/12/20 11:31 98.2 F 80 22 H 137/83 94 L 04/12/20 07:20 98.5 F 88 20 176/81 H 93 L Weight Weight 277 lb 12.8 oz I&O: 04/11/20 04/12/20 04/13/20 06:59 06:59 06:59 Intake Total 2220 470 Output Total 2400 1500 Balance -180 -1030 Result Diagrams: 04/12/20 04:03 04/12/20 04:03 Additional Labs: Accuchecks 04/12/20 04/12/20 04/11/20 16:09 05:45 20:55 POC Glucose 106 H 253 H 257 H 04/10/20 23:43 POC Glucose 351 H Hospitalist ROS - Medication Medications: Active Medications Generic Name Dose Route Start Last Admin Trade Name Freq PRN Reason Stop Dose Admin Acetaminophen 650 mg 04/05/20 18:06 04/07/20 15:45 Acetaminophen 325 Mg Tab PO 650 mg Q4H PRN Administration Headache/Fever/Mild Pain (1-3) Acetaminophen/Codeine Phosphate 1 tab 04/07/20 17:08 04/08/20 20:52 Acetaminophen/Codeine 30-300mg Tablet PO 1 tab Q6H PRN Administration Pain 4-6 Albuterol Sulfate 2.5 mg 04/11/20 19:00 04/12/20 13:32 Albuterol Sulfate 2.5 Mg/3 Ml Neb NEB Not Given [id number] MIREYA Amlodipine Besylate 10 mg 04/07/20 09:00 04/12/20 11:38 Amlodipine 10 Mg Tab PO Not Given DAILY MIREYA Arformoterol Tartrate 15 mcg 04/08/20 18:30 04/12/20 06:58 Arformoterol 15 Mcg/2 Ml Neb NEB Not Given BID-RT MIREYA Aspirin 325 mg 04/12/20 09:00 04/12/20 11:38 Aspirin 325 Mg Tab PO Not Given DAILY MIREYA Budesonide 0.5 mg 04/08/20 18:30 04/12/20 06:58 Budesonide 0.5 Mg/2 Ml Neb NEB Not Given BID-RT MIREYA Bumetanide 1 mg 04/08/20 21:00 04/12/20 08:40 Bumetanide 1 Mg/4 Ml Vial IVP 1 mg BID MIREYA Administration Famotidine 20 mg 04/05/20 21:00 04/11/20 21:16 Famotidine/Pf 20 Mg/2ml Vial SLOW IVP 20 mg QPM MIREYA Administration Hydralazine HCl 75 mg 04/06/20 15:00 04/12/20 15:48 Hydralazine 25 Mg Tab PO Not Given TID MIREYA Insulin Glargine 20 units/ 0.2 mls @ 0 mls/hr 04/07/20 09:00 04/12/20 11:38 Miscellaneous Medication SC 0.2 mls QAM MIREYA Administration Azithromycin 500 mg/ Sodium 250 mls @ 250 mls/hr 04/08/20 10:00 04/12/20 11:39 Chloride IVPB 250 mls Q24HR MIREYA Administration Ceftriaxone Sodium 1 gm/ 100 mls @ 200 mls/hr 04/08/20 09:00 04/12/20 08:41 Sodium Chloride IVPB 100 mls Q24HR MIREYA Administration Insulin Glargine 20 units/ 0.2 mls @ 0 mls/hr 04/09/20 21:00 04/11/20 21:17 Miscellaneous Medication SC 0.2 mls HS MIREYA Administration Insulin Human Lispro 0 units 04/07/20 01:00 04/10/20 21:05 Humalog 300 Units/3 Ml Vial SC 5 unit .BEDTIME SLIDING SC PRN Administration Bedtime Correctional Scale Insulin Human Lispro 0 units 04/07/20 21:00 04/12/20 05:49 Humalog 300 Units/3 Ml Vial SC 9 unit .AGGRESSIVE SLIDING PRN Administration AGGRESSIVE SLIDING SCALE Protocol Isosorbide Mononitrate 60 mg 04/07/20 09:00 04/12/20 11:38 Isosorbide Mononitrate Er 60 Mg Tab PO Not Given DAILY MIREYA Lidocaine 1 patch 04/07/20 09:00 04/12/20 08:41 Lidocaine 5% Patch TD Not Given DAILY [facility] Miscellaneous Medication 1 each 04/07/20 21:00 04/11/20 21:17 Lidocaine Patch Removal 1 Each TOP Not Given 2100 [facility] Morphine Sulfate 2 mg 04/12/20 16:17 04/12/20 16:26 Morphine 2 Mg/Ml Vial SLOW IVP 2 mg Q4H PRN Administration Pain Ondansetron HCl 4 mg 04/12/20 08:12 04/12/20 08:39 Ondansetron Odt 4 Mg Tab PO 4 mg Q6H PRN Administration Nausea/Vomiting Prednisone 20 mg 04/12/20 09:00 04/12/20 10:46 Prednisone 20 Mg Tab PO Not Given BID MIREYA Sodium Chloride 10 ml 04/06/20 09:00 04/12/20 08:41 Flush - Normal Saline 10 Ml Syringe IVF 10 ml Q12HR MIREYA Administration Sodium Chloride 10 ml 04/06/20 02:45 04/08/20 14:31 Flush - Normal Saline 10 Ml Syringe IVF 10 ml PRN PRN Administration Saline Flush Verapamil HCl 120 mg 04/05/20 21:00 04/12/20 16:29 Verapamil 120 Mg Tab PO Not Given QID MIREYA - Exam General Appearance: awake alert Heart: RRR, no murmur, no rubs Respiratory - other findings: Reduced air entry bilaterally Gastrointestinal: soft, non-distended, normal bowel sounds, tender to palpation Extremities: no cyanosis, no edema Neurological: cranial nerve grossly intact, no focal deficits Psychiatric: A&O x 3, flat affect Hosp A/P - Plan This is a 69-year-old female patient admitted on account of acute hypoxic respiratory failure secondary to CHF exacerbation and COPD exacerbation. She is currently requiring 3 L of oxygenat her baseline, and has some respiratory distress. Later in the morning she was complaining of epigastric pain which was not relieved with Protonix and sucralfate. She also tried morphine. Plan is to send her for KUB for initial assessment. Abdominal pain Unclear etiology Started on Protonix and sucralfate with morphine for pain relief. KUB ordered We will follow Acute hypoxic respiratory failure Respiratory status currently stable On baseline 3 L oxygen Continue monitoring. Heart failure with preserved EF. Improving Continue diuresis on Bumex This may be complicated by CKD Continue electrolyte monitoring. COPD exacerbation Continue albuterol inhalation. She is allergic to ipratropium Continue arformoterol, budesonide, azithromycin and ceftriaxone. CKD stage IV Nephrology followingno plan for dialysis the moment Continue renal function monitoring. Anemia of chronic disease Hemoglobin has been stable Continue monitoring. Diabetes mellitus On glargine Continue monitor glucose Right upper lung nodule Assessed by CT and PET scan recommended We will follow up with pulmonology on note. General deconditioning PT evaluation in a.m. Will require placement prior to discharge Nonsustained V. tach Recheck in troponin, BMP and mag EKG We will follow. CODE STATUSfull code DVT prophylaxisLovenox
--- NOTE | 2020-04-12 18:11 | RAD ---
KUB: 04/12/2020 HISTORY: Abdominal pain FINDINGS: Multilevel lower lumbar spine degenerative change. There are degenerative changes of the pu bic symphysis. Supine imaging is provided, limiting assessment for small bowel obstruction and free intraperitoneal air. No evidence for bowel obstruction is apparent. IMPRESSION: No evidence for bowel obstruction.
[2020-04-12] MEDS: Atorvastatin Calcium 40 MG TAB PO SCH (20:31)
[2020-04-12] MEDS: Lidocaine Patch Removal 1 EACH TOP SCH (20:32)
[2020-04-12] MEDS: Enoxaparin Sodium 120 MG/0.8 ML SYRINGE SC SCH (20:33)
[2020-04-12] MEDS: Famotidine/PF 20 mg/2ml Vial SLOW IVP SCH (20:34)
[2020-04-12 20:41] LABS: BUN (Urea Nitrogen) 63 mg/dL (9.8-20.1); Calc. Creatinine Clearance 47 mL/min (70-130); Calcium 9.8 mg/dL (7.8-10.44); Estimated GFR-MDRD 27; Glucose 70 mg/dL (80-115); Magnesium 2.3 mg/dL (1.6-2.6)
[2020-04-12 20:51] LABS: Anion Gap 23 mmol/L (10-20); Carbon Dioxide 34 mmol/L (23-31); Chloride 97 mmol/L (98-107); Sodium 150 mmol/L (136-145)
[2020-04-13] MEDS: Albuterol Sulfate 2.5 mg/3 ml Neb NEB SCH ×5 (00:20→23:56)
[2020-04-13] MEDS: Dextrose 50% Abboject 50 ML SYRINGE SLOW IVP PRN (00:41)
[2020-04-13] MEDS: Arformoterol 15 MCG/2 ML NEB NEB SCH ×2 (07:09→18:44)
[2020-04-13] MEDS: Budesonide 0.5 MG/2 ML NEB NEB SCH ×2 (07:10→18:45)
[2020-04-13 08:28] LABS: Anion Gap 19 mmol/L (10-20); BUN (Urea Nitrogen) 61 mg/dL (9.8-20.1); Calc. Creatinine Clearance 48 mL/min (70-130); Calcium 9.8 mg/dL (7.8-10.44); Carbon Dioxide 37 mmol/L (23-31); Chloride 97 mmol/L (98-107); Estimated GFR-MDRD 27; Glucose 113 mg/dL (80-115); Lipase 41 U/L (8-78); Potassium 3.9 mmol/L (3.5-5.1); Sodium 149 mmol/L (136-145)
[2020-04-13] MEDS ORDERED: Furosemide 40 MG TAB PO SCH (08:45)
[2020-04-13] MEDS: hydrALAZINE 25 MG TAB PO SCH ×3 (08:52→21:32)
[2020-04-13] MEDS: Aspirin 325 MG TAB PO SCH (08:52)
[2020-04-13] MEDS: Pantoprazole 40 MG VIAL IVP SCH (08:53)
[2020-04-13] MEDS: Verapamil 120 MG TAB PO SCH ×4 (08:53→21:33)
[2020-04-13] MEDS: Amlodipine 10 MG TAB PO SCH (08:53)
[2020-04-13] MEDS: predniSONE 20 MG TAB PO SCH (08:53)
[2020-04-13] MEDS: Insulin Glargine 20 UNITS in Pre-Filled Syringe 1 EACH SC SCH ×2 (08:55→22:10)
--- NOTE | 2020-04-13 08:55 | PRG ---
DATE OF SERVICE: 04/13/2020 SUBJECTIVE: Patient was seen and examined at bedside and overnight events noted. Patient denies any shortness of breath or chest pain or palpitation. No history of nausea or vomiting or diarrhea or fever or chills or cramps. OBJECTIVE: General: This is a well-built female, in no apparent distress. Vital Signs: Temperature 97. Heart Rate 92. Respiratory rate 22. Blood pressure 158/80. HEENT: Atraumatic, normocephalic. Oral mucosa is moist. Neck: Supple. Cardiovascular: S1, S2 heard. Rate and rhythm regular. Respiratory: Clear to auscultation. Gastrointestinal: Abdomen is soft. Musculoskeletal: No tenderness. No edema. Dermatologic: No skin rash. Neurologic: Alert and awake and oriented x3. No focal neurologic deficits. Moving all the extremities. Psychiatric: Mood and affect normal. LABORATORY DATA: Sodium 150, BUN 63, creatinine is 2.2. ASSESSMENT AND PLAN: 1. Acute kidney injury on chronic kidney disease stage 4, stable. 2. Edema with fluid overload. 3. Hypernatremia. Recommend to reduce diuretics now. 4. Anemia of chronic disease. 5. Hypokalemia, replaced . 6. Morbid obesity. 7. We will stop fluid restriction and recommend reduced fluid . Job ID: [id number]
[2020-04-13] MEDS: Lidocaine 5% Patch TD SCH (08:56)
[2020-04-13] MEDS: cefTRIAXone\\ROCEPHIN 1 GM in Sodium Chloride 0.9% 100 ML IVPB SCH (08:57)
--- NOTE | 2020-04-13 09:37 | CON ---
DATE OF CONSULTATION: 04/13/2020 SUBJECTIVE: Today, Ms. Vidal again continues to be nonverbal. She intermittently shakes her head and nods her head to yes and no questions. She did have nonsustained VT. She was now placed on beta sandrine therapy yesterday. Her potassium level is stable. OBJECTIVE: VITAL SIGNS: Blood pressure 180/82, pulse 105, temperature 97.1. LUNGS: Clear to auscultation. HEART: Regular rate and rhythm. ABDOMEN: Soft, nontender, nondistended. EXTREMITIES: No edema. PERTINENT LABORATORY DATA: Hemoglobin 11.9, creatinine 2.1, sodium 149. IMPRESSION: 1. Nonsustained ventricular tachycardia. 2. [id number]-[id number] diastolic heart failure. 3. Abdominal pain. RECOMMENDATIONS: I had 2 separate visits with Ms. Vidal, both she has been nonverbal and continues to complain of abdominal discomfort. I did reach out to her primary care provider, . Ms. Vidal has been on hospice for one year. She has been seen and evaluated by Cardiology at [facility] for congestive heart failure and was placed on hospice for the above. I reached out to her daughter Ms. and left a message. Based on her comorbidities, in addition to being on hospice, I would recommend a more conservative approach. I have added beta-sandrine therapy this morning. We will consider amiodarone therapy, if it continues. Otherwise, I have no further recommendations. Her overall LVEF is normal. At this point, I do not feel it is prudent to proceed with a noninvasive stress study or angiography. Job ID: [id number]
[2020-04-13] MEDS: Azithromycin 500 MG in Sodium Chloride 0.9% 250 ML 250 ML IVPB SCH (09:51)
[2020-04-13 10:24] LABS: #Lymphocytes 1.1 thou/uL (1.20-3.40); #Neutrophils 10.9 thou/uL (1.40-6.50); %Eosinophils 0.2 % (0.0-10.0); %Lymphocytes 7.9 % (21.0-51.0); %Neutrophils 77.9 % (42.0-75.0); Hemoglobin 14.8 g/dL (12.0-16.0); Mean Corpuscular HGB CONC 31.4 g/dL (32.0-36.0); Mean Corpuscular Hemoglobin 27.7 pg (27.0-31.0); Mean Corpuscular Volume 88.2 fL (78.0-98.0); Mean Platelet Volume 9.9 fL (7.4-10.4); Platelet Count 211 thou/uL (130-400); RBC Distribution Width 15.6 % (11.5-14.5); Red Blood Cell (RBC) Count 5.34 mill/uL (4.20-5.40)
--- NOTE | 2020-04-13 11:18 | PRG ---
DATE OF SERVICE: 04/13/2020 SUBJECTIVE: The patient is still complaining of some abdominal pain, otherwise doing well. OBJECTIVE: VITAL SIGNS: Temperature 97.1, pulse 105, respirations 17, sat 91% on 1 L, blood pressure 180/82. HEENT: Unremarkable. NECK: No JVD. LUNGS: Clear without wheeze or rhonchi. CARDIAC: S1, S2. Regular. ABDOMEN: Soft. EXTREMITIES: No edema. LABORATORY DATA: Sodium 149, potassium 3.9, chloride 97, CO2 37, BUN 64, creatinine 2.1, and glucose 113. White blood cell count 14, hematocrit 47.1, and platelet count 211. ASSESSMENT: 1. Chronic obstructive pulmonary disease with exacerbation. 2. Abdominal pain of unknown etiology. 3. Right upper lobe density that was clear on repeat chest x-ray. PLAN: Needs follow up in [address] scan. She needs to finish up oral steroids over a period of about a week. Everything else is okay from a pulmonary standpoint. We will sign off. Please recall, if further assistance needed. Job ID: [id number]
--- NOTE | 2020-04-13 12:58 | CT ---
CT Abdomen Pelvis WO Con: 04/13/2020 12:10 PM HISTORY: Abdominal pain COMPARISON: CT chest 04/07/2020 TECHNIQUE: Multiple contiguous axial images were obtained and a CT of the abdomen and pelvis without IV contrast . Coronal and sagittal reformats were performed. FINDINGS: This exam is limited secondary to patient's large body habitus and the patient's abdominal wall touch ing the CT gantry producing streak artifact. This examination is limited for the evaluation of solid organs and vascular structures due to the lac k of intravenous contrast. Lower Chest: within normal limits. Abdomen: Liver: within normal limits. Bile Ducts: Normal caliber. Gallbladder: No calcified gallstones. Normal caliber wall. Pancreas: within normal limits. Spleen: within normal limits. Adrenals: within normal limits. Kidneys: within normal limits. Pelvis: Reproductive Organs: No pelvic masses. Ureters: within normal limits. Bladder: within normal limits. Bowel: Mildly enlarged duodenum. Scattered diverticula in the colon. The colon is normal in caliber. The distal small bowel is normal in caliber. Mesenteric Lymph Nodes: No enlarged mesenteric lymph nodes. Peritoneum: No free air or fluid are seen in the abdomen or pelvis. There is stranding change extendi ng from the region of the pancreatic head and second portion of the duodenum into the root of the small bowel mesentery. Vessels: Atherosclerotic calcifications in the aorta Retroperitoneum: within normal limits. Abdominal Wall: Diffuse soft tissue anasarca. There is a small focus of air in the right lateral abdo johnie wall. Bones: Degenerative changes in the spine. IMPRESSION: Enlarged duodenum with surrounding stranding change may be secondary to duodenitis. No obvious free a ir is seen to suggest a perforated duodenal ulcer, but that is still a possibility.
[2020-04-13] MEDS ORDERED: Ondansetron PF 4 MG/2 ML Vial IVP PRN (15:09)
--- NOTE | 2020-04-13 17:35 | CON ---
DATE OF CONSULTATION: 04/13/2020 REASON FOR CONSULTATION: Abdominal pain. HISTORY OF PRESENT ILLNESS: Ms. Vidal is a 69-year-old female, who was seen by the bedside. She is essentially nonverbal and therefore history taking is very limited. The patient was admitted to the hospital over a week ago with shortness of breath and has been treated for COPD exacerbation. By chart review, her pulmonary status has since improved. The patient was noted to have persistent indication of abdominal pain. Her pain cannot be characterized as the patient cannot describe her symptoms. Abdominal pelvic CT without contrast was done and demonstrated dilation of duodenum with mention of surrounding stranding. There was no other significant finding noted on this unenhanced scan. According to nursing staff, she has had nausea with one bout of emesis today. Her oral intake has been limited. She has not had any witnessed melena, hematochezia, or rectal bleeding. PAST MEDICAL HISTORY: 1. COPD. 2. Acute on chronic diastolic heart failure. Reportedly has been on home hospice for the last year. 3. Asthma. 4. Adult onset diabetes. 5. Hypertension. 6. Gout. 7. Status post knee replacement on the right. 8. Bilateral tubal ligation. ALLERGIES: INCLUDE SULFA AND IPRATROPIUM. CURRENT MEDICATIONS: Include; 1. Albuterol nebulizer. 2. Amlodipine. 3. Aspirin. 4. Atorvastatin. 5. Azithromycin. 6. Budesonide nebulizer. 7. Ceftriaxone. 8. Lovenox subcu. 9. Famotidine 20 mg daily. 10. Hydralazine. 11. Insulin. 12. Imdur. 13. Lidocaine patch. 14. Metoprolol. 15. Pantoprazole 40 mg IV daily. 16. Carafate 1 g t.i.d. 17. Verapamil. SOCIAL HISTORY: The patient lives with family, recently . No tobacco or alcohol usage by chart. FAMILY HISTORY: Negative for any known GI problem, liver disease, or GI malignancy by chart. REVIEW OF SYSTEMS: Not obtainable as the patient does not really respond to any questioning. PHYSICAL EXAMINATION: VITAL SIGNS: Temperature is 97.9, blood pressure 146/92, and pulse of range between 91 to 124. GENERAL: She is sitting up by bedside, slumping forward; however, in no acute distress. HEENT: Shows anicteric sclerae. Oropharynx not examined, patient does not open her mouth. NECK: Supple. CV: Shows normal S1 and S2. Regular rate and rhythm. CHEST: Shows breath sound with poor excursion. ABDOMEN: Protuberant. Questionable tenderness in the epigastrium, but no rebound or guarding. She does have active bowel sounds. EXTREMITIES: Shows 1+ pedal edema. LABORATORY DATA: WBCs 14.0, hemoglobin 14.8, and platelet count of 211. Sodium 149, potassium 3.9, chloride 97, CO2 of 37, creatinine 2.18, BUN of 61, and lipase of 41. DIAGNOSTIC STUDIES: Abdominal pelvic CT without contrast showed dilation of duodenum with mild stranding. No fluid collection. No acute inflammatory process. This organs appeared normal in this unenhanced exam. ASSESSMENT: Abdominal pain of unknown etiology. CT does show questionable duodenal abnormality. Physical exam does suggest questionable tenderness, but no peritoneal sign. RECOMMENDATIONS: 1. Continue with current pantoprazole IV daily and Carafate 1 g t.i.d. 2. We will obtain gallbladder ultrasound later today. 3. We will proceed with diagnostic upper endoscopy in a.m. 4. Further recommendation to follow pending above results. Job ID: [id number] [facility]
--- NOTE | 2020-04-13 18:15 | PDOC.HOSPP ---
- Subjective Encounter Date: 04/13/20 Subjective: Was seen and examined in bed. She was bent over onto her left side and wonders any questions. She noted her head when asked about pain in his stomach. She denies any shortness of breath or chest - Objective Vital Signs & Weight: Vital Signs (12 hours) Temp Pulse Resp BP Pulse Ox 04/13/20 16:00 97.9 F 124 H 17 146/92 H 93 L 04/13/20 11:43 97.7 F 91 17 135/60 93 L 04/13/20 08:00 97.1 F L 105 H 17 180/82 H 91 L 04/13/20 07:10 86 L Weight Weight 277 lb 12.8 oz I&O: 04/12/20 04/13/20 04/14/20 06:59 06:59 06:59 Intake Total 2220 470 Output Total 2400 1500 Balance -180 -1030 Result Diagrams: 04/13/20 09:58 04/13/20 07:54 Additional Labs: Accuchecks 04/13/20 04/13/20 04/13/20 13:04 06:13 00:37 POC Glucose 202 H 108 H 204 H 04/13/20 04/12/20 00:13 10:40 POC Glucose 63 L 128 H Hospitalist ROS - Medication Medications: Active Medications Generic Name Dose Route Start Last Admin Trade Name Freq PRN Reason Stop Dose Admin Acetaminophen 650 mg 04/05/20 18:06 04/07/20 15:45 Acetaminophen 325 Mg Tab PO 650 mg Q4H PRN Administration Headache/Fever/Mild Pain (1-3) Acetaminophen/Codeine Phosphate 1 tab 04/07/20 17:08 04/08/20 20:52 Acetaminophen/Codeine 30-300mg Tablet PO 1 tab Q6H PRN Administration Pain 4-6 Albuterol Sulfate 2.5 mg 04/11/20 19:00 04/13/20 12:11 Albuterol Sulfate 2.5 Mg/3 Ml Neb NEB Not Given [id number] MIREYA Amlodipine Besylate 10 mg 04/07/20 09:00 04/13/20 08:53 Amlodipine 10 Mg Tab PO Not Given DAILY MIREYA Arformoterol Tartrate 15 mcg 04/08/20 18:30 04/13/20 07:09 Arformoterol 15 Mcg/2 Ml Neb NEB Not Given BID-RT MIREYA Aspirin 325 mg 04/12/20 09:00 04/13/20 08:52 Aspirin 325 Mg Tab PO Not Given DAILY MIREYA Atorvastatin Calcium 40 mg 04/12/20 21:00 04/12/20 20:31 Atorvastatin Calcium 40 Mg Tab PO Not Given HS MIREYA Budesonide 0.5 mg 04/08/20 18:30 04/13/20 07:10 Budesonide 0.5 Mg/2 Ml Neb NEB Not Given BID-RT MIREYA Dextrose/Water 25 gm 04/05/20 18:13 04/13/20 00:41 Dextrose 50% Abboject 50 Ml Syringe SLOW IVP 25 gm PRN PRN Administration Hypoglycemia Enoxaparin Sodium 120 mg 04/12/20 21:00 04/12/20 20:33 Enoxaparin Sodium 120 Mg/0.8 Ml Syringe SC 120 mg 2100 MIREYA Administration Famotidine 20 mg 04/05/20 21:00 04/12/20 20:34 Famotidine/Pf 20 Mg/2ml Vial SLOW IVP 20 mg QPM MIREYA Administration Hydralazine HCl 75 mg 04/06/20 15:00 04/13/20 15:00 Hydralazine 25 Mg Tab PO Not Given TID MIREYA Insulin Glargine 20 units/ 0.2 mls @ 0 mls/hr 04/07/20 09:00 04/13/20 08:55 Miscellaneous Medication SC Not Given QAM [facility] Azithromycin 500 mg/ Sodium 250 mls @ 250 mls/hr 04/08/20 10:00 04/13/20 09:51 Chloride IVPB 250 mls Q24HR MIRYEA Administration Ceftriaxone Sodium 1 gm/ 100 mls @ 200 mls/hr 04/08/20 09:00 04/13/20 08:57 Sodium Chloride IVPB 100 mls Q24HR MIREYA Administration Insulin Glargine 20 units/ 0.2 mls @ 0 mls/hr 04/09/20 21:00 04/12/20 20:32 Miscellaneous Medication SC Not Given HS MIREYA Insulin Human Lispro 0 units 04/07/20 01:00 04/10/20 21:05 Humalog 300 Units/3 Ml Vial SC 5 unit .BEDTIME SLIDING SC PRN Administration Bedtime Correctional Scale Insulin Human Lispro 0 units 04/07/20 21:00 04/12/20 05:49 Humalog 300 Units/3 Ml Vial SC 9 unit .AGGRESSIVE SLIDING PRN Administration AGGRESSIVE SLIDING SCALE Protocol Isosorbide Mononitrate 60 mg 04/07/20 09:00 04/13/20 08:52 Isosorbide Mononitrate Er 60 Mg Tab PO Not Given DAILY [facility] Lidocaine 1 patch 04/07/20 09:00 04/13/20 08:56 Lidocaine 5% Patch TD Not Given DAILY [facility] Metoprolol Succinate 25 mg 04/13/20 09:00 04/13/20 08:56 Metoprolol Succinate Xl 25 Mg Tab PO Not Given DAILY [facility] Miscellaneous Medication 1 each 04/07/20 21:00 04/12/20 20:32 Lidocaine Patch Removal 1 Each TOP Not Given 2100 [facility] Morphine Sulfate 2 mg 04/12/20 16:17 04/12/20 16:26 Morphine 2 Mg/Ml Vial SLOW IVP 2 mg Q4H PRN Administration Pain Ondansetron HCl 4 mg 04/12/20 08:12 04/12/20 08:39 Ondansetron Odt 4 Mg Tab PO 4 mg Q6H PRN Administration Nausea/Vomiting Ondansetron HCl 4 mg 04/13/20 15:09 04/13/20 15:58 Ondansetron Pf 4 Mg/2 Ml Vial IVP 4 mg Q6H PRN Administration Nausea/Vomiting Pantoprazole Sodium 40 mg 04/13/20 09:00 04/13/20 08:53 Pantoprazole 40 Mg Vial IVP 40 mg DAILY MIREYA Administration Sodium Chloride 10 ml 04/06/20 09:00 04/13/20 08:53 Flush - Normal Saline 10 Ml Syringe IVF 10 ml Q12HR MIREYA Administration Sodium Chloride 10 ml 04/06/20 02:45 04/08/20 14:31 Flush - Normal Saline 10 Ml Syringe IVF 10 ml PRN PRN Administration Saline Flush Verapamil HCl 120 mg 04/05/20 21:00 04/13/20 16:19 Verapamil 120 Mg Tab PO Not Given QID [facility] - Exam General Appearance: awake alert ENT: normocephalic atraumatic Heart - other findings: S1-S2 present. No murmurs gallops or rubs. Respiratory - other findings: Reduced air entry bilaterally. Gastrointestinal: soft, non-distended, normal bowel sounds, tender to palpation Extremities: no cyanosis, no clubbing, 1+ LE edema Neurological - other findings: No focal deficits Psychiatric - other findings: Patient not communicating. Hosp A/P - Plan This is a 69-year-old female patient admitted on account of acute hypoxic respiratory failure secondary to CHF exacerbation and COPD exacerbation. She is currently requiring 3 L of oxygenat her baseline, and has some respiratory distress. Yesterday she was complaining of epigastric pain which was not relieved with Protonix and sucralfate. She also tried morphine. She had GI evaluation today and is due for EGD tomorrow Abdominal pain Unclear etiology Started on Protonix and sucralfate with morphine for pain relief. KUB no abnormality, CT abdomen showed duodenitis GI consultedupper GI endoscopic tomorrow Acute hypoxic respiratory failure Respiratory status currently stable On baseline 3 L oxygen Continue monitoring. Heart failure with preserved EF. Improving Continue diuresis on Bumex This may be complicated by CKD Continue electrolyte monitoring. COPD exacerbation Continue albuterol inhalation. She is allergic to ipratropium Continue arformoterol, budesonide, azithromycin and ceftriaxone. CKD stage IV Nephrology followingno plan for dialysis the moment Continue renal function monitoring. Anemia of chronic disease Hemoglobin has been stable Continue monitoring. Diabetes mellitus On glargine Continue monitor glucose Hypernatremia Holding diuresis as per nephrology Continue BMP monitoring. Right upper lung nodule Assessed by CT and PET scan recommended We will follow up with pulmonology on note. General deconditioning PT evaluation in a.m. Will require placement prior to discharge Nonsustained V. tach Recheck in troponin, BMP and mag EKG Cardiology following CODE STATUSfull code DVT prophylaxisLovenox
--- NOTE | 2020-04-13 18:22 | ULT ---
Ultrasound of theright upper quadrant: 04/13/2020 COMPARISON:CT of the abdomen pelvis 04/13/2020 HISTORY:Abdominal pain TECHNIQUE: [facility] FINDINGS: The hepatic parenchyma is heterogeneous and echogenic. Body habitus limits detailed assessment of the hepatic parenchyma. No gallbladder wall thickening or gallstones are seen. The right kidney is suboptimally visualized, measuring approximately 8 cm in craniocaudal dimension and demonstrating no discrete mass or hydronephrosis. The left lobe of the liver and the pancreas could not be visualized secondary to patient positioning and body habitus. The common bile duct could not be visualized. The process stripper reports a negative Salomon's sign. IMPRESSION: Limited assessment of the right upper quadrant demonstrating no cholelithiasis.
[2020-04-13] MEDS: Lidocaine Patch Removal 1 EACH TOP SCH (21:32)
[2020-04-13] MEDS: Famotidine/PF 20 mg/2ml Vial SLOW IVP SCH (21:33)
[2020-04-13] MEDS: Atorvastatin Calcium 40 MG TAB PO SCH (22:09)
[2020-04-13] MEDS: Enoxaparin Sodium 120 MG/0.8 ML SYRINGE SC SCH (22:11)
[2020-04-14] MEDS: hydrALAZINE 20 MG/ML VIAL SLOW IVP PRN ×2 (03:43→13:12)
[2020-04-14 05:23] LABS: Anion Gap 21 mmol/L (10-20); BUN (Urea Nitrogen) 71 mg/dL (9.8-20.1); Calc. Creatinine Clearance 43 mL/min (70-130); Calcium 9.4 mg/dL (7.8-10.44); Carbon Dioxide 35 mmol/L (23-31); Chloride 102 mmol/L (98-107); Estimated GFR-MDRD 24; Glucose 211 mg/dL (80-115); Potassium 4.4 mmol/L (3.5-5.1); Sodium 154 mmol/L (136-145)
[2020-04-14] MEDS: Arformoterol 15 MCG/2 ML NEB NEB SCH ×2 (07:02→18:26)
[2020-04-14] MEDS: Albuterol Sulfate 2.5 mg/3 ml Neb NEB SCH ×4 (07:02→23:43)
[2020-04-14] MEDS: Budesonide 0.5 MG/2 ML NEB NEB SCH ×2 (07:03→18:27)
--- NOTE | 2020-04-14 08:08 | PRG ---
DATE OF SERVICE: 04/14/2020 SUBJECTIVE: Ms. Vidal again is fairly despondent. She intermittently answers questions by nodding yes and no. She has been nonverbal on 3 separate occasions. She does state her abdominal pain is better but still noted. She is scheduled for an EGD to assess for duodenitis today. She did have another run of nonsustained VT. Whether she had symptoms or not are very difficult to ascertain. Last echo was dated 04/07/2020 with LVEF 50% to 55%. She has had a stable magnesium level on 04/12 of 2.3. BNP on 04/05 is also low at 187. PHYSICAL EXAMINATION: VITAL SIGNS: Blood pressure 171/89, temperature 97.6 with a pulse of 92. LUNGS: Clear to auscultation. HEART: Regular rate and rhythm. ABDOMEN: Soft. Pain to palpation. EXTREMITIES: 1+ pitting edema. LABORATORY DATA: As above. IMPRESSION: Nonsustained ventricular tachycardia. After reviewing the records, it appears that Ms. Vidal is a patient of Dr. Willi Badillo. She was last seen in the office in 2019. At that time, her echo also suggested a normal LVEF. Stress test has not been performed. At this point, we will continue to increase her beta sandrine, both for blood pressure and ventricular tachycardia. I did speak with Linda about Ms Vidal, who knows her very well. Ms. Vidal was recently, to her recollection, on hospice and was still on hospice prior to this admission for congestive heart failure. This will certainly need to be addressed. At this point, it has been very difficult to treat Ms. Vidal given the lack of communication. At this point, based on her previous comorbidities and previous history, would recommend continued medical therapy. Job ID: [id number]
--- NOTE | 2020-04-14 09:21 | EKG ---
Test Reason : Blood Pressure : / mmHG Vent. Rate : 086 BPM Atrial Rate : 086 BPM P-R Int : 148 ms QRS Dur : 100 ms QT Int : 372 ms P-R-T Axes : 102 001 040 degrees QTc Int : 445 ms Sinus rhythm with Premature atrial complexes Cannot rule out Anterior infarct , age undetermined Abnormal ECG Confirmed by MARLENE SULLIVAN, HANS ([id number] on 04/14/2020 9:20:54 AM Referred By: ZAIRA Confirmed By:HANS ROSARIO MD
[2020-04-14] MEDS ORDERED: Glycopyrrolate 0.2 MG/ML 5 ML SYRINGE ONE (09:55)
[2020-04-14] MEDS ORDERED: PROPOFOL 200 MG/20 ML VIAL ONE (09:55)
[2020-04-14] MEDS: cefTRIAXone\\ROCEPHIN 1 GM in Sodium Chloride 0.9% 100 ML IVPB SCH (10:04)
[2020-04-14] MEDS: Furosemide 40 MG TAB PO SCH (10:04)
[2020-04-14] MEDS: Insulin Glargine 20 UNITS in Pre-Filled Syringe 1 EACH SC SCH (10:05)
[2020-04-14] MEDS: hydrALAZINE 25 MG TAB PO SCH ×3 (10:05→21:51)
[2020-04-14] MEDS: Amlodipine 10 MG TAB PO SCH (10:05)
[2020-04-14] MEDS: Carvedilol 6.25 MG TAB PO SCH ×3 (10:05→21:50)
[2020-04-14] MEDS: Aspirin 325 MG TAB PO SCH (10:05)
[2020-04-14] MEDS: Lidocaine 5% Patch TD SCH (10:07)
[2020-04-14] MEDS: Pantoprazole 40 MG VIAL IVP SCH (10:07)
[2020-04-14] MEDS: Verapamil 120 MG TAB PO SCH ×4 (10:08→21:52)
[2020-04-14] MEDS: predniSONE 20 MG TAB PO SCH (10:08)
--- NOTE | 2020-04-14 11:18 | PRG ---
DATE OF SERVICE: 04/14/2020 SUBJECTIVE: Patient was seen and examined at bedside and overnight events noted. Patient denies any shortness of breath or chest pain or palpitation. No history of nausea or vomiting or diarrhea or fever or chills or cramps. OBJECTIVE: GENERAL: This is a well-built female, in no apparent distress. VITAL SIGNS: Temperature 97.6. Heart rate 92. Respiratory rate 20. Blood pressure 132/72. HEENT: Atraumatic, normocephalic. Oral mucosa is moist NECK: Supple. CARDIOVASCULAR: S1, S2 heard. Rate and rhythm regular. RESPIRATORY: Clear to auscultation. GASTROINTESTINAL: Abdomen is soft. MUSCULOSKELETAL: No tenderness. No edema. DERMATOLOGIC: No skin rash. NEUROLOGIC: Alert and awake and oriented X3. No focal neurologic deficits. Moving all the extremities. PSYCHIATRIC: Mood and affect normal. LABORATORY DATA: Potassium 4.4, sodium 154, BUN 71, and creatinine is 2.4. ASSESSMENT AND PLAN: 1. Acute kidney injury on chronic kidney disease stage 4, stable. 2. Edema. 3. Fluid overload. 4. Anemia. 5. Hypokalemia. 6. Morbid obesity. 7. Hypernatremia. We will start on free water as tolerated. Job ID: [id number]
[2020-04-14] MEDS ORDERED: Ondansetron HCl/PF 4 MG/2 ML Vial IVP PRN (12:32)
[2020-04-14] MEDS ORDERED: Promethazine HCl 25 MG/ML VIAL SLOW IVP PRN (12:32)
[2020-04-14] MEDS ORDERED: Promethazine HCl 25 MG/ML VIAL IM PRN (12:32)
[2020-04-14] MEDS: Azithromycin 500 MG in Sodium Chloride 0.9% 250 ML 250 ML IVPB SCH (13:11)
[2020-04-14] MEDS: Dextrose 5% in Water 1,000 ML IV SCH (13:12)
--- NOTE | 2020-04-14 16:40 | PDOC.HOSPP ---
- Subjective Encounter Date: 04/14/20 Subjective: Patient was seen and examined in bed. She was not communicating. She was awake and apparently alert. Overnight she generally was not cooperative management and would not wear her nasal cannula. She had a few runs of V. tach on telemetry - Objective Vital Signs & Weight: Vital Signs (12 hours) Pulse Resp BP Pulse Ox 04/14/20 07:40 120 H 18 138/72 89 L 04/14/20 07:01 88 L 04/14/20 05:13 171/89 H Weight Admit Weight 264 lb 11.2 oz Weight 277 lb 12.8 oz I&O: 04/13/20 04/14/20 04/15/20 06:59 06:59 06:59 Intake Total 470 Output Total 1500 Balance -1030 Result Diagrams: 04/15/20 04:21 04/16/20 04:17 Additional Labs: Accuchecks 04/14/20 04/14/20 04/13/20 05:57 00:05 19:40 POC Glucose 210 H 260 H 235 H EKG Reviewed by me: Yes (Shortness of V. tach on telemetry) Hospitalist ROS - Medication Medications: Active Medications Generic Name Dose Route Start Last Admin Trade Name Freq PRN Reason Stop Dose Admin Acetaminophen 650 mg 04/05/20 18:06 04/07/20 15:45 Acetaminophen 325 Mg Tab PO 650 mg Q4H PRN Administration Headache/Fever/Mild Pain (1-3) Acetaminophen/Codeine Phosphate 1 tab 04/07/20 17:08 04/08/20 20:52 Acetaminophen/Codeine 30-300mg Tablet PO 1 tab Q6H PRN Administration Pain 4-6 Albuterol Sulfate 2.5 mg 04/11/20 19:00 04/14/20 12:52 Albuterol Sulfate 2.5 Mg/3 Ml Neb NEB Not Given [id number] MIREYA Amlodipine Besylate 10 mg 04/07/20 09:00 04/14/20 10:05 Amlodipine 10 Mg Tab PO Not Given DAILY MIREYA Arformoterol Tartrate 15 mcg 04/08/20 18:30 04/14/20 07:02 Arformoterol 15 Mcg/2 Ml Neb NEB Not Given BID-RT MIREYA Aspirin 325 mg 04/12/20 09:00 04/14/20 10:05 Aspirin 325 Mg Tab PO Not Given DAILY MIREYA Atorvastatin Calcium 40 mg 04/12/20 21:00 04/13/20 22:09 Atorvastatin Calcium 40 Mg Tab PO Not Given HS MIREYA Budesonide 0.5 mg 04/08/20 18:30 04/14/20 07:03 Budesonide 0.5 Mg/2 Ml Neb NEB Not Given BID-RT MIREYA Carvedilol 6.25 mg 04/14/20 09:00 04/14/20 15:40 Carvedilol 6.25 Mg Tab PO Not Given TID MIREYA Dextrose/Water 25 gm 04/05/20 18:13 04/13/20 00:41 Dextrose 50% Abboject 50 Ml Syringe SLOW IVP 25 gm PRN PRN Administration Hypoglycemia Enoxaparin Sodium 120 mg 04/12/20 21:00 04/13/20 22:11 Enoxaparin Sodium 120 Mg/0.8 Ml Syringe SC 120 mg 2100 MIREYA Administration Furosemide 40 mg 04/14/20 07:30 04/14/20 10:04 Furosemide 40 Mg Tab PO Not Given DAILY-AC MIREYA Hydralazine HCl 75 mg 04/06/20 15:00 04/14/20 15:40 Hydralazine 25 Mg Tab PO Not Given TID MIREYA Hydralazine HCl 10 mg 04/13/20 08:25 04/14/20 13:12 Hydralazine 20 Mg/Ml Vial SLOW IVP 10 mg Q4H PRN Administration SBP Greater Than 180 Insulin Glargine 20 units/ 0.2 mls @ 0 mls/hr 04/07/20 09:00 04/14/20 10:05 Miscellaneous Medication SC 0.2 mls QAM MIREYA Administration Azithromycin 500 mg/ Sodium 250 mls @ 250 mls/hr 04/08/20 10:00 04/14/20 13:11 Chloride IVPB 250 mls Q24HR MIREYA Administration Ceftriaxone Sodium 1 gm/ 100 mls @ 200 mls/hr 04/08/20 09:00 04/14/20 10:04 Sodium Chloride IVPB 100 mls Q24HR MIREYA Administration Insulin Glargine 20 units/ 0.2 mls @ 0 mls/hr 04/09/20 21:00 04/13/20 22:10 Miscellaneous Medication SC 0.2 mls HS MIREYA Administration Dextrose/Water 1,000 mls @ 75 mls/hr 04/14/20 11:15 04/14/20 13:12 D5w IV 1,000 mls .[id number] MIREYA Administration Insulin Human Lispro 0 units 04/07/20 01:00 04/10/20 21:05 Humalog 300 Units/3 Ml Vial SC 5 unit .BEDTIME SLIDING SC PRN Administration Bedtime Correctional Scale Insulin Human Lispro 0 units 04/07/20 21:00 04/12/20 05:49 Humalog 300 Units/3 Ml Vial SC 9 unit .AGGRESSIVE SLIDING PRN Administration AGGRESSIVE SLIDING SCALE Protocol Isosorbide Mononitrate 120 mg 04/14/20 09:00 04/14/20 10:07 Isosorbide Mononitrate Er 60 Mg Tab PO Not Given DAILY MIREYA Lidocaine 1 patch 04/07/20 09:00 04/14/20 10:07 Lidocaine 5% Patch TD Not Given DAILY MIREYA Miscellaneous Medication 1 each 04/07/20 21:00 04/13/20 21:32 Lidocaine Patch Removal 1 Each TOP Not Given 2100 [facility] Morphine Sulfate 2 mg 04/12/20 16:17 04/12/20 16:26 Morphine 2 Mg/Ml Vial SLOW IVP 2 mg Q4H PRN Administration Pain Ondansetron HCl 4 mg 04/12/20 08:12 04/12/20 08:39 Ondansetron Odt 4 Mg Tab PO 4 mg Q6H PRN Administration Nausea/Vomiting Ondansetron HCl 4 mg 04/13/20 15:09 04/13/20 15:58 Ondansetron Pf 4 Mg/2 Ml Vial IVP 4 mg Q6H PRN Administration Nausea/Vomiting Pantoprazole Sodium 40 mg 04/13/20 09:00 04/14/20 10:07 Pantoprazole 40 Mg Vial IVP 40 mg DAILY MIREYA Administration Prednisone 20 mg 04/14/20 09:00 04/14/20 10:08 Prednisone 20 Mg Tab PO Not Given DAILY MIREYA Sodium Chloride 10 ml 04/06/20 09:00 04/14/20 10:08 Flush - Normal Saline 10 Ml Syringe IVF 10 ml Q12HR MIREYA Administration Sodium Chloride 10 ml 04/06/20 02:45 04/08/20 14:31 Flush - Normal Saline 10 Ml Syringe IVF 10 ml PRN PRN Administration Saline Flush Verapamil HCl 120 mg 04/05/20 21:00 04/14/20 15:40 Verapamil 120 Mg Tab PO Not Given QID MIREYA - Exam General - other findings: Awake, she is not to communicate. Heart: RRR, no murmur, no gallops Respiratory - other findings: Reduced air entry bilaterally. Gastrointestinal: soft, non-tender, non-distended, normal bowel sounds Psychiatric - other findings: Patient not answering questions Hosp A/P - Plan This is a 69-year-old female patient admitted on account of acute hypoxic respiratory failure secondary to CHF exacerbation and COPD exacerbation. She has been on 3 L nasal cannula until a day ago when she refuses to wear the nasal cannula. She saturates around 90s. She later complained of epigastric pain for which a CT scan was concerning for tendinitis and she had upper GI endoscopy today which was negative for any lesion. Due to her failure to participate in the management palliative care is following and family has been contacted to define goals of care at the moment Abdominal pain Unclear etiology Upper GI endoscopy and liver ultrasound are negative. We will continue monitoring for now. Appreciate GI input. Acute hypoxic respiratory failure She has been off oxygen and sats between 88 and 90 on room air. She is otherwise stable. Heart failure with preserved EF. Improving Continue diuresis on Bumex This may be complicated by CKD Continue electrolyte monitoring. COPD exacerbation Continue albuterol inhalation. She is allergic to ipratropium Continue arformoterol, budesonide, Discontinue antibiotics Pulmonology was followingsigned off CKD stage IV Nephrology followingno plan for dialysis the moment Continue renal function monitoring. Hyernatremia Sodium is 154possibly due to free water deficit. Says she is not cooperative we will start 5% D5 Monitor sodium Nephrology following. Anemia of chronic disease Hemoglobin has been stable Continue monitoring. Diabetes mellitus On glargine Continue monitor glucose Right upper lung nodule Assessed by CT and PET scan recommended We will follow up with pulmonology on note. General deconditioning PT evaluation in a.m. Will require placement prior to discharge Nonsustained V. tach Recheck in troponin, BMP and mag EKG Cardiology followingunable to manage due to patient's lack of cooperation Failure to cooperate. Is not clear why she is feeling sick operative treatment. Information with me that she wanted her children to pick her up from hospital but they did not think she was ready. She has also had a previous admission to hospice and however this was subse quently canceled. At this point we will we have the assistance of palliative care get family involved to come to a clear plan for goals of care. CODE STATUSfull code DVT prophylaxisLovenox
--- NOTE | 2020-04-14 17:00 | OP ---
DATE OF PROCEDURE: 04/14/2020 PROCEDURE PERFORMED: Esophagogastroduodenoscopy. MEDICATION: Given by Anesthesiology Department. PREPROCEDURE DIAGNOSES: Abdominal pain of unclear etiology, CT demonstrating enlarged duodenum with mild stranding. Negative gallbladder ultrasound. POSTPROCEDURE DIAGNOSES: 1. Normal duodenum to at least third portion if not fourth portion of duodenum. 2. Normal stomach except for small 2 cm hiatal hernia. 3. Normal esophagus. DESCRIPTION OF PROCEDURE: Written consents were obtained prior to procedure. After adequate sedation, the endoscope was advanced under direct vision to the duodenum. The scope was advanced as far as allowed at least to third portion if not the fourth portion of the duodenum was visualized. The mucosa appears completely normal. There was no discrete ulcer, lesion, or a mass seen anywhere along the duodenum. The duodenal bulb appeared normal. The gastric antrum, body, fundus, and cardia all appeared normal. Retroflexion demonstrated a small 2 cm hiatal hernia. The Z-line is regular and noted at 34 cm from the incisors. The lower, mid, and upper esophagus appeared normal. The duodenum was examined on 3 separate occasions and all appeared normal. The instruments were then fully removed. The patient tolerated the procedure well. ASSESSMENT: 1. Normal exam to at least third portion of the duodenum if not fourth portion of the duodenum. 2. No explanation on endoscopy for her abdominal pain. 3. Abdominal CT without contrast did not show any acute findings. Gallbladder ultrasound was negative. RECOMMENDATIONS: 1. We will repeat labs including lipase in a.m. 2. Continue observation. 3. Continue pantoprazole. Discontinue famotidine and sucralfate. Job ID: [id number] [facility]
--- NOTE | 2020-04-14 17:06 | PDOC.HOSPP ---
- Subjective Encounter Date: 04/14/20 - Objective Vital Signs & Weight: Vital Signs (12 hours) Pulse Resp BP Pulse Ox 04/14/20 07:40 120 H 18 138/72 89 L 04/14/20 07:01 88 L 04/14/20 05:13 171/89 H Weight Admit Weight 264 lb 11.2 oz Weight 277 lb 12.8 oz I&O: 04/13/20 04/14/20 04/15/20 06:59 06:59 06:59 Intake Total 470 Output Total 1500 Balance -1030 Result Diagrams: 04/13/20 09:58 04/14/20 04:43 Additional Labs: Accuchecks 04/14/20 04/14/20 04/13/20 05:57 00:05 19:40 POC Glucose 210 H 260 H 235 H Hospitalist ROS - Medication Medications: Active Medications Generic Name Dose Route Start Last Admin Trade Name Freq PRN Reason Stop Dose Admin Acetaminophen 650 mg 04/05/20 18:06 04/07/20 15:45 Acetaminophen 325 Mg Tab PO 650 mg Q4H PRN Administration Headache/Fever/Mild Pain (1-3) Acetaminophen/Codeine Phosphate 1 tab 04/07/20 17:08 04/08/20 20:52 Acetaminophen/Codeine 30-300mg Tablet PO 1 tab Q6H PRN Administration Pain 4-6 Albuterol Sulfate 2.5 mg 04/11/20 19:00 04/14/20 12:52 Albuterol Sulfate 2.5 Mg/3 Ml Neb NEB Not Given [id number] MIREYA Amlodipine Besylate 10 mg 04/07/20 09:00 04/14/20 10:05 Amlodipine 10 Mg Tab PO Not Given DAILY MIREYA Arformoterol Tartrate 15 mcg 04/08/20 18:30 04/14/20 07:02 Arformoterol 15 Mcg/2 Ml Neb NEB Not Given BID-RT MIREYA Aspirin 325 mg 04/12/20 09:00 04/14/20 10:05 Aspirin 325 Mg Tab PO Not Given DAILY MIREYA Atorvastatin Calcium 40 mg 04/12/20 21:00 04/13/20 22:09 Atorvastatin Calcium 40 Mg Tab PO Not Given HS MIREYA Budesonide 0.5 mg 04/08/20 18:30 04/14/20 07:03 Budesonide 0.5 Mg/2 Ml Neb NEB Not Given BID-RT MIREYA Carvedilol 6.25 mg 04/14/20 09:00 04/14/20 15:40 Carvedilol 6.25 Mg Tab PO Not Given TID MIREYA Dextrose/Water 25 gm 04/05/20 18:13 04/13/20 00:41 Dextrose 50% Abboject 50 Ml Syringe SLOW IVP 25 gm PRN PRN Administration Hypoglycemia Enoxaparin Sodium 120 mg 04/12/20 21:00 04/13/20 22:11 Enoxaparin Sodium 120 Mg/0.8 Ml Syringe SC 120 mg 2100 MIREYA Administration Furosemide 40 mg 04/14/20 07:30 04/14/20 10:04 Furosemide 40 Mg Tab PO Not Given DAILY-AC [facility] Hydralazine HCl 75 mg 04/06/20 15:00 04/14/20 15:40 Hydralazine 25 Mg Tab PO Not Given TID MIREYA Hydralazine HCl 10 mg 04/13/20 08:25 04/14/20 13:12 Hydralazine 20 Mg/Ml Vial SLOW IVP 10 mg Q4H PRN Administration SBP Greater Than 180 Insulin Glargine 20 units/ 0.2 mls @ 0 mls/hr 04/07/20 09:00 04/14/20 10:05 Miscellaneous Medication SC 0.2 mls QAM MIREYA Administration Azithromycin 500 mg/ Sodium 250 mls @ 250 mls/hr 04/08/20 10:00 04/14/20 13:11 Chloride IVPB 250 mls Q24HR MIREYA Administration Ceftriaxone Sodium 1 gm/ 100 mls @ 200 mls/hr 04/08/20 09:00 04/14/20 10:04 Sodium Chloride IVPB 100 mls Q24HR MIREYA Administration Dextrose/Water 1,000 mls @ 75 mls/hr 04/14/20 11:15 04/14/20 13:12 D5w IV 1,000 mls .[id number] MIREYA Administration Insulin Human Lispro 0 units 04/07/20 01:00 04/10/20 21:05 Humalog 300 Units/3 Ml Vial SC 5 unit .BEDTIME SLIDING SC PRN Administration Bedtime Correctional Scale Insulin Human Lispro 0 units 04/07/20 21:00 04/12/20 05:49 Humalog 300 Units/3 Ml Vial SC 9 unit .AGGRESSIVE SLIDING PRN Administration AGGRESSIVE SLIDING SCALE Protocol Isosorbide Mononitrate 120 mg 04/14/20 09:00 04/14/20 10:07 Isosorbide Mononitrate Er 60 Mg Tab PO Not Given DAILY [facility] Lidocaine 1 patch 04/07/20 09:00 04/14/20 10:07 Lidocaine 5% Patch TD Not Given DAILY [facility] Miscellaneous Medication 1 each 04/07/20 21:00 04/13/20 21:32 Lidocaine Patch Removal 1 Each TOP Not Given 2100 [facility] Morphine Sulfate 2 mg 04/12/20 16:17 04/12/20 16:26 Morphine 2 Mg/Ml Vial SLOW IVP 2 mg Q4H PRN Administration Pain Ondansetron HCl 4 mg 04/12/20 08:12 04/12/20 08:39 Ondansetron Odt 4 Mg Tab PO 4 mg Q6H PRN Administration Nausea/Vomiting Ondansetron HCl 4 mg 04/13/20 15:09 04/13/20 15:58 Ondansetron Pf 4 Mg/2 Ml Vial IVP 4 mg Q6H PRN Administration Nausea/Vomiting Pantoprazole Sodium 40 mg 04/13/20 09:00 04/14/20 10:07 Pantoprazole 40 Mg Vial IVP 40 mg DAILY MIREYA Administration Prednisone 20 mg 04/14/20 09:00 04/14/20 10:08 Prednisone 20 Mg Tab PO Not Given DAILY MIREYA Sodium Chloride 10 ml 04/06/20 09:00 04/14/20 10:08 Flush - Normal Saline 10 Ml Syringe IVF 10 ml Q12HR MIREYA Administration Sodium Chloride 10 ml 04/06/20 02:45 04/08/20 14:31 Flush - Normal Saline 10 Ml Syringe IVF 10 ml PRN PRN Administration Saline Flush Verapamil HCl 120 mg 04/05/20 21:00 04/14/20 15:40 Verapamil 120 Mg Tab PO Not Given QID [facility] Hosp A/P - Plan This is a 69-year-old female patient admitted on account of acute hypoxic respiratory failure secondary to CHF exacerbation and COPD exacerbation. She has been on 3 L nasal cannula until a day ago when she refuses to wear the nasal cannula. She saturates around 90s. She later complained of epigastric pain for which a CT scan was concerning for tendinitis and she had upper GI endoscopy today which was negative for any lesion. Due to her failure to participate in the management palliative care is following and family has been contacted to define goals of care at the moment Abdominal pain Unclear etiology Upper GI endoscopy and liver ultrasound are negative. We will continue monitoring for now. Appreciate GI input. Acute hypoxic respiratory failure She has been off oxygen and sats between 88 and 90 on room air. She is otherwise stable. Heart failure with preserved EF. Improving Continue diuresis on Bumex This may be complicated by CKD Continue electrolyte monitoring. COPD exacerbation Continue albuterol inhalation. She is allergic to ipratropium Continue arformoterol, budesonide, Discontinue antibiotics Pulmonology was followingsigned off CKD stage IV Nephrology followingno plan for dialysis the moment Continue renal function monitoring. Hyponatremia Sodium is 154possibly due to free water deficit. Says she is not cooperative we will start 5% D5 Monitor sodium Nephrology following. Anemia of chronic disease Hemoglobin has been stable Continue monitoring. Diabetes mellitus On glargine Continue monitor glucose Hypernatremia Holding diuresis as per nephrology Continue BMP monitoring. Right upper lung nodule Assessed by CT and PET scan recommended We will follow up with pulmonology on note. General deconditioning PT evaluation in a.m. Will require placement prior to discharge Nonsustained V. tach Recheck in troponin, BMP and mag EKG Cardiology followingunable to manage due to patient's lack of cooperation Failure to cooperate. Is not clear why she is feeling sick operative treatment. Information with me that she wanted her children to pick her up from hospital but they did not think she was ready. She has also had a previous admission to hospice and however this was subsequently canceled. At this point we will we have the assistance of palliative care get family involved to come to a clear plan for goals of care. CODE STATUSfull code DVT prophylaxisLovenox
[2020-04-14] MEDS: Atorvastatin Calcium 40 MG TAB PO SCH (21:50)
[2020-04-14] MEDS: Insulin Glargine 25 UNITS in Pre-Filled Syringe SC SCH (21:51)
[2020-04-14] MEDS: Lidocaine Patch Removal 1 EACH TOP SCH (21:52)
[2020-04-14] MEDS: Enoxaparin Sodium 120 MG/0.8 ML SYRINGE SC SCH (21:53)
[2020-04-14] MEDS: Metoprolol Tartrate 5 MG/5 ML VIAL IVP SCH (21:53)
[2020-04-15] MEDS: Dextrose 50% Abboject 50 ML SYRINGE SLOW IVP PRN (00:19)
[2020-04-15 04:51] LABS: ALT (SGPT) 35 U/L (8-55); AST (SGOT) 29 U/L (5-34); Albumin 2.6 g/dL (3.4-4.8); Alkaline Phosphatase 49 U/L (40-110); Anion Gap 18 mmol/L (10-20); BUN (Urea Nitrogen) 58 mg/dL (9.8-20.1); Bilirubin, Total 0.9 mg/dL (0.2-1.2); Calc. Creatinine Clearance 47 mL/min (70-130); Carbon Dioxide 37 mmol/L (23-31); Chloride 104 mmol/L (98-107); Estimated GFR-MDRD 26; Globulin 2.5 g/dL (2.4-3.5); Glucose 108 mg/dL (80-115); Lipase 44 U/L (8-78); Potassium 3.8 mmol/L (3.5-5.1); Protein, Total 5.1 g/dL (6.0-8.3); Sodium 155 mmol/L (136-145)
[2020-04-15] MEDS: Dextrose 5% in Water 1,000 ML IV SCH ×3 (05:28→21:09)
[2020-04-15] MEDS: Metoprolol Tartrate 5 MG/5 ML VIAL IVP SCH ×4 (05:28→21:00)
[2020-04-15 06:38] LABS: Band 3 % (5-11); Eosinophils 2 % (0-10); Hemoglobin 14.2 g/dL (12.0-16.0); Lymphocytes 19 % (21-51); MDiff Complete? YES; Mean Corpuscular HGB CONC 31.5 g/dL (32.0-36.0); Mean Corpuscular Hemoglobin 28.5 pg (27.0-31.0); Mean Corpuscular Volume 90.5 fL (78.0-98.0); Mean Platelet Volume 10.7 fL (7.4-10.4); Monocytes 13 % (0-10); Neutrophil 63 % (42-75); Platelet Count 148 thou/uL (130-400); RBC Distribution Width 15.4 % (11.5-14.5); RBC Morphology Normal; Red Blood Cell (RBC) Count 4.97 mill/uL (4.20-5.40); White Blood Cell (WBC) Count 11.3 thou/uL (4.8-10.8)
[2020-04-15] MEDS: Arformoterol 15 MCG/2 ML NEB NEB SCH ×2 (07:22→18:41)
[2020-04-15] MEDS: Budesonide 0.5 MG/2 ML NEB NEB SCH ×2 (07:22→18:42)
[2020-04-15] MEDS: Albuterol Sulfate 2.5 mg/3 ml Neb NEB SCH ×3 (07:22→18:42)
[2020-04-15] MEDS: Furosemide 40 MG TAB PO SCH (07:55)
[2020-04-15] MEDS: Aspirin 325 MG TAB PO SCH (09:01)
[2020-04-15] MEDS: Amlodipine 10 MG TAB PO SCH (09:01)
[2020-04-15] MEDS: hydrALAZINE 25 MG TAB PO SCH ×3 (09:02→21:30)
[2020-04-15] MEDS: Carvedilol 6.25 MG TAB PO SCH ×3 (09:02→21:30)
[2020-04-15] MEDS: predniSONE 20 MG TAB PO SCH (09:02)
[2020-04-15] MEDS: Pantoprazole 40 MG VIAL IVP SCH (09:03)
[2020-04-15] MEDS: Verapamil 120 MG TAB PO SCH ×4 (09:03→21:30)
[2020-04-15] MEDS: Lidocaine 5% Patch TD SCH (09:04)
[2020-04-15] MEDS: cefTRIAXone\\ROCEPHIN 1 GM in Sodium Chloride 0.9% 100 ML IVPB SCH (09:20)
--- NOTE | 2020-04-15 10:15 | PRG ---
DATE OF SERVICE: 04/15/2020 SUBJECTIVE: Ms. Vidal is not verbal with me today, but she does nod and shake her head and answer to questions. She denies any abdominal pain or nausea currently. It looks like she has eaten a little bit of her breakfast. OBJECTIVE: VITAL SIGNS: Temperature 98.8, pulse 99, blood pressure 128/60, and 92% oxygen saturation on room air. GENERAL: No acute distress, lying in bed comfortably. HEART: Regular rate and rhythm. LUNGS: Clear to auscultation bilaterally. ABDOMEN: Obese. Bowel sounds present. Soft and nontender to palpation. EXTREMITIES: No peripheral edema. LABORATORY STUDIES: WBC 11.3, hemoglobin 14.2, platelets 148. Sodium 155, potassium 3.8, BUN 58, creatinine 2.23, glucose 102. LFTs all normal with total bilirubin 0.9, alkaline phosphatase 49, AST 29, ALT 35. Lipase normal at 44. ASSESSMENT AND PLAN: 1. Report of abdominal pain, unclear etiology, seems to have improved this morning as the patient is denying any pain. 2. Abnormal CT with questionable duodenal abnormality. Discussed her EGD with Dr. Cleaning. There was no duodenal abnormality on upper endoscopy reviewed, normal LFTs and lipase, otherwise normal imaging. No further GI workup is planned. GI will sign off. Please feel free to call back anytime with questions or concerns. Job ID: [id number]
[2020-04-15] MEDS: Azithromycin 500 MG in Sodium Chloride 0.9% 250 ML 250 ML IVPB SCH (11:01)
--- NOTE | 2020-04-15 12:26 | PDOC.HOSPP ---
- Subjective Encounter Date: 04/15/20 Encounter Time: 09:15 Subjective: awake, nods mostly to verbal stimuli eating poorly per staff no sob or chest pain, has abd dyscomfort no nausea or vomiting - Objective Vital Signs & Weight: Vital Signs (12 hours) Temp Pulse Resp BP BP BP Pulse Ox 04/15/20 11:15 98.4 F 16 168/72 H 99 04/15/20 09:21 92 L 04/15/20 07:49 98.8 F 99 16 128/60 92 L 04/15/20 04:00 112 H 18 175/78 H 93 L Weight Admit Weight 264 lb 11.2 oz Weight 277 lb 12.8 oz I&O: 04/14/20 04/15/20 04/16/20 06:59 06:59 06:59 Intake Total 775 Output Total 1000 Balance -225 Result Diagrams: 04/15/20 04:21 04/15/20 04:22 Additional Labs: Accuchecks 04/15/20 04/15/20 04/14/20 05:32 01:44 18:12 POC Glucose 102 H 114 H 97 Hospitalist ROS - Medication Medications: Active Medications Generic Name Dose Route Start Last Admin Trade Name Freq PRN Reason Stop Dose Admin Acetaminophen 650 mg 04/05/20 18:06 04/07/20 15:45 Acetaminophen 325 Mg Tab PO 650 mg Q4H PRN Administration Headache/Fever/Mild Pain (1-3) Acetaminophen/Codeine Phosphate 1 tab 04/07/20 17:08 04/08/20 20:52 Acetaminophen/Codeine 30-300mg Tablet PO 1 tab Q6H PRN Administration Pain 4-6 Albuterol Sulfate 2.5 mg 04/11/20 19:00 04/15/20 07:22 Albuterol Sulfate 2.5 Mg/3 Ml Neb NEB Not Given [id number] MIREYA Amlodipine Besylate 10 mg 04/07/20 09:00 04/15/20 09:01 Amlodipine 10 Mg Tab PO Not Given DAILY MIREYA Arformoterol Tartrate 15 mcg 04/08/20 18:30 04/15/20 07:22 Arformoterol 15 Mcg/2 Ml Neb NEB Not Given BID-RT MIREYA Aspirin 325 mg 04/12/20 09:00 04/15/20 09:01 Aspirin 325 Mg Tab PO Not Given DAILY MIREYA Atorvastatin Calcium 40 mg 04/12/20 21:00 04/14/20 21:50 Atorvastatin Calcium 40 Mg Tab PO Not Given HS MIREYA Budesonide 0.5 mg 04/08/20 18:30 04/15/20 07:22 Budesonide 0.5 Mg/2 Ml Neb NEB Not Given BID-RT MIREYA Carvedilol 6.25 mg 04/14/20 09:00 04/15/20 09:02 Carvedilol 6.25 Mg Tab PO Not Given TID MIREYA Dextrose/Water 25 gm 04/05/20 18:13 04/15/20 00:19 Dextrose 50% Abboject 50 Ml Syringe SLOW IVP 25 gm PRN PRN Administration Hypoglycemia Enoxaparin Sodium 120 mg 04/12/20 21:00 04/14/20 21:53 Enoxaparin Sodium 120 Mg/0.8 Ml Syringe SC 120 mg 2100 MIREYA Administration Furosemide 40 mg 04/14/20 07:30 04/15/20 07:55 Furosemide 40 Mg Tab PO Not Given DAILY-AC [facility] Hydralazine HCl 75 mg 04/06/20 15:00 04/15/20 09:02 Hydralazine 25 Mg Tab PO Not Given TID MIREYA Hydralazine HCl 10 mg 04/13/20 08:25 04/14/20 13:12 Hydralazine 20 Mg/Ml Vial SLOW IVP 10 mg Q4H PRN Administration SBP Greater Than 180 Azithromycin 500 mg/ Sodium 250 mls @ 250 mls/hr 04/08/20 10:00 04/15/20 11:01 Chloride IVPB 250 mls Q24HR MIREYA Administration Ceftriaxone Sodium 1 gm/ 100 mls @ 200 mls/hr 04/08/20 09:00 04/15/20 09:20 Sodium Chloride IVPB 100 mls Q24HR MIREYA Administration Dextrose/Water 1,000 mls @ 75 mls/hr 04/14/20 11:15 04/15/20 05:28 D5w IV 1,000 mls .[id number] MIREYA Administration Insulin Glargine 25 units/ 0.25 mls @ 0 mls/hr 04/14/20 21:00 04/14/20 21:51 Miscellaneous Medication SC Not Given HS MIREYA Insulin Human Lispro 0 units 04/07/20 01:00 11/21/20 21:05 Humalog 300 Units/3 Ml Vial SC 5 unit .BEDTIME SLIDING SC PRN Administration Bedtime Correctional Scale Insulin Human Lispro 0 units 04/07/20 21:00 04/12/20 05:49 Humalog 300 Units/3 Ml Vial SC 9 unit .AGGRESSIVE SLIDING PRN Administration AGGRESSIVE SLIDING SCALE Protocol Isosorbide Mononitrate 120 mg 04/14/20 09:00 04/15/20 08:58 Isosorbide Mononitrate Er 60 Mg Tab PO 120 mg DAILY MIREYA Administration Lidocaine 1 patch 04/07/20 09:00 04/15/20 09:04 Lidocaine 5% Patch TD Not Given DAILY MIREYA Metoprolol Tartrate 5 mg 04/14/20 21:00 04/15/20 09:03 Metoprolol Tartrate 5 Mg/5 Ml Vial IVP 5 mg 0300,0900,1500,2100 MIREYA Administration Miscellaneous Medication 1 each 04/07/20 21:00 04/14/20 21:52 Lidocaine Patch Removal 1 Each TOP Not Given 2100 [facility] Morphine Sulfate 2 mg 04/12/20 16:17 04/12/20 16:26 Morphine 2 Mg/Ml Vial SLOW IVP 2 mg Q4H PRN Administration Pain Ondansetron HCl 4 mg 04/12/20 08:12 04/12/20 08:39 Ondansetron Odt 4 Mg Tab PO 4 mg Q6H PRN Administration Nausea/Vomiting Ondansetron HCl 4 mg 04/13/20 15:09 04/13/20 15:58 Ondansetron Pf 4 Mg/2 Ml Vial IVP 4 mg Q6H PRN Administration Nausea/Vomiting Pantoprazole Sodium 40 mg 04/13/20 09:00 04/15/20 09:03 Pantoprazole 40 Mg Vial IVP 40 mg DAILY MIREYA Administration Prednisone 20 mg 04/14/20 09:00 04/15/20 09:02 Prednisone 20 Mg Tab PO Not Given DAILY MIREYA Sodium Chloride 10 ml 04/06/20 09:00 04/15/20 09:02 Flush - Normal Saline 10 Ml Syringe IVF 10 ml Q12HR MIREYA Administration Sodium Chloride 10 ml 04/06/20 02:45 04/08/20 14:31 Flush - Normal Saline 10 Ml Syringe IVF 10 ml PRN PRN Administration Saline Flush Verapamil HCl 120 mg 04/05/20 21:00 04/15/20 09:03 Verapamil 120 Mg Tab PO Not Given QID MIREYA - Exam General Appearance: ill appearing Eye: PERRL, anicteric sclera ENT: no oropharyngeal lesions, dry oral mucosa Neck: supple, no JVD Heart: RRR, no murmur Respiratory: no wheezes, no rales Gastrointestinal: soft, non-distended, normal bowel sounds, no guarding, no rigidity Extremities: no cyanosis, no edema Neurological: cranial nerve grossly intact, no focal deficits Hosp A/P (1) Physical deconditioning Code(s): R53.81 - OTHER MALAISE Status: Acute (2) FTT (failure to thrive) in adult Status: Acute (3) Acute exacerbation of CHF (congestive heart failure) Code(s): I50.9 - HEART FAILURE, UNSPECIFIED Status: Acute Qualifiers: Heart failure type: diastolic Qualified Code(s): I50.33 - Acute on chronic diastolic (congestive) heart failure (4) Acute kidney injury superimposed on CKD Code(s): N17.9 - ACUTE KIDNEY FAILURE, UNSPECIFIED; N18.9 - CHRONIC KIDNEY DISEASE, UNSPECIFIED Status: Acute (5) COPD exacerbation Code(s): J44.1 - CHRONIC OBSTRUCTIVE PULMONARY DISEASE W (ACUTE) EXACERBATION Status: Acute (6) CKD (chronic kidney disease) stage 3, GFR 30-59 ml/min Code(s): N18.3 - CHRONIC KIDNEY DISEASE, STAGE 3 (MODERATE) * DO NOT USE * Status: Chronic (7) Chronic respiratory failure with hypoxia Code(s): J96.11 - CHRONIC RESPIRATORY FAILURE WITH HYPOXIA Status: Chronic (8) Diabetes type 2, controlled Code(s): E11.9 - TYPE 2 DIABETES MELLITUS WITHOUT COMPLICATIONS Status: Chronic Qualifiers: Diabetes mellitus usp insulin use: with long term acute care registered nurse use Diabetes mellitus complication status: with kidney complications Diabetes mellitus complication detail: with chronic kidney disease Chronic kidney disease stage: stage 3 (moderate) Qualified Code(s): E11.22 - Type 2 diabetes mellitus with diabetic chronic kidney disease; N18.30 - Chronic kidney disease, stage 3 unspecified; Z79.4 - MCC (current) use of insulin (9) Diabetic peripheral neuropathy Code(s): E11.42 - TYPE 2 DIABETES MELLITUS WITH DIABETIC POLYNEUROPATHY Status: Chronic (10) Hypertension Code(s): I10 - ESSENTIAL (PRIMARY) HYPERTENSION Status: Chronic Qualifiers: Hypertension type: essential hypertension Qualified Code(s): I10 - Essential (primary) hypertension (11) Obesity Code(s): E66.9 - OBESITY, UNSPECIFIED Status: Chronic Qualifiers: Obesity classification: adult class 3 (BMI >= 40) Body mass index: BMI 50.0-59.9 (12) Chronic anemia Code(s): D64.9 - ANEMIA, UNSPECIFIED Status: Chronic - Plan has been refusing treatments per staff, is not eating much on D5w for hydration with hypernatremia, watch for glucose levels, is on lantus continue norvasc, asp, lipitor, lovenox, lasix, hydralazine, imdur, prednisone and verapamil prongoiss guarded egd was neg for active bleed renal function is slowly trending down needs to eat more and be active will need placement, palliative care is working on hospice as well
[2020-04-15] MEDS: Enoxaparin Sodium 120 MG/0.8 ML SYRINGE SC SCH (20:59)
[2020-04-15] MEDS: Morphine 2 MG/ML VIAL SLOW IVP PRN (21:02)
[2020-04-15] MEDS: Lidocaine Patch Removal 1 EACH TOP SCH (21:30)
[2020-04-15] MEDS: Atorvastatin Calcium 40 MG TAB PO SCH (21:30)
[2020-04-15] MEDS: Insulin Glargine 25 UNITS in Pre-Filled Syringe SC SCH (21:30)
[2020-04-16] MEDS: Albuterol Sulfate 2.5 mg/3 ml Neb NEB SCH ×4 (00:39→18:42)
[2020-04-16] MEDS: hydrALAZINE 20 MG/ML VIAL SLOW IVP PRN (02:01)
[2020-04-16] MEDS: Metoprolol Tartrate 5 MG/5 ML VIAL IVP SCH ×3 (03:43→16:14)
[2020-04-16 05:40] LABS: BUN (Urea Nitrogen) 43 mg/dL (9.8-20.1); Calc. Creatinine Clearance 41 mL/min (70-130); Calcium 8.5 mg/dL (7.8-10.44); Estimated GFR-MDRD 27; Glucose 177 mg/dL (80-115)
[2020-04-16 05:50] LABS: Anion Gap 19 mmol/L (10-20); Carbon Dioxide 33 mmol/L (23-31); Chloride 103 mmol/L (98-107); Sodium 152 mmol/L (136-145)
[2020-04-16] MEDS ORDERED: Potassium Chloride 20 MEQ TAB PO SCH (06:45)
--- NOTE | 2020-04-16 07:57 | PRG ---
DATE OF SERVICE: 04/15/2020 SUBJECTIVE: Patient was seen and examined at bedside and overnight events noted. Patient denies any shortness of breath or chest pain or palpitation. No history of nausea or vomiting or diarrhea or fever or chills or cramps. OBJECTIVE: GENERAL: This is a morbidly obese female, in no apparent distress. VITAL SIGNS: Temperature 98.8. Heart Rate 99. Respiratory rate 16. Blood pressure 128/60. HEENT: Atraumatic, normocephalic. Oral mucosa is moist. NECK: Supple. CARDIOVASCULAR: S1, S2 heard. Rate and rhythm regular. RESPIRATORY: Clear to auscultation. GASTROINTESTINAL: Abdomen is soft. MUSCULOSKELETAL: No tenderness. No edema. DERMATOLOGIC: No skin rash. NEUROLOGIC: Alert and awake and oriented x3. No focal neurologic deficits. Moving all the extremities. PSYCHIATRIC: Mood and affect normal. LABORATORY DATA: Potassium 3.8, sodium 155, BUN is 58, and creatinine is 2.2. ASSESSMENT AND PLAN: 1. Acute kidney injury on chronic kidney disease stage 4, stable. 2. Hypernatremia. Continue free water. 3. Fluid overload, stable. 4. Edema. 5. Cardiorenal syndrome Recommend free water and we will follow. Job ID: [id number] [facility]
[2020-04-16] MEDS: Arformoterol 15 MCG/2 ML NEB NEB SCH ×2 (08:05→18:41)
[2020-04-16] MEDS: Budesonide 0.5 MG/2 ML NEB NEB SCH ×2 (08:06→18:41)
[2020-04-16] MEDS: Furosemide 40 MG TAB PO SCH (09:07)
[2020-04-16] MEDS: Verapamil 120 MG TAB PO SCH ×4 (09:07→20:25)
[2020-04-16] MEDS: cefTRIAXone\\ROCEPHIN 1 GM in Sodium Chloride 0.9% 100 ML IVPB SCH (09:14)
[2020-04-16] MEDS: Amlodipine 10 MG TAB PO SCH (09:16)
[2020-04-16] MEDS: Carvedilol 6.25 MG TAB PO SCH ×2 (09:17→16:14)
[2020-04-16] MEDS: Aspirin 325 MG TAB PO SCH (09:18)
[2020-04-16] MEDS: predniSONE 20 MG TAB PO SCH (09:18)
[2020-04-16] MEDS: hydrALAZINE 25 MG TAB PO SCH ×3 (09:18→20:25)
--- NOTE | 2020-04-16 09:26 | PDOC.CPN ---
- Subjective Date: 04/16/20 Time: 09:00 Interval history: No obvious overnight events. - Review of Systems ROS unobtainable: due to mental status (Pt.refuses to talk or is unable to do so.I finally got 1-2 words out of her,saying she was nauseated. Thus she can talk just refuses.) - Objective Allergies/Adverse Reactions: Allergies Allergy/AdvReac Type Severity Reaction Status Date / Time ipratropium [From Atrovent] Allergy DIZZY, Verified 04/01/19 22:55 TROUBLE BREATHING Sulfa (Sulfonamide Allergy DYSPNEA Verified 04/01/19 22:55 Antibiotics) Visit Medications: Current Medications Acetaminophen (Acetaminophen 325 Mg Tab) 650 mg PO Q4H PRN PRN Reason: Headache/Fever/Mild Pain (1-3) Last Admin: 04/07/20 15:45 Dose: 650 mg Documented by: Acetaminophen/Codeine Phosphate (Acetaminophen/Codeine 30-300mg Tablet) 1 tab PO Q6H PRN PRN Reason: Pain 4-6 Last Admin: 04/08/20 20:52 Dose: 1 tab Documented by: Albuterol Sulfate (Albuterol Sulfate 2.5 Mg/3 Ml Neb) 2.5 mg NEB [id number] MIREYA Last Admin: 04/16/20 08:07 Dose: Not Given Documented by: Amlodipine Besylate (Amlodipine 10 Mg Tab) 10 mg PO DAILY [facility] Last Admin: 04/15/20 09:01 Dose: Not Given Documented by: Arformoterol Tartrate (Arformoterol 15 Mcg/2 Ml Neb) 15 mcg NEB BID-RT MIREYA Last Admin: 04/16/20 08:05 Dose: Not Given Documented by: Aspirin (Aspirin 325 Mg Tab) 325 mg PO DAILY [facility] Last Admin: 04/15/20 09:01 Dose: Not Given Documented by: Atorvastatin Calcium (Atorvastatin Calcium 40 Mg Tab) 40 mg PO HS [facility] Last Admin: 04/15/20 21:30 Dose: Not Given Documented by: Budesonide (Budesonide 0.5 Mg/2 Ml Neb) 0.5 mg NEB BID-RT MIREYA Last Admin: 04/16/20 08:06 Dose: Not Given Documented by: Carvedilol (Carvedilol 6.25 Mg Tab) 6.25 mg PO TID [facility] Last Admin: 04/15/20 21:30 Dose: Not Given Documented by: Dextrose/Water (Dextrose 50% Abboject 50 Ml Syringe) 25 gm SLOW IVP PRN PRN PRN Reason: Hypoglycemia Last Admin: 04/15/20 00:19 Dose: 25 gm Documented by: Enoxaparin Sodium (Enoxaparin Sodium 120 Mg/0.8 Ml Syringe) 120 mg SC 2100 [facility] Last Admin: 04/15/20 20:59 Dose: 120 mg Documented by: Furosemide (Furosemide 40 Mg Tab) 40 mg PO DAILY-AC [facility] Last Admin: 04/15/20 07:55 Dose: Not Given Documented by: Glucagon (Glucagon 1 Mg/Ml Vial) 1 mg IM PRN PRN PRN Reason: Hypoglycemia Hydralazine HCl (Hydralazine 25 Mg Tab) 75 mg PO TID [facility] Last Admin: 04/15/20 21:30 Dose: Not Given Documented by: Hydralazine HCl (Hydralazine 20 Mg/Ml Vial) 10 mg SLOW IVP Q4H PRN PRN Reason: SBP Greater Than 180 Last Admin: 04/16/20 02:01 Dose: 10 mg Documented by: Dextrose/Water (D5w) 1,000 mls @ 0 mls/hr IV .Q0M PRN PRN Reason: Hypoglycemia Azithromycin 500 mg/ Sodium (Chloride) 250 mls @ 250 mls/hr IVPB Q24HR [facility] Last Admin: 04/15/20 11:01 Dose: 250 mls Documented by: Ceftriaxone Sodium 1 gm/ (Sodium Chloride) 100 mls @ 200 mls/hr IVPB Q24HR [facility] Last Admin: 04/15/20 09:20 Dose: 100 mls Documented by: Dextrose/Water (D5w) 1,000 mls @ 75 mls/hr IV .[id number] [facility] Last Admin: 04/15/20 21:09 Dose: 1,000 mls Documented by: Insulin Glargine 25 units/ (Miscellaneous Medication) 0.25 mls @ 0 mls/hr SC [facility] Last Admin: 04/15/20 21:30 Dose: Not Given Documented by: Insulin Human Lispro (Humalog 300 Units/3 Ml Vial) 0 units SC .BEDTIME SLIDING SC PRN PRN Reason: Bedtime Correctional Scale Last Admin: 04/10/20 21:05 Dose: 5 unit Documented by: Insulin Human Lispro (Humalog 300 Units/3 Ml Vial) 0 units SC .AGGRESSIVE SLIDING PRN; Protocol PRN Reason: AGGRESSIVE SLIDING SCALE Last Admin: 04/12/20 05:49 Dose: 9 unit Documented by: Isosorbide Mononitrate (Isosorbide Mononitrate Er 60 Mg Tab) 120 mg PO DAILY [facility] Last Admin: 04/15/20 08:58 Dose: 120 mg Documented by: Lidocaine (Lidocaine 5% Patch) 1 patch TD DAILY [facility] Last Admin: 04/15/20 09:04 Dose: Not Given Documented by: Metoprolol Tartrate (Metoprolol Tartrate 5 Mg/5 Ml Vial) 5 mg IVP 0300,0900,1500,2100 [facility] Last Admin: 04/16/20 03:43 Dose: 5 mg Documented by: Miscellaneous Medication (Lidocaine Patch Removal 1 Each) 1 each TOP 2100 [facility] Last Admin: 04/15/20 21:30 Dose: Not Given Documented by: Miscellaneous Medication (Electrolyte Replacement Protoc 1 Each Each) 1 each FS ASDIR [facility] Morphine Sulfate (Morphine 2 Mg/Ml Vial) 2 mg SLOW IVP Q4H PRN PRN Reason: Pain Last Admin: 04/15/20 21:02 Dose: 2 mg Documented by: Ondansetron HCl (Ondansetron Odt 4 Mg Tab) 4 mg PO Q6H PRN PRN Reason: Nausea/Vomiting Last Admin: 04/12/20 08:39 Dose: 4 mg Documented by: Ondansetron HCl (Ondansetron Pf 4 Mg/2 Ml Vial) 4 mg IVP Q6H PRN PRN Reason: Nausea/Vomiting Last Admin: 04/13/20 15:58 Dose: 4 mg Documented by: Pantoprazole Sodium (Pantoprazole 40 Mg Vial) 40 mg IVP DAILY [facility] Last Admin: 04/15/20 09:03 Dose: 40 mg Documented by: Potassium Chloride (Potassium Chloride 20 Meq Tab) 40 meq PO NOW [facility] Stop: 04/16/20 10:00 Prednisone (Prednisone 20 Mg Tab) 20 mg PO DAILY [facility] Last Admin: 04/15/20 09:02 Dose: Not Given Documented by: Sodium Chloride (Flush - Normal Saline 10 Ml Syringe) 10 ml IVF Q12HR [facility] Last Admin: 04/15/20 23:07 Dose: Not Given Documented by: Sodium Chloride (Flush - Normal Saline 10 Ml Syringe) 10 ml IVF PRN PRN PRN Reason: Saline Flush Last Admin: 04/08/20 14:31 Dose: 10 ml Documented by: Verapamil HCl (Verapamil 120 Mg Tab) 120 mg PO QID [facility]REYA Last Admin: 04/15/20 21:30 Dose: Not Given Documented by: Vital Signs & Weight: Vital Signs Temp Pulse Resp BP Pulse Ox 04/16/20 06:57 98.6 F 90 16 179/80 H 99 04/16/20 03:25 98.9 F 83 20 145/73 H 92 L 04/16/20 02:01 92 04/16/20 01:10 186/91 H 04/16/20 00:40 95 04/15/20 21:30 92 Admit Weight 264 lb 11.2 oz Weight 239 lb - Quality Measures CV meds: Beta Jake: Yes - Physical Exam General: no apparent distress HEENT: normocephaly Neck: no JVD/HJR Cardiac: regular rate and rhythm Lungs: no wheeze, rales, rhonchi, other (decreased inspiratory effort.) Neuro: other (unco-operative pt.) Abdomen: unremarkable, other (morbid obesity) Extremities: no edema - Labs Result Diagrams: 04/15/20 04:21 04/16/20 04:17 Troponin/CKMB CK-MB (CK-2) 1.9 ng/mL (0-6.6) 04/05/20 15:41 Troponin I 0.138 ng/mL (< 0.028) H 04/12/20 11:03 - Telemetry Sinus rhythms and dysrhythmias: sinus rhythm (Short runs of SVT.) - Assessment/Plan Assessment/Plan: 1.SVT.Stillhaving short episodes.Will increase betablockers or add Ca blockers.Consider EP consult. 2.ESRD. Consider renal consult to assist with BP control. 3.Resp.failure:stable at present. Hx.of asthma.May not tolerate betablockers. 4.HTN.Try to increase betablocker , on max dose of Ca blockers.May need to add clonidine. 5.DM.poorly controlled.defer to primary service.
[2020-04-16] MEDS: Lidocaine 5% Patch TD SCH (09:45)
[2020-04-16] MEDS: Pantoprazole 40 MG VIAL IVP SCH (09:45)
[2020-04-16] MEDS: Azithromycin 500 MG in Sodium Chloride 0.9% 250 ML 250 ML IVPB SCH (11:01)
[2020-04-16] MEDS: Dextrose 5% in Water 1,000 ML IV SCH (11:01)
--- NOTE | 2020-04-16 11:21 | PRG ---
DATE OF SERVICE: 04/16/2020 SUBJECTIVE: A 69-year-old female in no apparent distress. OBJECTIVE: VITAL SIGNS: Temperature 98.6, pulse 90, respiratory rate 20, blood pressure 179/80. Musculoskeletal : No tenderness, 1+ edema HEENT: Atraumatic normocephalic Neck: Supple Cardiovascular: S1S2 heard, Rate and rhythm regular Respiratory: Clear to auscultation Gastrointestinal: Abdomen is soft Dermatologic : No skin rash Neurologic: Alert and awake and oriented X3 No focal neurologic deficits. Moving all the extremities. Psychiatric: Mood and affect normal LABORATORY DATA: Potassium 3.0, BUN is 43, and creatinine is 2.1. ASSESSMENT AND PLAN: 1. Acute kidney injury on chronic kidney disease, stage 4 stable. 2. Cardiorenal syndrome. 3. Hypernatremia. Recommended free water. 4. Hypokalemia, replace. 5. Edema. Renal function is stable. Overall prognosis is poor. Replace electrolytes. Recommended free water. Job ID: [id number] [facility]
[2020-04-16] MEDS: HumaLOG 300 UNITS/3 ML VIAL SC PRN ×2 (12:43→18:29)
--- NOTE | 2020-04-16 15:18 | PDOC.HOSPP ---
- Subjective Encounter Date: 04/16/20 - Objective Vital Signs & Weight: Vital Signs (12 hours) Temp Pulse Pulse Resp BP BP Pulse Ox 04/16/20 11:08 99.3 F 82 18 112/66 98 04/16/20 09:05 137 H 133/94 H 04/16/20 08:00 99 04/16/20 06:57 98.6 F 90 16 179/80 H 99 04/16/20 03:25 98.9 F 83 20 145/73 H 92 L Weight Admit Weight 264 lb 11.2 oz Weight 239 lb I&O: 04/15/20 04/16/20 04/17/20 06:59 06:59 06:59 Intake Total 775 1954 Output Total 1000 1250 Balance -225 704 Result Diagrams: 04/15/20 04:21 04/16/20 04:17 Additional Labs: Accuchecks 04/16/20 04/16/20 04/15/20 12:18 05:51 23:24 POC Glucose 262 H 173 H 180 H 04/15/20 18:55 POC Glucose 189 H Hospitalist ROS - Medication Medications: Active Medications Generic Name Dose Route Start Last Admin Trade Name Freq PRN Reason Stop Dose Admin Acetaminophen 650 mg 04/05/20 18:06 04/07/20 15:45 Acetaminophen 325 Mg Tab PO 650 mg Q4H PRN Administration Headache/Fever/Mild Pain (1-3) Acetaminophen/Codeine Phosphate 1 tab 04/07/20 17:08 04/08/20 20:52 Acetaminophen/Codeine 30-300mg Tablet PO 1 tab Q6H PRN Administration Pain 4-6 Albuterol Sulfate 2.5 mg 04/11/20 19:00 04/16/20 13:38 Albuterol Sulfate 2.5 Mg/3 Ml Neb NEB Not Given [id number] MIREYA Amlodipine Besylate 10 mg 04/07/20 09:00 04/16/20 09:16 Amlodipine 10 Mg Tab PO 10 mg DAILY MIREYA Administration Arformoterol Tartrate 15 mcg 04/08/20 18:30 04/16/20 08:05 Arformoterol 15 Mcg/2 Ml Neb NEB Not Given BID-RT MIREYA Aspirin 325 mg 04/12/20 09:00 04/16/20 09:18 Aspirin 325 Mg Tab PO 325 mg DAILY MIREYA Administration Atorvastatin Calcium 40 mg 04/12/20 21:00 04/15/20 21:30 Atorvastatin Calcium 40 Mg Tab PO Not Given HS MIREYA Budesonide 0.5 mg 04/08/20 18:30 04/16/20 08:06 Budesonide 0.5 Mg/2 Ml Neb NEB Not Given BID-RT MIREYA Dextrose/Water 25 gm 04/05/20 18:13 04/15/20 00:19 Dextrose 50% Abboject 50 Ml Syringe SLOW IVP 25 gm PRN PRN Administration Hypoglycemia Enoxaparin Sodium 120 mg 04/12/20 21:00 04/15/20 20:59 Enoxaparin Sodium 120 Mg/0.8 Ml Syringe SC 120 mg 2100 MIREYA Administration Furosemide 40 mg 04/14/20 07:30 04/16/20 09:07 Furosemide 40 Mg Tab PO 40 mg DAILY-AC MIREYA Administration Hydralazine HCl 10 mg 04/13/20 08:25 04/16/20 02:01 Hydralazine 20 Mg/Ml Vial SLOW IVP 10 mg Q4H PRN Administration SBP Greater Than 180 Azithromycin 500 mg/ Sodium 250 mls @ 250 mls/hr 04/08/20 10:00 04/16/20 11:01 Chloride IVPB 250 mls Q24HR MIREYA Administration Ceftriaxone Sodium 1 gm/ 100 mls @ 200 mls/hr 04/08/20 09:00 04/16/20 09:14 Sodium Chloride IVPB 100 mls Q24HR MIREYA Administration Dextrose/Water 1,000 mls @ 75 mls/hr 04/14/20 11:15 04/16/20 11:01 D5w IV 1,000 mls .[id number] MIREYA Administration Insulin Glargine 25 units/ 0.25 mls @ 0 mls/hr 04/14/20 21:00 04/15/20 21:30 Miscellaneous Medication SC Not Given HS MIREYA Insulin Human Lispro 0 units 04/07/20 01:00 04/16/20 12:43 Humalog 300 Units/3 Ml Vial SC 3 unit .BEDTIME SLIDING SC PRN Administration Bedtime Correctional Scale Insulin Human Lispro 0 units 04/07/20 21:00 04/12/20 05:49 Humalog 300 Units/3 Ml Vial SC 9 unit .AGGRESSIVE SLIDING PRN Administration AGGRESSIVE SLIDING SCALE Protocol Isosorbide Mononitrate 120 mg 04/14/20 09:00 04/16/20 09:18 Isosorbide Mononitrate Er 60 Mg Tab PO 120 mg DAILY [facility] Administration Lidocaine 1 patch 04/07/20 09:00 04/16/20 09:45 Lidocaine 5% Patch TD Not Given DAILY [facility] Metoprolol Tartrate 5 mg 04/14/20 21:00 04/16/20 09:14 Metoprolol Tartrate 5 Mg/5 Ml Vial IVP 5 mg 0300,0900,1500,2100 [facility] Administration Miscellaneous Medication 1 each 04/07/20 21:00 04/15/20 21:30 Lidocaine Patch Removal 1 Each TOP Not Given 2100 [facility] Morphine Sulfate 2 mg 04/12/20 16:17 04/15/20 21:02 Morphine 2 Mg/Ml Vial SLOW IVP 2 mg Q4H PRN Administration Pain Ondansetron HCl 4 mg 04/12/20 08:12 04/12/20 08:39 Ondansetron Odt 4 Mg Tab PO 4 mg Q6H PRN Administration Nausea/Vomiting Ondansetron HCl 4 mg 04/13/20 15:09 04/13/20 15:58 Ondansetron Pf 4 Mg/2 Ml Vial IVP 4 mg Q6H PRN Administration Nausea/Vomiting Pantoprazole Sodium 40 mg 04/13/20 09:00 04/16/20 09:45 Pantoprazole 40 Mg Vial IVP 40 mg DAILY MI[facility] Administration Prednisone 20 mg 04/14/20 09:00 04/16/20 09:18 Prednisone 20 Mg Tab PO 20 mg DAILY MIREYA Administration Sodium Chloride 10 ml 04/06/20 09:00 04/16/20 09:45 Flush - Normal Saline 10 Ml Syringe IVF 10 ml Q12HR MIREYA Administration Sodium Chloride 10 ml 04/06/20 02:45 04/08/20 14:31 Flush - Normal Saline 10 Ml Syringe IVF 10 ml PRN PRN Administration Saline Flush Verapamil HCl 120 mg 04/05/20 21:00 04/16/20 12:42 Verapamil 120 Mg Tab PO 120 mg QID MIREYA Administration - Exam General Appearance: awake alert ENT: normocephalic atraumatic Neck: supple, no JVD Heart: RRR Respiratory: normal chest expansion, no tachypnea Extremities: no cyanosis, no clubbing Hosp A/P (1) Acute respiratory failure with hypoxia Code(s): J96.01 - ACUTE RESPIRATORY FAILURE WITH HYPOXIA Status: Acute (2) COPD exacerbation Code(s): J44.1 - CHRONIC OBSTRUCTIVE PULMONARY DISEASE W (ACUTE) EXACERBATION Status: Acute (3) Hypertensive urgency Code(s): I16.0 - HYPERTENSIVE URGENCY Status: Acute (4) Morbid obesity with BMI of 40.0-44.9, adult Code(s): E66.01 - MORBID (SEVERE) OBESITY DUE TO EXCESS CALORIES; Z68.41 - BODY MASS INDEX [BMI]40.0-44.9, ADULT Status: Chronic (5) Acute kidney injury superimposed on CKD Code(s): N17.9 - ACUTE KIDNEY FAILURE, UNSPECIFIED; N18.9 - CHRONIC KIDNEY DISEASE, UNSPECIFIED Status: Acute (6) Lung nodule Code(s): R91.1 - SOLITARY PULMONARY NODULE Status: Acute - Plan COVID-19 PCR is negative. Continue scheduled nebulizer treatments and corticosteroids The patient is saturating well on room air. Echo with preserved EF. HFPEF is likely present given the elevated H2FPEF score. The patient is on carvedilol and verapamil for SVT that is currently controlled. Continue Lasix. Creatinine level is close to baseline now. Appreciate nephrology. Suspecious lung nodule. We will schedule repeat CT scan in 3 months with OP follow up with Pulmonology.
[2020-04-16] MEDS ORDERED: Metoprolol Tartrate 5 MG/5 ML VIAL IVP PRN (17:31)
[2020-04-16] MEDS: Enoxaparin Sodium 120 MG/0.8 ML SYRINGE SC SCH (20:24)
[2020-04-16] MEDS: Atorvastatin Calcium 40 MG TAB PO SCH (20:25)
[2020-04-16] MEDS: Lidocaine Patch Removal 1 EACH TOP SCH (20:37)
[2020-04-16] MEDS: Insulin Glargine 25 UNITS in Pre-Filled Syringe SC SCH (23:47)
[2020-04-17] MEDS: Dextrose 5% in Water 1,000 ML IV SCH ×2 (00:44→20:02)
[2020-04-17] MEDS: Albuterol Sulfate 2.5 mg/3 ml Neb NEB SCH ×4 (00:54→18:49)
[2020-04-17 04:42] LABS: Anion Gap 16 mmol/L (10-20); BUN (Urea Nitrogen) 39 mg/dL (9.8-20.1); Calc. Creatinine Clearance 38 mL/min (70-130); Calcium 8.3 mg/dL (7.8-10.44); Carbon Dioxide 30 mmol/L (23-31); Chloride 105 mmol/L (98-107); Estimated GFR-MDRD 25; Glucose 181 mg/dL (80-115); Potassium 3.2 mmol/L (3.5-5.1); Sodium 148 mmol/L (136-145)
[2020-04-17 04:49] LABS: Band 2 % (5-11); Eosinophils 1 % (0-10); Lymphocytes 12 % (21-51); MDiff Complete? YES; Mean Corpuscular HGB CONC 33.1 g/dL (32.0-36.0); Mean Corpuscular Hemoglobin 29.4 pg (27.0-31.0); Mean Corpuscular Volume 88.8 fL (78.0-98.0); Mean Platelet Volume 11.1 fL (7.4-10.4); Monocytes 8 % (0-10); Neutrophil 77 % (42-75); Platelet Count 147 thou/uL (130-400); Platelet Morphology Comment Appears Adequate; RBC Distribution Width 15.2 % (11.5-14.5); RBC Morphology Normal; Red Blood Cell (RBC) Count 4.08 mill/uL (4.20-5.40); White Blood Cell (WBC) Count 16.4 thou/uL (4.8-10.8)
[2020-04-17] MEDS ORDERED: Potassium Chloride 20 MEQ TAB PO SCH ×2 (06:30→09:30)
[2020-04-17] MEDS ORDERED: Magnesium 2 GM/50 ML 2 GM in Premix Bag 1 BAG IVPB SCH (06:30)
[2020-04-17] MEDS: HumaLOG 300 UNITS/3 ML VIAL SC PRN ×3 (06:39→18:13)
[2020-04-17] MEDS: Arformoterol 15 MCG/2 ML NEB NEB SCH ×2 (07:57→18:49)
[2020-04-17] MEDS: Budesonide 0.5 MG/2 ML NEB NEB SCH ×2 (07:57→18:49)
[2020-04-17] MEDS: Carvedilol 6.25 MG TAB PO SCH ×2 (08:53→17:32)
[2020-04-17] MEDS: cefTRIAXone\\ROCEPHIN 1 GM in Sodium Chloride 0.9% 100 ML IVPB SCH (08:53)
[2020-04-17] MEDS: Amlodipine 10 MG TAB PO SCH (08:53)
[2020-04-17] MEDS: Aspirin 325 MG TAB PO SCH (08:53)
[2020-04-17] MEDS: Furosemide 40 MG TAB PO SCH (08:53)
[2020-04-17] MEDS: hydrALAZINE 25 MG TAB PO SCH ×3 (08:54→22:33)
[2020-04-17] MEDS: predniSONE 20 MG TAB PO SCH (08:55)
[2020-04-17] MEDS: Pantoprazole 40 MG VIAL IVP SCH (08:55)
[2020-04-17] MEDS: Lidocaine 5% Patch TD SCH ×2 (08:55→09:13)
[2020-04-17] MEDS: Verapamil 120 MG TAB PO SCH ×4 (08:55→22:34)
--- NOTE | 2020-04-17 10:11 | PRG ---
DATE OF SERVICE: 04/17/2020 SUBJECTIVE: Patient was seen and examined at bedside and overnight events noted. Patient denies any shortness of breath or chest pain or palpitation. No history of nausea or vomiting or diarrhea or fever or chills or cramps. OBJECTIVE: General: This is a well-built female, in no apparent distress. Vital Signs: Temperature 98.4. Heart Rate 79. Respiratory rate 20. Blood pressure 152/63. HEENT: Atraumatic, normocephalic. Oral mucosa is moist. Neck: Supple. Cardiovascular: S1, S2 heard. Rate and rhythm regular. Respiratory: Clear to auscultation. Gastrointestinal: Abdomen is soft. Musculoskeletal: No tenderness. No edema. Dermatologic: No skin rash. Neurologic: Alert and awake and oriented x3. No focal neurologic deficits. Moving all the extremities. Psychiatric: Mood and affect normal. LABORATORY DATA: Potassium 3.2, BUN is 39, and creatinine is 2.3. ASSESSMENT AND PLAN: 1. Acute kidney injury on chronic kidney disease stage 4, stable. 2. Hypernatremia, better. Continue free water. 3. Hypokalemia. We will replace. 4. Cardiorenal syndrome. 5. Edema, controlled. Continue free water as tolerated with close monitoring of renal function and cardiorespiratory status. We will follow. Job ID: [id number]
[2020-04-17] MEDS: Azithromycin 500 MG in Sodium Chloride 0.9% 250 ML 250 ML IVPB SCH (10:24)
--- NOTE | 2020-04-17 12:50 | PDOC.CPN ---
- Subjective Date: 04/17/20 Time: 12:47 Interval history: No overnight events per nurse, patient not responding to questions during visit today, overheard patient on phone before walking to patient room. Patient in SR with HR of 85. Episodes of atrial tach yest. PM and early AM NSVTach., short e pisode. Asymptomatic.No s/s respiratory distress noted during exam - Review of Systems ROS unobtainable: due to mental status (Patient not answering any questions asked.) - Objective Allergies/Adverse Reactions: Allergies Allergy/AdvReac Type Severity Reaction Status Date / Time ipratropium [From Atrovent] Allergy DIZZY, Verified 04/01/19 22:55 TROUBLE BREATHING Sulfa (Sulfonamide Allergy DYSPNEA Verified 04/01/19 22:55 Antibiotics) Visit Medications: Current Medications Acetaminophen (Acetaminophen 325 Mg Tab) 650 mg PO Q4H PRN PRN Reason: Headache/Fever/Mild Pain (1-3) Last Admin: 04/07/20 15:45 Dose: 650 mg Documented by: Acetaminophen/Codeine Phosphate (Acetaminophen/Codeine 30-300mg Tablet) 1 tab PO Q6H PRN PRN Reason: Pain 4-6 Last Admin: 04/08/20 20:52 Dose: 1 tab Documented by: Albuterol Sulfate (Albuterol Sulfate 2.5 Mg/3 Ml Neb) 2.5 mg NEB [id number] [facility] Last Admin: 04/17/20 12:36 Dose: Not Given Documented by: Amlodipine Besylate (Amlodipine 10 Mg Tab) 10 mg PO DAILY [facility] Last Admin: 04/17/20 08:53 Dose: 10 mg Documented by: Arformoterol Tartrate (Arformoterol 15 Mcg/2 Ml Neb) 15 mcg NEB BID-RT [facility] Last Admin: 04/17/20 07:57 Dose: 15 mcg Documented by: Aspirin (Aspirin 325 Mg Tab) 325 mg PO DAILY [facility] Last Admin: 04/17/20 08:53 Dose: 325 mg Documented by: Atorvastatin Calcium (Atorvastatin Calcium 40 Mg Tab) 40 mg PO HS [facility] Last Admin: 04/16/20 20:25 Dose: 40 mg Documented by: Budesonide (Budesonide 0.5 Mg/2 Ml Neb) 0.5 mg NEB BID-RT [facility] Last Admin: 04/17/20 07:57 Dose: Not Given Documented by: Carvedilol (Carvedilol 6.25 Mg Tab) 6.25 mg PO BID-[facility] Last Admin: 04/17/20 08:53 Dose: 6.25 mg Documented by: Dextrose/Water (Dextrose 50% Abboject 50 Ml Syringe) 25 gm SLOW IVP PRN PRN PRN Reason: Hypoglycemia Last Admin: 04/15/20 00:19 Dose: 25 gm Documented by: Enoxaparin Sodium (Enoxaparin Sodium 120 Mg/0.8 Ml Syringe) 120 mg SC 2100 [facility] Last Admin: 04/16/20 20:24 Dose: 120 mg Documented by: Furosemide (Furosemide 40 Mg Tab) 40 mg PO DAILY-[facility] Last Admin: 04/17/20 08:53 Dose: 40 mg Documented by: Glucagon (Glucagon 1 Mg/Ml Vial) 1 mg IM PRN PRN PRN Reason: Hypoglycemia Hydralazine HCl (Hydralazine 20 Mg/Ml Vial) 10 mg SLOW IVP Q4H PRN PRN Reason: SBP Greater Than 180 Last Admin: 04/16/20 02:01 Dose: 10 mg Documented by: Hydralazine HCl (Hydralazine 25 Mg Tab) 100 mg PO TID [facility] Last Admin: 04/17/20 08:54 Dose: 100 mg Documented by: Dextrose/Water (D5w) 1,000 mls @ 0 mls/hr IV .Q0M PRN PRN Reason: Hypoglycemia Azithromycin 500 mg/ Sodium (Chloride) 250 mls @ 250 mls/hr IVPB Q24HR [facility] Last Admin: 04/17/20 10:24 Dose: 250 mls Documented by: Ceftriaxone Sodium 1 gm/ (Sodium Chloride) 100 mls @ 200 mls/hr IVPB Q24HR [facility] Last Admin: 04/17/20 08:53 Dose: 100 mls Documented by: Dextrose/Water (D5w) 1,000 mls @ 75 mls/hr IV .[id number] [facility] Last Admin: 04/17/20 00:44 Dose: 1,000 mls Documented by: Insulin Glargine 25 units/ (Miscellaneous Medication) 0.25 mls @ 0 mls/hr SC HS [facility] Last Admin: 04/16/20 23:47 Dose: Not Given Documented by: Insulin Human Lispro (Humalog 300 Units/3 Ml Vial) 0 units SC .BEDTIME SLIDING SC PRN PRN Reason: Bedtime Correctional Scale Last Admin: 04/16/20 12:43 Dose: 3 unit Documented by: Insulin Human Lispro (Humalog 300 Units/3 Ml Vial) 0 units SC .AGGRESSIVE SLIDING PRN; Protocol PRN Reason: AGGRESSIVE SLIDING SCALE Last Admin: 04/17/20 12:45 Dose: 9 unit Documented by: Isosorbide Mononitrate (Isosorbide Mononitrate Er 60 Mg Tab) 120 mg PO DAILY [facility] Last Admin: 04/17/20 08:55 Dose: 120 mg Documented by: Lidocaine (Lidocaine 5% Patch) 1 patch TD DAILY [facility] Last Admin: 04/17/20 09:13 Dose: Not Given Documented by: Metoprolol Tartrate (Metoprolol Tartrate 5 Mg/5 Ml Vial) 5 mg IVP Q6H PRN PRN Reason: FOR HR > 100;HOLD FOR SBP<120 Miscellaneous Medication (Lidocaine Patch Removal 1 Each) 1 each TOP 2100 [facility] Last Admin: 04/16/20 20:37 Dose: 1 each Documented by: Miscellaneous Medication (Electrolyte Replacement Protoc 1 Each Each) 1 each FS ASDIR [facility] Morphine Sulfate (Morphine 2 Mg/Ml Vial) 2 mg SLOW IVP Q4H PRN PRN Reason: Pain Last Admin: 04/15/20 21:02 Dose: 2 mg Documented by: Ondansetron HCl (Ondansetron Odt 4 Mg Tab) 4 mg PO Q6H PRN PRN Reason: Nausea/Vomiting Last Admin: 04/12/20 08:39 Dose: 4 mg Documented by: Ondansetron HCl (Ondansetron Pf 4 Mg/2 Ml Vial) 4 mg IVP Q6H PRN PRN Reason: Nausea/Vomiting Last Admin: 04/13/20 15:58 Dose: 4 mg Documented by: Pantoprazole Sodium (Pantoprazole 40 Mg Vial) 40 mg IVP DAILY [facility] Last Admin: 04/17/20 08:55 Dose: 40 mg Documented by: Prednisone (Prednisone 20 Mg Tab) 20 mg PO DAILY [facility] Last Admin: 04/17/20 08:55 Dose: 20 mg Documented by: Sodium Chloride (Flush - Normal Saline 10 Ml Syringe) 10 ml IVF Q12HR [facility] Last Admin: 04/17/20 09:20 Dose: 10 ml Documented by: Sodium Chloride (Flush - Normal Saline 10 Ml Syringe) 10 ml IVF PRN PRN PRN Reason: Saline Flush Last Admin: 04/08/20 14:31 Dose: 10 ml Documented by: Verapamil HCl (Verapamil 120 Mg Tab) 120 mg PO QID [facility] Last Admin: 04/17/20 12:38 Dose: 120 mg Documented by: Vital Signs & Weight: Vital Signs Temp Pulse Resp BP Pulse Ox 04/17/20 11:19 98 F 84 20 93/50 L 93 L 04/17/20 07:10 99.3 F 78 18 152/67 H 100 04/17/20 03:58 98.4 F 79 22 H 152/63 H 93 L 04/17/20 02:39 80 136/58 L 04/17/20 01:39 94 L Admit Weight 264 lb 11.2 oz Weight 236 lb - Quality Measures CV meds: Beta Jake: Yes, EL/ARB: No (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 ), Statin: Yes, ASA: Yes - Medication Contraindications No EL/ARB reason: Medical contraindication (Increased Nurse Case Manager) - Physical Exam General: no apparent distress HEENT: mucus membranes moist Neck: supple neck, no JVD/HJR Cardiac: regular rate and rhythm, S1/S2 Lungs: normal breath sounds Neuro: other (un-cooperative during exam) Abdomen: active bowel sounds, soft, non-tender (obese) Extremities: no cyanosis, no clubbing, 2+ Posterior Tibial, 2+ Dorsalis Pedus Skin: clear Musculoskeletal: decreased range of motion (un-cooperative) - Labs Result Diagrams: 04/17/20 04:17 04/17/20 04:17 Troponin/CKMB CK-MB (CK-2) 1.9 ng/mL (0-6.6) 04/05/20 15:41 Troponin I 0.138 ng/mL (< 0.028) H 04/12/20 11:03 - EKG Interpretation EKG Method: Telemetry EKG: sinus rhythm - Assessment/Plan Assessment/Plan: 1.SVT. Further overnight episodes of SVT, and 1 episode of NSVTACH- 5 beats. Patient had one short episode of ST HR 120's, patient was moving around in bed Consider EP consult if SVT episodes continue. 2.ESRD. Consider renal consult to assist with BP control. BP this AM was 108/58 during exam 3.Resp.failure:stable at present. Hx.of asthma. May not tolerate betablockers. Patient unable to verbalize if she is having CP or SOB during exam. 4.HTN. Increase betablocker yesterday , on max dose of Ca blockers. May need to add clonidine. BP 108/58 during exam. Will continue with current treatment plan at this time. BP low today, will hold afternoon dose of Hydralazine and continue to monitor. 5.DM.poorly controlled defer to primary service.
--- NOTE | 2020-04-17 13:58 | PDOC.HOSPP ---
- Subjective Encounter Date: 04/17/20 - Objective Vital Signs & Weight: Vital Signs (12 hours) Temp Pulse Resp BP Pulse Ox 04/17/20 11:19 98 F 84 20 93/50 L 93 L 04/17/20 07:10 99.3 F 78 18 152/67 H 100 04/17/20 03:58 98.4 F 79 22 H 152/63 H 93 L 04/17/20 02:39 80 136/58 L Weight Admit Weight 264 lb 11.2 oz Weight 236 lb I&O: 04/16/20 04/17/20 04/18/20 06:59 06:59 06:59 Intake Total 1954 2205 Output Total 1250 1650 Balance 704 555 Result Diagrams: 04/17/20 04:17 04/17/20 04:17 Additional Labs: Accuchecks 04/17/20 04/17/20 04/16/20 12:26 05:43 23:38 POC Glucose 288 H 173 H 142 H 04/16/20 18:24 POC Glucose 279 H Hospitalist ROS - Medication Medications: Active Medications Generic Name Dose Route Start Last Admin Trade Name Freq PRN Reason Stop Dose Admin Acetaminophen 650 mg 04/05/20 18:06 04/07/20 15:45 Acetaminophen 325 Mg Tab PO 650 mg Q4H PRN Administration Headache/Fever/Mild Pain (1-3) Acetaminophen/Codeine Phosphate 1 tab 04/07/20 17:08 04/08/20 20:52 Acetaminophen/Codeine 30-300mg Tablet PO 1 tab Q6H PRN Administration Pain 4-6 Albuterol Sulfate 2.5 mg 04/11/20 19:00 04/17/20 12:36 Albuterol Sulfate 2.5 Mg/3 Ml Neb NEB Not Given [id number] [facility] Amlodipine Besylate 10 mg 04/07/20 09:00 04/17/20 08:53 Amlodipine 10 Mg Tab PO 10 mg DAILY [facility] Administration Arformoterol Tartrate 15 mcg 04/08/20 18:30 04/17/20 07:57 Arformoterol 15 Mcg/2 Ml Neb NEB 15 mcg BID-RT [facility] Administration Aspirin 325 mg 04/12/20 09:00 04/17/20 08:53 Aspirin 325 Mg Tab PO 325 mg DAILY [facility] Administration Atorvastatin Calcium 40 mg 04/12/20 21:00 04/16/20 20:25 Atorvastatin Calcium 40 Mg Tab PO 40 mg HS [facility] Administration Budesonide 0.5 mg 04/08/20 18:30 04/17/20 07:57 Budesonide 0.5 Mg/2 Ml Neb NEB Not Given BID-RT [facility] Carvedilol 6.25 mg 04/16/20 17:00 04/17/20 08:53 Carvedilol 6.25 Mg Tab PO 6.25 mg BID-WM [facility] Administration Dextrose/Water 25 gm 04/05/20 18:13 04/15/20 00:19 Dextrose 50% Abboject 50 Ml Syringe SLOW IVP 25 gm PRN PRN Administration Hypoglycemia Enoxaparin Sodium 120 mg 04/12/20 21:00 04/16/20 20:24 Enoxaparin Sodium 120 Mg/0.8 Ml Syringe SC 120 mg 2100 [facility] Administration Furosemide 40 mg 04/14/20 07:30 04/17/20 08:53 Furosemide 40 Mg Tab PO 40 mg DAILY-AC [facility] Administration Hydralazine HCl 10 mg 04/13/20 08:25 04/16/20 02:01 Hydralazine 20 Mg/Ml Vial SLOW IVP 10 mg Q4H PRN Administration SBP Greater Than 180 Hydralazine HCl 100 mg 04/16/20 15:00 04/17/20 08:54 Hydralazine 25 Mg Tab PO 100 mg TID [facility] Administration Azithromycin 500 mg/ Sodium 250 mls @ 250 mls/hr 04/08/20 10:00 04/17/20 10:24 Chloride IVPB 250 mls Q24HR [facility] Administration Ceftriaxone Sodium 1 gm/ 100 mls @ 200 mls/hr 04/08/20 09:00 04/17/20 08:53 Sodium Chloride IVPB 100 mls Q24HR [facility] Administration Dextrose/Water 1,000 mls @ 75 mls/hr 04/14/20 11:15 04/17/20 00:44 D5w IV 1,000 mls .[id number] [facility] Administration Insulin Human Lispro 0 units 04/07/20 01:00 04/16/20 12:43 Humalog 300 Units/3 Ml Vial SC 3 unit .BEDTIME SLIDING SC PRN Administration Bedtime Correctional Scale Insulin Human Lispro 0 units 04/07/20 21:00 04/17/20 12:45 Humalog 300 Units/3 Ml Vial SC 9 unit .AGGRESSIVE SLIDING PRN Administration AGGRESSIVE SLIDING SCALE Protocol Isosorbide Mononitrate 120 mg 04/14/20 09:00 04/17/20 08:55 Isosorbide Mononitrate Er 60 Mg Tab PO 120 mg DAILY [facility] Administration Lidocaine 1 patch 04/07/20 09:00 04/17/20 09:13 Lidocaine 5% Patch TD Not Given DAILY [facility] Miscellaneous Medication 1 each 04/07/20 21:00 04/16/20 20:37 Lidocaine Patch Removal 1 Each TOP 1 each 2100 [facility] Administration Morphine Sulfate 2 mg 04/12/20 16:17 04/15/20 21:02 Morphine 2 Mg/Ml Vial SLOW IVP 2 mg Q4H PRN Administration Pain Ondansetron HCl 4 mg 04/12/20 08:12 04/12/20 08:39 Ondansetron Odt 4 Mg Tab PO 4 mg Q6H PRN Administration Nausea/Vomiting Ondansetron HCl 4 mg 04/13/20 15:09 04/13/20 15:58 Ondansetron Pf 4 Mg/2 Ml Vial IVP 4 mg Q6H PRN Administration Nausea/Vomiting Pantoprazole Sodium 40 mg 04/13/20 09:00 04/17/20 08:55 Pantoprazole 40 Mg Vial IVP 40 mg DAILY [facility] Administration Prednisone 20 mg 04/14/20 09:00 04/17/20 08:55 Prednisone 20 Mg Tab PO 20 mg DAILY [facility] Administration Sodium Chloride 10 ml 04/06/20 09:00 04/17/20 09:20 Flush - Normal Saline 10 Ml Syringe IVF 10 ml Q12HR [facility] Administration Sodium Chloride 10 ml 04/06/20 02:45 04/08/20 14:31 Flush - Normal Saline 10 Ml Syringe IVF 10 ml PRN PRN Administration Saline Flush Verapamil HCl 120 mg 04/05/20 21:00 04/17/20 12:38 Verapamil 120 Mg Tab PO 120 mg QID [facility] Administration - Exam General Appearance: awake alert ENT: normocephalic atraumatic Neck: supple, no JVD Heart: RRR Respiratory: normal chest expansion, no tachypnea Extremities: no cyanosis, no clubbing Hosp A/P (1) Acute respiratory failure with hypoxia Code(s): J96.01 - ACUTE RESPIRATORY FAILURE WITH HYPOXIA Status: Acute (2) COPD exacerbation Code(s): J44.1 - CHRONIC OBSTRUCTIVE PULMONARY DISEASE W (ACUTE) EXACERBATION Status: Acute (3) Hypertensive urgency Code(s): I16.0 - HYPERTENSIVE URGENCY Status: Acute (4) Morbid obesity with BMI of 40.0-44.9, adult Code(s): E66.01 - MORBID (SEVERE) OBESITY DUE TO EXCESS CALORIES; Z68.41 - BODY MASS INDEX [BMI]40.0-44.9, ADULT Status: Chronic (5) Acute kidney injury superimposed on CKD Code(s): N17.9 - ACUTE KIDNEY FAILURE, UNSPECIFIED; N18.9 - CHRONIC KIDNEY DISEASE, UNSPECIFIED Status: Acute (6) Lung nodule Code(s): R91.1 - SOLITARY PULMONARY NODULE Status: Acute (7) DM2 (diabetes mellitus, type 2) Status: Acute - Plan COVID-19 PCR is negative. Continue scheduled nebulizer treatments and corticosteroids The patient is saturating well on room air. Echo with preserved EF. HFPEF is likely present given the elevated H2FPEF score. The patient is on carvedilol and verapamil for SVT that is currently controlled. Continue Lasix. Creatinine level is relatively stable. Patient is on D5W for hypernatremia that is improving. Sugar levels uncontrolled due to prednisone and D5W. This is likely temporary. Reduce prednisone dose in half and increase bedtime Lantus to 30 units. Appreciate nephrology. Suspecious lung nodule. We will schedule repeat CT scan in 3 months with OP follow up with Pulmonology.
[2020-04-17] MEDS: Enoxaparin Sodium 120 MG/0.8 ML SYRINGE SC SCH (22:30)
[2020-04-17] MEDS: Atorvastatin Calcium 40 MG TAB PO SCH (22:31)
[2020-04-17] MEDS: Lidocaine Patch Removal 1 EACH TOP SCH (22:36)
[2020-04-17] MEDS: Insulin Glargine 30 UNITS in Pre-Filled Syringe SC SCH (22:41)
[2020-04-18] MEDS: Albuterol Sulfate 2.5 mg/3 ml Neb NEB SCH ×4 (00:38→19:13)
[2020-04-18] MEDS: HumaLOG 300 UNITS/3 ML VIAL SC PRN ×2 (00:50→18:28)
[2020-04-18] MEDS: Arformoterol 15 MCG/2 ML NEB NEB SCH ×2 (08:00→19:13)
[2020-04-18] MEDS: Budesonide 0.5 MG/2 ML NEB NEB SCH ×2 (08:01→19:12)
[2020-04-18] MEDS: Pantoprazole 40 MG VIAL IVP SCH (08:21)
[2020-04-18] MEDS: Carvedilol 6.25 MG TAB PO SCH ×2 (08:22→17:30)
[2020-04-18] MEDS: Verapamil 120 MG TAB PO SCH ×4 (08:22→21:49)
[2020-04-18] MEDS: Furosemide 40 MG TAB PO SCH (08:22)
[2020-04-18] MEDS: hydrALAZINE 25 MG TAB PO SCH ×3 (08:22→21:49)
[2020-04-18] MEDS: Lidocaine 5% Patch TD SCH (08:23)
[2020-04-18] MEDS: Aspirin 325 MG TAB PO SCH (08:23)
[2020-04-18] MEDS: Amlodipine 10 MG TAB PO SCH (08:23)
--- NOTE | 2020-04-18 08:36 | PRG ---
DATE OF SERVICE: 04/18/2020 SUBJECTIVE: Patient was seen and examined at bedside and overnight events noted. Patient denies any shortness of breath or chest pain or palpitation. No history of nausea or vomiting or diarrhea or fever or chills or cramps. OBJECTIVE: General: This is a morbidly obese female, in no apparent distress. Vital Signs: Temperature 98.1. Heart Rate 76. Respiratory rate 16. Blood pressure 120/58. HEENT: Atraumatic, normocephalic. Oral mucosa is moist. Neck: Supple. Cardiovascular: S1, S2 heard. Rate and rhythm regular. Respiratory: Clear to auscultation. Gastrointestinal: Abdomen is soft. Musculoskeletal: No tenderness. No edema. Dermatologic: No skin rash. Neurologic: Alert and awake and oriented x3. No focal neurologic deficits. Moving all the extremities. Psychiatric: Mood and affect normal. LABORATORY DATA: No labs done today. ASSESSMENT AND PLAN: 1. Acute kidney injury on chronic kidney disease stage 4. Recheck labs. 2. Hypernatremia. 3. Hypokalemia. 4. Cardiorenal syndrome. 5. Edema. 6. Reduce IV fluids to 50 mL/h. Monitor labs. Job ID: [id number]
[2020-04-18] MEDS: cefTRIAXone\\ROCEPHIN 1 GM in Sodium Chloride 0.9% 100 ML IVPB SCH (08:48)
[2020-04-18] MEDS ORDERED: predniSONE 20 MG TAB PO SCH (09:00)
[2020-04-18] MEDS: Dextrose 5% in Water 1,000 ML IV SCH (09:10)
--- NOTE | 2020-04-18 10:29 | PDOC.CPN ---
- Subjective Date: 04/18/20 Time: 10:27 Interval history: No overnight events, no episodes of NSVT over night, patient is in SR this morning. She is still not speaking to me, but she did shake her head appropriately to my questions. She denies any chest pain, shortness of breath, trouble breathing, dizziness this morning. She has no new complaints today. - Objective Allergies/Adverse Reactions: Allergies Allergy/AdvReac Type Severity Reaction Status Date / Time ipratropium [From Atrovent] Allergy DIZZY, Verified 04/01/19 22:55 TROUBLE BREATHING Sulfa (Sulfonamide Allergy DYSPNEA Verified 04/01/19 22:55 Antibiotics) Visit Medications: Current Medications Acetaminophen (Acetaminophen 325 Mg Tab) 650 mg PO Q4H PRN PRN Reason: Headache/Fever/Mild Pain (1-3) Last Admin: 04/07/20 15:45 Dose: 650 mg Documented by: Albuterol Sulfate (Albuterol Sulfate 2.5 Mg/3 Ml Neb) 2.5 mg NEB [id number] [facility] Last Admin: 04/18/20 08:01 Dose: Not Given Documented by: Amlodipine Besylate (Amlodipine 10 Mg Tab) 10 mg PO DAILY [facility] Last Admin: 04/18/20 08:23 Dose: 10 mg Documented by: Arformoterol Tartrate (Arformoterol 15 Mcg/2 Ml Neb) 15 mcg NEB BID-RT [facility] Last Admin: 04/18/20 08:00 Dose: Not Given Documented by: Aspirin (Aspirin 325 Mg Tab) 325 mg PO DAILY [facility] Last Admin: 04/18/20 08:23 Dose: 325 mg Documented by: Atorvastatin Calcium (Atorvastatin Calcium 40 Mg Tab) 40 mg PO HS [facility] Last Admin: 04/17/20 22:31 Dose: 40 mg Documented by: Budesonide (Budesonide 0.5 Mg/2 Ml Neb) 0.5 mg NEB BID-RT [facility] Last Admin: 04/18/20 08:01 Dose: Not Given Documented by: Carvedilol (Carvedilol 6.25 Mg Tab) 6.25 mg PO BID-WM [facility] Last Admin: 04/18/20 08:22 Dose: 6.25 mg Documented by: Dextrose/Water (Dextrose 50% Abboject 50 Ml Syringe) 25 gm SLOW IVP PRN PRN PRN Reason: Hypoglycemia Last Admin: 04/15/20 00:19 Dose: 25 gm Documented by: Enoxaparin Sodium (Enoxaparin Sodium 120 Mg/0.8 Ml Syringe) 120 mg SC 2100 [facility] Last Admin: 04/17/20 22:30 Dose: 120 mg Documented by: Furosemide (Furosemide 40 Mg Tab) 40 mg PO DAILY-AC [facility] Last Admin: 04/18/20 08:22 Dose: 40 mg Documented by: Glucagon (Glucagon 1 Mg/Ml Vial) 1 mg IM PRN PRN PRN Reason: Hypoglycemia Hydralazine HCl (Hydralazine 20 Mg/Ml Vial) 10 mg SLOW IVP Q4H PRN PRN Reason: SBP Greater Than 180 Last Admin: 04/16/20 02:01 Dose: 10 mg Documented by: Hydralazine HCl (Hydralazine 25 Mg Tab) 100 mg PO TID [facility] Last Admin: 04/18/20 08:22 Dose: 100 mg Documented by: Dextrose/Water (D5w) 1,000 mls @ 0 mls/hr IV .Q0M PRN PRN Reason: Hypoglycemia Azithromycin 500 mg/ Sodium (Chloride) 250 mls @ 250 mls/hr IVPB Q24HR [facility] Last Admin: 04/17/20 10:24 Dose: 250 mls Documented by: Ceftriaxone Sodium 1 gm/ (Sodium Chloride) 100 mls @ 200 mls/hr IVPB Q24HR [facility] Last Admin: 04/18/20 08:48 Dose: 100 mls Documented by: Insulin Glargine 30 units/ (Miscellaneous Medication) 0.3 mls @ 0 mls/hr SC HS [facility] Last Admin: 04/17/20 22:41 Dose: 0.3 mls Documented by: Dextrose/Water (D5w) 1,000 mls @ 50 mls/hr IV .Q20H [facility] Last Admin: 04/18/20 09:10 Dose: 1,000 mls Documented by: Insulin Human Lispro (Humalog 300 Units/3 Ml Vial) 0 units SC .BEDTIME SLIDING SC PRN PRN Reason: Bedtime Correctional Scale Last Admin: 04/18/20 00:50 Dose: 2 unit Documented by: Insulin Human Lispro (Humalog 300 Units/3 Ml Vial) 0 units SC .AGGRESSIVE SLIDING PRN; Protocol PRN Reason: AGGRESSIVE SLIDING SCALE Last Admin: 04/17/20 18:13 Dose: 6 unit Documented by: Isosorbide Mononitrate (Isosorbide Mononitrate Er 60 Mg Tab) 120 mg PO DAILY [facility] Last Admin: 04/18/20 08:21 Dose: 120 mg Documented by: Lidocaine (Lidocaine 5% Patch) 1 patch TD DAILY [facility] Last Admin: 04/18/20 08:23 Dose: Not Given Documented by: Metoprolol Tartrate (Metoprolol Tartrate 5 Mg/5 Ml Vial) 5 mg IVP Q6H PRN PRN Reason: FOR HR > 100;HOLD FOR SBP<120 Miscellaneous Medication (Lidocaine Patch Removal 1 Each) 1 each TOP 2100 [facility] Last Admin: 04/17/20 22:36 Dose: Not Given Documented by: Miscellaneous Medication (Electrolyte Replacement Protoc 1 Each Each) 1 each FS ASDIR [facility] Morphine Sulfate (Morphine 2 Mg/Ml Vial) 2 mg SLOW IVP Q4H PRN PRN Reason: Pain Last Admin: 04/15/20 21:02 Dose: 2 mg Documented by: Ondansetron HCl (Ondansetron Odt 4 Mg Tab) 4 mg PO Q6H PRN PRN Reason: Nausea/Vomiting Last Admin: 04/12/20 08:39 Dose: 4 mg Documented by: Ondansetron HCl (Ondansetron Pf 4 Mg/2 Ml Vial) 4 mg IVP Q6H PRN PRN Reason: Nausea/Vomiting Last Admin: 04/13/20 15:58 Dose: 4 mg Documented by: Pantoprazole Sodium (Pantoprazole 40 Mg Vial) 40 mg IVP DAILY [facility] Last Admin: 04/18/20 08:21 Dose: 40 mg Documented by: Sodium Chloride (Flush - Normal Saline 10 Ml Syringe) 10 ml IVF Q12HR [facility] Last Admin: 04/18/20 08:23 Dose: 10 ml Documented by: Sodium Chloride (Flush - Normal Saline 10 Ml Syringe) 10 ml IVF PRN PRN PRN Reason: Saline Flush Last Admin: 04/08/20 14:31 Dose: 10 ml Documented by: Verapamil HCl (Verapamil 120 Mg Tab) 120 mg PO QID [facility] Last Admin: 04/18/20 08:22 Dose: 120 mg Documented by: Vital Signs & Weight: Vital Signs Temp Pulse Resp BP BP BP BP 04/18/20 08:25 04/18/20 07:22 98.1 F 72 16 120/58 L 04/18/20 04:00 75 18 141/61 H 04/18/20 01:03 04/18/20 00:48 80 110/55 L 04/17/20 22:33 71 145/65 H Pulse Ox 04/18/20 08:25 95 04/18/20 07:22 95 04/18/20 04:00 95 04/18/20 01:03 95 04/18/20 00:48 04/17/20 22:33 Admit Weight 264 lb 11.2 oz Weight 239 lb 1.6 oz - Quality Measures CV meds: Beta Jake: Yes, EL/ARB: No (Elevated [employer] ), Statin: Yes, ASA: Yes - Medication Contraindications No EL/ARB reason: Medical contraindication (Increased Credit Administration Manager) - Labs Result Diagrams: 04/17/20 04:17 04/17/20 04:17 Troponin/CKMB CK-MB (CK-2) 1.9 ng/mL (0-6.6) 04/05/20 15:41 Troponin I 0.138 ng/mL (< 0.028) H 04/12/20 11:03 - Assessment/Plan Assessment/Plan: 1.NSVT. No further episodes of NSVT overnight or this morning per telemetry records. She had 5 beats of NSVT 04/17 at 1 a.m. 2.Acute on chronic kidney disease stage 4. Monitored by nephrology. Credit Administration Manager 2.34 04/17/2020 3.Resp.failure:stable at present. Hx.of asthma. Patient verbalizes she is not having CP or SOB during exam. 4.HTN. Increased betablockers, patient tolerating well, on max dose of Ca blockers. May need to add clonidine PRN if BP continures to increase. BP seems to be well-controlled today. This morning her BP was 120/58, we will continue with current medication plan. 5.DM.poorly controlled defer to primary service.
[2020-04-18] MEDS: Azithromycin 500 MG in Sodium Chloride 0.9% 250 ML 250 ML IVPB SCH (10:36)
--- NOTE | 2020-04-18 15:15 | PDOC.HOSPP ---
- Subjective Encounter Date: 04/18/20 - Objective Vital Signs & Weight: Vital Signs (12 hours) Temp Pulse Pulse Pulse Resp BP BP 04/18/20 13:37 04/18/20 11:03 98.5 F 79 20 04/18/20 10:37 80 79 112/57 L 118/54 L 04/18/20 08:25 04/18/20 07:22 98.1 F 72 16 04/18/20 04:00 75 18 BP BP Pulse Ox 04/18/20 13:37 115/63 04/18/20 11:03 97/50 L 93 L 04/18/20 10:37 04/18/20 08:25 95 04/18/20 07:22 120/58 L 95 04/18/20 04:00 141/61 H 95 Weight Admit Weight 264 lb 11.2 oz Weight 239 lb 1.6 oz I&O: 04/17/20 04/18/20 04/19/20 06:59 06:59 06:59 Intake Total 2205 120 Output Total 1650 700 Balance 555 -580 Result Diagrams: 04/17/20 04:17 04/17/20 04:17 Additional Labs: Accuchecks 04/18/20 04/18/20 04/18/20 11:46 05:46 00:34 POC Glucose 239 H 134 H 208 H 04/17/20 18:14 POC Glucose 249 H Hospitalist ROS - Medication Medications: Active Medications Generic Name Dose Route Start Last Admin Trade Name Freq PRN Reason Stop Dose Admin Acetaminophen 650 mg 04/05/20 18:06 04/07/20 15:45 Acetaminophen 325 Mg Tab PO 650 mg Q4H PRN Administration Headache/Fever/Mild Pain (1-3) Albuterol Sulfate 2.5 mg 04/11/20 19:00 04/18/20 13:00 Albuterol Sulfate 2.5 Mg/3 Ml Neb NEB Not Given [id number] MIREYA Amlodipine Besylate 10 mg 04/07/20 09:00 04/18/20 08:23 Amlodipine 10 Mg Tab PO 10 mg DAILY MIREYA Administration Arformoterol Tartrate 15 mcg 04/08/20 18:30 04/18/20 08:00 Arformoterol 15 Mcg/2 Ml Neb NEB Not Given BID-RT MIREYA Aspirin 325 mg 04/12/20 09:00 04/18/20 08:23 Aspirin 325 Mg Tab PO 325 mg DAILY MIREYA Administration Atorvastatin Calcium 40 mg 04/12/20 21:00 04/17/20 22:31 Atorvastatin Calcium 40 Mg Tab PO 40 mg HS MIREYA Administration Budesonide 0.5 mg 04/08/20 18:30 04/18/20 08:01 Budesonide 0.5 Mg/2 Ml Neb NEB Not Given BID-RT MIREYA Carvedilol 6.25 mg 04/16/20 17:00 04/18/20 08:22 Carvedilol 6.25 Mg Tab PO 6.25 mg BID-WM MIREYA Administration Dextrose/Water 25 gm 04/05/20 18:13 04/15/20 00:19 Dextrose 50% Abboject 50 Ml Syringe SLOW IVP 25 gm PRN PRN Administration Hypoglycemia Enoxaparin Sodium 120 mg 04/12/20 21:00 04/17/20 22:30 Enoxaparin Sodium 120 Mg/0.8 Ml Syringe SC 120 mg 2100 MIREYA Administration Furosemide 40 mg 04/14/20 07:30 04/18/20 08:22 Furosemide 40 Mg Tab PO 40 mg DAILY-AC MIREYA Administration Hydralazine HCl 10 mg 04/13/20 08:25 04/16/20 02:01 Hydralazine 20 Mg/Ml Vial SLOW IVP 10 mg Q4H PRN Administration SBP Greater Than 180 Hydralazine HCl 100 mg 04/16/20 15:00 04/18/20 08:22 Hydralazine 25 Mg Tab PO 100 mg TID MIREYA Administration Azithromycin 500 mg/ Sodium 250 mls @ 250 mls/hr 04/08/20 10:00 04/18/20 10:36 Chloride IVPB 250 mls Q24HR MIREYA Administration Ceftriaxone Sodium 1 gm/ 100 mls @ 200 mls/hr 04/08/20 09:00 04/18/20 08:48 Sodium Chloride IVPB 100 mls Q24HR MIREYA Administration Insulin Glargine 30 units/ 0.3 mls @ 0 mls/hr 04/17/20 21:00 04/17/20 22:41 Miscellaneous Medication SC 0.3 mls HS MIREYA Administration Dextrose/Water 1,000 mls @ 50 mls/hr 04/18/20 08:20 04/18/20 09:10 D5w IV 1,000 mls .Q20H MIREYA Administration Insulin Human Lispro 0 units 04/07/20 01:00 04/18/20 00:50 Humalog 300 Units/3 Ml Vial SC 2 unit .BEDTIME SLIDING SC PRN Administration Bedtime Correctional Scale Insulin Human Lispro 0 units 04/07/20 21:00 04/17/20 18:13 Humalog 300 Units/3 Ml Vial SC 6 unit .AGGRESSIVE SLIDING PRN Administration AGGRESSIVE SLIDING SCALE Protocol Isosorbide Mononitrate 120 mg 04/14/20 09:00 04/18/20 08:21 Isosorbide Mononitrate Er 60 Mg Tab PO 120 mg DAILY MIREYA Administration Lidocaine 1 patch 04/07/20 09:00 04/18/20 08:23 Lidocaine 5% Patch TD Not Given DAILY [facility] Miscellaneous Medication 1 each 04/07/20 21:00 04/17/20 22:36 Lidocaine Patch Removal 1 Each TOP Not Given 2100 [facility] Morphine Sulfate 2 mg 04/12/20 16:17 04/15/20 21:02 Morphine 2 Mg/Ml Vial SLOW IVP 2 mg Q4H PRN Administration Pain Ondansetron HCl 4 mg 04/12/20 08:12 04/12/20 08:39 Ondansetron Odt 4 Mg Tab PO 4 mg Q6H PRN Administration Nausea/Vomiting Ondansetron HCl 4 mg 04/13/20 15:09 04/13/20 15:58 Ondansetron Pf 4 Mg/2 Ml Vial IVP 4 mg Q6H PRN Administration Nausea/Vomiting Pantoprazole Sodium 40 mg 04/13/20 09:00 04/18/20 08:21 Pantoprazole 40 Mg Vial IVP 40 mg DAILY MIREYA Administration Sodium Chloride 10 ml 04/06/20 09:00 04/18/20 08:23 Flush - Normal Saline 10 Ml Syringe IVF 10 ml Q12HR MIREYA Administration Sodium Chloride 10 ml 04/06/20 02:45 04/08/20 14:31 Flush - Normal Saline 10 Ml Syringe IVF 10 ml PRN PRN Administration Saline Flush Verapamil HCl 120 mg 04/05/20 21:00 04/18/20 13:38 Verapamil 120 Mg Tab PO 120 mg QID MIREYA Administration - Exam General Appearance: awake alert ENT: normocephalic atraumatic Neck: supple, no JVD Heart: RRR Respiratory: normal chest expansion, no tachypnea, rhonchi Gastrointestinal: soft Extremities: no cyanosis Hosp A/P (1) Acute respiratory failure with hypoxia Code(s): J96.01 - ACUTE RESPIRATORY FAILURE WITH HYPOXIA Status: Acute (2) COPD exacerbation Code(s): J44.1 - CHRONIC OBSTRUCTIVE PULMONARY DISEASE W (ACUTE) EXACERBATION Status: Acute (3) Hypertensive urgency Code(s): I16.0 - HYPERTENSIVE URGENCY Status: Acute (4) Morbid obesity with BMI of 40.0-44.9, adult Code(s): E66.01 - MORBID (SEVERE) OBESITY DUE TO EXCESS CALORIES; Z68.41 - BODY MASS INDEX [BMI]40.0-44.9, ADULT Status: Chronic (5) Acute kidney injury superimposed on CKD Code(s): N17.9 - ACUTE KIDNEY FAILURE, UNSPECIFIED; N18.9 - CHRONIC KIDNEY DISEASE, UNSPECIFIED Status: Acute (6) Lung nodule Code(s): R91.1 - SOLITARY PULMONARY NODULE Status: Acute (7) DM2 (diabetes mellitus, type 2) Status: Acute - Plan COVID-19 PCR is negative. Continue scheduled nebulizer treatments. Discontinue corticosteroids. The patient is saturating well on room air. Echo with preserved EF. HFPEF is likely present given the elevated H2FPEF score. The patient is on carvedilol and verapamil for SVT that is currently controlled. Continue Lasix. Creatinine level is relatively stable. Patient is on D5W for hypernatremia that is improving. Sugar levels uncontrolled due to prednisone and D5W. This is likely temporary. Discontinue prednisone and continue Lantus to 30 units. Appreciate nephrology. Suspecious lung nodule. We will schedule repeat CT scan in 3 months with OP follow up with Pulmonology.
[2020-04-18] MEDS: Enoxaparin Sodium 120 MG/0.8 ML SYRINGE SC SCH (21:49)
[2020-04-18] MEDS: Atorvastatin Calcium 40 MG TAB PO SCH (21:49)
[2020-04-18] MEDS: Insulin Glargine 30 UNITS in Pre-Filled Syringe SC SCH (21:50)
[2020-04-18] MEDS: Lidocaine Patch Removal 1 EACH TOP SCH (21:57)
[2020-04-19] MEDS: Albuterol Sulfate 2.5 mg/3 ml Neb NEB SCH ×4 (00:51→18:21)
[2020-04-19] MEDS: Dextrose 5% in Water 1,000 ML IV SCH (04:20)
[2020-04-19] MEDS: Acetaminophen 325 MG TAB PO PRN (04:36)
[2020-04-19] MEDS: Arformoterol 15 MCG/2 ML NEB NEB SCH ×2 (06:45→18:22)
[2020-04-19] MEDS: Budesonide 0.5 MG/2 ML NEB NEB SCH ×2 (06:46→18:21)
[2020-04-19 07:09] LABS: Anion Gap 13 mmol/L (10-20); BUN (Urea Nitrogen) 36 mg/dL (9.8-20.1); Calc. Creatinine Clearance 31 mL/min (70-130); Calcium 7.8 mg/dL (7.8-10.44); Carbon Dioxide 28 mmol/L (23-31); Chloride 101 mmol/L (98-107); Estimated GFR-MDRD 20; Glucose 92 mg/dL (80-115); Potassium 3.3 mmol/L (3.5-5.1); Sodium 139 mmol/L (136-145)
[2020-04-19] MEDS: Furosemide 40 MG TAB PO SCH (08:00)
[2020-04-19] MEDS: Carvedilol 6.25 MG TAB PO SCH ×2 (08:00→17:12)
[2020-04-19] MEDS ORDERED: Potassium Chloride 20 MEQ TAB PO SCH (09:00)
--- NOTE | 2020-04-19 09:27 | PDOC.CPN ---
- Subjective Date: 04/19/20 Time: 08:00 Interval history: Ms. Vidal is more responsive today, she is sitting up eating breakfast, she spoke to me today, she denies any cardiac complaints such as chest pain, shortness of breath, palpitations, dizziness, trouble breathing or edema, she states she slept well last night and is feeling good today. She had no episodes of NSVT overnight. - Review of Systems General: denies: fever/chills, weight/appetite/sleep changes, night sweats, fatigue Respiratory: denies: cough, congestion, shortness of breath, exercise intolerance Cardiovascular: denies: chest pain, palpitation, edema, paroxysmal nocturnal dyspnea, orthopnea Gastrointestinal: denies: nausea, vomiting, diarrhea, constipation, abd pain, GI bleeding Musculoskeletal: denies: pain, tenderness, stiffness, swelling, arthritis/arthralgias Neurological: denies: numbness, syncope, seizure, weakness - Objective Allergies/Adverse Reactions: Allergies Allergy/AdvReac Type Severity Reaction Status Date / Time ipratropium [From Atrovent] Allergy DIZZY, Verified 04/01/19 22:55 TROUBLE BREATHING Sulfa (Sulfonamide Allergy DYSPNEA Verified 04/01/19 22:55 Antibiotics) Visit Medications: Current Medications Acetaminophen (Acetaminophen 325 Mg Tab) 650 mg PO Q4H PRN PRN Reason: Headache/Fever/Mild Pain (1-3) Last Admin: 04/19/20 04:36 Dose: 650 mg Documented by: Albuterol Sulfate (Albuterol Sulfate 2.5 Mg/3 Ml Neb) 2.5 mg NEB [id number] [facility] Last Admin: 04/19/20 06:42 Dose: 2.5 mg Documented by: Amlodipine Besylate (Amlodipine 10 Mg Tab) 10 mg PO DAILY [facility] Last Admin: 04/18/20 08:23 Dose: 10 mg Documented by: Arformoterol Tartrate (Arformoterol 15 Mcg/2 Ml Neb) 15 mcg NEB BID-RT [facility] Last Admin: 04/19/20 06:45 Dose: 15 mcg Documented by: Aspirin (Aspirin 325 Mg Tab) 325 mg PO DAILY [facility] Last Admin: 04/18/20 08:23 Dose: 325 mg Documented by: Atorvastatin Calcium (Atorvastatin Calcium 40 Mg Tab) 40 mg PO HS [facility] Last Admin: 04/18/20 21:49 Dose: 40 mg Documented by: Budesonide (Budesonide 0.5 Mg/2 Ml Neb) 0.5 mg NEB BID-RT [facility] Last Admin: 04/19/20 06:46 Dose: 0.5 mg Documented by: Carvedilol (Carvedilol 6.25 Mg Tab) 6.25 mg PO BID-WM [facility] Last Admin: 04/19/20 08:00 Dose: 6.25 mg Documented by: Dextrose/Water (Dextrose 50% Abboject 50 Ml Syringe) 25 gm SLOW IVP PRN PRN PRN Reason: Hypoglycemia Last Admin: 04/15/20 00:19 Dose: 25 gm Documented by: Enoxaparin Sodium (Enoxaparin Sodium 120 Mg/0.8 Ml Syringe) 120 mg SC 2100 [facility] Last Admin: 04/18/20 21:49 Dose: 120 mg Documented by: Glucagon (Glucagon 1 Mg/Ml Vial) 1 mg IM PRN PRN PRN Reason: Hypoglycemia Hydralazine HCl (Hydralazine 20 Mg/Ml Vial) 10 mg SLOW IVP Q4H PRN PRN Reason: SBP Greater Than 180 Last Admin: 04/16/20 02:01 Dose: 10 mg Documented by: Hydralazine HCl (Hydralazine 25 Mg Tab) 100 mg PO TID [facility] Last Admin: 04/18/20 21:49 Dose: 100 mg Documented by: Dextrose/Water (D5w) 1,000 mls @ 0 mls/hr IV .Q0M PRN PRN Reason: Hypoglycemia Insulin Glargine 30 units/ (Miscellaneous Medication) 0.3 mls @ 0 mls/hr SC HS [facility] Last Admin: 04/18/20 21:50 Dose: 0.3 mls Documented by: Insulin Human Lispro (Humalog 300 Units/3 Ml Vial) 0 units SC .BEDTIME SLIDING SC PRN PRN Reason: Bedtime Correctional Scale Last Admin: 04/18/20 00:50 Dose: 2 unit Documented by: Insulin Human Lispro (Humalog 300 Units/3 Ml Vial) 0 units SC .AGGRESSIVE SLIDING PRN; Protocol PRN Reason: AGGRESSIVE SLIDING SCALE Last Admin: 04/18/20 18:28 Dose: 9 unit Documented by: Isosorbide Mononitrate (Isosorbide Mononitrate Er 60 Mg Tab) 120 mg PO DAILY [facility] Last Admin: 04/18/20 08:21 Dose: 120 mg Documented by: Lidocaine (Lidocaine 5% Patch) 1 patch TD DAILY [facility] Last Admin: 04/18/20 08:23 Dose: Not Given Documented by: Metoprolol Tartrate (Metoprolol Tartrate 5 Mg/5 Ml Vial) 5 mg IVP Q6H PRN PRN Reason: FOR HR > 100;HOLD FOR SBP<120 Miscellaneous Medication (Lidocaine Patch Removal 1 Each) 1 each TOP 2100 [facility] Last Admin: 04/18/20 21:57 Dose: Not Given Documented by: Morphine Sulfate (Morphine 2 Mg/Ml Vial) 2 mg SLOW IVP Q4H PRN PRN Reason: Pain Last Admin: 04/15/20 21:02 Dose: 2 mg Documented by: Ondansetron HCl (Ondansetron Odt 4 Mg Tab) 4 mg PO Q6H PRN PRN Reason: Nausea/Vomiting Last Admin: 04/12/20 08:39 Dose: 4 mg Documented by: Ondansetron HCl (Ondansetron Pf 4 Mg/2 Ml Vial) 4 mg IVP Q6H PRN PRN Reason: Nausea/Vomiting Last Admin: 04/13/20 15:58 Dose: 4 mg Documented by: Pantoprazole Sodium (Pantoprazole 40 Mg Vial) 40 mg IVP DAILY [facility] Last Admin: 04/18/20 08:21 Dose: 40 mg Documented by: Potassium Chloride (Potassium Chloride 20 Meq Tab) 40 meq PO NOW [facility] Stop: 04/19/20 11:00 Sodium Chloride (Flush - Normal Saline 10 Ml Syringe) 10 ml IVF Q12HR [facility] Last Admin: 04/18/20 21:49 Dose: 10 ml Documented by: Sodium Chloride (Flush - Normal Saline 10 Ml Syringe) 10 ml IVF PRN PRN PRN Reason: Saline Flush Last Admin: 04/08/20 14:31 Dose: 10 ml Documented by: Verapamil HCl (Verapamil 120 Mg Tab) 120 mg PO QID [facility] Last Admin: 04/18/20 21:49 Dose: 120 mg Documented by: Vital Signs & Weight: Vital Signs Temp Pulse Resp BP BP BP BP 04/19/20 08:00 134/61 04/19/20 07:54 97.3 F L 73 18 134/61 04/19/20 06:46 04/19/20 06:45 94 20 04/19/20 06:42 94 20 04/19/20 04:00 98.6 F 70 16 105/53 L 105/53 L 04/19/20 00:51 70 16 04/18/20 21:49 69 Pulse Ox 04/19/20 08:00 04/19/20 07:54 100 04/19/20 06:46 97 04/19/20 06:45 97 04/19/20 06:42 94 L 04/19/20 04:00 92 L 04/19/20 00:51 95 04/18/20 21:49 Admit Weight 264 lb 11.2 oz Weight 239 lb 1.6 oz - Quality Measures CV meds: Beta Jake: Yes, EL/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 ), Statin: Yes, ASA: Yes - Medication Contraindications No EL/ARB reason: Medical contraindication (Increased Band Nailer) - Physical Exam General: alert & oriented x3, appears well, no apparent distress HEENT: mucus membranes moist Neck: supple neck, midline trachea, no JVD/HJR, no masses Cardiac: regular rate and rhythm, no murmur Lungs: clear to auscultation, no wheeze, rales, rhonchi Neuro: grossly intact, motor function intact Abdomen: active bowel sounds, soft, non-tender Extremities: no cyanosis, no edema, 2+ Posterior Tibial, 2+ Dorsalis Pedus Skin: clear Musculoskeletal: normal range of motion, no pain - Labs Result Diagrams: 04/17/20 04:17 04/19/20 06:34 Troponin/CKMB CK-MB (CK-2) 1.9 ng/mL (0-6.6) 04/05/20 15:41 Troponin I 0.138 ng/mL (< 0.028) H 04/12/20 11:03 - EKG Interpretation EKG Method: Telemetry EKG: sinus rhythm (HR maintained 60's-80's throughout the night per telemetry records, no episodes of NSVT) - Assessment/Plan Assessment/Plan: 1.NSVT. No further episodes of NSVT overnight or this morning per telemetry records. 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 She has had no further episodes. EF : 50-55%. 2.Acute on chronic kidney disease stage 4. Monitored by nephrology. Her Creati nine was elevated from Band Nailer 2.34 to 2.88 this morning, she is receiving IV fluids D5W at 50 mL/hr per Nephrology. 3.Resp.failure:stable at present. Hx.of asthma. Patient verbalizes she is not having CP or SOB during exam. States that her breathing feels better today. 4.HTN. Patient tolerating her increased dose of beat blockers well, she has had no episodes of hypertension since 04/17. BP seems to be well-controlled today. This morning her BP was 105/53, we will continue with current medication plan. 5.DM. poorly controlled defer to primary service. Pt. seen and eval. by me. I agree with the A/P by the MANAGER [employer]. Chest clear. RRR. Minimal edema. [email or web address]
--- NOTE | 2020-04-19 09:53 | PRG ---
DATE OF SERVICE: 04/19/2020 SUBJECTIVE: Patient was seen and examined at bedside and overnight events noted. Patient denies any shortness of breath or chest pain or palpitation. No history of nausea or vomiting or diarrhea or fever or chills or cramps. OBJECTIVE: General: This is a well-built female, in no apparent distress. Vital Signs: Temperature 97.3. Heart Rate 93. Respiratory rate 18. Blood pressure 134/61. HEENT: Atraumatic, normocephalic. Oral mucosa is moist. Neck: Supple. Cardiovascular: S1, S2 heard. Rate and rhythm regular. Respiratory: Clear to auscultation. Gastrointestinal: Abdomen is soft. Musculoskeletal: No tenderness. No edema. Dermatologic: No skin rash. Neurologic: Alert and awake and oriented x3. No focal neurologic deficits. Moving all the extremities. Psychiatric: Mood and affect normal. LABORATORY DATA: Potassium 3.3, BUN is 36, and creatinine is 2.8. ASSESSMENT AND PLAN: 1. Acute kidney injury on chronic kidney stage 4, stable, but renal function has slight bump. We will stop diuretics for now. 2. Hypernatremia, better. We will stop IV fluids. Encourage fluid intake in a limited quantity. 3. Hypokalemia. 4. Cardiorenal syndrome. 5. Edema. 6. Recommend fluid intake around 1.2 to 1.5 L. Replace potassium and we will follow. Job ID: [id number]
[2020-04-19] MEDS: hydrALAZINE 25 MG TAB PO SCH ×3 (10:07→20:22)
[2020-04-19] MEDS: Aspirin 325 MG TAB PO SCH (10:07)
[2020-04-19] MEDS: Verapamil 120 MG TAB PO SCH ×4 (10:08→20:22)
[2020-04-19] MEDS: Amlodipine 10 MG TAB PO SCH (10:08)
[2020-04-19] MEDS: Pantoprazole 40 MG VIAL IVP SCH (10:08)
[2020-04-19] MEDS: Lidocaine 5% Patch TD SCH (10:09)
--- NOTE | 2020-04-19 14:56 | PDOC.HOSPP ---
- Subjective Encounter Date: 04/19/20 - Objective Vital Signs & Weight: Vital Signs (12 hours) Temp Pulse Resp BP BP BP BP 04/19/20 12:35 98.6 F 69 25 H 127/60 04/19/20 12:12 90 20 04/19/20 10:08 134/61 04/19/20 10:07 134/61 04/19/20 08:00 134/61 04/19/20 07:54 97.3 F L 73 18 134/61 04/19/20 06:46 04/19/20 06:45 94 20 04/19/20 06:42 94 20 04/19/20 04:00 98.6 F 70 16 105/53 L 105/53 L Pulse Ox 04/19/20 12:35 98 04/19/20 12:12 93 L 04/19/20 10:08 04/19/20 10:07 04/19/20 08:00 98 04/19/20 07:54 100 04/19/20 06:46 97 04/19/20 06:45 97 04/19/20 06:42 94 L 04/19/20 04:00 92 L Weight Admit Weight 264 lb 11.2 oz Weight 239 lb 1.6 oz I&O: 04/18/20 04/19/20 04/20/20 06:59 06:59 06:59 Intake Total 120 2620 Output Total 700 Balance -580 2620 Result Diagrams: 04/17/20 04:17 04/19/20 06:34 Additional Labs: Accuchecks 04/19/20 04/19/20 04/19/20 12:48 06:25 05:43 POC Glucose 63 L 101 H 100 04/18/20 04/18/20 04/15/20 23:34 18:23 00:11 POC Glucose 178 H 298 H 46 L* 04/15/20 00:07 POC Glucose 45 L* Hospitalist ROS - Medication Medications: Active Medications Generic Name Dose Route Start Last Admin Trade Name Freq PRN Reason Stop Dose Admin Acetaminophen 650 mg 04/05/20 18:06 04/19/20 04:36 Acetaminophen 325 Mg Tab PO 650 mg Q4H PRN Administration Headache/Fever/Mild Pain (1-3) Albuterol Sulfate 2.5 mg 04/11/20 19:00 04/19/20 12:12 Albuterol Sulfate 2.5 Mg/3 Ml Neb NEB 2.5 mg [id number] MIREYA Administration Amlodipine Besylate 10 mg 04/07/20 09:00 04/19/20 10:08 Amlodipine 10 Mg Tab PO 10 mg DAILY MIREYA Administration Arformoterol Tartrate 15 mcg 04/08/20 18:30 04/19/20 06:45 Arformoterol 15 Mcg/2 Ml Neb NEB 15 mcg BID-RT MIREYA Administration Aspirin 325 mg 04/12/20 09:00 04/19/20 10:07 Aspirin 325 Mg Tab PO 325 mg DAILY MIREYA Administration Atorvastatin Calcium 40 mg 04/12/20 21:00 04/18/20 21:49 Atorvastatin Calcium 40 Mg Tab PO 40 mg HS MIREYA Administration Budesonide 0.5 mg 04/08/20 18:30 04/19/20 06:46 Budesonide 0.5 Mg/2 Ml Neb NEB 0.5 mg BID-RT MIREYA Administration Carvedilol 6.25 mg 04/16/20 17:00 04/19/20 08:00 Carvedilol 6.25 Mg Tab PO 6.25 mg BID-WM MIREYA Administration Dextrose/Water 25 gm 04/05/20 18:13 04/15/20 00:19 Dextrose 50% Abboject 50 Ml Syringe SLOW IVP 25 gm PRN PRN Administration Hypoglycemia Enoxaparin Sodium 120 mg 04/12/20 21:00 04/18/20 21:49 Enoxaparin Sodium 120 Mg/0.8 Ml Syringe SC 120 mg 2100 MIREYA Administration Hydralazine HCl 10 mg 04/13/20 08:25 04/16/20 02:01 Hydralazine 20 Mg/Ml Vial SLOW IVP 10 mg Q4H PRN Administration SBP Greater Than 180 Hydralazine HCl 100 mg 04/16/20 15:00 04/19/20 10:07 Hydralazine 25 Mg Tab PO 100 mg TID MIREYA Administration Insulin Glargine 30 units/ 0.3 mls @ 0 mls/hr 04/17/20 21:00 04/18/20 21:50 Miscellaneous Medication SC 0.3 mls HS MIREYA Administration Insulin Human Lispro 0 units 04/07/20 01:00 04/18/20 00:50 Humalog 300 Units/3 Ml Vial SC 2 unit .BEDTIME SLIDING SC PRN Administration Bedtime Correctional Scale Insulin Human Lispro 0 units 04/07/20 21:00 04/18/20 18:28 Humalog 300 Units/3 Ml Vial SC 9 unit .AGGRESSIVE SLIDING PRN Administration AGGRESSIVE SLIDING SCALE Protocol Isosorbide Mononitrate 120 mg 04/14/20 09:00 04/19/20 10:07 Isosorbide Mononitrate Er 60 Mg Tab PO 120 mg DAILY MIREYA Administration Lidocaine 1 patch 04/07/20 09:00 04/19/20 10:09 Lidocaine 5% Patch TD Not Given DAILY MIREYA Miscellaneous Medication 1 each 04/07/20 21:00 04/18/20 21:57 Lidocaine Patch Removal 1 Each TOP Not Given 2100 MIREYA Morphine Sulfate 2 mg 04/12/20 16:17 04/15/20 21:02 Morphine 2 Mg/Ml Vial SLOW IVP 2 mg Q4H PRN Administration Pain Ondansetron HCl 4 mg 04/12/20 08:12 04/12/20 08:39 Ondansetron Odt 4 Mg Tab PO 4 mg Q6H PRN Administration Nausea/Vomiting Ondansetron HCl 4 mg 04/13/20 15:09 04/13/20 15:58 Ondansetron Pf 4 Mg/2 Ml Vial IVP 4 mg Q6H PRN Administration Nausea/Vomiting Pantoprazole Sodium 40 mg 04/13/20 09:00 04/19/20 10:08 Pantoprazole 40 Mg Vial IVP 40 mg DAILY MIREYA Administration Sodium Chloride 10 ml 04/06/20 09:00 04/19/20 10:08 Flush - Normal Saline 10 Ml Syringe IVF 10 ml Q12HR MIREYA Administration Sodium Chloride 10 ml 04/06/20 02:45 04/08/20 14:31 Flush - Normal Saline 10 Ml Syringe IVF 10 ml PRN PRN Administration Saline Flush Verapamil HCl 120 mg 04/05/20 21:00 04/19/20 12:59 Verapamil 120 Mg Tab PO 120 mg QID MIREYA Administration - Exam General Appearance: awake alert ENT: normocephalic atraumatic Neck: supple Heart: RRR Respiratory: normal chest expansion, no tachypnea Extremities: no cyanosis, no clubbing Hosp A/P (1) Acute respiratory failure with hypoxia Code(s): J96.01 - ACUTE RESPIRATORY FAILURE WITH HYPOXIA Status: Acute (2) COPD exacerbation Code(s): J44.1 - CHRONIC OBSTRUCTIVE PULMONARY DISEASE W (ACUTE) EXACERBATION Status: Acute (3) Hypertensive urgency Code(s): I16.0 - HYPERTENSIVE URGENCY Status: Acute (4) Morbid obesity with BMI of 40.0-44.9, adult Code(s): E66.01 - MORBID (SEVERE) OBESITY DUE TO EXCESS CALORIES; Z68.41 - BODY MASS INDEX [BMI]40.0-44.9, ADULT Status: Chronic (5) Acute kidney injury superimposed on CKD Code(s): N17.9 - ACUTE KIDNEY FAILURE, UNSPECIFIED; N18.9 - CHRONIC KIDNEY DISEASE, UNSPECIFIED Status: Acute (6) Lung nodule Code(s): R91.1 - SOLITARY PULMONARY NODULE Status: Acute (7) DM2 (diabetes mellitus, type 2) Status: Acute - Plan COVID-19 PCR is negative. Continue scheduled nebulizer treatments. Discontinue corticosteroids. The patient is saturating well on room air. Echo with preserved EF. HFPEF is likely present given the elevated H2FPEF score. The patient is on carvedilol and verapamil for SVT that is currently controlled. Lasix on hold due to worsening kidney function. Sugar levels uncontrolled due to prednisone and D5W. This is likely temporary. Discontinue prednisone and continue Lantus to 30 units. Appreciate nephrology. Suspecious lung nodule. We will schedule repeat CT scan in 3 months with OP follow up with Pulmonology. Pending placement.
[2020-04-19] MEDS: Enoxaparin Sodium 120 MG/0.8 ML SYRINGE SC SCH (20:22)
[2020-04-19] MEDS: Atorvastatin Calcium 40 MG TAB PO SCH (20:22)
[2020-04-19] MEDS: Lidocaine Patch Removal 1 EACH TOP SCH (20:23)
[2020-04-19] MEDS: Insulin Glargine 30 UNITS in Pre-Filled Syringe SC SCH (22:44)
[2020-04-20] MEDS: Albuterol Sulfate 2.5 mg/3 ml Neb NEB SCH ×4 (01:03→18:52)
[2020-04-20] MEDS: Budesonide 0.5 MG/2 ML NEB NEB SCH ×2 (07:14→18:53)
[2020-04-20] MEDS: Arformoterol 15 MCG/2 ML NEB NEB SCH ×2 (07:14→18:53)
[2020-04-20] MEDS: Carvedilol 6.25 MG TAB PO SCH ×2 (09:31→16:23)
[2020-04-20] MEDS: Amlodipine 10 MG TAB PO SCH (09:31)
[2020-04-20] MEDS: Aspirin 325 MG TAB PO SCH (09:32)
[2020-04-20] MEDS: hydrALAZINE 25 MG TAB PO SCH ×3 (09:32→21:36)
[2020-04-20] MEDS: Pantoprazole 40 MG VIAL IVP SCH (09:33)
[2020-04-20] MEDS: Verapamil 120 MG TAB PO SCH ×5 (09:33→21:35)
[2020-04-20] MEDS: Lidocaine 5% Patch TD SCH (09:37)
--- NOTE | 2020-04-20 09:43 | PRG ---
DATE OF SERVICE: 04/20/2020 SUBJECTIVE: Patient was seen and examined at bedside and overnight events noted. Patient denies any shortness of breath or chest pain or palpitation. No history of nausea or vomiting or diarrhea or fever or chills or cramps. OBJECTIVE: General: This is a well-built female, in no apparent distress. Vital Signs: Temperature 97.6. Heart Rate 67. Respiratory rate 18. Blood pressure 168/72. HEENT: Atraumatic, normocephalic. Oral mucosa is moist. Neck: Supple. Cardiovascular: S1, S2 heard. Rate and rhythm regular. Respiratory: Clear to auscultation. Gastrointestinal: Abdomen is soft. Musculoskeletal: No tenderness. No edema. Dermatologic: No skin rash. Neurologic: Alert and awake and oriented x3. No focal neurologic deficits. Moving all the extremities. Psychiatric: Mood and affect normal. LABORATORY DATA: Not done today. ASSESSMENT AND PLAN: 1. Acute kidney injury on chronic kidney disease stage 4. Recheck labs. 2. Hypernatremia. 3. Hypokalemia. 4. Cardiorenal syndrome. 5. Edema. 6. Recheck labs. We will monitor. Job ID: [id number]
[2020-04-20 10:19] LABS: #Basophils 0.1 thou/uL (0.0-0.2); #Eosinphils 0.6 thou/uL (0.0-0.7); #Lymphocytes 1.3 thou/uL (1.20-3.40); #Monocytes 1.2 thou/uL (0.11-0.59); #Neutrophils 6.8 thou/uL (1.40-6.50); %Basophils 0.7 % (0.0-1.0); %Eosinophils 5.8 % (0.0-10.0); %Lymphocytes 13.1 % (21.0-51.0); %Neutrophils 68.4 % (42.0-75.0); Hemoglobin 9.5 g/dL (12.0-16.0); Mean Corpuscular HGB CONC 32.2 g/dL (32.0-36.0); Mean Corpuscular Hemoglobin 28.6 pg (27.0-31.0); Mean Corpuscular Volume 88.9 fL (78.0-98.0); Mean Platelet Volume 9.8 fL (7.4-10.4); Platelet Count 226 thou/uL (130-400); RBC Distribution Width 15.7 % (11.5-14.5); Red Blood Cell (RBC) Count 3.34 mill/uL (4.20-5.40); White Blood Cell (WBC) Count 9.9 thou/uL (4.8-10.8)
--- NOTE | 2020-04-20 10:19 | RAD ---
EXAM: CHEST ONE VIEW HISTORY: Hypoxia. COMPARISON: 04/12/2020 FINDINGS: Cardiac silhouette is magnified by projection but does appear mildly enlarged. The pulmonary vasculat ure is within normal limits. Linear densities are seen in the left midlung zone which was not present on prior study, and findings are likely related to subsegmental atelectasis. Lungs otherwise appear clear.Vascular calcifications are seen in the thoracic aorta. Vascular calcifications are seen in the thoracic aorta. No other interval change. IMPRESSION: 1. Subsegmental atelectasis left midlung zone. 2. Mild cardiomegaly. 3. No acute cardiopulmonary process.
[2020-04-20 10:42] LABS: Anion Gap 17 mmol/L (10-20); BUN (Urea Nitrogen) 31 mg/dL (9.8-20.1); Calc. Creatinine Clearance 32 mL/min (70-130); Calcium 8.2 mg/dL (7.8-10.44); Carbon Dioxide 25 mmol/L (23-31); Chloride 104 mmol/L (98-107); Estimated GFR-MDRD 20; Glucose 125 mg/dL (80-115); Potassium 3.8 mmol/L (3.5-5.1); Sodium 142 mmol/L (136-145)
[2020-04-20] MEDS: HumaLOG 300 UNITS/3 ML VIAL SC PRN (14:02)
--- NOTE | 2020-04-20 14:49 | PDOC.HOSPP ---
- Subjective Encounter Date: 04/20/20 - Objective Vital Signs & Weight: Vital Signs (12 hours) Temp Pulse Resp BP Pulse Ox 04/20/20 12:46 94 20 94 L 04/20/20 12:02 97.4 F L 72 16 123/61 97 04/20/20 08:25 97.6 F 67 18 168/72 H 97 04/20/20 07:15 94 L 04/20/20 07:14 76 20 94 L 04/20/20 07:11 76 20 94 L 04/20/20 04:00 97.7 F 69 17 127/67 96 Weight Admit Weight 264 lb 11.2 oz Weight 237 lb 6.4 oz I&O: 04/19/20 04/20/20 04/21/20 06:59 06:59 06:59 Intake Total 2620 750 Output Total 950 Balance 2620 -200 Result Diagrams: 04/20/20 10:00 04/20/20 10:00 Additional Labs: Accuchecks 04/20/20 04/20/20 04/20/20 13:26 06:03 00:08 POC Glucose 199 H 104 H 95 04/19/20 18:16 POC Glucose 105 H Hospitalist ROS - Medication Medications: Active Medications Generic Name Dose Route Start Last Admin Trade Name Freq PRN Reason Stop Dose Admin Acetaminophen 650 mg 04/05/20 18:06 04/19/20 04:36 Acetaminophen 325 Mg Tab PO 650 mg Q4H PRN Administration Headache/Fever/Mild Pain (1-3) Albuterol Sulfate 2.5 mg 04/11/20 19:00 04/20/20 12:46 Albuterol Sulfate 2.5 Mg/3 Ml Neb NEB 2.5 mg [id number] MIREYA Administration Amlodipine Besylate 10 mg 04/07/20 09:00 04/20/20 09:31 Amlodipine 10 Mg Tab PO 10 mg DAILY MIREYA Administration Arformoterol Tartrate 15 mcg 04/08/20 18:30 04/20/20 07:14 Arformoterol 15 Mcg/2 Ml Neb NEB 15 mcg BID-RT MIREYA Administration Aspirin 325 mg 04/12/20 09:00 04/20/20 09:32 Aspirin 325 Mg Tab PO 325 mg DAILY MIREYA Administration Atorvastatin Calcium 40 mg 04/12/20 21:00 04/19/20 20:22 Atorvastatin Calcium 40 Mg Tab PO 40 mg HS MIREYA Administration Budesonide 0.5 mg 04/08/20 18:30 04/20/20 07:14 Budesonide 0.5 Mg/2 Ml Neb NEB 0.5 mg BID-RT MIREYA Administration Carvedilol 6.25 mg 04/16/20 17:00 04/20/20 09:31 Carvedilol 6.25 Mg Tab PO 6.25 mg BID-WM MIREYA Administration Dextrose/Water 25 gm 04/05/20 18:13 04/15/20 00:19 Dextrose 50% Abboject 50 Ml Syringe SLOW IVP 25 gm PRN PRN Administration Hypoglycemia Enoxaparin Sodium 120 mg 04/12/20 21:00 04/19/20 20:22 Enoxaparin Sodium 120 Mg/0.8 Ml Syringe SC 120 mg 2100 MIREYA Administration Hydralazine HCl 10 mg 04/13/20 08:25 04/16/20 02:01 Hydralazine 20 Mg/Ml Vial SLOW IVP 10 mg Q4H PRN Administration SBP Greater Than 180 Hydralazine HCl 100 mg 04/16/20 15:00 04/20/20 09:32 Hydralazine 25 Mg Tab PO 100 mg TID MIREYA Administration Insulin Glargine 30 units/ 0.3 mls @ 0 mls/hr 04/17/20 21:00 04/19/20 22:44 Miscellaneous Medication SC Not Given HS MIREYA Insulin Human Lispro 0 units 04/07/20 01:00 04/18/20 00:50 Humalog 300 Units/3 Ml Vial SC 2 unit .BEDTIME SLIDING SC PRN Administration Bedtime Correctional Scale Insulin Human Lispro 0 units 04/07/20 21:00 04/20/20 14:02 Humalog 300 Units/3 Ml Vial SC 3 unit .AGGRESSIVE SLIDING PRN Administration AGGRESSIVE SLIDING SCALE Protocol Isosorbide Mononitrate 120 mg 04/14/20 09:00 04/20/20 09:32 Isosorbide Mononitrate Er 60 Mg Tab PO 120 mg DAILY MIREYA Administration Lidocaine 1 patch 04/07/20 09:00 04/20/20 09:37 Lidocaine 5% Patch TD Not Given DAILY MIREYA Miscellaneous Medication 1 each 04/07/20 21:00 04/19/20 20:23 Lidocaine Patch Removal 1 Each TOP Not Given 2100 MIREYA Morphine Sulfate 2 mg 04/12/20 16:17 04/15/20 21:02 Morphine 2 Mg/Ml Vial SLOW IVP 2 mg Q4H PRN Administration Pain Ondansetron HCl 4 mg 04/12/20 08:12 04/12/20 08:39 Ondansetron Odt 4 Mg Tab PO 4 mg Q6H PRN Administration Nausea/Vomiting Ondansetron HCl 4 mg 04/13/20 15:09 04/13/20 15:58 Ondansetron Pf 4 Mg/2 Ml Vial IVP 4 mg Q6H PRN Administration Nausea/Vomiting Pantoprazole Sodium 40 mg 04/13/20 09:00 04/20/20 09:33 Pantoprazole 40 Mg Vial IVP 40 mg DAILY MIREYA Administration Sodium Chloride 10 ml 04/06/20 09:00 04/20/20 09:33 Flush - Normal Saline 10 Ml Syringe IVF 10 ml Q12HR MIREYA Administration Sodium Chloride 10 ml 04/06/20 02:45 04/08/20 14:31 Flush - Normal Saline 10 Ml Syringe IVF 10 ml PRN PRN Administration Saline Flush Verapamil HCl 120 mg 04/05/20 21:00 04/20/20 14:09 Verapamil 120 Mg Tab PO Not Given QID MIREYA - Exam General Appearance: awake alert ENT: normocephalic atraumatic Neck: supple, no JVD Heart: RRR Respiratory: normal chest expansion, no tachypnea Extremities: no cyanosis, no clubbing Hosp A/P (1) Acute respiratory failure with hypoxia Code(s): J96.01 - ACUTE RESPIRATORY FAILURE WITH HYPOXIA Status: Acute (2) COPD exacerbation Code(s): J44.1 - CHRONIC OBSTRUCTIVE PULMONARY DISEASE W (ACUTE) EXACERBATION Status: Acute (3) Hypertensive urgency Code(s): I16.0 - HYPERTENSIVE URGENCY Status: Acute (4) Morbid obesity with BMI of 40.0-44.9, adult Code(s): E66.01 - MORBID (SEVERE) OBESITY DUE TO EXCESS CALORIES; Z68.41 - BODY MASS INDEX [BMI]40.0-44.9, ADULT Status: Chronic (5) Acute kidney injury superimposed on CKD Code(s): N17.9 - ACUTE KIDNEY FAILURE, UNSPECIFIED; N18.9 - CHRONIC KIDNEY DISEASE, UNSPECIFIED Status: Acute (6) Lung nodule Code(s): R91.1 - SOLITARY PULMONARY NODULE Status: Acute (7) DM2 (diabetes mellitus, type 2) Status: Acute - Plan COVID-19 PCR is negative. Continue scheduled nebulizer treatments. Corticosteroids discontinued. The patient is saturating well on room air. Echo with preserved EF. HFPEF is likely present given the elevated H2FPEF score. The patient is on carvedilol and verapamil for SVT that is currently controlled. Lasix on hold due to worsening kidney function. Hyperglycemia improved after D5W and corticosteroids were discontinued. Decrease Lantus to 20 units nightly. Appreciate nephrology. Suspecious lung nodule. We will schedule repeat CT scan in 3 months with OP follow up with Pulmonology. Pending placement.
--- NOTE | 2020-04-20 15:33 | PDOC.CPN ---
- Subjective Date: 04/20/20 Time: 08:24 Interval history: patient lying in bed, no episodes of NSVT overnight, remains in sinus rhythm in the 70's. She is complaining of not being able to catch her breath this morning. She denies chest pain, dizziness, palpitations. - Review of Systems General: denies: fever/chills, weight/appetite/sleep changes, night sweats, fatigue Respiratory: reports: shortness of breath. denies: cough, congestion, exercise intolerance Cardiovascular: denies: chest pain, palpitation, edema, paroxysmal nocturnal dyspnea, orthopnea Gastrointestinal: denies: nausea, vomiting, diarrhea, constipation, abd pain, GI bleeding Musculoskeletal: denies: pain, tenderness, stiffness, swelling, arthritis/arthralgias Neurological: denies: numbness, syncope, seizure, weakness - Objective Allergies/Adverse Reactions: Allergies Allergy/AdvReac Type Severity Reaction Status Date / Time ipratropium [From Atrovent] Allergy DIZZY, Verified 04/01/19 22:55 TROUBLE BREATHING Sulfa (Sulfonamide Allergy DYSPNEA Verified 04/01/19 22:55 Antibiotics) Visit Medications: Current Medications Acetaminophen (Acetaminophen 325 Mg Tab) 650 mg PO Q4H PRN PRN Reason: Headache/Fever/Mild Pain (1-3) Last Admin: 04/19/20 04:36 Dose: 650 mg Documented by: Albuterol Sulfate (Albuterol Sulfate 2.5 Mg/3 Ml Neb) 2.5 mg NEB [id number] [facility] Last Admin: 04/20/20 12:46 Dose: 2.5 mg Documented by: Amlodipine Besylate (Amlodipine 10 Mg Tab) 10 mg PO DAILY [facility] Last Admin: 04/20/20 09:31 Dose: 10 mg Documented by: Arformoterol Tartrate (Arformoterol 15 Mcg/2 Ml Neb) 15 mcg NEB BID-RT MIREYA Last Admin: 04/20/20 07:14 Dose: 15 mcg Documented by: Aspirin (Aspirin 325 Mg Tab) 325 mg PO DAILY [facility] Last Admin: 04/20/20 09:32 Dose: 325 mg Documented by: Atorvastatin Calcium (Atorvastatin Calcium 40 Mg Tab) 40 mg PO HS [facility] Last Admin: 04/19/20 20:22 Dose: 40 mg Documented by: Budesonide (Budesonide 0.5 Mg/2 Ml Neb) 0.5 mg NEB BID-RT [facility] Last Admin: 04/20/20 07:14 Dose: 0.5 mg Documented by: Carvedilol (Carvedilol 6.25 Mg Tab) 6.25 mg PO BID-WM [facility] Last Admin: 04/20/20 09:31 Dose: 6.25 mg Documented by: Dextrose/Water (Dextrose 50% Abboject 50 Ml Syringe) 25 gm SLOW IVP PRN PRN PRN Reason: Hypoglycemia Last Admin: 04/15/20 00:19 Dose: 25 gm Documented by: Enoxaparin Sodium (Enoxaparin Sodium 120 Mg/0.8 Ml Syringe) 120 mg SC 2100 [facility] Last Admin: 04/19/20 20:22 Dose: 120 mg Documented by: Glucagon (Glucagon 1 Mg/Ml Vial) 1 mg IM PRN PRN PRN Reason: Hypoglycemia Hydralazine HCl (Hydralazine 20 Mg/Ml Vial) 10 mg SLOW IVP Q4H PRN PRN Reason: SBP Greater Than 180 Last Admin: 04/16/20 02:01 Dose: 10 mg Documented by: Hydralazine HCl (Hydralazine 25 Mg Tab) 100 mg PO TID [facility] Last Admin: 04/20/20 15:27 Dose: 100 mg Documented by: Dextrose/Water (D5w) 1,000 mls @ 0 mls/hr IV .Q0M PRN PRN Reason: Hypoglycemia Insulin Glargine 20 units/ (Miscellaneous Medication) 0.2 mls @ 0 mls/hr SC [facility] Insulin Human Lispro (Humalog 300 Units/3 Ml Vial) 0 units SC .BEDTIME SLIDING SC PRN PRN Reason: Bedtime Correctional Scale Last Admin: 04/18/20 00:50 Dose: 2 unit Documented by: Insulin Human Lispro (Humalog 300 Units/3 Ml Vial) 0 units SC .AGGRESSIVE SLIDING PRN; Protocol PRN Reason: AGGRESSIVE SLIDING SCALE Last Admin: 04/20/20 14:02 Dose: 3 unit Documented by: Isosorbide Mononitrate (Isosorbide Mononitrate Er 60 Mg Tab) 120 mg PO DAILY [facility] Last Admin: 04/20/20 09:32 Dose: 120 mg Documented by: Lidocaine (Lidocaine 5% Patch) 1 patch TD DAILY [facility] Last Admin: 04/20/20 09:37 Dose: Not Given Documented by: Metoprolol Tartrate (Metoprolol Tartrate 5 Mg/5 Ml Vial) 5 mg IVP Q6H PRN PRN Reason: FOR HR > 100;HOLD FOR SBP<120 Miscellaneous Medication (Lidocaine Patch Removal 1 Each) 1 each TOP 2100 [facility] Last Admin: 04/19/20 20:23 Dose: Not Given Documented by: Morphine Sulfate (Morphine 2 Mg/Ml Vial) 2 mg SLOW IVP Q4H PRN PRN Reason: Pain Last Admin: 04/15/20 21:02 Dose: 2 mg Documented by: Ondansetron HCl (Ondansetron Odt 4 Mg Tab) 4 mg PO Q6H PRN PRN Reason: Nausea/Vomiting Last Admin: 04/12/20 08:39 Dose: 4 mg Documented by: Ondansetron HCl (Ondansetron Pf 4 Mg/2 Ml Vial) 4 mg IVP Q6H PRN PRN Reason: Nausea/Vomiting Last Admin: 04/13/20 15:58 Dose: 4 mg Documented by: Pantoprazole Sodium (Pantoprazole 40 Mg Vial) 40 mg IVP DAILY [facility] Last Admin: 04/20/20 09:33 Dose: 40 mg Documented by: Sodium Chloride (Flush - Normal Saline 10 Ml Syringe) 10 ml IVF Q12HR [facility] Last Admin: 04/20/20 09:33 Dose: 10 ml Documented by: Sodium Chloride (Flush - Normal Saline 10 Ml Syringe) 10 ml IVF PRN PRN PRN Reason: Saline Flush Last Admin: 04/08/20 14:31 Dose: 10 ml Documented by: Verapamil HCl (Verapamil 120 Mg Tab) 120 mg PO QID [facility] Last Admin: 04/20/20 14:09 Dose: Not Given Documented by: Vital Signs & Weight: Vital Signs Temp Pulse Resp BP Pulse Ox 04/20/20 15:27 69 04/20/20 15:25 97.7 F 69 18 145/67 H 95 04/20/20 12:46 94 20 94 L 04/20/20 12:02 97.4 F L 72 16 123/61 97 04/20/20 08:25 97.6 F 67 18 168/72 H 97 04/20/20 07:15 94 L 04/20/20 07:14 76 20 94 L 04/20/20 07:11 76 20 94 L 04/20/20 04:00 97.7 F 69 17 127/67 96 Admit Weight 264 lb 11.2 oz Weight 237 lb 6.4 oz - Quality Measures CV meds: Beta Jake: Yes, EL/ARB: No (Elevated ACUTE CARE NURSING ASSISTANT ), Statin: Yes, ASA: Yes - Medication Contraindications No EL/ARB reason: Medical contraindication (Increased Return To Service Inspector) - Physical Exam General: alert & oriented x3, no apparent distress HEENT: mucus membranes moist Neck: supple neck, midline trachea, no JVD/HJR, no bruit Cardiac: regular rate and rhythm, no murmur Lungs: normal breath sounds, no wheeze, rales, rhonchi Neuro: grossly intact Abdomen: soft, non-tender Extremities: no cyanosis, no clubbing, no edema Skin: clear Musculoskeletal: normal range of motion - Labs Result Diagrams: 04/20/20 10:00 04/20/20 10:00 Troponin/CKMB CK-MB (CK-2) 1.9 ng/mL (0-6.6) 04/05/20 15:41 Troponin I 0.138 ng/mL (< 0.028) H 04/12/20 11:03 - EKG Interpretation EKG Method: Telemetry EKG: sinus rhythm - Assessment/Plan Assessment/Plan: 1.NSVT. No further episodes of NSVT overnight or this morning per telemetry records. 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 She has had no further episodes. EF : 50-55%. She remains in sinus rhythm in the 70's. 2.Acute on chronic kidney disease stage 4. Monitored by nephrology. Nephrology has stopped her IV fluids and Lasix at this time. 3.Resp.failure:stable at present. Hx.of asthma. Patient verbalizes increased shortness of breath this morning. Her chest x-ray today showed subsegmental atelectasis in the left midlung zone. Encouraged to get out of bed, sit in chair, ambulate, and use incentive spirometer. Lung sounds CTA bilaterally throughout. 4.HTN. BP seems to be well-controlled today. This morning her BP was 127/67, we will continue with current medication plan. 5.DM. poorly controlled defer to primary service. Awaiting placement. Pt. seen and eval. by me. I agree with the a/P by the N/P. Chest clear. RRR. Morbid obesity. Deconditioned. deenam
[2020-04-20] MEDS: Atorvastatin Calcium 40 MG TAB PO SCH (21:35)
[2020-04-20] MEDS: Enoxaparin Sodium 120 MG/0.8 ML SYRINGE SC SCH (21:35)
[2020-04-20] MEDS: Lidocaine Patch Removal 1 EACH TOP SCH (21:37)
[2020-04-20] MEDS: Insulin Glargine 20 UNITS in Pre-Filled Syringe 1 EACH SC SCH (22:00)
[2020-04-21] MEDS: Albuterol Sulfate 2.5 mg/3 ml Neb NEB SCH ×4 (00:17→18:30)
[2020-04-21 04:44] LABS: #Basophils 0.1 thou/uL (0.0-0.2); #Eosinphils 0.4 thou/uL (0.0-0.7); #Lymphocytes 1.3 thou/uL (1.20-3.40); #Monocytes 1.2 thou/uL (0.11-0.59); #Neutrophils 5.7 thou/uL (1.40-6.50); %Basophils 0.8 % (0.0-1.0); %Eosinophils 5.2 % (0.0-10.0); %Lymphocytes 15.2 % (21.0-51.0); %Monocytes 13.4 % (0.0-10.0); %Neutrophils 65.5 % (42.0-75.0); Mean Corpuscular HGB CONC 32.6 g/dL (32.0-36.0); Mean Corpuscular Hemoglobin 28.8 pg (27.0-31.0); Mean Corpuscular Volume 88.3 fL (78.0-98.0); Mean Platelet Volume 9.7 fL (7.4-10.4); Platelet Count 220 thou/uL (130-400); RBC Distribution Width 15.8 % (11.5-14.5); Red Blood Cell (RBC) Count 3.13 mill/uL (4.20-5.40); White Blood Cell (WBC) Count 8.7 thou/uL (4.8-10.8)
[2020-04-21] MEDS: Insulin Glargine 20 UNITS in Pre-Filled Syringe 1 EACH SC SCH ×2 (04:50→21:47)
[2020-04-21 05:07] LABS: Anion Gap 16 mmol/L (10-20); BUN (Urea Nitrogen) 28 mg/dL (9.8-20.1); Calc. Creatinine Clearance 35 mL/min (70-130); Calcium 8.1 mg/dL (7.8-10.44); Carbon Dioxide 25 mmol/L (23-31); Chloride 106 mmol/L (98-107); Estimated GFR-MDRD 23; Glucose 128 mg/dL (80-115); Sodium 143 mmol/L (136-145)
[2020-04-21] MEDS: Budesonide 0.5 MG/2 ML NEB NEB SCH ×2 (07:54→18:31)
[2020-04-21] MEDS: Arformoterol 15 MCG/2 ML NEB NEB SCH ×2 (07:54→18:30)
[2020-04-21] MEDS: Carvedilol 6.25 MG TAB PO SCH ×2 (09:04→16:54)
[2020-04-21] MEDS: Amlodipine 10 MG TAB PO SCH (09:04)
[2020-04-21] MEDS: hydrALAZINE 25 MG TAB PO SCH ×3 (09:05→21:34)
[2020-04-21] MEDS: Aspirin 325 MG TAB PO SCH (09:05)
[2020-04-21] MEDS: Verapamil 120 MG TAB PO SCH ×4 (09:05→21:26)
[2020-04-21] MEDS: Pantoprazole 40 MG VIAL IVP SCH (09:05)
[2020-04-21] MEDS: Lidocaine 5% Patch TD SCH ×3 (09:06→21:37)
--- NOTE | 2020-04-21 10:00 | PRG ---
DATE OF SERVICE: 04/21/2020 SUBJECTIVE: Patient was seen and examined at bedside and overnight events noted. Patient denies any shortness of breath or chest pain or palpitation. No history of nausea or vomiting or diarrhea or fever or chills or cramps. OBJECTIVE: General: This is a well-built female, in no apparent distress. Vital Signs: Temperature 97.9. Heart Rate 74. Respiratory rate 18. Blood pressure 138/60. HEENT: Atraumatic, normocephalic. Oral mucosa is moist. Neck: Supple. Cardiovascular: S1, S2 heard. Rate and rhythm regular. Respiratory: Clear to auscultation. Gastrointestinal: Abdomen is soft. Musculoskeletal: No tenderness. No edema. Dermatologic: No skin rash. Neurologic: Alert and awake and oriented x3. No focal neurologic deficits. Moving all the extremities. Psychiatric: Mood and affect normal. LABORATORY DATA: Potassium 4.0, BUN is 28, creatinine is 2.5. ASSESSMENT AND PLAN: 1. Acute kidney injury on chronic kidney disease stage 4, stable. 2. Hypernatremia. 3. Hypokalemia. 4. Cardiorenal syndrome. 5. Edema. Labs are stable. We will monitor. Job ID: [id number]
[2020-04-21] MEDS: HumaLOG 300 UNITS/3 ML VIAL SC PRN (12:30)
[2020-04-21 13:20] VITALS: BMI 43.2
--- NOTE | 2020-04-21 13:21 | PDOC.CPN ---
- Subjective Date: 04/21/20 Time: 07:55 Interval history: No overnight events, patient remains in sinus rhythm with no episodes of NSVT. She is not very responsive to me this morning. She did shake her head no when asked about any new symptoms, chest pain, dizziness, or shortness of breath. - Review of Systems General: denies: fever/chills, weight/appetite/sleep changes, night sweats, fatigue Respiratory: denies: cough, congestion, shortness of breath, exercise intolerance Cardiovascular: denies: chest pain, palpitation, edema, paroxysmal nocturnal dyspnea, orthopnea Gastrointestinal: denies: nausea, vomiting, diarrhea, constipation, abd pain, GI bleeding Musculoskeletal: denies: pain, tenderness, stiffness, swelling, arthritis/arthralgias Neurological: denies: numbness, syncope, seizure, weakness - Objective Allergies/Adverse Reactions: Allergies Allergy/AdvReac Type Severity Reaction Status Date / Time ipratropium [From Atrovent] Allergy DIZZY, Verified 04/01/19 22:55 TROUBLE BREATHING Sulfa (Sulfonamide Allergy DYSPNEA Verified 04/01/19 22:55 Antibiotics) Visit Medications: Current Medications Acetaminophen (Acetaminophen 325 Mg Tab) 650 mg PO Q4H PRN PRN Reason: Headache/Fever/Mild Pain (1-3) Last Admin: 04/19/20 04:36 Dose: 650 mg Documented by: Albuterol Sulfate (Albuterol Sulfate 2.5 Mg/3 Ml Neb) 2.5 mg NEB [id number] [facility] Last Admin: 04/21/20 07:54 Dose: 2.5 mg Documented by: Amlodipine Besylate (Amlodipine 10 Mg Tab) 10 mg PO DAILY [facility] Last Admin: 04/21/20 09:04 Dose: 10 mg Documented by: Arformoterol Tartrate (Arformoterol 15 Mcg/2 Ml Neb) 15 mcg NEB BID-RT [facility] Last Admin: 04/21/20 07:54 Dose: 15 mcg Documented by: Aspirin (Aspirin 325 Mg Tab) 325 mg PO DAILY [facility] Last Admin: 04/21/20 09:05 Dose: 325 mg Documented by: Atorvastatin Calcium (Atorvastatin Calcium 40 Mg Tab) 40 mg PO HS [facility] Last Admin: 04/20/20 21:35 Dose: 40 mg Documented by: Budesonide (Budesonide 0.5 Mg/2 Ml Neb) 0.5 mg NEB BID-RT [facility] Last Admin: 04/21/20 07:54 Dose: 0.5 mg Documented by: Carvedilol (Carvedilol 6.25 Mg Tab) 6.25 mg PO BID-WM [facility] Last Admin: 04/21/20 09:04 Dose: 6.25 mg Documented by: Dextrose/Water (Dextrose 50% Abboject 50 Ml Syringe) 25 gm SLOW IVP PRN PRN PRN Reason: Hypoglycemia Last Admin: 04/15/20 00:19 Dose: 25 gm Documented by: Enoxaparin Sodium (Enoxaparin Sodium 120 Mg/0.8 Ml Syringe) 120 mg SC 2100 [facility] Last Admin: 04/20/20 21:35 Dose: 120 mg Documented by: Glucagon (Glucagon 1 Mg/Ml Vial) 1 mg IM PRN PRN PRN Reason: Hypoglycemia Hydralazine HCl (Hydralazine 20 Mg/Ml Vial) 10 mg SLOW IVP Q4H PRN PRN Reason: SBP Greater Than 180 Last Admin: 04/16/20 02:01 Dose: 10 mg Documented by: Hydralazine HCl (Hydralazine 25 Mg Tab) 100 mg PO TID [facility] Last Admin: 04/21/20 09:05 Dose: 100 mg Documented by: Dextrose/Water (D5w) 1,000 mls @ 0 mls/hr IV .Q0M PRN PRN Reason: Hypoglycemia Insulin Glargine 20 units/ (Miscellaneous Medication) 0.2 mls @ 0 mls/hr SC HS [facility] Last Admin: 04/20/20 22:00 Dose: Not Given Documented by: Insulin Human Lispro (Humalog 300 Units/3 Ml Vial) 0 units SC .BEDTIME SLIDING SC PRN PRN Reason: Bedtime Correctional Scale Last Admin: 04/18/20 00:50 Dose: 2 unit Documented by: Insulin Human Lispro (Humalog 300 Units/3 Ml Vial) 0 units SC .AGGRESSIVE SLIDING PRN; Protocol PRN Reason: AGGRESSIVE SLIDING SCALE Last Admin: 04/21/20 12:30 Dose: 9 unit Documented by: Isosorbide Mononitrate (Isosorbide Mononitrate Er 60 Mg Tab) 120 mg PO DAILY [facility] Last Admin: 04/21/20 09:05 Dose: 120 mg Documented by: Lidocaine (Lidocaine 5% Patch) 1 patch TD DAILY [facility] Last Admin: 04/21/20 09:06 Dose: Not Given Documented by: Metoprolol Tartrate (Metoprolol Tartrate 5 Mg/5 Ml Vial) 5 mg IVP Q6H PRN PRN Reason: FOR HR > 100;HOLD FOR SBP<120 Miscellaneous Medication (Lidocaine Patch Removal 1 Each) 1 each TOP 2100 [facility] Last Admin: 04/20/20 21:37 Dose: Not Given Documented by: Morphine Sulfate (Morphine 2 Mg/Ml Vial) 2 mg SLOW IVP Q4H PRN PRN Reason: Pain Last Admin: 04/15/20 21:02 Dose: 2 mg Documented by: Ondansetron HCl (Ondansetron Odt 4 Mg Tab) 4 mg PO Q6H PRN PRN Reason: Nausea/Vomiting Last Admin: 04/12/20 08:39 Dose: 4 mg Documented by: Ondansetron HCl (Ondansetron Pf 4 Mg/2 Ml Vial) 4 mg IVP Q6H PRN PRN Reason: Nausea/Vomiting Last Admin: 04/13/20 15:58 Dose: 4 mg Documented by: Pantoprazole Sodium (Pantoprazole 40 Mg Vial) 40 mg IVP DAILY [facility] Last Admin: 04/21/20 09:05 Dose: 40 mg Documented by: Sodium Chloride (Flush - Normal Saline 10 Ml Syringe) 10 ml IVF Q12HR [facility] Last Admin: 04/21/20 09:05 Dose: 10 ml Documented by: Sodium Chloride (Flush - Normal Saline 10 Ml Syringe) 10 ml IVF PRN PRN PRN Reason: Saline Flush Last Admin: 04/08/20 14:31 Dose: 10 ml Documented by: Verapamil HCl (Verapamil 120 Mg Tab) 120 mg PO QID [facility] Last Admin: 04/21/20 12:35 Dose: 120 mg Documented by: Vital Signs & Weight: Vital Signs Temp Pulse Pulse Pulse Resp BP BP 04/21/20 11:23 98.0 F 72 18 04/21/20 09:07 77 75 144/96 H 127/63 04/21/20 09:04 70 04/21/20 07:55 04/21/20 07:54 70 16 04/21/20 07:08 97.9 F 75 18 04/21/20 03:30 98.9 F 70 22 H BP BP BP Pulse Ox 04/21/20 11:23 117/58 L 95 04/21/20 09:07 04/21/20 09:04 04/21/20 07:55 95 04/21/20 07:54 95 04/21/20 07:08 138/68 96 04/21/20 03:30 125/58 L 92 L Admit Weight 264 lb 11.2 oz Weight 236 lb 6.4 oz - Quality Measures CV meds: Beta Jake: Yes, EL/ARB: No (Elevated CONSERVATION SCIENCE OFFICER ), Statin: Yes, ASA: Yes - Medication Contraindications No EL/ARB reason: Medical contraindication (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 Truck Driver Heavy) - Physical Exam General: appears well, no apparent distress HEENT: mucus membranes moist Neck: supple neck, no bruit Cardiac: regular rate and rhythm, no murmur Lungs: normal breath sounds, no wheeze, rales, rhonchi Neuro: grossly intact Abdomen: soft, non-tender Extremities: no cyanosis, no clubbing Skin: clear Musculoskeletal: normal range of motion - Labs Result Diagrams: 04/21/20 04:15 04/21/20 04:15 Troponin/CKMB CK-MB (CK-2) 1.9 ng/mL (0-6.6) 04/05/20 15:41 Troponin I 0.138 ng/mL (< 0.028) H 04/12/20 11:03 - EKG Interpretation EKG Method: Telemetry EKG: sinus rhythm - Assessment/Plan Assessment/Plan: 1.NSVT. No further episodes of NSVT overnight or this morning per telemetry records. 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 She has had no further episodes. EF : 50-55%. She remains in sinus rhythm in the 70's. 2.Acute on chronic kidney disease stage 4. Monitored by nephrology. Nephrology has stopped her IV fluids and Lasix at this time. Her creatinine levels have improved from 2.88 to 2.52 this morning. 3.Resp.failure:stable at present. Hx.of asthma. Patient verbalizes increased shortness of breath this morning. Patient remains lying on her left side in bed. Encouraged to get out of bed, sit in chair, ambulate, and use incentive spirometer. Lung sounds CTA bilaterally throughout. Getting nebulizer treatment this am. 4.HTN. BP remains well-controlled, we will continue with current medication plan. 5.DM. poorly controlled defer to primary service. Awaiting placement. Pt. seen and eval. by me. I agree with the A/P by the MEDICAL ADMINISTRATIVE SPECIALIST. Cardiac status is st able. I will sign off. If any changes please page again.
--- NOTE | 2020-04-21 14:55 | PDOC.HOSPP ---
- Subjective Encounter Date: 04/21/20 - Objective Vital Signs & Weight: Vital Signs (12 hours) Temp Pulse Pulse Pulse Resp BP BP 04/21/20 13:50 72 18 04/21/20 11:23 98.0 F 72 18 04/21/20 09:07 77 75 144/96 H 127/63 04/21/20 09:04 70 04/21/20 07:55 04/21/20 07:54 70 16 04/21/20 07:08 97.9 F 75 18 04/21/20 03:30 98.9 F 70 22 H BP BP BP Pulse Ox 04/21/20 13:50 95 04/21/20 11:23 117/58 L 95 04/21/20 09:07 04/21/20 09:04 04/21/20 07:55 95 04/21/20 07:54 95 04/21/20 07:08 138/68 96 04/21/20 03:30 125/58 L 92 L Weight Admit Weight 264 lb 11.2 oz Weight 236 lb 6.4 oz I&O: 04/20/20 04/21/20 04/22/20 06:59 06:59 06:59 Intake Total 750 100 Output Total 950 500 Balance -200 -400 Result Diagrams: 04/21/20 04:15 04/21/20 04:15 Additional Labs: Accuchecks 04/21/20 04/21/20 04/20/20 11:47 05:55 23:37 POC Glucose 259 H 142 H 154 H 04/20/20 18:04 POC Glucose 155 H Hospitalist ROS - Medication Medications: Active Medications Generic Name Dose Route Start Last Admin Trade Name Tanner PRN Reason Stop Dose Admin Acetaminophen 650 mg 04/05/20 18:06 04/19/20 04:36 Acetaminophen 325 Mg Tab PO 650 mg Q4H PRN Administration Headache/Fever/Mild Pain (1-3) Albuterol Sulfate 2.5 mg 04/11/20 19:00 04/21/20 13:50 Albuterol Sulfate 2.5 Mg/3 Ml Neb NEB 2.5 mg [id number] MIREYA Administration Amlodipine Besylate 10 mg 04/07/20 09:00 04/21/20 09:04 Amlodipine 10 Mg Tab PO 10 mg DAILY MIREYA Administration Arformoterol Tartrate 15 mcg 04/08/20 18:30 12/02/20 07:54 Arformoterol 15 Mcg/2 Ml Neb NEB 15 mcg BID-RT MIREYA Administration Aspirin 325 mg 04/12/20 09:00 04/21/20 09:05 Aspirin 325 Mg Tab PO 325 mg DAILY MIREYA Administration Atorvastatin Calcium 40 mg 04/12/20 21:00 04/20/20 21:35 Atorvastatin Calcium 40 Mg Tab PO 40 mg HS MIREYA Administration Budesonide 0.5 mg 04/08/20 18:30 04/21/20 07:54 Budesonide 0.5 Mg/2 Ml Neb NEB 0.5 mg BID-RT MIREYA Administration Carvedilol 6.25 mg 04/16/20 17:00 04/21/20 09:04 Carvedilol 6.25 Mg Tab PO 6.25 mg BID-WM MIREYA Administration Dextrose/Water 25 gm 04/05/20 18:13 04/15/20 00:19 Dextrose 50% Abboject 50 Ml Syringe SLOW IVP 25 gm PRN PRN Administration Hypoglycemia Enoxaparin Sodium 120 mg 04/12/20 21:00 04/20/20 21:35 Enoxaparin Sodium 120 Mg/0.8 Ml Syringe SC 120 mg 2100 MIREYA Administration Hydralazine HCl 10 mg 04/13/20 08:25 04/16/20 02:01 Hydralazine 20 Mg/Ml Vial SLOW IVP 10 mg Q4H PRN Administration SBP Greater Than 180 Hydralazine HCl 100 mg 04/16/20 15:00 04/21/20 09:05 Hydralazine 25 Mg Tab PO 100 mg TID MIREYA Administration Insulin Glargine 20 units/ 0.2 mls @ 0 mls/hr 04/20/20 21:00 04/20/20 22:00 Miscellaneous Medication SC Not Given HS MIREYA Insulin Human Lispro 0 units 04/07/20 01:00 04/18/20 00:50 Humalog 300 Units/3 Ml Vial SC 2 unit .BEDTIME SLIDING SC PRN Administration Bedtime Correctional Scale Insulin Human Lispro 0 units 04/07/20 21:00 04/21/20 12:30 Humalog 300 Units/3 Ml Vial SC 9 unit .AGGRESSIVE SLIDING PRN Administration AGGRESSIVE SLIDING SCALE Protocol Isosorbide Mononitrate 120 mg 04/14/20 09:00 04/21/20 09:05 Isosorbide Mononitrate Er 60 Mg Tab PO 120 mg DAILY MIREYA Administration Lidocaine 1 patch 04/07/20 09:00 04/21/20 09:06 Lidocaine 5% Patch TD Not Given DAILY MIREYA Miscellaneous Medication 1 each 04/07/20 21:00 04/20/20 21:37 Lidocaine Patch Removal 1 Each TOP Not Given 2100 MIREYA Morphine Sulfate 2 mg 04/12/20 16:17 04/15/20 21:02 Morphine 2 Mg/Ml Vial SLOW IVP 2 mg Q4H PRN Administration Pain Ondansetron HCl 4 mg 04/12/20 08:12 04/12/20 08:39 Ondansetron Odt 4 Mg Tab PO 4 mg Q6H PRN Administration Nausea/Vomiting Ondansetron HCl 4 mg 04/13/20 15:09 04/13/20 15:58 Ondansetron Pf 4 Mg/2 Ml Vial IVP 4 mg Q6H PRN Administration Nausea/Vomiting Pantoprazole Sodium 40 mg 04/13/20 09:00 04/21/20 09:05 Pantoprazole 40 Mg Vial IVP 40 mg DAILY MIREYA Administration Sodium Chloride 10 ml 04/06/20 09:00 04/21/20 09:05 Flush - Normal Saline 10 Ml Syringe IVF 10 ml Q12HR MIREYA Administration Sodium Chloride 10 ml 04/06/20 02:45 04/08/20 14:31 Flush - Normal Saline 10 Ml Syringe IVF 10 ml PRN PRN Administration Saline Flush Verapamil HCl 120 mg 04/05/20 21:00 04/21/20 12:35 Verapamil 120 Mg Tab PO 120 mg QID MIREYA Administration - Exam General Appearance: awake alert ENT: normocephalic atraumatic Neck: supple, no JVD Heart: RRR Respiratory: no tachypnea Gastrointestinal: soft Extremities: no cyanosis Hosp A/P (1) Acute respiratory failure with hypoxia Code(s): J96.01 - ACUTE RESPIRATORY FAILURE WITH HYPOXIA Status: Acute (2) COPD exacerbation Code(s): J44.1 - CHRONIC OBSTRUCTIVE PULMONARY DISEASE W (ACUTE) EXACERBATION Status: Acute (3) Hypertensive urgency Code(s): I16.0 - HYPERTENSIVE URGENCY Status: Acute (4) Morbid obesity with BMI of 40.0-44.9, adult Code(s): E66.01 - MORBID (SEVERE) OBESITY DUE TO EXCESS CALORIES; Z68.41 - BODY MASS INDEX [BMI]40.0-44.9, ADULT Status: Chronic (5) Acute kidney injury superimposed on CKD Code(s): N17.9 - ACUTE KIDNEY FAILURE, UNSPECIFIED; N18.9 - CHRONIC KIDNEY DISEASE, UNSPECIFIED Status: Acute (6) Lung nodule Code(s): R91.1 - SOLITARY PULMONARY NODULE Status: Acute (7) DM2 (diabetes mellitus, type 2) Status: Acute - Plan COVID-19 PCR is negative. Continue scheduled nebulizer treatments. Corticosteroids discontinued. The patient is saturating well on room air. Echo with preserved EF. HFPEF is likely present given the elevated H2FPEF score. The patient is on carvedilol and verapamil for SVT that is currently controlled. Lasix on hold due to worsening kidney function. Hyperglycemia improved after D5W and corticosteroids were discontinued. Decrease Lantus to 20 units nightly. Appreciate nephrology. Suspecious lung nodule. We will schedule repeat CT scan in 3 months with OP follow up with Pulmonology. Patient is cleared for discharge tomorrow.
--- NOTE | 2020-04-21 15:36 | PDOC.PALPN ---
Palliative Progress Note - Subjective Flat affect, appears weak. No specific complaints. Requires assistance with ADL's, currently non ambulatory, incontinent. Difficult to engage in review of systems. - Objective Vital Signs: Vital Signs - Most Recent Temp Pulse Resp BP Pulse Ox 98.0 F 72 18 117/58 L 95 04/21/20 11:23 04/21/20 13:50 04/21/20 13:50 04/21/20 11:23 04/21/20 13:50 - Physical Exam Constitutional: ill appearing HEENT: moist MMs Respiratory: diminished lung sound Deviation from normal: Increase in respiratoyr workload with minimal acti vity/conversation Cardiovascular: RRR Gastrointestinal: soft, non-tender Deviation from normal: Obese Genitourinary: incontinent Musculoskeletal: no cyanosis Neurology: moves all 4 limbs, no focal deficits Skin: cap refill <2 seconds Psychiatric: A&O x 3, flat affect - Assessment (1) Palliative care encounter Code(s): Z51.5 - ENCOUNTER FOR PALLIATIVE CARE Current Visit: Yes Status: Acute (2) Acute exacerbation of CHF (congestive heart failure) Code(s): I50.9 - HEART FAILURE, UNSPECIFIED Current Visit: Yes Status: Acute Qualifiers: Heart failure type: diastolic Qualified Code(s): I50.33 - Acute on chronic diastolic (congestive) heart failure (3) Acute kidney injury superimposed on CKD Code(s): N17.9 - ACUTE KIDNEY FAILURE, UNSPECIFIED; N18.9 - CHRONIC KIDNEY DISEASE, UNSPECIFIED Current Visit: Yes Status: Acute (4) COPD exacerbation Code(s): J44.1 - CHRONIC OBSTRUCTIVE PULMONARY DISEASE W (ACUTE) EXACERBATION Current Visit: Yes Status: Acute (5) DM2 (diabetes mellitus, type 2) Current Visit: Yes Status: Acute (6) Physical deconditioning Code(s): R53.81 - OTHER MALAISE Current Visit: Yes Status: Acute (7) Obesity Code(s): E66.9 - OBESITY, UNSPECIFIED Current Visit: Yes Status: Chronic Qualifiers: Obesity classification: adult class 3 (BMI >= 40) Body mass index: BMI 50.0-59.9 - Plan Plan: MPOA completed, did not desire to complete Directive to physician. Plan to transition to skilled facility in [place]. Patient is requiring assistance with ADL, non ambulatory, poor intake. halfway facility may reintroduce hospice if patient declines at facility. Palliative Care will sign off as family and patient are wishing to transition to skilled setting. Education in relation to disease trajectory. Please also refer to Palliative care notes in note section. Communicated with fat purification worker Sarita. [35] minutes spent on this encounter with >50% of the time in counseling and coordination of care. - ROS Constitutional: weakness ENT: dry mouth, other (Denies throat irritation) Respiratory: shortness of breath with extertion Cardiology: light headedness (with sitting)
[2020-04-21] MEDS: Atorvastatin Calcium 40 MG TAB PO SCH (21:26)
[2020-04-21] MEDS: Enoxaparin Sodium 120 MG/0.8 ML SYRINGE SC SCH (21:27)
[2020-04-22] MEDS: Albuterol Sulfate 2.5 mg/3 ml Neb NEB SCH ×3 (00:19→12:33)
[2020-04-22 04:25] LABS: #Basophils 0.1 thou/uL (0.0-0.2); #Eosinphils 0.5 thou/uL (0.0-0.7); #Lymphocytes 1.2 thou/uL (1.20-3.40); #Monocytes 1.4 thou/uL (0.11-0.59); #Neutrophils 6.2 thou/uL (1.40-6.50); %Basophils 0.9 % (0.0-1.0); %Eosinophils 4.9 % (0.0-10.0); %Lymphocytes 13.2 % (21.0-51.0); %Monocytes 14.9 % (0.0-10.0); %Neutrophils 66.2 % (42.0-75.0); Hemoglobin 9.3 g/dL (12.0-16.0); Mean Corpuscular HGB CONC 32.7 g/dL (32.0-36.0); Mean Corpuscular Hemoglobin 29.1 pg (27.0-31.0); Mean Corpuscular Volume 89.1 fL (78.0-98.0); Mean Platelet Volume 9.3 fL (7.4-10.4); Platelet Count 240 thou/uL (130-400); RBC Distribution Width 15.9 % (11.5-14.5); Red Blood Cell (RBC) Count 3.19 mill/uL (4.20-5.40); White Blood Cell (WBC) Count 9.3 thou/uL (4.8-10.8)
[2020-04-22 04:44] LABS: Anion Gap 13 mmol/L (10-20); BUN (Urea Nitrogen) 24 mg/dL (9.8-20.1); Calc. Creatinine Clearance 37 mL/min (70-130); Calcium 8.3 mg/dL (7.8-10.44); Carbon Dioxide 28 mmol/L (23-31); Chloride 104 mmol/L (98-107); Estimated GFR-MDRD 24; Glucose 158 mg/dL (80-115); Potassium 4.1 mmol/L (3.5-5.1); Sodium 141 mmol/L (136-145)
[2020-04-22] MEDS: Arformoterol 15 MCG/2 ML NEB NEB SCH (07:18)
[2020-04-22] MEDS: Budesonide 0.5 MG/2 ML NEB NEB SCH (07:18)
[2020-04-22] MEDS: Carvedilol 6.25 MG TAB PO SCH (09:00)
[2020-04-22] MEDS ORDERED: Lidocaine Patch Removal 1 EACH TOP SCH (09:00)
[2020-04-22] MEDS: hydrALAZINE 25 MG TAB PO SCH ×2 (09:01→14:25)
[2020-04-22] MEDS: Aspirin 325 MG TAB PO SCH (09:03)
[2020-04-22] MEDS: Amlodipine 10 MG TAB PO SCH (09:05)
[2020-04-22] MEDS: Pantoprazole 40 MG VIAL IVP SCH (09:06)
--- NOTE | 2020-04-22 10:27 | PRG ---
DATE OF SERVICE: SUBJECTIVE: Patient was seen and examined at bedside and overnight events noted. Patient denies any shortness of breath or chest pain or palpitation. No history of nausea or vomiting or diarrhea or fever or chills or cramps. OBJECTIVE: GENERAL: This is an obese female, in no apparent distress. VITAL SIGNS: Temperature 99. Pulse 94. Respiratory rate 16. Blood pressure 130/62. HEENT: Atraumatic, normocephalic. Oral mucosa is moist NECK: Supple. CARDIOVASCULAR: S1, S2 heard. Rate and rhythm regular. RESPIRATORY: Clear to auscultation. GASTROINTESTINAL: Abdomen is soft. MUSCULOSKELETAL: No tenderness. No edema. DERMATOLOGIC: No skin rash. NEUROLOGIC: Alert and awake and oriented X3. No focal neurologic deficits. Moving all the extremities. PSYCHIATRIC: Mood and affect normal. LABORATORY DATA: Potassium 4.1, BUN is 24, creatinine is 2.3. ASSESSMENT AND PLAN: 1. Acute kidney injury on chronic kidney disease, stage 4, stable. 2. Hypernatremia. 3. Hypokalemia. 4. Cardiorenal syndrome. 5. Edema. Overall, labs are stable. Her diuretics were on hold. Okay with restarting diuretics, probably Lasix 20 mg p.o. daily with titration as needed. Advised to follow up with the clinic in 1 to 2 weeks if she is getting discharged. Job ID: [id number]
[2020-04-22 12:01] VITALS: TEMP 98.5
[2020-04-22] MEDS: Verapamil 120 MG TAB PO SCH ×2 (12:01→13:58)
--- NOTE | 2020-04-22 12:26 | PDOC.DS.DS ---
Provider - Provider Date of Admission: 04/05/20 16:43 Date of Discharge: 04/22/20 Admitting Provider: Tung Yeh MD Primary Care Physician: NISREEN Dunlap Course - Hospital Course Hospital Course: The patient is a 69-year-old female with past medical history of COPD, diastolic heart failure, asthma, diabetes mellitus, hypertension, and gout who was admitted to the hospital for acute on chronic respiratory failure with hypoxia due to exacerbation of CHF and COPD in addition to chronic kidney disease. The patient was managed with scheduled nebulizer treatments, antibiotics, and corticosteroids in addition to diuresis which led to gradual improvement of her hypoxia. The patient's COVID-19 PCR was negative. Suspicious lung nodule was noted on CT scan of the chest. Pulmonology recommended outpatient follow-up in 3 months. Resuscitation Status: 04/05/20 18:06 Resuscitation Status Routine Resuscitation Status: FULL: Full Resuscitation - Labs Lab Results: 04/22/20 04:04 04/22/20 04:04 Abnormal Lab Results - Last 48 hrs 04/21/20 04:15: BUN 28 H, Creatinine 2.52 H 04/21/20 04:15: RBC 3.13 L, Hgb 9.0 L, Hct 27.7 L, RDW 15.8 H, Lymphocytes % 15.2 L, Monocytes % 13.4 H, Monocytes # 1.2 H 04/22/20 04:04: BUN 24 H, Creatinine 2.39 H 04/22/20 04:04: RBC 3.19 L, Hgb 9.3 L, Hct 28.4 L, RDW 15.9 H, Lymphocytes % 13.2 L, Monocytes % 14.9 H, Monocytes # 1.4 H Microbiology - Entire Visit 04/05/20 15:41 Venous blood - Right Hand Blood Culture - Final NO GROWTH IN 5 DAYS 04/05/20 15:41 Venous blood - Left Hand Blood Culture - Final NO GROWTH IN 5 DAYS 04/06/20 12:42 Urine voided Urine Culture - Final - Physical Exam Vitals: Vital Signs (12 hours) Temp Pulse Resp BP BP Pulse Ox 04/22/20 12:00 98.5 F 72 16 92 L 04/22/20 09:05 94 130/62 04/22/20 09:01 94 130/62 04/22/20 09:00 130/62 04/22/20 08:26 98.9 F 94 16 130/62 93 L 04/22/20 07:19 91 L 04/22/20 07:18 94 20 91 L 04/22/20 07:17 94 20 91 L 04/22/20 03:47 98.7 F 72 18 128/61 97 Weight Admit Weight 264 lb 11.2 oz Weight 236 lb 6.4 oz Physical Exam: The patient was seen and examined on the day of discharge. Problem - Problem (1) Acute respiratory failure with hypoxia Code(s): J96.01 - ACUTE RESPIRATORY FAILURE WITH HYPOXIA Status: Acute (2) COPD exacerbation Code(s): J44.1 - CHRONIC OBSTRUCTIVE PULMONARY DISEASE W (ACUTE) EXACERBATION Status: Acute (3) Hypertensive urgency Code(s): I16.0 - HYPERTENSIVE URGENCY Status: Acute (4) Morbid obesity with BMI of 40.0-44.9, adult Code(s): E66.01 - MORBID (SEVERE) OBESITY DUE TO EXCESS CALORIES; Z68.41 - BODY MASS INDEX [BMI]40.0-44.9, ADULT Status: Chronic (5) Acute kidney injury superimposed on CKD Code(s): N17.9 - ACUTE KIDNEY FAILURE, UNSPECIFIED; N18.9 - CHRONIC KIDNEY DISEASE, UNSPECIFIED Status: Acute (6) Lung nodule Code(s): R91.1 - SOLITARY PULMONARY NODULE Status: Acute (7) DM2 (diabetes mellitus, type 2) Status: Acute - Time spent with Patient (mins): 35 Plan - Discharge Medications Prescriptions: Amlodipine [Norvasc] 10 mg PO DAILY #30 tab Home Medications: Medication Instructions Recorded Confirmed Type Albuterol Sulfate [Albuterol 2.5 mg NEB Q4H PRN 10/06/15 04/07/20 History Sulfate Neb] Insulin NPH Hum/Reg Insulin HM 25 unit SC BID-WM 10/06/15 04/07/20 History [Novolin 70/30] Multivitamin [Multivitamins] 1 cap PO DAILY 10/06/15 04/07/20 History Acetaminophen With Codeine 1 tablet PO Q6HR PRN 10/08/15 04/07/20 History [Tylenol with Codeine #3] Gabapentin [Neurontin] 500 mg PO TID 04/07/20 04/07/20 History Amlodipine [Norvasc] 10 mg PO DAILY #30 tab 04/11/20 Rx Arformoterol [Brovana] 15 mcg NEB BID-RT #0 neb 04/11/20 Rx Carvedilol [Coreg] 6.25 mg PO BID-WM tab 04/22/20 Rx Furosemide [Lasix] 20 mg PO DAILY #0 04/22/20 04/07/20 Rx Isosorbide Mononitrate [Imdur] 120 mg PO DAILY tab 04/22/20 Rx Pantoprazole [Protonix] 40 mg IVP DAILY vial 04/22/20 Rx Potassium Chloride [K-Dur] 20 meq PO DAILY #0 04/22/20 04/07/20 Rx Verapamil [Calan] 120 mg PO QID tab 04/22/20 Rx Allergies: ipratropium [From Atrovent] Allergy (Verified 04/01/19 22:55) DIZZY, TROUBLE BREATHING Sulfa (Sulfonamide Antibiotics) Allergy (Verified 04/01/19 22:55) DYSPNEA - Follow up Plan Referrals: [facility] [Outside] (Long Term Placement.) Velia Bautista FNP [Primary Care Provider] - Mila Salazar MD [Active] - (Accepting pcp at the [facility] for care home placement.) Marco Holland MD [Active] - (CALL OFFICE TO SCHEDULE APPOINTMENT IN [address] SCAN) Disposition: [facility] FACILITY Quality - Care Measures CORE MEASURES:: N/A
[2020-04-22 15:42] VITALS: BP 132/60
--- NOTE | 2020-04-23 05:34 | PQF ---
Dear : Evette Beltran Date 04/23/2020 Please exercise your independent, professional judgment in responding to the clarification form. Clinical indicators are provided on the bottom of this form for your review Can you please further clarify the diagnosis of the patient? Please check appropriate box(es): [ ] Type 1 ID (STEMI) (please also specify site and artery see below) SITE: [ ] Anterior [ ] Apical [ ] Lateral [ ] Inferior [ ] Posterior [ ] Q Wave [ ] Septal [ ] Unable to Determine [ ] Type 1 ID (NSTEMI) [> ] Type 2 ID (T2MI) secondary to: [ >] COPD exacerbation [ ] Other please specify: [ ] Demand ischemia without diagnosis of ID [ ] Elevated troponin only [ ] Other diagnosis please specify: [ ] Unable to determine In addition, please specify: Present on Admission (POA): [ > ] Yes [ ] No [ ] Unable to determine Physician Signature: Date/Time: For continuity of documentation, please document condition throughout progress notes and discharge summary. Thank You. To be completed by CDI/Coding staff for physician review: Present Clinical Indicators - Signs / Symptoms / Labs Results and Location in Medical Record [ x ] Normal ST Segments normal T waves ED Provider pg.4 [ x ] Elevated cardiac enzymes troponin ED Provider pg.4 [ x ] Troponin: 0.053H, 0.043H, 0.036H ,0.0114H, 0.0138H Laboratory [ x ] Elevated troponin likely secondary to demand ischemia from COPD exacerbation Consult pg.2 Dr. Lopez Present Risk Factors Results and Location in Medical Record [ x ] Hypertensive emergency ED Provider pg.4 [ x ] Acute respi failure H and P pg.1 [ x ] COPD exacerbation H and P pg.1 [ x ] 69 years old H and P pg.1 [ x ] CHF H and P pg.1 [ x ] CKD IV H and P pg.1 [ x ] Morbid obese H and P pg.1 [ x ] DM H and P pg.1 Present Treatments Results and Location in Medical Record [ x ] Troponin Monitoring Laboratory [ x ] Cardiology Consult Dr. Knight 04/12 [ x ] Electrocardiogram Electrocardiogram 04/11 [ x ] IV Fluids MAR [ x ] Nitroglycerin 50,g IV MAR [ x ] Aspirin 81mg PO MAR [ x ] Lovenox 100mg IV MAR CDS/Metal Or [employer]ocker Signature: Ac Ivy Phone #: [facility] 0453 Date 04/23/2020 This is a permanent part of the Medical Record [facility]
--- NOTE | 2020-04-23 12:53 | EKG ---
Test Reason : Blood Pressure : / mmHG Vent. Rate : 130 BPM Atrial Rate : 130 BPM P-R Int : 152 ms QRS Dur : 090 ms QT Int : 288 ms P-R-T Axes : 061 069 029 degrees QTc Int : 423 ms Sinus tachycardia with occasional Premature ventricular complexes Otherwise normal ECG When compared with ECG of 11-APR-2020 15:52, Premature ventricular complexes are now Present Premature atrial complexes are no longer Present Vent. rate has increased BY 44 BPM Questionable change in QRS axis Confirmed by NICOLAS HORTON (2) on 04/23/2020 12:53:05 PM Referred By: CHELSEA Confirmed By:NICOLAS HORTON
== END 2020-04-22 16:09 | DRG 280 ==
LOC: ERS 14:47 → ERHOLD 16:43 → 2NO 04-06 19:52
PROVIDERS: ADMIT Internal Medicine; ATTEND Internal Medicine
PROC: 5A09457 Assistance with Respiratory Ventilation, 24-96 Consecutive Hours, Continuous Positive Airway Pressure (ICD-10-PCS; principal; 2020-04-05)
PROC: 0DJ08ZZ Inspection of Upper Intestinal Tract, Via Natural or Artificial Opening Endoscopic (ICD-10-PCS; 2020-04-14)
DX: I13.0 Hypertensive heart and chronic kidney disease with heart failure and stage 1 through stage 4 chronic kidney disease, or unspecified chronic kidney disease (principal); I50.33 Acute on chronic diastolic (congestive) heart failure; I21.A1 Myocardial infarction type 2; J96.21 Acute and chronic respiratory failure with hypoxia; J44.1 Chronic obstructive pulmonary disease with (acute) exacerbation; Z68.41 Body mass index [BMI] 40.0-44.9, adult; N17.9 Acute kidney failure, unspecified; N18.4 Chronic kidney disease, stage 4 (severe); I16.1 Hypertensive emergency; E87.2 Acidosis; I47.2 Ventricular tachycardia; E87.0 Hyperosmolality and hypernatremia; Z23 Encounter for immunization; Z51.5 Encounter for palliative care; Z20.828 Contact with and (suspected) exposure to other viral communicable diseases; E11.22 Type 2 diabetes mellitus with diabetic chronic kidney disease; M06.9 Rheumatoid arthritis, unspecified; I16.0 Hypertensive urgency; E66.01 Morbid (severe) obesity due to excess calories; R91.1 Solitary pulmonary nodule; E87.5 Hyperkalemia; Z96.653 Presence of artificial knee joint, bilateral; G47.33 Obstructive sleep apnea (adult) (pediatric); E11.42 Type 2 diabetes mellitus with diabetic polyneuropathy; E11.65 Type 2 diabetes mellitus with hyperglycemia; R10.9 Unspecified abdominal pain; E87.6 Hypokalemia; D63.1 Anemia in chronic kidney disease; Z98.51 Tubal ligation status; Z88.2 Allergy status to sulfonamides; Z88.8 Allergy status to other drugs, medicaments and biological substances; Z79.51 Long term (current) use of inhaled steroids; Z79.4 Long term (current) use of insulin; Z79.899 Other long term (current) drug therapy; Z99.81 Dependence on supplemental oxygen; Z79.82 Long term (current) use of aspirin
CPT/HCPCS: 36415; 36416; 36600; 71045; 71250; 74018; 74176; 76705; 80048; 80053; 81001; 82550; 82553; 82570; 82805; 83036; 83605; 83690; 83735; 83880; 84156; 84300; 84484; 84540; 85025; 85610; 85652; 85730; 86140; 87040; 87086; 93005; 93010; 93306; 94640; 94660; 94760; 96365; 96366; 96372; 99292; C9113; J0360; J0456; J0696; J1650; J1815; J1940; J2270; J2405; J2704; J2920; J3475; J3490; J7050; J7070; J7512; J7611; J7626; Q0162; S0028; U0002

== ENCOUNTER 2020-05-03 15:48 | Emergency (ER) | payer MEDICARE ==
[~2020-05-03 15:48] MED LIST changes: +Atropine Sulfate 1 mg/10 ml Syringe ONE; +Calcium Chloride 1 GM/10 ML Abboject SYRINGE ONE; +EPINEPHrine 1 MG/10 ML Abboject SYRINGE ONE; -Iopamidol-370 76% 500 ML 1 ML ONE; +Sodium Bicarb 50 MEQ/50 ML Abboject 8.4% SYRINGE ONE
== END 2020-05-03 15:55 | disposition expired ==
LOC: ERS 15:48
DX: I46.9 Cardiac arrest, cause unspecified (principal); E11.9 Type 2 diabetes mellitus without complications; I50.9 Heart failure, unspecified; J44.9 Chronic obstructive pulmonary disease, unspecified
CPT/HCPCS: 36416; 96374; 96375; J0171; J0461